=== PATIENT | female | born 1975 | race Caucasian/White ===

== ENCOUNTER 2017-01-30 09:12 | Inpatient (IN) | payer OTHER ==
[2017-01-30] MEDS ORDERED: SODIUM CHLORIDE 0.9% 1,000 ML IV STA ×2 (09:27→10:18)
[2017-01-30] MEDS ORDERED: HYDROmorphone 1 MG/ML 1 ML SYRINGE IVP STA ×2 (09:27→10:23)
--- NOTE | 2017-01-30 09:30 | ED ---
General Adult HPI - General Chief complaint: Abdominal Pain Stated complaint: ABDOMINAL PAIN Time Seen by Provider: 01/30/17 09:22 Source: patient, RN notes reviewed Mode of arrival: wheelchair Limitations: no limitations - History of Present Illness Initial comments: Patient's a 41-year-old female who presents emergency room today with chief complaint of increased abdominal pain that started last night. She does admit that she's had symptoms of nausea vomiting over the last 2 days. States last night around 10 PM began having some abdominal discomfort that radiated around to the right side and into her back. She scratches a sharp pain. States never had similar symptoms in the past. Rates it a 11/28. Denies anything that makes it better or worse. Denies any other complaints or symptoms. Patient denies any recent fever, chills, shortness of breath, chest pain, numbness or tingling , dysuria or hematuria, constipation or diarrhea, headaches or visual changes, or any other complaints. - Related Data Home Medications Medication Instructions Recorded Confirmed Gabapentin [Neurontin] 300 mg PO BID 03/09/16 01/30/17 clonazePAM [KlonoPIN] 0.5 mg PO DAILY PRN 01/30/17 01/30/17 Allergies Allergy/AdvReac Type Severity Reaction Status Date / Time codeine Allergy Mild Rash/Hives Verified 01/30/17 09:37 Review of Systems ROS Statement: Those systems with pertinent positive or pertinent negative responses have been documented in the HPI. ROS Other: All systems not noted in ROS Statement are negative. Past Medical History Past Medical History: Diabetes Mellitus Additional Past Medical History / Comment(s): non insulin dependent diabetic History of Any Multi-Drug Resistant Organisms: None Reported Past Surgical History: Section Past Anesthesia/Blood Transfusion Reactions: No Reported Reaction Past Psychological History: Anxiety Smoking Status: Current every day smoker Past Alcohol Use History: Abuse, Daily, Occasional Past Drug Use History: None Reported - Past Family History Father Family Medical History: No Reported History Mother Family Medical History: No Reported History General Exam - General Exam Comments Initial Comments: General: The patient is awake and alert, in mild distress. Unable to find comfortable position. Eye: Pupils are equal, round and reactive to light, extra-ocular movements are intact. No nystagmus. There is normal conjunctiva bilaterally. No signs of icterus. Ears, nose, mouth and throat: There are moist mucous membranes and no oral lesions. Neck: The neck is supple, there is no tenderness or JVD. Cardiovascular: There is a regular rate and rhythm. No murmur, rub or gallop is appreciated. Respiratory: Lungs are clear to auscultation, respirations are non-labored, breath sounds are equal. No wheezes, stridor, rales, or rhonchi. Gastrointestinal: Normal appearance abdomen. Normal bowel sounds. Abdomen soft on palpation. Patient does have tenderness on exam to the epigastric and right side of the abdomen. No rebound tenderness. No guarding. No CVA tenderness. Musculoskeletal: Normal ROM, no tenderness. Strength 5/5. Sensation intact. Pulses equal bilaterally 2+. Neurological: A&O x 3. CN II-XII intact, There are no obvious motor or sensory deficits. Coordination appears grossly intact. Speech is normal. Skin: Skin is warm and dry and no rashes or lesions are noted. Psychiatric: Cooperative, appropriate mood & affect, normal judgment. Limitations: no limitations Course Vital Signs 01/30/17 01/30/17 09:19 10:36 Temperature 98.3 F 98.1 F Pulse Rate 120 H 126 H Respiratory 18 18 Rate Blood Pressure 115/91 133/80 O2 Sat by Pulse 98 Oximetry Medical Decision Making - Medical Decision Making Patient's labs been reviewed and elevated lactic acid. Patient expressing pain right upper quadrant. Patient's x-ray was reviewed does show evidence for free air. Patient's CT was performed without contrast due to kidney function. Does show evidence for free air with cholecystitis. Case discussed with attending physician Dr. Leon who did discuss case with on-call surgeon Dr. Loco will admit the patient to the OR. - Lab Data Result diagrams: 01/30/17 09:35 01/30/17 09:35 Lab Results 01/30/17 01/30/17 01/30/17 Range/Units 09:35 09:35 09:35 WBC 8.8 (3.8-10.6) k/uL RBC 3.82 (3.80-5.40) m/uL Hgb 13.4 (11.4-16.0) gm/dL Hct 42.5 (34.0-46.0) % MCV 111.5 H (80.0-100.0) fL MCH 35.2 H (25.0-35.0) pg MCHC 31.6 (31.0-37.0) g/dL RDW 14.8 (11.5-15.5) % Plt Count 224 (150-450) k/uL Neutrophils % (Manual) 57 % Band Neutrophils % 32 % Lymphocytes % (Manual) 5 % Monocytes % (Manual) 5 % Basophils % (Manual) 1 % Metamyelocytes % 1 % Neutrophils # (Manual) 7.80 H (1.3-7.7) k/uL Lymphocytes # (Manual) 0.44 L (1.0-4.8) k/uL Monocytes # (Manual) 0.44 (0-1.0) k/uL Basophils # (Manual) 0.09 (0-0.2) k/uL Metamyelocytes # (Man) 0.09 H (0) k/uL Nucleated RBCs 0 (0-0) /100 WBC Manual Slide Review Performed Poikilocytosis (manual Present Macrocytosis Marked Sodium 131 L (137-145) mmol/L Potassium 4.0 (3.5-5.1) mmol/L Chloride 99 (98-107) mmol/L Carbon Dioxide 15 L (22-30) mmol/L Anion Gap 17 mmol/L BUN 22 H (7-17) mg/dL Creatinine 1.80 H (0.52-1.04) mg/dL Est GFR (MDRD) Af Amer 38 (>60 ml/min/1.73 sqM) Est GFR (MDRD) Non-Af 31 (>60 ml/min/1.73 sqM) Glucose 222 H (74-99) mg/dL Plasma Lactic Acid Antony 7.6 H* (0.7-2.0) mmol/L Calcium 8.7 (8.4-10.2) mg/dL Total Bilirubin 4.7 H (0.2-1.3) mg/dL AST 544 H (14-36) U/L ALT 269 H (9-52) U/L Alkaline Phosphatase 123 (38-126) U/L Total Protein 6.3 (6.3-8.2) g/dL Albumin 3.0 L (3.5-5.0) g/dL Amylase 35 (30-110) U/L Lipase 79 (23-300) U/L Urine Color Urine Appearance (Clear) Urine pH (5.0-8.0) Ur Specific [place] (1.001-1.035) Urine Protein (Negative) Urine Glucose (UA) (Negative) Urine Ketones (Negative) Urine Blood (Negative) Urine Nitrite (Negative) Urine Bilirubin (Negative) Urine Urobilinogen (<2.0) mg/dL Ur Leukocyte Esterase (Negative) Urine RBC (0-5) /hpf Urine WBC (0-5) /hpf Ur Squamous Epith Cells (0-4) /hpf Urine Bacteria (None) /hpf Urine Mucus (None) /hpf Urine HCG, Qual (Not Detectd) 01/30/17 01/30/17 Range/Units 09:48 09:48 WBC (3.8-10.6) k/uL RBC (3.80-5.40) m/uL Hgb (11.4-16.0) gm/dL Hct (34.0-46.0) % MCV (80.0-100.0) fL MCH (25.0-35.0) pg MCHC (31.0-37.0) g/dL RDW (11.5-15.5) % Plt Count (150-450) k/uL Neutrophils % (Manual) % Band Neutrophils % % Lymphocytes % (Manual) % Monocytes % (Manual) % Basophils % (Manual) % Metamyelocytes % % Neutrophils # (Manual) (1.3-7.7) k/uL Lymphocytes # (Manual) (1.0-4.8) k/uL Monocytes # (Manual) (0-1.0) k/uL Basophils # (Manual) (0-0.2) k/uL Metamyelocytes # (Man) (0) k/uL Nucleated RBCs (0-0) /100 WBC Manual Slide Review Poikilocytosis (manual Macrocytosis Sodium (137-145) mmol/L Potassium (3.5-5.1) mmol/L Chloride (98-107) mmol/L Carbon Dioxide (22-30) mmol/L Anion Gap mmol/L BUN (7-17) mg/dL Creatinine (0.52-1.04) mg/dL Est GFR (MDRD) Af Amer (>60 ml/min/1.73 sqM) Est GFR (MDRD) Non-Af (>60 ml/min/1.73 sqM) Glucose (74-99) mg/dL Plasma Lactic Acid Antony (0.7-2.0) mmol/L Calcium (8.4-10.2) mg/dL Total Bilirubin (0.2-1.3) mg/dL AST (14-36) U/L ALT (9-52) U/L Alkaline Phosphatase (38-126) U/L Total Protein (6.3-8.2) g/dL Albumin (3.5-5.0) g/dL Amylase (30-110) U/L Lipase (23-300) U/L Urine Color Dark Yellow Urine Appearance Turbid H (Clear) Urine pH 5.5 (5.0-8.0) Ur Specific [place] 1.021 (1.001-1.035) Urine Protein 1+ H (Negative) Urine Glucose (UA) 3+ H (Negative) Urine Ketones Trace H (Negative) Urine Blood Negative (Negative) Urine Nitrite Negative (Negative) Urine Bilirubin 1+ H (Negative) Urine Urobilinogen 3.0 (<2.0) mg/dL Ur Leukocyte Esterase Small H (Negative) Urine RBC 3 (0-5) /hpf Urine WBC 2 (0-5) /hpf Ur Squamous Epith Cells 8 H (0-4) /hpf Urine Bacteria Many H (None) /hpf Urine Mucus Rare H (None) /hpf Urine HCG, Qual Not Detected (Not Detectd) Disposition Clinical Impression: Acute cholecystitis Disposition: ADMITTED IP TO THIS [facility] Condition: Stable Referrals: Kathryn Vieira MD [Primary Care Provider] - 1-2 days Time of Disposition: 11:19
[2017-01-30] MEDS: ONDANSETRON 4 MG/2 ML VIAL IVP STA ×2 (09:43→14:19)
[2017-01-30 09:58] LABS: Appearance,Urine Turbid (Clear); Bacteria,Urine Many /hpf; Bilirubin,Urine 1+ (Negative); Glucose,Urine (UA) 3+ (Negative); Ketones,Urine Trace (Negative); Leukocyte Esterase,Urine Small (Negative); Mucus,Urine Rare /hpf; Nitrite,Urine Negative (Negative); PH, Urine 5.5 (5.0-8.0); Particle Count 35613; Protein,Urine 1+ (Negative); RBC,Urine 3 /hpf (0-5); Specific Gravity,Urine 1.021 (1.001-1.035); Squamous Epithelial Cell,Urine 8 /hpf (0-4); UA Billing (MACRO vs. MICRO) MICRO; WBC,Urine 2 /hpf (0-5)
[2017-01-30 10:00] LABS: Calcium 8.7 mg/dL (8.4-10.2); Total Bilirubin 4.7 mg/dL (0.2-1.3); Total Protein 6.3 g/dL (6.3-8.2)
[2017-01-30 10:01] LABS: CHCM 32.4; HCT 42.5 % (34.0-46.0); HDW 1.96; HGB 13.4 gm/dL (11.4-16.0); Immature Gran Flag Marked; MCH 35.2 pg (25.0-35.0); MCHC 31.6 g/dL (31.0-37.0); MCV 111.5 fL (80.0-100.0); Macrocytosis Marked; RBC 3.82 m/uL (3.80-5.40); RDW 14.8 % (11.5-15.5); WBC 8.8 k/uL (3.8-10.6); WBC (Perox) 8.48
--- NOTE | 2017-01-30 10:23 | XR ---
EXAMINATION TYPE: XR KUB , 2 VIEWS DATE OF EXAM ORDERED: 01/30/2017 HISTORY: pain. COMPARISON: None. FINDINGS: The lung bases are clear. Within the abdomen, the abdominal gas pattern is normal. There is no evidence of obstruction or free air. No unusual calcifications are seen. IMPRESSION: NO ACUTE INTRA-ABDOMINAL ABNORMALITY.
[2017-01-30 10:46] LABS: Add Differential Manual Differential
[2017-01-30] MEDS ORDERED: PIPERACILLIN-TAZOBACTAM 3.375 GM in DEXTROSE/WATER 1 50ML.BAG IVPB STA (10:48)
[2017-01-30 10:50] LABS: Band Neutrophils % 32 %; Manual Review Performed; Metamyelocytes % 1 %; Nucleated Red Blood Cells 0 /100 WBC (0-0); Total Cells Counted 200
--- NOTE | 2017-01-30 11:10 | CT ---
EXAMINATION TYPE: CT abdomen pelvis wo con DATE OF EXAM: 01/30/2017 COMPARISON: NONE HISTORY: Abd pain CT DLP: 657.5 mGycm Automated exposure control for dose reduction was used. FINDINGS: Visualized portions of the lungs are clear. There is no pleural or pericardial fluid. The h eart is not enlarged. Within the abdomen, there is massive hepatomegaly with the liver measuring 28 cm. There is fatty infi ltration of the liver. There is air within the biliary tree. The spleen is normal. The gallbladder is distended. There is free intraperitoneal air. Both adrenal glands are normal. Both kidneys appear morphologically normal. Limited views of the pancreas are normal. There is no significant retroperitoneal, iliac or inguinal adenopathy. The bladder is unremarkable. The uterus and ovaries appear normal. There is no significant diverticular change and there is no radiographic evidence of diverticulitis. The appendix is not visualized. Small bowel caliber is normal. There is a large amount of free fluid. There is stranding throughout the mesentery. There is mild hypertrophic spondylosis within the spine. No bony destructive lesion is seen. IMPRESSION: 1. FREE INTRAPERITONEAL AIR. 2. LARGE AMOUNT OF ASCITES. 3. MASSIVE HEPATOMEGALY AND FATTY INFILTRATION OF THE LIVER. 4. AIR IN THE BILIARY TREE. 5. DISTENTION OF THE GALLBLADDER. #6 DIFFUSE STRANDING THROUGHOUT THE MESENTERY. 7. MILD DEGENERATIVE CHANGE WITHIN THE SPINE.
[2017-01-30] MEDS ORDERED: SODIUM CHLORIDE 0.9% 1,000 ML IV ONE (11:20)
[2017-01-30] MEDS ORDERED: DEXAMETHASONE SOD PHOS (MDV) 100 MG/10 ML VIAL ONE (12:25)
[2017-01-30] MEDS ORDERED: IV FLUID CONTINUATION 1,000 ML IV ONE (12:25)
[2017-01-30] MEDS ORDERED: ONDANSETRON 4 MG/2 ML VIAL ONE (12:25)
[2017-01-30] MEDS ORDERED: GLYCOPYRROLATE 0.2 MG/ML 2 ML VIAL ONE (12:25)
[2017-01-30] MEDS ORDERED: ROCURONIUM BROMIDE 10 MG/ML 10 ML VIAL IV ONE (12:25)
[2017-01-30] MEDS ORDERED: PROPOFOL 10 MG/ML 20 ML VIAL IV ONE (12:25)
[2017-01-30] MEDS ORDERED: fentaNYL (PF) 50 MCG/ML 2 ML AMP ONE (12:25)
[2017-01-30] MEDS ORDERED: NEOSTIGMINE 1 MG/ML 10 ML VIAL ONE (12:25)
[2017-01-30] MEDS ORDERED: ceFAZolin 1,000 MG VIAL ONE (12:25)
[2017-01-30] MEDS ORDERED: LIDOCAINE 1% INJ 10MG/ML (20 ML MDV) ONE (12:25)
[2017-01-30] MEDS ORDERED: MIDAZOLAM 2 MG/2 ML VIAL ONE (12:25)
[2017-01-30] MEDS ORDERED: SUCCINYLCHOLINE CHLORIDE 100 MG/5 ML SYR IV ONE (12:25)
--- NOTE | 2017-01-30 12:26 | P.GSHP ---
History of Present Illness H&P Date: 01/30/17 Chief Complaint: Severe abdominal pain The patient is a 41-year-old white female who states she's developed some abdominal pain about 3 days ago that progressively worsened." There is severe last night and she presented to the emergency room. Had nausea and vomiting associated with it. No past history of similar problems. No history of gallbladder disease. She thinks several years ago she was told gallbladder may be inflamed but was not the ready to be removed. Peptic ulcer disease. She had a computed tomography scan of the abdomen and pelvis and abdominal films which show showed evidence of free intraperitoneal area. There is some mild distention and thickening of the gallbladder. Also some mild mesenteric inflammation. Amount of free fluid in the abdomen and evidence of masses or hepatosplenomegaly. She does drink a pint of the Vodka daily plus over 2 years now. Past history. Positive for diabetes mellitus. Anxiety. Depression. Medications as listed including Neurontin and the anxiety medication. History of prior . Back issues. Degenerative joint disease. ALLERGIES codeine. Social history. Positive for smoking between a half a pack of cigarettes a day for several years. Also vodka pint daily. Systems review as above. No chest pain. No shortness of breath. No blood in the stool. No urinary symptoms. No vaginal discharge or bleeding. On examination the patient is well-built well-nourished mildly dehydrated. In fair amount of pain. Doesn't feel comfortable. Temperature is normal. Vitals are normal. Heart rate 102 a minute. Head and neck otherwise normal. Slightly icteric. Heart regular rhythm no murmurs. Lungs are clear. Abdomen distended very tender to palpation mostly in the epigastrium and right upper quadrant area. Evidence of rebound tenderness guarding. No hernias. No mass or organomegaly noted. Extremities normal with full motion. [employer] intact. CT as above. WBC is normal. Bilirubin and liver enzymes are elevated. Suspect this may be secondary to ethanol abuse and cirrhosis particularly in view of evidence of hepatomegaly. Impression. Perforated viscus- Probably related to upper abdominal organs. Possibly gallbladder or perforated ulcer. . Hepatomegaly. Ethanol abuse. Tobacco abuse. Dehydration. Mild renal failure diabetes mellitus. Anxiety disorder. Recommendation. Exploratory laparotomy and the would depend on the findings. I explained this to the patient in the presence of her family including potential complication particular bleeding infection surrounding injury pain chronic issues for healing and high risk for complications in view of her tobacco and ethanol abuse used to mellitus. Possible ostomy. She understood and agree to proceed. Past Medical History Past Medical History: Diabetes Mellitus Additional Past Medical History / Comment(s): non insulin dependent diabetic History of Any Multi-Drug Resistant Organisms: None Reported Past Surgical History: Section Past Anesthesia/Blood Transfusion Reactions: No Reported Reaction Past Psychological History: Anxiety Smoking Status: Current every day smoker Past Alcohol Use History: Abuse, Daily, Occasional Past Drug Use History: None Reported - Past Family History Father Family Medical History: No Reported History Mother Family Medical History: No Reported History Medications and Allergies Home Medications Medication Instructions Recorded Confirmed Type Gabapentin [Neurontin] 300 mg PO BID 03/09/16 01/30/17 History clonazePAM [KlonoPIN] 0.5 mg PO DAILY PRN 01/30/17 01/30/17 History Allergies Allergy/AdvReac Type Severity Reaction Status Date / Time codeine Allergy Mild Rash/Hives Verified 01/30/17 09:37 Surgical - Exam Vital Signs Temp Pulse Resp BP Pulse Ox 98.3 F 120 H 18 115/91 98 01/30/17 09:19 01/30/17 09:19 01/30/17 09:19 01/30/17 09:19 01/30/17 09:19 Results - Labs 01/30/17 09:35 01/30/17 09:35 Abnormal Lab Results - Last 24 Hours (Table) 01/30/17 01/30/17 01/30/17 Range/Units 09:35 09:35 09:35 MCV 111.5 H (80.0-100.0) fL MCH 35.2 H (25.0-35.0) pg Neutrophils # (Manual) 7.80 H (1.3-7.7) k/uL Lymphocytes # (Manual) 0.44 L (1.0-4.8) k/uL Metamyelocytes # (Man) 0.09 H (0) k/uL Sodium 131 L (137-145) mmol/L Carbon Dioxide 15 L (22-30) mmol/L BUN 22 H (7-17) mg/dL Creatinine 1.80 H (0.52-1.04) mg/dL Glucose 222 H (74-99) mg/dL Plasma Lactic Acid Antony 7.6 H* (0.7-2.0) mmol/L Total Bilirubin 4.7 H (0.2-1.3) mg/dL AST 544 H (14-36) U/L ALT 269 H (9-52) U/L Albumin 3.0 L (3.5-5.0) g/dL Urine Appearance (Clear) Urine Protein (Negative) Urine Glucose (UA) (Negative) Urine Ketones (Negative) Urine Bilirubin (Negative) Ur Leukocyte Esterase (Negative) Ur Squamous Epith Cells (0-4) /hpf Urine Bacteria (None) /hpf Urine Mucus (None) /hpf 01/30/17 Range/Units 09:48 MCV (80.0-100.0) fL MCH (25.0-35.0) pg Neutrophils # (Manual) (1.3-7.7) k/uL Lymphocytes # (Manual) (1.0-4.8) k/uL Metamyelocytes # (Man) (0) k/uL Sodium (137-145) mmol/L Carbon Dioxide (22-30) mmol/L BUN (7-17) mg/dL Creatinine (0.52-1.04) mg/dL Glucose (74-99) mg/dL Plasma Lactic Acid Antony (0.7-2.0) mmol/L Total Bilirubin (0.2-1.3) mg/dL AST (14-36) U/L ALT (9-52) U/L Albumin (3.5-5.0) g/dL Urine Appearance Turbid H (Clear) Urine Protein 1+ H (Negative) Urine Glucose (UA) 3+ H (Negative) Urine Ketones Trace H (Negative) Urine Bilirubin 1+ H (Negative) Ur Leukocyte Esterase Small H (Negative) Ur Squamous Epith Cells 8 H (0-4) /hpf Urine Bacteria Many H (None) /hpf Urine Mucus Rare H (None) /hpf Diabetes panel 01/30/17 Range/Units 09:35 Sodium 131 L (137-145) mmol/L Potassium 4.0 (3.5-5.1) mmol/L Chloride 99 (98-107) mmol/L Carbon Dioxide 15 L (22-30) mmol/L BUN 22 H (7-17) mg/dL Creatinine 1.80 H (0.52-1.04) mg/dL Glucose 222 H (74-99) mg/dL Calcium 8.7 (8.4-10.2) mg/dL AST 544 H (14-36) U/L ALT 269 H (9-52) U/L Alkaline Phosphatase 123 (38-126) U/L Total Protein 6.3 (6.3-8.2) g/dL Albumin 3.0 L (3.5-5.0) g/dL Calcium panel 01/30/17 Range/Units 09:35 Calcium 8.7 (8.4-10.2) mg/dL Albumin 3.0 L (3.5-5.0) g/dL Pituitary panel 01/30/17 Range/Units 09:35 Sodium 131 L (137-145) mmol/L Potassium 4.0 (3.5-5.1) mmol/L Chloride 99 (98-107) mmol/L Carbon Dioxide 15 L (22-30) mmol/L BUN 22 H (7-17) mg/dL Creatinine 1.80 H (0.52-1.04) mg/dL Glucose 222 H (74-99) mg/dL Calcium 8.7 (8.4-10.2) mg/dL Adrenal panel 01/30/17 Range/Units 09:35 Sodium 131 L (137-145) mmol/L Potassium 4.0 (3.5-5.1) mmol/L Chloride 99 (98-107) mmol/L Carbon Dioxide 15 L (22-30) mmol/L BUN 22 H (7-17) mg/dL Creatinine 1.80 H (0.52-1.04) mg/dL Glucose 222 H (74-99) mg/dL Calcium 8.7 (8.4-10.2) mg/dL Total Bilirubin 4.7 H (0.2-1.3) mg/dL AST 544 H (14-36) U/L ALT 269 H (9-52) U/L Alkaline Phosphatase 123 (38-126) U/L Total Protein 6.3 (6.3-8.2) g/dL Albumin 3.0 L (3.5-5.0) g/dL
[2017-01-30] MEDS ORDERED: SODIUM CHLORIDE 0.9% 100 ML with ceFAZolin 2,000 MG IV ONE ×2 (12:40)
[2017-01-30] MEDS ORDERED: LACTATED RINGERS 1,000 ML IV ONE (13:45)
[2017-01-30] MEDS: HYDROmorphone 1 MG/ML 1 ML SYRINGE IVP ONE ×2 (13:55→14:19)
[2017-01-30] MEDS ORDERED: BENZOCAINE/MENTHOL LOZENG 1 EACH LOZENGE MUCOUS MEM PRN (14:05)
[2017-01-30] MEDS ORDERED: ONDANSETRON 4 MG/2 ML VIAL IVP PRN (14:05)
[2017-01-30] MEDS ORDERED: ACETAMINOPHEN SUPPOSITORY 650 MG SUPP RECTAL PRN (14:11)
[2017-01-30 14:25] LABS: Glucose,Whole Blood 172 mg/dL (75-99)
[2017-01-30] MEDS ORDERED: INSULIN ASPART 100 UNIT/ML 1 ML 10 ML VIAL SQ ONE (14:26)
[2017-01-30 14:58] LABS: Glucose,Whole Blood 157 mg/dL (75-99)
[2017-01-30] MEDS ORDERED: LORazepam 2 MG/ML INJ IV PRN ×2 (15:23)
[2017-01-30] MEDS ORDERED: NALOXONE 0.4 MG/ML 1 ML VIAL IV PRN (15:24)
[2017-01-30] MEDS: D5-0.45% NACL WITH KCL 20MEQ/L 1,000 ML IV SCH (15:33)
[2017-01-30] MEDS: SODIUM CHLORIDE 0.9% 1,000 ML IV ONE ×2 (15:34→15:54)
[2017-01-30 15:47] LABS: ABG Base Excess -9.3 mmol/L; ABG HCO3 17 mmol/L (21-25); ABG PCO2 47 mmHg (35-45); ABG PH 7.19 (7.35-7.45); ABG PO2 105 mmHg (83-108); ABG TCO2 19 mmol/L (19-24)
[2017-01-30] MEDS ORDERED: SODIUM BICARB 8.4% 50 ML SYR (1 MEQ/ML) IV STA (15:47)
[2017-01-30] MEDS: SODIUM CHLORIDE 0.9% 1,000 ML IV SCH ×2 (15:55→17:53)
[2017-01-30] MEDS: MEROPENEM 1 GM in SODIUM CHLORIDE 0.9% 100 ML IVPB SCH ×2 (16:06→23:27)
[2017-01-30] MEDS: DEXTROSE 5% IN WATER 1,000 ML with SODIUM BICARB (1 MEQ/ML) 150 ML IV SCH (16:06)
[2017-01-30] MEDS: MICAFUNGIN 100 MG in SODIUM CHLORIDE 0.9% 100 ML IVPB SCH (17:54)
[2017-01-30 17:58] LABS: Glucose,Whole Blood 166 mg/dL (75-99)
[2017-01-30] MEDS ORDERED: PIPERACILLIN-TAZOBACTAM 3.375 GM in DEXTROSE/WATER 1 50ML.BAG IVPB SCH (18:00)
[2017-01-30] MEDS ORDERED: INSULIN ASPART 100 UNIT/ML 1 ML 10 ML VIAL SQ SCH (18:00)
[2017-01-30] MEDS: INSULIN ASPART 100 UNIT/ML 1 ML 10 ML VIAL SQ SCH (18:00)
[2017-01-30] MEDS ORDERED: SODIUM CHLORIDE 0.9% 500 ML IV ONE (18:44)
[2017-01-30] MEDS: PANTOPRAZOLE 40 MG/10 ML VIAL IV SCH (20:11)
--- NOTE | 2017-01-30 20:12 | CONS ---
CONSULTATION REASON FOR CONSULTATION: Advice regarding diabetes mellitus and advice multiple medical issues requested by Dr. Virgen. HISTORY OF PRESENT ILLNESS: This 41-year-old woman with a past history of diabetes mellitus, history of anxiety, history of significant EtOH being followed by Dr. Vieira in the outpatient setting was complaining of abdominal pain. The pain was present for last 2 days which increased in intensity and last night the pain was unbearable. The patient came to [facility] and was admitted for further evaluation and treatment. While in the hospital, the patient had severe acidosis and renal failure. The patient also had an abdominal pelvis CAT scan which showed evidence of perforation with free air under the diaphragm. Dr. Loco performed exploratory laparotomy, and duodenal ulcer repair and chronic hepatic changes and cirrhosis of the liver suspected because of the history of EtOH. Currently postoperatively the patient is slightly drowsy. Transferred to ICU. The patient is currently on BiPAP. Dr. Eckert has been consulted. The patient is started on bicarb drip because of severe acidosis. Patient on broad-spectrum IV antibiotics as well. There is no history of any rigors or chills at this time. No headache, loss of consciousness or seizures. PAST MEDICAL HISTORY: History of diabetes, history EtOH, anxiety, history of nicotine dependence. MEDICATIONS: Prior to admission: 1. Klonopin 0.5 mg daily p.r.n. 2. Neurontin 300 mg p.o. b.i.d. ALLERGIES: CODEINE. FAMILY HISTORY: No history of heart disease or strokes in the family. REVIEW OF SYSTEMS: Could not be taken, the patient is slightly drowsy at this time. PHYSICAL EXAM: Patient pulse is 118. Blood pressure 118/70, respiratory 24, temperature 97.8, pulse ox 94% on 3.5 L. BiPAP settings are noted. HEENT: Conjunctivae normal. Oral mucosa moist. Neck is no jugular venous distention. No carotid bruit. No lymph node enlargement. Cardiovascular system: No S1, S2. No S3, no S4. Respiratory: Breath sounds diminished in the bases. A few scattered rhonchi and crackles. ABDOMEN: Soft. Status post exploratory laparotomy. Mild diffuse tenderness present, status post surgery. Bowel sounds absent. Legs no edema. No swelling. Nervous system: Higher functions as mentioned earlier. Moves all 4 limbs. No focal motor sensory deficits. Lymphatics: No lymph nodes palpable in the neck, axillae or groin. Skin: No ulcer, rash or bleeding. LABS: At this time show WBC 8.8 and a hemoglobin 13.9. MCV 11.5 and ABG 7.19, sodium 131 and creatinine is 1.80. Bilirubin is 4.7, AST is 544, ALT is 269. UA noted. ASSESSMENT: 1. Acute ulcer perforations with possible sepsis status post exploratory laparotomy and repair of ulcer. 2. Metabolic acidosis secondary to sepsis and acute renal failure secondary from sepsis. 3. Possible acute alcoholic hepatitis. 4. History of diabetes type 2. 5. History of nicotine dependence. 6. Anxiety. RECOMMENDATIONS AND DISCUSSION: This 41-year-old woman who presented with multiple complex medical issues. We will monitor the patient closely, continue the current medications, symptomatic treatment. I recommend continue with IV fluids, broad-spectrum IV antibiotics initiated and including meropenem and micafungin and we will obtain cultures. DVT prophylaxis. Proton pump inhibitors. Incentive spirometry. Continue the BiPAP at this time. Ensure oxygenation. I would also recommend to monitor blood sugars closely and the prognosis is guarded because of multiple complex medical issues. Further recommendations to follow. Thank you Dr. Loco for letting us participate in this patient's care. A copy of dictation is being forwarded to Dr. Vieira who is the primary physician. SHAKIRA / LONNIEN: [id number] /
[2017-01-30] MEDS: HEPARIN SODIUM,PORCINE 5,000 UNIT/ML 1 ML VIAL SQ SCH (20:19)
[2017-01-30] MEDS ORDERED: FAMOTIDINE 20 MG/2 ML VIAL IV SCH (21:00)
[2017-01-30] MEDS ORDERED: NOREPINEPHRIN 4 MG-0.9% NS PMX 4 MG/250 ML ML IV ONE (21:31)
[2017-01-30] MEDS: NOREPINEPHRIN 4 MG-0.9% NS PMX 4 MG/250 ML ML IV SCH (21:44)
[2017-01-31 00:07] LABS: Glucose,Whole Blood 239 mg/dL (75-99)
[2017-01-31] MEDS: HYDROmorphone 2 MG/ML 1 ML SYRINGE IV PRN ×7 (00:12→22:42)
[2017-01-31] MEDS: INSULIN ASPART 100 UNIT/ML 1 ML 10 ML VIAL SQ SCH ×5 (00:26→23:59)
[2017-01-31] MEDS: NOREPINEPHRIN 4 MG-0.9% NS PMX 4 MG/250 ML ML IV SCH ×4 (02:19→18:53)
[2017-01-31] MEDS: D5-0.45% NACL WITH KCL 20MEQ/L 1,000 ML IV SCH (04:56)
[2017-01-31 05:33] LABS: CH 33.7; CHCM 28.8; HCT 37.4 % (34.0-46.0); HDW 1.94; HGB 11.3 gm/dL (11.4-16.0); Hypochromasia Marked; Immature Gran Flag Marked; MCH 35.6 pg (25.0-35.0); MCHC 30.2 g/dL (31.0-37.0); Macrocytosis Marked; RBC 3.18 m/uL (3.80-5.40); RDW 15.9 % (11.5-15.5); WBC 9.1 k/uL (3.8-10.6); WBC (Perox) 9.73
[2017-01-31 05:47] LABS: MCV 117.6 fL (80.0-100.0)
[2017-01-31 05:52] LABS: Calcium 7.1 mg/dL (8.4-10.2); Total Bilirubin 5.1 mg/dL (0.2-1.3); Total Protein 5.5 g/dL (6.3-8.2)
[2017-01-31 06:00] LABS: Add Differential Manual Differential
[2017-01-31 06:02] LABS: Band Neutrophils % 18 %; Manual Review Performed; Metamyelocytes % 4 %; Nucleated Red Blood Cells 0 /100 WBC (0-0); Phosphorus 6.2 mg/dL (2.5-4.5); Potassium 5.2 mmol/L (3.5-5.1); Total Cells Counted 100
[2017-01-31 06:04] LABS: Magnesium 0.8 mg/dL (1.6-2.3)
[2017-01-31 06:24] LABS: Glucose,Whole Blood 282 mg/dL (75-99)
[2017-01-31] MEDS: MAGNESIUM SULFATE-D5W PMX 1 GM in DEXTROSE/WATER 1 100ML.BAG IVPB SCH ×4 (07:02→21:39)
--- NOTE | 2017-01-31 08:31 | P.OP ---
Date of Procedure: 01/30/17 Preoperative Diagnosis: Perforated viscus possible cholecystitis Postoperative Diagnosis: Perforated prepyloric ulcer. Cirrhosis of the liver Procedure(s) Performed: Exploratory laparotomy and repair of the perforated prepyloric ulcer with Devon patch Anesthesia: KELLEE Surgeon: [place] Loco Estimated Blood Loss (ml): 20 Pathology: other (Wedge liver biopsy) Condition: stable Disposition: PACU Indications for Procedure: The patient was admitted with the little more than 2 day history of abdominal pain that progressively worsened mostly in the epigastric right upper quadrant area. X-rays including a computed tomography scan showed free intraperitoneal air in the gallbladder with thickening of the gallbladder wall. It was also in the biliary tree. Exploratory laparotomy was recommended. She does have a history of ethanol abuse. Patch complication particular bleeding infection surrounding injury pain increased risk for complications in view of her history of ethanol tobacco abuse diabetes mellitus in poor general condition. She understood and agree to proceed. Operative Findings: Perforated the an anterior prepyloric ulcer about the 3-4 mm in diameter with the large amount of the intra-abdominal bilious fluid at least about 750 MLS. Distended gallbladder but no evidence of acute cholecystitis or infection. Description of Procedure: After induction of general endotracheal anesthesia Lee catheter and nasogastric tube were placed. The abdominal wall was prepped with Betadine and draped. Midline incision was made from the xiphoid process to just below the umbilicus. Immediately there was noted free air that the evacuated and a large amount of bilious type material over 700 that was suctioned out. There was noted the an anterior prepyloric ulcer about the 3-4 Brown diameter. The gallbladder was distended but not acutely inflamed. The retractor was placed. The ulcer was closed loosely with a few seromuscular 3-0 silk sutures and a Devon patch of omentum was then placed over it and secured in place with the sutures. The cavity were then thoroughly irrigated hemostasis was good and the field was dry. The liver was tremendously enlarged not nodular consistent with cirrhosis. A wedge biopsy was obtained to confirm the diagnosis with good hemostasis. A GISELLA drain was placed the wound in the subhepatic space. This was brought out through a stab wound on the right lateral aspect. Midline incision was then closed with running #1 double-stranded PDS for the fascia and this subcutaneous tissue thoroughly irrigated and the skin closed with tasha with the Betadine soaked Telfa wick drains in between the tasha. Dressings were applied. All counts were correct. Blood loss was minimal less than 20 bowels. The patient remained stable and was transferred to the recovery room in stable condition.
[2017-01-31] MEDS ORDERED: NICOTINE 14MG/24HR PATCH TRANSDERM SCH (09:00)
[2017-01-31] MEDS ORDERED: [UNRECOGNIZED DRUG - REMARK] IV SCH ×4 (09:00)
[2017-01-31] MEDS: PANTOPRAZOLE 40 MG/10 ML VIAL IV SCH ×2 (09:40→20:39)
[2017-01-31] MEDS: MEROPENEM 1 GM in SODIUM CHLORIDE 0.9% 100 ML IVPB SCH ×2 (09:40→15:40)
[2017-01-31] MEDS: HEPARIN SODIUM,PORCINE 5,000 UNIT/ML 1 ML VIAL SQ SCH ×2 (09:40→20:46)
[2017-01-31] MEDS: NICOTINE 14MG/24HR PATCH TRANSDERM SCH (09:40)
--- NOTE | 2017-01-31 10:04 | P.PN ---
Progress Note - Text Progress Note Date: 01/31/17 The patient is awake alert in no distress. NG tube is in place. Vitals are stable. Urine output is on the low side. Abdomen is soft with minimal tenderness. Drain is serosanguineous. Lab work was reviewed. BUN/creatinine is a little elevated. The PVCs coming down. Impression post op stable. Oliguria with possible early renal failure.. 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 Further recommendation. Continued close monitoring. The fluids. Over the large evaluation.
[2017-01-31 10:13] LABS: ABG PCO2 44 mmHg (35-45); ABG PH 7.25 (7.35-7.45); ABG PO2 97 mmHg (83-108)
[2017-01-31 10:14] LABS: ABG Base Excess -7.1 mmol/L; ABG HCO3 19 mmol/L (21-25); ABG TCO2 20 mmol/L (19-24)
--- NOTE | 2017-01-31 11:08 | P.CNPUL ---
History of Present Illness Consult date: 01/31/17 Reason for consult: other Chief complaint: Acute abd pain,status post expl. lap and repair of perf. prepyloric ulcer History of present illness: Gabriella is a 41-year-old white female patient who presented to the emergency department on 01/30/2017 at around 9:00 in the morning with complaints of acute abdominal pain that started the night before. She was also having nausea and vomiting for the 2 days prior to coming in. The abdominal discomfort was sharp in nature and radiating around to the right side of her torso and into her back. She denied any recent fever, chills, shortness of breath, chest pain, dysuria, or any other complaints. CT of the abdomen and pelvis showed free intraperitoneal air, large amount of ascites, massive hepatomegaly and fatty infiltration of the liver. There was air present in the biliary tree, and distention of the gallbladder noted on the CT of the abdomen. Patient has a past medical history of diabetes, anxiety, depression, chronic back pain, degenerative joint disease, nicotine dependence, and chronic alcoholism. She had been to a rehab for her alcohol addiction, however she recently relapsed and is now drinking up to a pint of whiskey a day. He had under went exploratory laparotomy and repair of the perforated prepyloric ulcer with Devon patch by Dr. Loco on 01/30/2017. A wedge biopsy of the liver was also obtained. She was extubated in the recovery room. Currently she seen in the intensive care, awake alert, in no acute distress. She is currently on 3 L per nasal cannula with O2 sat at 94-96%. She's had no fevers since admission, with T-max of 99.3 at 8:30 on 01/31/2017. Lung sounds are clear to auscultation, no rhonchi, no wheezes. She is compliant with her incentive spirometer, she is able to achieve about 1000 today. Her pain is reasonably controlled with IV Dilaudid. She remains nothing by mouth, NG tube to low intermittent suction with 300 mL of light green liquid output. GISELLA drain on the right side of her abdomen is draining moderate amount of serosanguineous drainage. She has received a total of 6 L of fluid boluses, is requiring vasopressor support, norepinephrine is infusing at 18 mics per minute, her maintenance fluids are D5 half-normal saline with 20 of KCl at 75 mL/hr, D5 with 150 MEQ of sodium bicarb infusing at 50 ml/hr. mid abdominal incision is clean dry and intact covered with surgical dressing, with small shadowing of small postop bleeding, has not increased in size. Bowel sounds are absent. Patient has not had any signs of delirium tremens, her last drink was on 01/29/2017. Review of Systems All systems: negative Constitutional: Denies chills, Denies fever Eyes: denies blurred vision, denies pain Ears, nose, mouth and throat: Denies headache, Denies sore throat Cardiovascular: Denies chest pain, Denies shortness of breath Respiratory: Denies cough Gastrointestinal: Denies abdominal pain, Denies diarrhea, Denies nausea, Denies vomiting Genitourinary: Denies dysuria, Denies hematuria Musculoskeletal: Denies myalgias Integumentary: Denies pruritus, Denies rash Neurological: Denies numbness, Denies weakness Psychiatric: Denies anxiety, Denies depression Endocrine: Denies fatigue, Denies weight change Past Medical History Past Medical History: Diabetes Mellitus Additional Past Medical History / Comment(s): non insulin dependent diabetic History of Any Multi-Drug Resistant Organisms: None Reported Past Surgical History: Section Past Anesthesia/Blood Transfusion Reactions: No Reported Reaction Past Psychological History: Anxiety Smoking Status: Current every day smoker Past Alcohol Use History: Abuse, Daily, Occasional Past Drug Use History: None Reported - Past Family History Father Family Medical History: No Reported History Mother Family Medical History: No Reported History Medications and Allergies Home Medications Medication Instructions Recorded Confirmed Type Gabapentin [Neurontin] 300 mg PO BID 03/09/16 01/30/17 History clonazePAM [KlonoPIN] 0.5 mg PO DAILY PRN 01/30/17 01/30/17 History Allergies Allergy/AdvReac Type Severity Reaction Status Date / Time codeine Allergy Mild Rash/Hives Verified 01/30/17 09:37 Physical Exam Vitals: Vital Signs Temp Pulse Pulse Resp BP BP Pulse Ox 01/31/17 10:00 101 H 16 100/56 88 L 01/31/17 09:30 116 H 24 103/51 94 L 01/31/17 09:00 98 20 98/56 96 01/31/17 08:30 99.3 F 102 H 30 H 101/52 95 01/31/17 08:00 109 H 30 H 107/75 95 01/31/17 07:30 108 H 32 H 93/56 91 L 01/31/17 07:00 101 H 32 H 99/55 96 01/31/17 06:30 99 19 104/62 96 01/31/17 06:00 101 H 18 99/59 88 L 01/31/17 05:30 103 H 23 102/54 95 01/31/17 05:00 99 15 91/54 95 01/31/17 04:30 98.7 F 108 H 31 H 87/57 95 01/31/17 04:00 100 14 85/49 95 01/31/17 03:30 102 H 28 H 96/56 95 01/31/17 03:00 105 H 22 83/54 96 01/31/17 02:30 102 H 11 L 100/61 96 01/31/17 02:00 103 H 12 104/58 95 01/31/17 01:30 105 H 10 L 98/59 94 L 01/31/17 01:00 108 H 12 93/57 96 01/31/17 00:30 105 H 12 91/57 97 01/31/17 00:00 98.3 F 104 H 8 L 94/55 98 01/30/17 23:30 106 H 12 84/55 98 01/30/17 23:00 108 H 13 95/52 99 01/30/17 22:30 115 H 20 01/30/17 22:00 106 H 8 L 84/56 99 01/30/17 21:30 112 H 8 L 73/55 98 01/30/17 21:00 112 H 6 L 87/54 98 01/30/17 20:30 114 H 12 90/62 97 01/30/17 20:26 115 H 16 90/62 97 01/30/17 20:15 115 H 22 90/62 98 01/30/17 20:00 98.0 F 117 H 15 81/55 99 01/30/17 19:45 114 H 17 81/55 98 01/30/17 19:30 114 H 25 H 83/52 96 01/30/17 19:15 115 H 17 83/52 97 01/30/17 19:00 116 H 11 L 99 01/30/17 18:45 117 H 11 L 86/54 99 01/30/17 18:30 116 H 10 L 98 01/30/17 18:15 116 H 11 L 90/57 98 01/30/17 18:00 120 H 16 93/61 97 01/30/17 17:45 123 H 22 97 01/30/17 17:30 115 H 11 L 96/60 99 01/30/17 17:15 116 H 12 92/60 97 01/30/17 17:00 116 H 14 102/67 97 01/30/17 16:45 120 H 16 104/66 98 01/30/17 16:30 119 H 24 118/73 94 L 01/30/17 16:17 98 01/30/17 16:15 126 H 26 H 126/80 98 01/30/17 16:00 97.9 F 124 H 22 93/65 97 01/30/17 15:45 122 H 28 H 121/65 97 01/30/17 15:30 123 H 33 H 108/69 94 L 01/30/17 15:15 133 H 19 119/71 94 L 01/30/17 15:10 130 H 14 132/75 96 01/30/17 15:00 97.9 F 133 H 14 132/75 95 01/30/17 14:30 132 H 16 129/73 96 01/30/17 14:15 133 H 20 147/63 93 L 01/30/17 13:51 99.0 F 130 H 16 136/76 96 01/30/17 11:48 97.9 F 126 H 36 H 121/65 98 01/30/17 10:36 98.1 F 126 H 18 133/80 Intake and Output 01/30/17 01/31/17 01/31/17 22:59 06:59 14:59 Intake Total 4915.188 1443.812 952.25 Output Total 240 255 402 Balance 4675.188 1188.812 550.25 Intake: IV 4875 1000 700 D5-0.45% NaCl with KCl 525 600 300 20Meq/l 1,000 ml @ 75 mls /hr IV .[id number] [facility] Rx#: [id number] Dextrose 5% in Water 1, 350 400 200 000 ml @ 50 mls/hr IV . Q23H [facility] with Sodium Bicarb (1 Meq/ml) 150 ml Rx#:[id number] Magnesium Sulfate-D5w Pmx 100 1 gm In Dextrose/Water 1 100ml.bag @ 100 mls/hr IVPB Q1H [facility] Rx#: [id number] Meropenem 1 gm In Sodium 100 Chloride 0.9% 100 ml @ 200 mls/hr IVPB Q8HR [facility] Rx#:[id number] Sodium Chloride 0.9% 1, 1000 000 ml @ 999 mls/hr IV . Q1H1M [facility] Rx#:[id number] Sodium Chloride 0.9% 1, 1000 000 ml @ 999 mls/hr IV . Q1H1M [facility] Rx#:[id number] Sodium Chloride 0.9% 1, 1000 000 ml @ 999 mls/hr IV . Q1H1M [facility] Rx#:[id number] Sodium Chloride 0.9% 500 1000 ml @ 999 mls/hr IV .Q31M [facility] Rx#:[id number] Intake, IV Titration 40.188 443.812 252.25 Amount Norepinephrin 4 mg-0.9% 40.188 443.812 252.25 Ns Pmx 4 mg In 250 ml @ Titrate IV .Q0M [facility] Rx#: [id number] Output: Gastric Drainage 300 Drainage 125 175 60 Anterior Abdomen 125 175 60 Urine 115 80 42 Other: Voiding Method Indwelling Catheter Indwelling Catheter Indwelling Catheter Weight 90 kg GENERAL EXAM: Alert, active, comfortable in no apparent distress. HEAD: Normocephalic/atraumatic. EYES: Normal reaction of pupils, equal size. Conjunctiva pink, sclera white. NOSE: Clear with pink turbinates. NG tube is present connected to low intermittent suction. THROAT: No erythema or exudates. NECK: No masses, no JVD, no thyroid enlargement, no adenopathy. CHEST: No chest wall deformity. Symmetrical expansion. LUNGS: Equal air entry with no crackles, wheeze, rhonchi or dullness. CVS: Regular rate and rhythm, normal S1 and S2, no gallops, no murmurs, no rubs ABDOMEN: Soft, tender. Hepatosplenomegaly present, absent bowel sounds, mid abdominal incision is clean dry and intact covered with surgical dressing. Right upper quadrant GISELLA drain with moderate amount of serosanguineous drainage. EXTREMITIES: No clubbing, no edema, no cyanosis, 2+ pulses and upper and lower extremities. MUSCULOSKELETAL: Muscle strength and tone normal. SPINE: No scoliosis or deformity SKIN: No rashes CENTRAL NERVOUS SYSTEM: Alert and oriented -3. No focal deficits, tone is normal in all 4 extremities. PSYCHIATRIC: Alert and oriented -3. Appropriate affect. Intact judgment and insight. No signs of DTs present at the moment Results - Laboratory Findings CBC and BMP: 01/31/17 04:55 01/31/17 04:55 ABG ABG pH 7.25 (7.35-7.45) L 01/31/17 09:11 ABG pCO2 44 mmHg (35-45) 01/31/17 09:11 ABG pO2 97 mmHg (83-108) 01/31/17 09:11 ABG O2 Saturation 96.0 % (94-97) 01/31/17 09:11 Abnormal lab findings: Abnormal Labs 01/30/17 01/30/17 01/30/17 09:35 09:35 09:35 RBC Hgb MCV 111.5 H MCH 35.2 H MCHC RDW Neutrophils # (Manual) 7.80 H Lymphocytes # (Manual) 0.44 L Metamyelocytes # (Man) 0.09 H ABG pH ABG pCO2 ABG HCO3 Sodium 131 L Potassium Carbon Dioxide 15 L BUN 22 H Creatinine 1.80 H Glucose 222 H POC Glucose (mg/dL) Plasma Lactic Acid Antony 7.6 H* Calcium Phosphorus Magnesium Total Bilirubin 4.7 H AST 544 H ALT 269 H Total Protein Albumin 3.0 L Urine Appearance Urine Protein Urine Glucose (UA) Urine Ketones Urine Bilirubin Ur Leukocyte Esterase Ur Squamous Epith Cells Urine Bacteria Urine Mucus 01/30/17 01/30/17 01/30/17 09:48 14:13 14:15 RBC Hgb MCV MCH MCHC RDW Neutrophils # (Manual) Lymphocytes # (Manual) Metamyelocytes # (Man) ABG pH ABG pCO2 ABG HCO3 Sodium Potassium Carbon Dioxide BUN Creatinine Glucose POC Glucose (mg/dL) 172 H Plasma Lactic Acid Antony 6.0 H* Calcium Phosphorus Magnesium Total Bilirubin AST ALT Total Protein Albumin Urine Appearance Turbid H Urine Protein 1+ H Urine Glucose (UA) 3+ H Urine Ketones Trace H Urine Bilirubin 1+ H Ur Leukocyte Esterase Small H Ur Squamous Epith Cells 8 H Urine Bacteria Many H Urine Mucus Rare H 01/30/17 01/30/17 01/30/17 14:56 15:32 17:56 RBC Hgb MCV MCH MCHC RDW Neutrophils # (Manual) Lymphocytes # (Manual) Metamyelocytes # (Man) ABG pH 7.19 L* ABG pCO2 47 H ABG HCO3 17 L Sodium Potassium Carbon Dioxide BUN Creatinine Glucose POC Glucose (mg/dL) 157 H 166 H Plasma Lactic Acid Antony Calcium Phosphorus Magnesium Total Bilirubin AST ALT Total Protein Albumin Urine Appearance Urine Protein Urine Glucose (UA) Urine Ketones Urine Bilirubin Ur Leukocyte Esterase Ur Squamous Epith Cells Urine Bacteria Urine Mucus 01/30/17 01/31/17 01/31/17 18:11 00:04 04:55 RBC 3.18 L Hgb 11.3 L MCV 117.6 H D MCH 35.6 H MCHC 30.2 L RDW 15.9 H Neutrophils # (Manual) 7.90 H Lymphocytes # (Manual) 0.18 L Metamyelocytes # (Man) 0.36 H ABG pH ABG pCO2 ABG HCO3 Sodium Potassium Carbon Dioxide BUN Creatinine Glucose POC Glucose (mg/dL) 239 H Plasma Lactic Acid Antony 3.7 H* Calcium Phosphorus Magnesium Total Bilirubin AST ALT Total Protein Albumin Urine Appearance Urine Protein Urine Glucose (UA) Urine Ketones Urine Bilirubin Ur Leukocyte Esterase Ur Squamous Epith Cells Urine Bacteria Urine Mucus 01/31/17 01/31/17 01/31/17 04:55 06:17 09:11 RBC Hgb MCV MCH MCHC RDW Neutrophils # (Manual) Lymphocytes # (Manual) Metamyelocytes # (Man) ABG pH 7.25 L ABG pCO2 ABG HCO3 19 L Sodium 134 L Potassium 5.2 H Carbon Dioxide 17 L BUN 25 H Creatinine 2.70 H Glucose 276 H POC Glucose (mg/dL) 282 H Plasma Lactic Acid Antony Calcium 7.1 L Phosphorus 6.2 H Magnesium 0.8 L* Total Bilirubin 5.1 H AST 314 H ALT 172 H Total Protein 5.5 L Albumin 2.5 L Urine Appearance Urine Protein Urine Glucose (UA) Urine Ketones Urine Bilirubin Ur Leukocyte Esterase Ur Squamous Epith Cells Urine Bacteria Urine Mucus - Diagnostic Findings Chest x-ray: pending Assessment and Plan Plan: Assessment: #1. Perforated prepyloric ulcer, status post exploratory laparotomy with repair of the prepyloric ulcer and wedge biopsy of the liver. Postop day #1 #2. Septic shock and lactic acidosis, likely secondary to sepsis from perforated prepyloric ulcer. Patient is adequately fluid resuscitated with a total of 6 L of crystalloids, currently on vasopressor support in the form of norepinephrine and 18 mics per minute. Initial lactic acid on 01/30/2017 was 7.6, with subsequent improvement to 3.7 on 01/30/2017. #3. Hepatomegaly, without nodularity, consistent with cirrhosis, likely alcoholic. Wedge biopsy taken from the liver on 01/30/2017 during the exposure laparotomy #4. Acute kidney injury, likely secondary to hypoperfusion, hypotension due to sepsis #5. Metabolic acidosis, likely due to septic shock and acute kidney injury #6. Chronic alcoholism, drinks a pint of whiskey a day. Last drink on 2016. No signs of DTs at present. Maintain on CIWA protocol #7. Nicotine dependence, chronic and ongoing. #8. Diabetes mellitus, not on any maintenance treatments. Diet-controlled #9. Anxiety #10. Depression Plan: Repeat blood gas was obtained and reviewed by Dr. Sheehan, it shows an improvement in the degree of metabolic acidosis, pO2 is 97, PCO2 44, pH is 7.25. Continue to wean levofed, obtain random serum cortisol. Consult nephrology for acute kidney injury. Patient remains with low urine output. Continue the bicarb drip, may stop the D5 half with 20 of KCl. Patient remains nothing by mouth with NG tube to low intermittent suction and absent bowel sounds. Maintain glucose control, continue GI and DVT prophylaxis per protocol. Continue with empiric antibiotic coverage in the form of Zosyn and meropenem. Monitor for signs of delirium tremens, maintain CIWA protocol. Encourage incentive spirometer use. Further recommendations to follow. I performed a history & physical examination of the patient and discussed their management with my nurse practitioner, Shahla Osorio. I reviewed the nurse practitioner's note and agree with the documented findings and plan of care. Lung sounds are clear. Consult nephrology for acute kidney injury, continue pulmonary toileting, pain control, monitor for DTs. Obtain serum cortisol. The findings and the impression was discussed with the patient. I attest to the documentation by the nurse practitioner. Time with Patient: Greater than 30
[2017-01-31 11:34] LABS: Magnesium 1.5 mg/dL (1.6-2.3)
[2017-01-31] MEDS ORDERED: FUROSEMIDE 10 MG/ML 4 ML VIAL IV STA (11:55)
[2017-01-31 11:59] LABS: Glucose,Whole Blood 358 mg/dL (75-99)
[2017-01-31] MEDS: THIAMINE 100 MG/ML 2 ML VIAL IVP SCH (12:26)
[2017-01-31] MEDS: [UNRECOGNIZED DRUG - REMARK] IV SCH ×6 (15:05→23:56)
[2017-01-31] MEDS: DEXTROSE 5% IN WATER 1,000 ML with SODIUM BICARB (1 MEQ/ML) 150 ML IV SCH (15:05)
--- NOTE | 2017-01-31 15:34 | PN ---
PROGRESS NOTE DATE OF SERVICE: 01/31/2017 INTERVAL HISTORY: This 41-year-old woman who was being followed in the outpatient setting with Dr. Vieira was admitted with perforated viscus and the patient underwent exploratory laparotomy with repair of the perforated pre-pyloric ulcer with Devon patch by Dr. Loco. The patient is being closely monitored. The patient is on BiPAP yesterday. Currently breathing appears to be much improved. Patient on broad-spectrum IV antibiotics. The patient monitored in ICU. PAST MEDICAL: Reviewed. REVIEW OF SYSTEMS: CARDIOVASCULAR: No angina or palpitations. RESPIRATORY: As mentioned earlier. GI: As mentioned earlier. no dysuria. Nervous System as mentioned earlier. CURRENT MEDICATIONS ARE: 1. Tylenol 650 q.6 p.r.n. 2. Cepacol q.6h p.r.n. 3. Sodium bicarb 150 mL daily. 4. Heparin 5000 subcu b.i.d. 5. Dilaudid 2 mg IV q.3h p.r.n. 6. NovoLog. 7. Ativan 1 mg p.r.n. 8. Meropenem 1 g IV q.8h. 9. Micafungin. 10.Narcan. 11.Habitrol 14 daily. 12.Levophed. 13.Zofran. 14.Protonix. 15.Vitamin B1 100 mg p.o. daily. PHYSICAL EXAM: Patient is alert and oriented times three. Pulse is 108. Blood pressure 101/57, respiration 20, temp is normal. Pulse ox 93% on 3 L. HEENT is conjunctivae normal. Oral mucosa is moist. Neck is no jugular venous distention. No carotid bruit. No lymph node enlargement. Cardiovascular system S1, S2. No S3, no S4. RESPIRATORY: Breath sounds diminished in the bases. A few scattered rhonchi and crackles. ABDOMEN: Soft, status post surgery. Legs no edema. No swelling. NERVOUS SYSTEM: Higher functions as mentioned earlier. Moves all four limbs. No focal deficits. Lymphatics: No lymph nodes palpable in the neck, axillae or groin. Skin no ulcer, rash or bleeding. LABS: WBC 9.2, hemoglobin 11.3, MCV 117.6, sodium 134, potassium 5.2. Creatinine is 2.70. Total bilirubin is 5.1, AST is 314, ALT is 172. ASSESSMENT: 1. Acute pre-pyloric ulcer perforation with possible sepsis status post exploratory laparotomy and repair of ulcer with Devon patch. 2. Metabolic acidosis secondary to sepsis, acute renal failure secondary to sepsis. 3. Possible acute alcoholic hepatitis. 4. Diabetes type 2. 5. History of nicotine dependence. 6. Anxiety. 7. Hypomagnesemia. RECOMMENDATIONS AND DISCUSSION: In this 41-year-old woman who presented with multiple complex medical issues, we will monitor the patient closely, continue the current medications, management and symptomatic treatment. Otherwise at this time I recommend repeat labs. Supplement magnesium. Monitor blood sugars closely. Continue to monitor further recommendations. MMODL / IJN: [id number] /
[2017-01-31] MEDS: MICAFUNGIN 100 MG in SODIUM CHLORIDE 0.9% 100 ML IVPB SCH (15:40)
[2017-01-31 18:26] LABS: Glucose,Whole Blood 154 mg/dL (75-99)
[2017-01-31 23:58] LABS: Glucose,Whole Blood 150 mg/dL (75-99)
[2017-02-01] MEDS: MEROPENEM 1 GM in SODIUM CHLORIDE 0.9% 100 ML IVPB SCH ×3 (00:09→22:54)
[2017-02-01] MEDS: HYDROmorphone 2 MG/ML 1 ML SYRINGE IV PRN ×4 (04:20→15:59)
[2017-02-01 04:59] LABS: CH 33.6; CHCM 28.9; HCT 35.3 % (34.0-46.0); HDW 1.84; HGB 10.5 gm/dL (11.4-16.0); Hypochromasia Marked; Immature Gran Flag Marked; MCH 34.8 pg (25.0-35.0); MCHC 29.7 g/dL (31.0-37.0); MCV 116.9 fL (80.0-100.0); Macrocytosis Marked; Mean Platelet Volume 9.3; RBC 3.02 m/uL (3.80-5.40); RDW 15.8 % (11.5-15.5); WBC 6.4 k/uL (3.8-10.6); WBC (Perox) 6.24
[2017-02-01 05:17] LABS: Calcium 6.7 mg/dL (8.4-10.2); Magnesium 2.3 mg/dL (1.6-2.3); Phosphorus 6.1 mg/dL (2.5-4.5); Potassium 4.5 mmol/L (3.5-5.1)
[2017-02-01 05:32] LABS: Add Differential Manual Differential
[2017-02-01 05:36] LABS: Band Neutrophils % 10 %; Manual Review Performed; Nucleated Red Blood Cells 0 /100 WBC (0-0); Total Cells Counted 200
[2017-02-01 05:37] LABS: Polychromasia Present
[2017-02-01] MEDS: INSULIN ASPART 100 UNIT/ML 1 ML 10 ML VIAL SQ SCH ×3 (06:01→18:19)
[2017-02-01 06:02] LABS: Glucose,Whole Blood 123 mg/dL (75-99)
--- NOTE | 2017-02-01 07:16 | CONS ---
CONSULTATION REASON FOR CONSULT: Renal failure. HISTORY OF PRESENT ILLNESS: Patient is a 41-year-old female who was admitted to the hospital on 01/30/2017 with complaints of abdominal pain. The patient did have nausea and vomiting prior to admission. She was taken to the OR early this morning and had a perforated pre-pyloric ulcer. She had explorative laparotomy and repair of the pre-pyloric ulcer. Serum creatinine was 1.8 mg/dL initially, it is now 2.7. The patient's urine output was marginal. Her blood pressure is still slightly on the lower side. She remains on small dose of Levophed. The patient is currently awake. She is not in any acute distress. PAST MEDICAL HISTORY: history of EtOH abuse, neuropathy. MEDICATIONS: Prior to admission, Klonopin, Neurontin. REVIEW OF SYSTEMS: Cannot be obtained. EXAMINATION: Currently patient is awake. She does not appear to be in acute distress. She is weak. Blood pressure is about 91/63, heart rate 101 per minute. Examination of the heart S1, S2. Examination lungs bilateral breath sounds are heard. No crackles or wheezing is heard. Abdomen is soft, tender. Examination of the lower extremities shows no significant edema. LABS SHOW: Sodium 134, potassium 5.2, chloride 17, BUN 25, serum creatinine 2.7. Mag was 0.8 mg/dL, currently being replaced. ASSESSMENT: 1. Acute kidney injury secondary to sepsis, hypotension currently oliguric acute tubular necrosis. We will give 1 dose of Lasix to help improve urine output. Continued IV fluids. Continue pressors as needed. 2. Status post perforated ulcer, peptic ulcer status post exploratory lap and repair. 3. Hypotension secondary to above. Maintained on Levophed. 4. Metabolic acidosis secondary to renal failure, hypotension and hypoperfusion. 5. Hypomagnesemia status post replacement. PLAN: Repeat labs in a.m. Lasix x1. Continue IV fluids and avoid any other nephrotoxic agents. Thank you for this consultation. We will continue to follow the patient with you during her hospitalization. MMODL / IJN: [id number] /
--- NOTE | 2017-02-01 08:54 | P.PN ---
Subjective Progress Note Date: 02/01/17 Principal diagnosis: Perforated prepyloric ulcer, status post exploratory laparotomy and repair of perforated ulcer, postop day 2 Gabriella is a 41-year-old white female patient who presented to the emergency department on 01/30/2017 at around 9:00 in the morning with complaints of acute abdominal pain that started the night before. She was also having nausea and vomiting for the 2 days prior to coming in. The abdominal discomfort was sharp in nature and radiating around to the right side of her torso and into her back. She denied any recent fever, chills, shortness of breath, chest pain, dysuria, or any other complaints. CT of the abdomen and pelvis showed free intraperitoneal air, large amount of ascites, massive hepatomegaly and fatty infiltration of the liver. There was air present in the biliary tree, and distention of the gallbladder noted on the CT of the abdomen. Patient has a past medical history of diabetes, anxiety, depression, chronic back pain, degenerative joint disease, nicotine dependence, and chronic alcoholism. She had been to a rehab for her alcohol addiction, however she recently relapsed and is now drinking up to a pint of whiskey a day. He had under went exploratory laparotomy and repair of the perforated prepyloric ulcer with Devon patch by Dr. Loco on 01/30/2017. A wedge biopsy of the liver was also obtained. She was extubated in the recovery room. Currently she seen in the intensive care, awake alert, in no acute distress. She is currently on 3 L per nasal cannula with O2 sat at 94-96%. She's had no fevers since admission, with T-max of 99.3 at 8:30 on 01/31/2017. Lung sounds are clear to auscultation, no rhonchi, no wheezes. She is compliant with her incentive spirometer, she is able to achieve about 1000 today. Her pain is reasonably controlled with IV Dilaudid. She remains nothing by mouth, NG tube to low intermittent suction with 300 mL of light green liquid output. GISELLA drain on the right side of her abdomen is draining moderate amount of serosanguineous drainage. She has received a total of 6 L of fluid boluses, is requiring vasopressor support, norepinephrine is infusing at 18 mics per minute, her maintenance fluids are D5 half-normal saline with 20 of KCl at 75 mL/hr, D5 with 150 MEQ of sodium bicarb infusing at 50 ml/hr. mid abdominal incision is clean dry and intact covered with surgical dressing, with small shadowing of small postop bleeding, has not increased in size. Bowel sounds are absent. Patient has not had any signs of delirium tremens, her last drink was on 01/29/2017. 02/01/2017 patient seen in follow-up in intensive care. She is awake, alert, denies any acute distress. Her only complaint is his not being able to eat or drink. Pain is reasonably controlled, she is compliant with incentive spirometer, she can achieve 1200 mL on a today. Lung sounds are clear to auscultation, no rhonchi, no wheezes auscultated. NG tube remains to low intermittent suction, patient tolerating ice chips. She has been weaned off the levothyroid since 2:00 this morning. She remains hemodynamically stable, however urine output remains less than 30. We will go ahead and give another liter of IV 0.45 normal saline, and switch her IV fluids to 0.45 at 100 mL per hour. She remains on 3 L per nasal cannula with O2 sat from 90-94%. She has had no fever since admission. Metabolic herbology results have been reviewed and show no growth since admission. Mid abdominal incision is clean dry and intact and well approximated. GISELLA drain in the right upper quadrant is with small amount of serous sinus drainage. Patient continues on empiric antibiotic coverage in the form of meropenem and micafungin. No signs of delirium tremens noted, continue to monitor. From a critical care standpoint patient is stable for transfer to regular medical surgical floor today without telemetry. Objective - Vital Signs Vital signs: Vital Signs Temp 97.8 F 02/01/17 04:00 Pulse 86 02/01/17 07:00 Resp 12 02/01/17 07:00 BP 100/66 02/01/17 07:00 Pulse Ox 95 02/01/17 07:00 Intake & Output 01/31/17 02/01/17 02/01/17 18:59 06:59 18:59 Intake Total 2036.000 1690.188 Output Total 772 965 Balance 1264.000 725.188 Weight 91.9 kg Intake: IV 1150 1240 D5-0.45% NaCl with KCl 450 20Meq/l 1,000 ml @ 75 mls /hr IV .[id number] [facility] Rx#: [id number] Dextrose 5% in Water 1, 300 000 ml @ 50 mls/hr IV . Q23H [facility] with Sodium Bicarb (1 Meq/ml) 150 ml Rx#:[id number] Magnesium Sulfate-D5w Pmx 100 200 1 gm In Dextrose/Water 1 100ml.bag @ 100 mls/hr IVPB Q1H [facility] Rx#: [id number] Meropenem 1 gm In Sodium 200 Chloride 0.9% 100 ml @ 200 mls/hr IVPB Q8HR [facility] Rx#:[id number] Normal Saline 840 Sodium Chloride 0.9% 1, 100 200 000 ml @ 100 mls/hr IV . Q10H [facility] Rx#:[id number] Intake, IV Titration 646.000 80.188 Amount Meropenem 1 gm In Sodium 100 Chloride 0.9% 100 ml @ 200 mls/hr IVPB Q8HR [facility] Rx#:[id number] Norepinephrin 4 mg-0.9% 500.000 80.188 Ns Pmx 4 mg In 250 ml @ Titrate IV .Q0M [facility] Rx#: [id number] Norepinephrin 4 mg-0.9% 46 Ns Pmx 4 mg In 250 ml As IV .STK-MED ONE Rx#: [id number] Oral 240 370 Output: Gastric Drainage 550 650 Drainage 90 35 Anterior Abdomen 90 35 Urine 132 280 Other: Voiding Method Indwelling Catheter Indwelling Catheter - Exam GENERAL EXAM: Alert, active, comfortable in no apparent distress. HEAD: Normocephalic/atraumatic. EYES: Normal reaction of pupils, equal size. Conjunctiva pink, sclera white. NOSE: Clear with pink turbinates. NG tube is present connected to low intermittent suction. THROAT: No erythema or exudates. NECK: No masses, no JVD, no thyroid enlargement, no adenopathy. CHEST: No chest wall deformity. Symmetrical expansion. LUNGS: Equal air entry with no crackles, wheeze, rhonchi or dullness. CVS: Regular rate and rhythm, normal S1 and S2, no gallops, no murmurs, no rubs ABDOMEN: Soft, tender. Hepatosplenomegaly present, absent bowel sounds, mid abdominal incision is clean dry and intact covered with surgical dressing. Right upper quadrant GISELLA drain with moderate amount of serosanguineous drainage. EXTREMITIES: No clubbing, no edema, no cyanosis, 2+ pulses and upper and lower extremities. MUSCULOSKELETAL: Muscle strength and tone normal. SPINE: No scoliosis or deformity SKIN: No rashes CENTRAL NERVOUS SYSTEM: Alert and oriented -3. No focal deficits, tone is normal in all 4 extremities. PSYCHIATRIC: Alert and oriented -3. Appropriate affect. Intact judgment and insight. No signs of DTs present at the moment - Labs CBC & Chem 7: 02/01/17 04:47 02/01/17 04:43 Labs: Abnormal Lab Results - Last 24 Hours (Table) 01/31/17 01/31/17 01/31/17 Range/Units 04:55 09:11 11:05 RBC (3.80-5.40) m/uL Hgb (11.4-16.0) gm/dL MCV (80.0-100.0) fL MCHC (31.0-37.0) g/dL RDW (11.5-15.5) % Plt Count (150-450) k/uL Lymphocytes # (Manual) (1.0-4.8) k/uL ABG pH 7.25 L (7.35-7.45) ABG HCO3 19 L (21-25) mmol/L Chloride (98-107) mmol/L Carbon Dioxide (22-30) mmol/L BUN (7-17) mg/dL Creatinine (0.52-1.04) mg/dL Glucose (74-99) mg/dL POC Glucose (mg/dL) (75-99) mg/dL Hemoglobin A1c 6.7 H (4.0-6.0) % Calcium (8.4-10.2) mg/dL Phosphorus (2.5-4.5) mg/dL Magnesium 1.5 L (1.6-2.3) mg/dL 01/31/17 01/31/17 01/31/17 Range/Units 11:57 18:23 23:54 RBC (3.80-5.40) m/uL Hgb (11.4-16.0) gm/dL MCV (80.0-100.0) fL MCHC (31.0-37.0) g/dL RDW (11.5-15.5) % Plt Count (150-450) k/uL Lymphocytes # (Manual) (1.0-4.8) k/uL ABG pH (7.35-7.45) ABG HCO3 (21-25) mmol/L Chloride (98-107) mmol/L Carbon Dioxide (22-30) mmol/L BUN (7-17) mg/dL Creatinine (0.52-1.04) mg/dL Glucose (74-99) mg/dL POC Glucose (mg/dL) 358 H 154 H 150 H (75-99) mg/dL Hemoglobin A1c (4.0-6.0) % Calcium (8.4-10.2) mg/dL Phosphorus (2.5-4.5) mg/dL Magnesium (1.6-2.3) mg/dL 02/01/17 02/01/17 02/01/17 Range/Units 04:43 04:47 05:59 RBC 3.02 L (3.80-5.40) m/uL Hgb 10.5 L (11.4-16.0) gm/dL MCV 116.9 H (80.0-100.0) fL MCHC 29.7 L (31.0-37.0) g/dL RDW 15.8 H (11.5-15.5) % Plt Count 119 L (150-450) k/uL Lymphocytes # (Manual) 0.64 L (1.0-4.8) k/uL ABG pH (7.35-7.45) ABG HCO3 (21-25) mmol/L Chloride 109 H (98-107) mmol/L Carbon Dioxide 17 L (22-30) mmol/L BUN 37 H (7-17) mg/dL Creatinine 2.70 H (0.52-1.04) mg/dL Glucose 135 H (74-99) mg/dL POC Glucose (mg/dL) 123 H (75-99) mg/dL Hemoglobin A1c (4.0-6.0) % Calcium 6.7 L (8.4-10.2) mg/dL Phosphorus 6.1 H (2.5-4.5) mg/dL Magnesium (1.6-2.3) mg/dL Microbiology - Last 24 Hours (Table) 01/30/17 18:11 Blood Culture - Preliminary Blood No Growth after 24 hours 01/30/17 14:15 Blood Culture - Preliminary Blood No Growth after 24 hours 01/30/17 13:40 Gram Stain - Preliminary Peritoneal Fluid Wound Culture - Preliminary Assessment and Plan Plan: Assessment: #1. Perforated prepyloric ulcer, status post exploratory laparotomy with repair of the prepyloric ulcer and wedge biopsy of the liver. Postop day #2 #2. Septic shock and lactic acidosis, likely secondary to sepsis from perforated prepyloric ulcer. Patient is adequately fluid resuscitated with a total of 6 L of crystalloids, currently on vasopressor support in the form of norepinephrine and 18 mics per minute. Initial lactic acid on 01/30/2017 was 7.6, with subsequent improvement to 1.0 on 02/01/2017. #3. Hepatomegaly, without nodularity, consistent with cirrhosis, likely alcoholic. Wedge biopsy taken from the liver on 01/30/2017 during the exposure laparotomy #4. Acute kidney injury, likely secondary to hypoperfusion, hypotension due to sepsis #5. Metabolic acidosis, likely due to septic shock and acute kidney injury #6. Chronic alcoholism, drinks a pint of whiskey a day. Last drink on 2016. No signs of DTs at present. Maintain on CIWA protocol #7. Nicotine dependence, chronic and ongoing. #8. Diabetes mellitus, not on any maintenance treatments. Diet-controlled #9. Anxiety #10. Depression Plan: Patient is doing well, Levothroid has been on hold since 2:00 this morning. Hemodynamically stable, however continues with low urine output less than 30 an hour. Remains nothing by mouth, absent bowel sounds, NG tube to low intermittent suction. We will go ahead and give a liter of 0.45, change her IV fluids 2.45 normal saline at 100 mL per hour. Creatinine is stable at 2.7 today. Nephrology note noted and appreciated. Maintain glucose control, continue GI and DVT prophylaxis per protocol. Continue with empiric antibiotic coverage in the form of Zosyn and meropenem. Monitor for signs of delirium tremens, maintain CIWA protocol. Encourage incentive spirometer use. Patient is stable for transfer out of ICU today to regular medical surgical floor without telemetry. Further recommendations to follow. I performed a history & physical examination of the patient and discussed their management with my nurse practitioner, Shahla Osoroi. I reviewed the nurse practitioner's note and agree with the documented findings and plan of care. Lung sounds are clear. Continue pulmonary toileting, pain control, monitor for DTs. Doing well, stable for transfer to [facility]. The findings and the impression was discussed with the patient. I attest to the documentation by the nurse practitioner. Critical care time greater than 30 minutes. Time with Patient: Greater than 30
[2017-02-01] MEDS ORDERED: SODIUM CHLORIDE 0.45% 1,000 ML IV ONE (09:00)
[2017-02-01] MEDS ORDERED: SODIUM CHLORIDE 0.45% 1,000 ML IV SCH (09:00)
[2017-02-01] MEDS: PANTOPRAZOLE 40 MG/10 ML VIAL IV SCH ×2 (09:04→21:22)
[2017-02-01] MEDS: HEPARIN SODIUM,PORCINE 5,000 UNIT/ML 1 ML VIAL SQ SCH ×2 (09:04→21:22)
[2017-02-01] MEDS: NICOTINE 14MG/24HR PATCH TRANSDERM SCH (09:05)
[2017-02-01] MEDS: LORazepam 2 MG/ML INJ IV PRN ×3 (09:31→21:17)
[2017-02-01] MEDS: THIAMINE 100 MG/ML 2 ML VIAL IVP SCH (13:06)
[2017-02-01] MEDS: SODIUM CHLORIDE 0.45% 1,000 ML IV SCH ×2 (13:09→21:22)
[2017-02-01 13:16] LABS: Glucose,Whole Blood 179 mg/dL (75-99)
--- NOTE | 2017-02-01 13:16 | P.PN ---
Progress Note - Text Progress Note Date: 02/01/17 The patient is fairly stable. She is awake alert. Hungry. Urine output is improving.BUN and creatinine Coming down. On examination she is afebrile. Vitals are stable. Abdomen now soft with usual postoperative tenderness. AP drain is serosanguineous. WBCs normal. Impression slow improvement. Improving. No evidence of leak from her perforated ulcer. Recommendation. Continued supportive care. Continue NG tube at least another to 3 days. May have ice chips. Encouraged ambulation. May be transferred to a regular floor from a surgical standpoint.
[2017-02-01] MEDS: [UNRECOGNIZED DRUG - REMARK] IV SCH ×3 (14:08)
--- NOTE | 2017-02-01 17:00 | P.PN ---
Subjective Patient has a perforated peptic ulcer and patient underwent surgical repair and a patch for the peptic ulcer disease. Patient is on IV antibiotics patient NG tube still draining patient still in renal failure as we're unable to keep up with the output from the NG tube patient will be changed to 1 25 mL of half- normal saline patient does have noniron gap metabolic acidosis from hyperchloremia. Meropenem will be continued on micafungin will be discontinued. Patient has poor renal function. Constitutional: Denied any fatigue denied any fever. Cardio vascular: denied any chest pain, palpitations Gastrointestinal as mentioned in HPI Pulmonary: Denied any shortness of breath cough Neurologic denied any new focal deficits Objective - Vital Signs Vital signs: Vital Signs Temp 97.5 F L 02/01/17 16:00 Pulse 97 02/01/17 16:00 Resp 15 02/01/17 16:00 BP 113/77 02/01/17 16:00 Pulse Ox 96 02/01/17 16:00 Intake & Output 01/31/17 02/01/17 02/01/17 18:59 06:59 18:59 Intake Total 2036.000 8781.667 0113 Output Total 772 965 200 Balance 1264.000 434.375 7752 Weight 91.9 kg 91.9 kg Intake: IV 1150 1240 D5-0.45% NaCl with KCl 450 20Meq/l 1,000 ml @ 75 mls /hr IV .[id number] [facility] Rx#: [id number] Dextrose 5% in Water 1, 300 000 ml @ 50 mls/hr IV . Q23H [facility] with Sodium Bicarb (1 Meq/ml) 150 ml Rx#:[id number] Magnesium Sulfate-D5w Pmx 100 200 1 gm In Dextrose/Water 1 100ml.bag @ 100 mls/hr IVPB Q1H [facility] Rx#: [id number] Meropenem 1 gm In Sodium 200 Chloride 0.9% 100 ml @ 200 mls/hr IVPB Q8HR [facility] Rx#:[id number] Normal Saline 840 Sodium Chloride 0.9% 1, 100 200 000 ml @ 100 mls/hr IV . Q10H [facility] Rx#:[id number] Intake, IV Titration 646.000 80.188 1425 Amount Lactated Ringers 1,000 ml 175 As IV .STK-MED [facility] Rx#: [id number] Meropenem 1 gm In Sodium 100 Chloride 0.9% 100 ml @ 200 mls/hr IVPB Q8HR [facility] Rx#:[id number] Norepinephrin 4 mg-0.9% 500.000 80.188 Ns Pmx 4 mg In 250 ml @ Titrate IV .Q0M [facility] Rx#: [id number] Norepinephrin 4 mg-0.9% 46 Ns Pmx 4 mg In 250 ml As IV .STK-MED [facility] Rx#: [id number] Sodium Chloride 0.45% 1, 250 000 ml @ 125 mls/hr IV . Q8H [facility] Rx#:[id number] Sodium Chloride 0.45% 1, 1000 000 ml @ 999 mls/hr IV . Q1H1M [facility] Rx#:[id number] Oral 240 370 Output: Gastric Drainage 550 650 Drainage 90 35 Anterior Abdomen 90 35 Urine 132 280 200 Other: Voiding Method Indwelling Catheter Indwelling Catheter Indwelling Catheter - Exam PHYSICAL EXAMINATION: GENERAL: The patient is alert and oriented x3, not in any acute distress. Well developed, well nourished. HEENT: Pupils are round and equally reacting to light. EOMI. No scleral icterus. No conjunctival pallor. Normocephalic, atraumatic. No pharyngeal erythema. No thyromegaly. CARDIOVASCULAR: S1 and S2 present. No murmurs, rubs, or gallops. PULMONARY: Chest is clear to auscultation, no wheezing or crackles. ABDOMEN: Abdomen is soft, no significant tenderness surgical site areas appear to be clean patient has an NG tube in place which is still draining MUSCULOSKELETAL: No joint swelling or deformity. EXTREMITIES: No cyanosis, clubbing, or pedal edema. NEUROLOGICAL: Gross neurological examination did not reveal any focal deficits. SKIN: No rashes. - Labs CBC & Chem 7: 02/01/17 04:47 02/01/17 04:43 Labs: Abnormal Lab Results - Last 24 Hours (Table) 01/31/17 01/31/17 02/01/17 Range/Units 18:23 23:54 04:43 RBC (3.80-5.40) m/uL Hgb (11.4-16.0) gm/dL MCV (80.0-100.0) fL MCHC (31.0-37.0) g/dL RDW (11.5-15.5) % Plt Count (150-450) k/uL Lymphocytes # (Manual) (1.0-4.8) k/uL Chloride 109 H (98-107) mmol/L Carbon Dioxide 17 L (22-30) mmol/L BUN 37 H (7-17) mg/dL Creatinine 2.70 H (0.52-1.04) mg/dL Glucose 135 H (74-99) mg/dL POC Glucose (mg/dL) 154 H 150 H (75-99) mg/dL Calcium 6.7 L (8.4-10.2) mg/dL Phosphorus 6.1 H (2.5-4.5) mg/dL 02/01/17 02/01/17 02/01/17 Range/Units 04:47 05:59 13:13 RBC 3.02 L (3.80-5.40) m/uL Hgb 10.5 L (11.4-16.0) gm/dL MCV 116.9 H (80.0-100.0) fL MCHC 29.7 L (31.0-37.0) g/dL RDW 15.8 H (11.5-15.5) % Plt Count 119 L (150-450) k/uL Lymphocytes # (Manual) 0.64 L (1.0-4.8) k/uL Chloride (98-107) mmol/L Carbon Dioxide (22-30) mmol/L BUN (7-17) mg/dL Creatinine (0.52-1.04) mg/dL Glucose (74-99) mg/dL POC Glucose (mg/dL) 123 H 179 H (75-99) mg/dL Calcium (8.4-10.2) mg/dL Phosphorus (2.5-4.5) mg/dL Microbiology - Last 24 Hours (Table) 01/30/17 13:40 Anaerobic Culture - Preliminary Peritoneal Fluid 01/31/17 21:44 Urine Culture - Preliminary Urine,Catheterized 01/30/17 13:40 Gram Stain - Final Peritoneal Fluid Wound Culture - Final 01/30/17 18:11 Blood Culture - Preliminary Blood No Growth after 24 hours 01/30/17 14:15 Blood Culture - Preliminary Blood No Growth after 24 hours Assessment and Plan Plan: #1. Perforated prepyloric ulcer, status post exploratory laparotomy with repair of the prepyloric ulcer and wedge biopsy of the liver. #2. Septic shock and lactic acidosis, likely secondary to sepsis from perforated prepyloric ulcer and peritonitis and patient is off pressor support. Patient can be transferred out of ICU #3. Hepatomegaly, without nodularity, consistent with cirrhosis, likely alcoholic. #4. Acute kidney injury, likely secondary to hypoperfusion, hypotension due to sepsis, continue with IV fluids as mentioned above #5. Metabolic acidosis, secondary to hyperchloremia #6. Chronic alcoholism, drinks a pint of whiskey a day. Last drink on 2016. No signs of DTs at present. Maintain on CIWA protocol #7. Nicotine dependence, chronic and ongoing. #8. Diabetes mellitus, not on any maintenance treatments. Diet-controlled #9. Anxiety #10. Depression Continue with NG tube drainage
[2017-02-01 18:10] LABS: Glucose,Whole Blood 107 mg/dL (75-99)
--- NOTE | 2017-02-01 20:26 | PN ---
PROGRESS NOTE Patient is seen for followup for acute kidney injury secondary to hypotension and sepsis. Urine output has been marginal, but now at about 25-30 mL an hour. Patient is maintained on IV fluids. She is being transferred out of the ICU. EXAMINATION: Blood pressure is 113/77, heart rate 97 per minute. Patient is afebrile. Examination of the heart S1, S2. Examination of the lungs bilateral breath sounds are heard. ABDOMEN: Soft with GISELLA drains. Examination of lower extremity shows no evidence of edema. The patient has just received Xanax. She is sleepy but arousable. LAB: Show sodium 138, potassium 4.5, BUN 37, serum creatinine 2.7. Phosphorus 6.1, hemoglobin 10.5 g/dL. ASSESSMENT: 1. Acute kidney injury, acute tubular necrosis, currently nonoliguric. Urine output staying marginal. Continue with the IV fluids. 2. Metabolic acidosis, currently improved. 3. Status post perforated ulcer. An exploratory lap and repair of the ulcer. 4. Hypomagnesemia status post replacement. PLAN: Repeat labs in a.m. continue to avoid nephrotoxic agents. MMODL / IJN: [id number] /
[2017-02-02] MEDS ORDERED: HYDROmorphone 2 MG/ML 1 ML SYRINGE ONE (02:00)
[2017-02-02] MEDS ORDERED: LORazepam 2 MG/ML INJ ONE (02:00)
[2017-02-02] MEDS: INSULIN ASPART 100 UNIT/ML 1 ML 10 ML VIAL SQ SCH ×4 (03:15→17:24)
[2017-02-02] MEDS: [UNRECOGNIZED DRUG - REMARK] IV SCH ×6 (03:27→17:23)
[2017-02-02 04:06] LABS: Glucose,Whole Blood 109 mg/dL (75-99)
[2017-02-02] MEDS: SODIUM CHLORIDE 0.45% 1,000 ML IV SCH ×2 (06:14→13:24)
[2017-02-02 06:19] LABS: Glucose,Whole Blood 97 mg/dL (75-99)
--- NOTE | 2017-02-02 07:49 | P.PN ---
Progress Note - Text Progress Note Date: 02/02/17 The patient is afebrile. Anxious to get her NG tube out. Is a having more serosanguineous drainage through her GISELLA drain which looks like ascites. This may be secondary to her cirrhosis the urine output is improving about 25-30 amalgams an hour. Abdomen is otherwise fairly soft and benign. Labs are pending. Also Path report from the liver biopsies pending. We'll obtain the upper GI tomorrow and if for no evidence of leak we'll DC the NG tube.
[2017-02-02 08:25] LABS: Calcium 6.7 mg/dL (8.4-10.2); Magnesium 1.8 mg/dL (1.6-2.3); Phosphorus 3.5 mg/dL (2.5-4.5); Potassium 3.8 mmol/L (3.5-5.1)
[2017-02-02] MEDS: THIAMINE 100 MG/ML 2 ML VIAL IVP SCH (08:42)
[2017-02-02] MEDS: PANTOPRAZOLE 40 MG/10 ML VIAL IV SCH ×2 (08:42→20:05)
[2017-02-02] MEDS: NICOTINE 14MG/24HR PATCH TRANSDERM SCH (08:42)
[2017-02-02] MEDS: HEPARIN SODIUM,PORCINE 5,000 UNIT/ML 1 ML VIAL SQ SCH ×2 (08:43→17:22)
[2017-02-02] MEDS: LORazepam 2 MG/ML INJ IV PRN ×3 (08:43→22:08)
[2017-02-02] MEDS: HYDROmorphone 2 MG/ML 1 ML SYRINGE IV PRN ×3 (10:24→20:05)
[2017-02-02 11:29] LABS: Basophils % (A) 0 %; CH 35.1; Eosinophils % (A) 1 %; HCT 34.8 % (34.0-46.0); HDW 1.78; HGB 10.5 gm/dL (11.4-16.0); Hypochromasia Slight; Immature Gran Flag Slight; Luc # (Auto) 0.05; Luc % (Auto) 1; Lymphocytes # (A) 0.6 k/uL (1.0-4.8); Lymphocytes % (A) 11 %; MCH 35.3 pg (25.0-35.0); MCV 117.3 fL (80.0-100.0); Macrocytosis Marked; Mean Platelet Volume 9.7; Monocytes # (A) 0.3 k/uL (0-1.0); Monocytes % (A) 5 %; Neutrophils # (A) 4.5 k/uL (1.3-7.7); Neutrophils % (A) 82 %; RBC 2.97 m/uL (3.80-5.40); WBC 5.5 k/uL (3.8-10.6); WBC (Perox) 5.68
[2017-02-02 12:15] LABS: Manual Review Performed
[2017-02-02 12:24] LABS: Glucose,Whole Blood 114 mg/dL (75-99)
--- NOTE | 2017-02-02 12:28 | P.PN ---
Subjective Progress Note Date: 02/02/17 Principal diagnosis: Perforated prepyloric ulcer, status post exploratory laparotomy and repair of perforated ulcer, postop day 2 Gabriella is a 41-year-old white female patient who presented to the emergency department on 01/30/2017 at around 9:00 in the morning with complaints of acute abdominal pain that started the night before. She was also having nausea and vomiting for the 2 days prior to coming in. The abdominal discomfort was sharp in nature and radiating around to the right side of her torso and into her back. She denied any recent fever, chills, shortness of breath, chest pain, dysuria, or any other complaints. CT of the abdomen and pelvis showed free intraperitoneal air, large amount of ascites, massive hepatomegaly and fatty infiltration of the liver. There was air present in the biliary tree, and distention of the gallbladder noted on the CT of the abdomen. Patient has a past medical history of diabetes, anxiety, depression, chronic back pain, degenerative joint disease, nicotine dependence, and chronic alcoholism. She had been to a rehab for her alcohol addiction, however she recently relapsed and is now drinking up to a pint of whiskey a day. He had under went exploratory laparotomy and repair of the perforated prepyloric ulcer with Devon patch by Dr. Loco on 01/30/2017. A wedge biopsy of the liver was also obtained. She was extubated in the recovery room. Currently she seen in the intensive care, awake alert, in no acute distress. She is currently on 3 L per nasal cannula with O2 sat at 94-96%. She's had no fevers since admission, with T-max of 99.3 at 8:30 on 01/31/2017. Lung sounds are clear to auscultation, no rhonchi, no wheezes. She is compliant with her incentive spirometer, she is able to achieve about 1000 today. Her pain is reasonably controlled with IV Dilaudid. She remains nothing by mouth, NG tube to low intermittent suction with 300 mL of light green liquid output. GISELLA drain on the right side of her abdomen is draining moderate amount of serosanguineous drainage. She has received a total of 6 L of fluid boluses, is requiring vasopressor support, norepinephrine is infusing at 18 mics per minute, her maintenance fluids are D5 half-normal saline with 20 of KCl at 75 mL/hr, D5 with 150 MEQ of sodium bicarb infusing at 50 ml/hr. mid abdominal incision is clean dry and intact covered with surgical dressing, with small shadowing of small postop bleeding, has not increased in size. Bowel sounds are absent. Patient has not had any signs of delirium tremens, her last drink was on 01/29/2017. 02/01/2017 patient seen in follow-up in intensive care. She is awake, alert, denies any acute distress. Her only complaint is his not being able to eat or drink. Pain is reasonably controlled, she is compliant with incentive spirometer, she can achieve 1200 mL on a today. Lung sounds are clear to auscultation, no rhonchi, no wheezes auscultated. NG tube remains to low intermittent suction, patient tolerating ice chips. She has been weaned off the levothyroid since 2:00 this morning. She remains hemodynamically stable, however urine output remains less than 30. We will go ahead and give another liter of IV 0.45 normal saline, and switch her IV fluids to 0.45 at 100 mL per hour. She remains on 3 L per nasal cannula with O2 sat from 90-94%. She has had no fever since admission. Metabolic herbology results have been reviewed and show no growth since admission. Mid abdominal incision is clean dry and intact and well approximated. GISELLA drain in the right upper quadrant is with small amount of serous sinus drainage. Patient continues on empiric antibiotic coverage in the form of meropenem and micafungin. No signs of delirium tremens noted, continue to monitor. From a critical care standpoint patient is stable for transfer to regular medical surgical floor today without telemetry. On 02/02/2017 patient seen in follow-up on medical surgical floor. She is awake , alert, denies any acute distress. Her lung sounds are positive for a few scattered rhonchi, she is on 3 L per nasal cannula with O2 sat at 91-96%. She has not been doing her incentive spirometer, as a matter fact I had to get it out of her belongings bag and put on her table and reminder to use it. She's been getting up to the bedside commode, and that has been the extent of her activity. She remains nothing by mouth, NG tube is still in place to low intermittent suction. Mid abdominal incision is clean dry and intact. Surgery is planning on obtaining upper GI series tomorrow and if there is no evidence of leak the NG tube will be discontinued. Objective - Vital Signs Vital signs: Vital Signs Temp 98.1 F 02/02/17 07:00 Pulse 117 H 02/02/17 07:00 Resp 22 02/02/17 07:00 BP 131/86 02/02/17 07:00 Pulse Ox 91 L 02/02/17 07:00 Intake & Output 02/01/17 02/02/17 02/02/17 18:59 06:59 18:59 Intake Total 1425 Output Total 200 440 210 Balance 1225 -440 -210 Weight 91.9 kg Intake: Intake, IV Titration 1425 Amount Lactated Ringers 1,000 ml 175 As IV .[facility]K-[facility] ONE Rx#: [id number] Sodium Chloride 0.45% 1, 250 000 ml @ 125 mls/hr IV . Q8H [facility] Rx#:[id number] Sodium Chloride 0.45% 1, 1000 000 ml @ 999 mls/hr IV . Q1H1M ONE Rx#:[id number] Output: Gastric Drainage 270 Drainage 80 210 Anterior Abdomen 80 210 Urine 200 90 Other: Voiding Method Indwelling Catheter # Voids 0 - Exam GENERAL EXAM: Alert, active, comfortable in no apparent distress. HEAD: Normocephalic/atraumatic. EYES: Normal reaction of pupils, equal size. Conjunctiva pink, sclera white. NOSE: Clear with pink turbinates. NG tube is present connected to low intermittent suction. THROAT: No erythema or exudates. NECK: No masses, no JVD, no thyroid enlargement, no adenopathy. CHEST: No chest wall deformity. Symmetrical expansion. LUNGS: Equal air entry with no crackles, wheeze, rhonchi or dullness. CVS: Regular rate and rhythm, normal S1 and S2, no gallops, no murmurs, no rubs ABDOMEN: Soft, tender. Hepatosplenomegaly present, absent bowel sounds, mid abdominal incision is clean dry and intact covered with surgical dressing. Right upper quadrant GISELLA drain with moderate amount of serosanguineous drainage. EXTREMITIES: No clubbing, no edema, no cyanosis, 2+ pulses and upper and lower extremities. MUSCULOSKELETAL: Muscle strength and tone normal. SPINE: No scoliosis or deformity SKIN: No rashes CENTRAL NERVOUS SYSTEM: Alert and oriented -3. No focal deficits, tone is normal in all 4 extremities. PSYCHIATRIC: Alert and oriented -3. Appropriate affect. Intact judgment and insight. No signs of DTs present at the moment - Labs CBC & Chem 7: 02/02/17 07:35 02/02/17 07:35 Labs: Abnormal Lab Results - Last 24 Hours (Table) 02/01/17 02/01/17 02/02/17 Range/Units 13:13 18:07 00:07 RBC (3.80-5.40) m/uL Hgb (11.4-16.0) gm/dL MCV (80.0-100.0) fL MCH (25.0-35.0) pg MCHC (31.0-37.0) g/dL Plt Count (150-450) k/uL Lymphocytes # (1.0-4.8) k/uL Sodium (137-145) mmol/L Chloride (98-107) mmol/L Carbon Dioxide (22-30) mmol/L BUN (7-17) mg/dL Creatinine (0.52-1.04) mg/dL Glucose (74-99) mg/dL POC Glucose (mg/dL) 179 H 107 H 109 H (75-99) mg/dL Calcium (8.4-10.2) mg/dL 02/02/17 02/02/17 Range/Units 07:35 07:35 RBC 2.97 L (3.80-5.40) m/uL Hgb 10.5 L (11.4-16.0) gm/dL MCV 117.3 H (80.0-100.0) fL MCH 35.3 H (25.0-35.0) pg MCHC 30.0 L (31.0-37.0) g/dL Plt Count 95 L (150-450) k/uL Lymphocytes # 0.6 L (1.0-4.8) k/uL Sodium 136 L (137-145) mmol/L Chloride 108 H (98-107) mmol/L Carbon Dioxide 21 L (22-30) mmol/L BUN 42 H (7-17) mg/dL Creatinine 1.23 H (0.52-1.04) mg/dL Glucose 104 H (74-99) mg/dL POC Glucose (mg/dL) (75-99) mg/dL Calcium 6.7 L (8.4-10.2) mg/dL Microbiology - Last 24 Hours (Table) 01/30/17 18:11 Blood Culture - Preliminary Blood No Growth after 48 hours 01/30/17 14:15 Blood Culture - Preliminary Blood No Growth after 48 hours 01/30/17 13:40 Anaerobic Culture - Preliminary Peritoneal Fluid 01/31/17 21:44 Urine Culture - Preliminary Urine,Catheterized 01/30/17 13:40 Gram Stain - Final Peritoneal Fluid Wound Culture - Final Assessment and Plan Plan: Assessment: #1. Perforated prepyloric ulcer, status post exploratory laparotomy with repair of the prepyloric ulcer and wedge biopsy of the liver. Postop day #3 #2. Septic shock and lactic acidosis, likely secondary to sepsis from perforated prepyloric ulcer. Patient is adequately fluid resuscitated with a total of 6 L of crystalloids, currently on vasopressor support in the form of norepinephrine and 18 mics per minute. Initial lactic acid on 01/30/2017 was 7.6, with subsequent improvement to 1.0 on 02/01/2017. #3. Hepatomegaly, without nodularity, consistent with cirrhosis, likely alcoholic. Wedge biopsy taken from the liver on 01/30/2017 during the exposure laparotomy #4. Acute kidney injury, likely secondary to hypoperfusion, hypotension due to sepsis. Creatinine has improved, is down to 1.23 today with the B1 of 42. #5. Metabolic acidosis, likely due to septic shock and acute kidney injury, currently improved #6. Chronic alcoholism, drinks a pint of whiskey a day. Last drink on 2016. No signs of DTs at present. Maintain on CIWA protocol #7. Nicotine dependence, chronic and ongoing. #8. Diabetes mellitus, not on any maintenance treatments. Diet-controlled #9. Anxiety #10. Depression Plan: Patient is doing well on medical surgical floor,hemodynamically stable, anxious to get her NG tube out. Remains nothing by mouth, absent bowel sounds, NG tube to low intermittent suction. Continue pulmonary toileting, increase incentive spirometer use. Encourage activity as tolerated. Nephrology note noted and appreciated. Maintain glucose control, continue GI and DVT prophylaxis per protocol. Continue with empiric antibiotic coverage in the form of Zosyn and meropenem. Monitor for signs of delirium tremens, maintain CIWA protocol. Patient is stable for transfer out of ICU today to regular medical surgical floor without telemetry. Further recommendations to follow. I performed a history & physical examination of the patient and discussed their management with my nurse practitioner, Shahla Osorio. I reviewed the nurse practitioner's note and agree with the documented findings and plan of care. Lung sounds are positive for a few scattered rhonchi. Continue pulmonary toileting, pain control, monitor for DTs. Doing well. The findings and the impression was discussed with the patient. I attest to the documentation by the nurse practitioner. Time with Patient: Less than 30
[2017-02-02] MEDS: MEROPENEM 1 GM in SODIUM CHLORIDE 0.9% 100 ML IVPB SCH ×2 (13:23→20:05)
--- NOTE | 2017-02-02 16:42 | P.PN ---
Subjective Progress Note Date: 02/02/17 Progress note being dictated for Dr. Maravilla Interval history:Patient has a perforated peptic ulcer and patient underwent surgical repair and a patch for the peptic ulcer disease. Patient is on IV antibiotics patient NG tube still draining patient still in renal failure as we' re unable to keep up with the output from the NG tube patient will be changed to 1 25 mL of half-normal saline patient does have noniron gap metabolic acidosis from hyperchloremia. Meropenem will be continued on micafungin will be discontinued. Patient has poor renal function. Constitutional: Denied any fatigue denied any fever. Cardio vascular: denied any chest pain, palpitations Gastrointestinal as mentioned in HPI Pulmonary: Denied any shortness of breath cough Neurologic denied any new focal deficits 02/02/2017 maintained on IV fluids with significant improvement in renal function. NG tube to low intermittent suction maintained. Moderate serosanguineous drainage from GISELLA drain. Liver biopsies, pathology pending. Scheduled for upper GI series tomorrow. Recently medicated, pain currently controlled. Objective - Vital Signs Vital signs: Vital Signs Temp 97.1 F L 02/02/17 15:00 Pulse 111 H 02/02/17 15:00 Resp 18 02/02/17 15:00 BP 143/79 02/02/17 15:00 Pulse Ox 91 L 02/02/17 15:00 Intake & Output 02/01/17 02/02/17 02/02/17 18:59 06:59 18:59 Intake Total 1425 1100 Output Total 200 440 390 Balance 1225 -440 710 Weight 91.9 kg Intake: Intake, IV Titration 1425 1100 Amount Lactated Ringers 1,000 ml 175 As IV .[facility]K-[facility] Rx#: [id number] Meropenem 1 gm In Sodium 100 Chloride 0.9% 100 ml @ 200 mls/hr IVPB Q8H [facility] Rx#:[id number] Sodium Chloride 0.45% 1, 250 1000 000 ml @ 125 mls/hr IV . Q8H [facility] Rx#:[id number] Sodium Chloride 0.45% 1, 1000 000 ml @ 999 mls/hr IV . Q1H1M [facility] Rx#:[id number] Output: Gastric Drainage 270 Drainage 80 390 Anterior Abdomen 80 390 Urine 200 90 Other: Voiding Method Indwelling Catheter # Voids 0 - Exam GENERAL: The patient is alert and oriented x3, not in any acute distress. Well developed, well nourished. HEENT: Pupils are round and equally reacting to light. EOMI. No scleral icterus. No conjunctival pallor. Normocephalic, atraumatic. No pharyngeal erythema. No thyromegaly. NG tube present CARDIOVASCULAR: S1 and S2 present. No murmurs, rubs, or gallops. PULMONARY: Chest is clear to auscultation, no wheezing or crackles. ABDOMEN: Abdomen is soft, no significant tenderness surgical site areas appear to be clean patient has an NG tube in place which is still draining MUSCULOSKELETAL: No joint swelling or deformity. EXTREMITIES: No cyanosis, clubbing, or pedal edema. NEUROLOGICAL: Gross neurological examination did not reveal any focal deficits. SKIN: No rashes. - Labs CBC & Chem 7: 02/02/17 07:35 02/02/17 07:35 Labs: Abnormal Lab Results - Last 24 Hours (Table) 02/01/17 02/02/17 02/02/17 Range/Units 18:07 00:07 07:35 RBC (3.80-5.40) m/uL Hgb (11.4-16.0) gm/dL MCV (80.0-100.0) fL MCH (25.0-35.0) pg MCHC (31.0-37.0) g/dL Plt Count (150-450) k/uL Lymphocytes # (1.0-4.8) k/uL Sodium 136 L (137-145) mmol/L Chloride 108 H (98-107) mmol/L Carbon Dioxide 21 L (22-30) mmol/L BUN 42 H (7-17) mg/dL Creatinine 1.23 H (0.52-1.04) mg/dL Glucose 104 H (74-99) mg/dL POC Glucose (mg/dL) 107 H 109 H (75-99) mg/dL Calcium 6.7 L (8.4-10.2) mg/dL 02/02/17 02/02/17 Range/Units 07:35 12:21 RBC 2.97 L (3.80-5.40) m/uL Hgb 10.5 L (11.4-16.0) gm/dL MCV 117.3 H (80.0-100.0) fL MCH 35.3 H (25.0-35.0) pg MCHC 30.0 L (31.0-37.0) g/dL Plt Count 95 L (150-450) k/uL Lymphocytes # 0.6 L (1.0-4.8) k/uL Sodium (137-145) mmol/L Chloride (98-107) mmol/L Carbon Dioxide (22-30) mmol/L BUN (7-17) mg/dL Creatinine (0.52-1.04) mg/dL Glucose (74-99) mg/dL POC Glucose (mg/dL) 114 H (75-99) mg/dL Calcium (8.4-10.2) mg/dL Microbiology - Last 24 Hours (Table) 01/31/17 21:44 Urine Culture - Final Urine,Catheterized 01/30/17 18:11 Blood Culture - Preliminary Blood No Growth after 48 hours 01/30/17 14:15 Blood Culture - Preliminary Blood No Growth after 48 hours 01/30/17 13:40 Anaerobic Culture - Preliminary Peritoneal Fluid Assessment and Plan Assessment: #1. Perforated prepyloric ulcer, status post exploratory laparotomy with repair of the prepyloric ulcer and wedge biopsy of the liver. #2. Septic shock and lactic acidosis, likely secondary to sepsis from perforated prepyloric ulcer and peritonitis and patient is off pressor support. Patient can be transferred out of ICU #3. Hepatomegaly, without nodularity, consistent with cirrhosis, likely alcoholic. #4. Acute kidney injury, likely secondary to hypoperfusion, hypotension due to sepsis, continue with IV fluids as mentioned above #5. Metabolic acidosis, secondary to hyperchloremia #6. Chronic alcoholism, drinks a pint of whiskey a day. Last drink on 2016. No signs of DTs at present. Maintain on CIWA protocol #7. Nicotine dependence, chronic and ongoing. #8. Diabetes mellitus, not on any maintenance treatments. Diet-controlled #9. Anxiety #10. Depression Continue with NG tube drainage, upper GI series scheduled for tomorrow with potential DC of NG tube, pending findings. Pathology pending.
[2017-02-02 17:20] LABS: Glucose,Whole Blood 96 mg/dL (75-99)
--- NOTE | 2017-02-02 19:32 | PN ---
PROGRESS NOTE Patient is seen for followup for acute kidney injury. Her renal function has improved significantly. Serum creatinine is down to 1.23 from 2.7 mg/dL. She has had good urine output. Patient has been transferred out of the ICU. She is status post exploratory laparotomy for perforated peptic ulcer and status post repair of the ulcer. PHYSICAL EXAMINATION: Patient is currently comfortable. She is awake. She is not in any acute distress. Blood pressure is 131/86, heart rate 117 per minute. Patient is afebrile. EXAMINATION OF THE HEART: S1, S2. EXAMINATION OF LUNGS: Bilateral breath sounds are heard. ABDOMEN: Soft. There is tenderness noted. Examination of lower extremities shows no evidence of edema. INTERIOR PANELER exam is grossly intact. Patient seems to be slightly "edgy." LABORATORY DATA: Labs show sodium 136, potassium 3.8, BUN 42, serum creatinine down to 1.23, hemoglobin 10.5 g/dL. ASSESSMENT: 1. Acute kidney injury, acute tubular necrosis, secondary to hypotension, hypoperfusion, currently improving. 2. Status post exploratory laparoscopy and repair of a perforated ulcer. 3. Possible delirium tremens with history of chronic alcoholism. Maintained on CIWA protocol. 4. History of depression. PLAN: Maintain IV fluids until good oral intake is established. MMODL / IJN: [id number] /
[2017-02-03] MEDS: HYDROmorphone 2 MG/ML 1 ML SYRINGE IV PRN ×5 (00:03→19:52)
[2017-02-03 00:20] LABS: Glucose,Whole Blood 112 mg/dL (75-99)
[2017-02-03] MEDS: SODIUM CHLORIDE 0.45% 1,000 ML IV SCH ×2 (00:48→06:29)
[2017-02-03] MEDS: INSULIN ASPART 100 UNIT/ML 1 ML 10 ML VIAL SQ SCH ×4 (00:48→18:18)
[2017-02-03] MEDS: HEPARIN SODIUM,PORCINE 5,000 UNIT/ML 1 ML VIAL SQ SCH ×3 (01:06→17:08)
[2017-02-03] MEDS: LORazepam 2 MG/ML INJ IV PRN ×6 (02:34→21:46)
[2017-02-03] MEDS: MEROPENEM 1 GM in SODIUM CHLORIDE 0.9% 100 ML IVPB SCH ×3 (04:53→19:54)
[2017-02-03] MEDS: [UNRECOGNIZED DRUG - REMARK] IV SCH ×9 (06:28→12:30)
[2017-02-03 06:38] LABS: Glucose,Whole Blood 128 mg/dL (75-99)
[2017-02-03 07:53] LABS: Anion Gap 6 mmol/L; Blood Urea Nitrogen 26 mg/dL (7-17); Calcium 7.2 mg/dL (8.4-10.2); Carbon Dioxide 23 mmol/L (22-30); Chloride 108 mmol/L (98-107); Glucose 135 mg/dL (74-99); Magnesium 1.6 mg/dL (1.6-2.3); Non-African American GFR(MDRD) >60 (>60 ml/min/1.73 sqM); Phosphorus 2.2 mg/dL (2.5-4.5); Potassium 3.6 mmol/L (3.5-5.1); Sodium 137 mmol/L (137-145)
--- NOTE | 2017-02-03 09:14 | FL ---
EXAMINATION TYPE: FL UGI limited DATE OF EXAM: 02/03/2017 COMPARISON: NONE HISTORY: Pyloric channel ulcer repair TECHNIQUE: A single contrast UGI study is performed. FINDINGS: Contrast was swallowed orally around a nasogastric tube in place. Esophagus appears grossly normal un varsha real-time observation. Gastroesophageal junction opens to normal caliber. Limited single contrast imaging through the stomach is performed. Observation for extravasation was p erformed. Overhead radiographs and fluoroscopic spot imaging is performed. No extravasation is evident. Contrast enters the duodenal cap and sweep. Surgical skin tasha and a drainage catheter adjacent to the stomach are evident. Additional overhea d radiographs were obtained without evidence of extravasation. IMPRESSIONS: 1. No extravasation post surgical repair of an ulcer. 2. Single contrast appears unremarkable.
[2017-02-03] MEDS: PANTOPRAZOLE 40 MG/10 ML VIAL IV SCH ×2 (10:30→23:46)
[2017-02-03] MEDS: NICOTINE 14MG/24HR PATCH TRANSDERM SCH (10:30)
--- NOTE | 2017-02-03 11:08 | P.PN ---
Subjective Patient is seen in follow-up for acute kidney injury. Her baseline creatinine is 1 and was elevated at 2.7 on admission. It is down to 0.5 today. Patient underwent exploratory laparotomy with repair of perforated peptic ulcer this admission. She is also having DTs and is maintained on Cipro protocol as well as banana bag at 75 mL an hour. She has an NG tube in place. She has been voiding. No hematuria or dysuria. Denies chest pain or shortness of breath. No lower extremity edema. Vital signs are stable. General: The patient appeared well nourished and normally developed. NG tube in place. HEENT: Head exam is unremarkable. Neck is without jugular venous distension. LUNGS: Lungs are clear to auscultation and percussion. Breath sounds decreased. HEART: Rate and Rhythm are regular. First and second heart sounds normal. No murmurs, rubs or gallops. ABDOMEN: Abdominal exam normal bowel sounds. Mild generalized tenderness. EXTREMITITES: No clubbing, cyanosis, or edema. Objective - Vital Signs Vital signs: Vital Signs Temp 99.5 F 02/03/17 07:00 Pulse 107 H 02/03/17 07:00 Resp 16 02/03/17 04:00 BP 180/112 02/03/17 07:00 Pulse Ox 86 L 02/03/17 07:00 Intake & Output 02/02/17 02/03/17 02/03/17 18:59 06:59 18:59 Intake Total 1100 Output Total 390 1101 Balance 710 -1101 Intake: Intake, IV Titration 1100 Amount Meropenem 1 gm In Sodium 100 Chloride 0.9% 100 ml @ 200 mls/hr IVPB Q8H [facility] Rx#:[id number] Sodium Chloride 0.45% 1, 1000 000 ml @ 125 mls/hr IV . Q8H [facility] Rx#:[id number] Output: Drainage 390 100 Anterior Abdomen 390 100 Urine 525 Straight 525 Post Void Residual 476 Other: Voiding Method Indwelling Catheter # Bowel Movements 0 - Labs CBC & Chem 7: 02/02/17 07:35 02/03/17 07:18 Labs: Abnormal Lab Results - Last 24 Hours (Table) 02/02/17 02/02/17 02/03/17 Range/Units 07:35 12:21 00:15 RBC 2.97 L (3.80-5.40) m/uL Hgb 10.5 L (11.4-16.0) gm/dL MCV 117.3 H (80.0-100.0) fL MCH 35.3 H (25.0-35.0) pg MCHC 30.0 L (31.0-37.0) g/dL Plt Count 95 L (150-450) k/uL Lymphocytes # 0.6 L (1.0-4.8) k/uL Chloride (98-107) mmol/L BUN (7-17) mg/dL Creatinine (0.52-1.04) mg/dL Glucose (74-99) mg/dL POC Glucose (mg/dL) 114 H 112 H (75-99) mg/dL Calcium (8.4-10.2) mg/dL Phosphorus (2.5-4.5) mg/dL 02/03/17 02/03/17 Range/Units 06:33 07:18 RBC (3.80-5.40) m/uL Hgb (11.4-16.0) gm/dL MCV (80.0-100.0) fL MCH (25.0-35.0) pg MCHC (31.0-37.0) g/dL Plt Count (150-450) k/uL Lymphocytes # (1.0-4.8) k/uL Chloride 108 H (98-107) mmol/L BUN 26 H (7-17) mg/dL Creatinine 0.50 L (0.52-1.04) mg/dL Glucose 135 H (74-99) mg/dL POC Glucose (mg/dL) 128 H (75-99) mg/dL Calcium 7.2 L (8.4-10.2) mg/dL Phosphorus 2.2 L (2.5-4.5) mg/dL Microbiology - Last 24 Hours (Table) 01/30/17 13:40 Anaerobic Culture - Final Peritoneal Fluid 01/30/17 18:11 Blood Culture - Preliminary Blood No Growth after 72 hours 01/30/17 14:15 Blood Culture - Preliminary Blood No Growth after 72 hours 01/31/17 21:44 Urine Culture - Final Urine,Catheterized Assessment and Plan Plan: Assessment: #1. Nonoliguric acute kidney injury mostly prerenal due to hypotension and sepsis. Resolved. GFR back to baseline. #2. Chronic alcohol abuse with DTs. Maintain on Cipro protocol. #3. Perforated ulcer status post exporter laparotomy and also repaired. #4. Hypophosphatemia related to poor nutritional status. #5. Hypomagnesemia related to poor nutrition status and urinary losses from chronic alcohol use. Plan: Continue with banana bag at 75 mL an hour. I will give her 20 mmol of sodium phosphate IV today. Replace magnesium. 2 g IV today. Repeat electrolytes in the morning. Advance diet per surgical recommendations.
[2017-02-03] MEDS: MAGNESIUM SULFATE-D5W PMX 1 GM in DEXTROSE/WATER 1 100ML.BAG IVPB SCH ×2 (11:33→14:07)
[2017-02-03] MEDS ORDERED: SALINE IVPB ONE (12:00)
[2017-02-03] MEDS ORDERED: SODIUM PHOSPHATE 10 MMOL in SODIUM CHLORIDE 0.9% 250 ML IVPB ONE (12:00)
[2017-02-03] MEDS ORDERED: SODIUM PHOSPH IVPB ONE (12:00)
[2017-02-03] MEDS ORDERED: NACL IVPB ONE (12:00)
[2017-02-03 12:02] LABS: Glucose,Whole Blood 164 mg/dL (75-99)
--- NOTE | 2017-02-03 12:44 | P.PN ---
Progress Note - Text Progress Note Date: 02/03/17 Patient slowly improves. Sterile years. Feels a 9.2. Color satisfactory. May be slightly icteric. Abdomen is soft with usual postoperative tenderness. A fair amount of GISELLA drainage mostly ascitic fluid. She'll looks fine. The Telfa audrey in between the tasha are removed today. Does have also some serous drainage. No purulence. No cellulitis. Upper GI shows no evidence of extravasation or leak at the site in the prepyloric area. No function is slowly improving. Impression slow improvement status post repair of perforated prepyloric ulcer. This with ascites in the recommendation we'll DC the NG tube today. Start her on clear liquids.. Continued close monitoring.
--- NOTE | 2017-02-03 13:01 | P.PN ---
Subjective Progress Note Date: 02/03/17 Principal diagnosis: Perforated prepyloric ulcer, status post exploratory laparotomy and repair of perforated ulcer, postop day 2 Gabriella is a 41-year-old white female patient who presented to the emergency department on 01/30/2017 at around 9:00 in the morning with complaints of acute abdominal pain that started the night before. She was also having nausea and vomiting for the 2 days prior to coming in. The abdominal discomfort was sharp in nature and radiating around to the right side of her torso and into her back. She denied any recent fever, chills, shortness of breath, chest pain, dysuria, or any other complaints. CT of the abdomen and pelvis showed free intraperitoneal air, large amount of ascites, massive hepatomegaly and fatty infiltration of the liver. There was air present in the biliary tree, and distention of the gallbladder noted on the CT of the abdomen. Patient has a past medical history of diabetes, anxiety, depression, chronic back pain, degenerative joint disease, nicotine dependence, and chronic alcoholism. She had been to a rehab for her alcohol addiction, however she recently relapsed and is now drinking up to a pint of whiskey a day. He had under went exploratory laparotomy and repair of the perforated prepyloric ulcer with Devon patch by Dr. Loco on 01/30/2017. A wedge biopsy of the liver was also obtained. She was extubated in the recovery room. Currently she seen in the intensive care, awake alert, in no acute distress. She is currently on 3 L per nasal cannula with O2 sat at 94-96%. She's had no fevers since admission, with T-max of 99.3 at 8:30 on 01/31/2017. Lung sounds are clear to auscultation, no rhonchi, no wheezes. She is compliant with her incentive spirometer, she is able to achieve about 1000 today. Her pain is reasonably controlled with IV Dilaudid. She remains nothing by mouth, NG tube to low intermittent suction with 300 mL of light green liquid output. GISELLA drain on the right side of her abdomen is draining moderate amount of serosanguineous drainage. She has received a total of 6 L of fluid boluses, is requiring vasopressor support, norepinephrine is infusing at 18 mics per minute, her maintenance fluids are D5 half-normal saline with 20 of KCl at 75 mL/hr, D5 with 150 MEQ of sodium bicarb infusing at 50 ml/hr. mid abdominal incision is clean dry and intact covered with surgical dressing, with small shadowing of small postop bleeding, has not increased in size. Bowel sounds are absent. Patient has not had any signs of delirium tremens, her last drink was on 01/29/2017. 02/01/2017 patient seen in follow-up in intensive care. She is awake, alert, denies any acute distress. Her only complaint is his not being able to eat or drink. Pain is reasonably controlled, she is compliant with incentive spirometer, she can achieve 1200 mL on a today. Lung sounds are clear to auscultation, no rhonchi, no wheezes auscultated. NG tube remains to low intermittent suction, patient tolerating ice chips. She has been weaned off the levothyroid since 2:00 this morning. She remains hemodynamically stable, however urine output remains less than 30. We will go ahead and give another liter of IV 0.45 normal saline, and switch her IV fluids to 0.45 at 100 mL per hour. She remains on 3 L per nasal cannula with O2 sat from 90-94%. She has had no fever since admission. Metabolic herbology results have been reviewed and show no growth since admission. Mid abdominal incision is clean dry and intact and well approximated. GISELLA drain in the right upper quadrant is with small amount of serous sinus drainage. Patient continues on empiric antibiotic coverage in the form of meropenem and micafungin. No signs of delirium tremens noted, continue to monitor. From a critical care standpoint patient is stable for transfer to regular medical surgical floor today without telemetry. On 02/02/2017 patient seen in follow-up on medical surgical floor. She is awake , alert, denies any acute distress. Her lung sounds are positive for a few scattered rhonchi, she is on 3 L per nasal cannula with O2 sat at 91-96%. She has not been doing her incentive spirometer, as a matter fact I had to get it out of her belongings bag and put on her table and reminder to use it. She's been getting up to the bedside commode, and that has been the extent of her activity. She remains nothing by mouth, NG tube is still in place to low intermittent suction. Mid abdominal incision is clean dry and intact. Surgery is planning on obtaining upper GI series tomorrow and if there is no evidence of leak the NG tube will be discontinued. On 02/03/2017 patient seen in follow-up. She appears to be restless, anxious, wants to go home today. She is wearing oxygen intermittently, between 3 L/m and room air, she seems to be anxious to get the NG tube out, frequently takes off the oxygen. But does not appear to be in any acute respiratory distress. Lung sounds are clear, diminished at the bases. No rhonchi, no wheezes appreciated. She has not been compliant with her incentive spirometer, she wants to go smoke. The NG tube has been clamped, and patient is currently undergoing GI series. The abdomen is soft with usual postop tenderness. Upper GI shows no evidence of extravasation or leak at the site of the prepyloric area. The NG tube will be discontinued today per surgery and she will be started on clear liquids. Increase activity as tolerated, encourage pulmonary toileting, monitor for signs of delirium tremens. Objective - Vital Signs Vital signs: Vital Signs Temp 99.5 F 02/03/17 07:00 Pulse 107 H 02/03/17 07:00 Resp 16 02/03/17 04:00 BP 180/112 02/03/17 07:00 Pulse Ox 86 L 02/03/17 07:00 Intake & Output 02/02/17 02/03/17 02/03/17 18:59 06:59 18:59 Intake Total 1100 1010.2 Output Total 390 1101 Balance 710 -90.8 Intake: Intake, IV Titration 1100 1010.2 Amount Meropenem 1 gm In Sodium 100 Chloride 0.9% 100 ml @ 200 mls/hr IVPB Q8H [facility] Rx#:[id number] Mvi, Adult No.4 with Vit 1010.2 K 10 ml Folic Acid 1 mg In D5-0.45% NaCl with KCl 20Meq/l 1,000 ml @ 75 mls/hr IV .BY DURATION [facility] Rx#:[id number] Sodium Chloride 0.45% 1, 1000 000 ml @ 125 mls/hr IV . Q8H [facility] Rx#:[id number] Output: Drainage 390 100 Anterior Abdomen 390 100 Urine 525 Straight 525 Post Void Residual 476 Other: Voiding Method Indwelling Catheter # Bowel Movements 0 - Exam GENERAL EXAM: Alert, active, comfortable in no apparent distress. HEAD: Normocephalic/atraumatic. EYES: Normal reaction of pupils, equal size. Conjunctiva pink, sclera white. NOSE: Clear with pink turbinates. NG tube is present connected to low intermittent suction. THROAT: No erythema or exudates. NECK: No masses, no JVD, no thyroid enlargement, no adenopathy. CHEST: No chest wall deformity. Symmetrical expansion. LUNGS: Equal air entry with no crackles, wheeze, rhonchi or dullness. CVS: Regular rate and rhythm, normal S1 and S2, no gallops, no murmurs, no rubs ABDOMEN: Soft, tender. Hepatosplenomegaly present, absent bowel sounds, mid abdominal incision is clean dry and intact covered with surgical dressing. Right upper quadrant GISELLA drain with moderate amount of serosanguineous drainage. EXTREMITIES: No clubbing, no edema, no cyanosis, 2+ pulses and upper and lower extremities. MUSCULOSKELETAL: Muscle strength and tone normal. SPINE: No scoliosis or deformity SKIN: No rashes CENTRAL NERVOUS SYSTEM: Alert and oriented -3. No focal deficits, tone is normal in all 4 extremities. PSYCHIATRIC: Alert and oriented -3. Appropriate affect. Intact judgment and insight. No signs of DTs present at the moment - Labs CBC & Chem 7: 02/02/17 07:35 02/03/17 07:18 Labs: Abnormal Lab Results - Last 24 Hours (Table) 02/03/17 02/03/17 02/03/17 Range/Units 00:15 06:33 07:18 Chloride 108 H (98-107) mmol/L BUN 26 H (7-17) mg/dL Creatinine 0.50 L (0.52-1.04) mg/dL Glucose 135 H (74-99) mg/dL POC Glucose (mg/dL) 112 H 128 H (75-99) mg/dL Calcium 7.2 L (8.4-10.2) mg/dL Phosphorus 2.2 L (2.5-4.5) mg/dL 02/03/17 Range/Units 11:58 Chloride (98-107) mmol/L BUN (7-17) mg/dL Creatinine (0.52-1.04) mg/dL Glucose (74-99) mg/dL POC Glucose (mg/dL) 164 H (75-99) mg/dL Calcium (8.4-10.2) mg/dL Phosphorus (2.5-4.5) mg/dL Microbiology - Last 24 Hours (Table) 01/30/17 13:40 Anaerobic Culture - Final Peritoneal Fluid 01/30/17 18:11 Blood Culture - Preliminary Blood No Growth after 72 hours 01/30/17 14:15 Blood Culture - Preliminary Blood No Growth after 72 hours 01/31/17 21:44 Urine Culture - Final Urine,Catheterized Assessment and Plan Plan: Assessment: #1. Perforated prepyloric ulcer, status post exploratory laparotomy with repair of the prepyloric ulcer and wedge biopsy of the liver. Postop day #3 #2. Septic shock and lactic acidosis, likely secondary to sepsis from perforated prepyloric ulcer. Patient is adequately fluid resuscitated with a total of 6 L of crystalloids, currently on vasopressor support in the form of norepinephrine and 18 mics per minute. Initial lactic acid on 01/30/2017 was 7.6, with subsequent improvement to 1.0 on 02/01/2017. #3. Hepatomegaly, without nodularity, consistent with cirrhosis, likely alcoholic. Wedge biopsy taken from the liver on 01/30/2017 during the exposure laparotomy #4. Acute kidney injury, likely secondary to hypoperfusion, hypotension due to sepsis. Creatinine has improved, is down to 1.23 today with the B1 of 42. #5. Metabolic acidosis, likely due to septic shock and acute kidney injury, currently improved #6. Chronic alcoholism, drinks a pint of whiskey a day. Last drink on 2016. No signs of DTs at present. Maintain on CIWA protocol #7. Nicotine dependence, chronic and ongoing. #8. Diabetes mellitus, not on any maintenance treatments. Diet-controlled #9. Anxiety #10. Depression Plan: Patient is doing well on medical surgical floor,hemodynamically stable, anxious to get her NG tube out. NG tube has been clamped, upper GI series were done and showed no evidence of extravasation or leak. The plan is to discontinue the NG tube and start patient on clear liquid diet. Continue pulmonary toileting, increase incentive spirometer use. Encourage activity as tolerated. Continue with empiric antibiotic coverage in the form of Zosyn and meropenem. Monitor for signs of delirium tremens, maintain CIWA protocol. Patient is doing very well. No active pulmonary or critical care issues right now. We will follow on an as-needed basis. I performed a history & physical examination of the patient and discussed their management with my nurse practitioner, Shahla Osorio. I reviewed the nurse practitioner's note and agree with the documented findings and plan of care. Lung sounds are clear, diminished at the bases. Continue pulmonary toileting, pain control, monitor for DTs. Doing well. We'll follow on an as-needed basis. The findings and the impression was discussed with the patient. I attest to the documentation by the nurse practitioner. Time with Patient: Less than 30
--- NOTE | 2017-02-03 13:06 | P.PN ---
Subjective Progress Note Date: 02/03/17 Progress note being dictated for Dr. Maravilla Interval history:Patient has a perforated peptic ulcer and patient underwent surgical repair and a patch for the peptic ulcer disease. Patient is on IV antibiotics patient NG tube still draining patient still in renal failure as we' re unable to keep up with the output from the NG tube patient will be changed to 1 25 mL of half-normal saline patient does have noniron gap metabolic acidosis from hyperchloremia. Meropenem will be continued on micafungin will be discontinued. Patient has poor renal function. Constitutional: Denied any fatigue denied any fever. Cardio vascular: denied any chest pain, palpitations Gastrointestinal as mentioned in HPI Pulmonary: Denied any shortness of breath cough Neurologic denied any new focal deficits 02/02/2017 maintained on IV fluids with significant improvement in renal function. NG tube to low intermittent suction maintained. Moderate serosanguineous drainage from GISELLA drain. Liver biopsies, pathology pending. Scheduled for upper GI series tomorrow. Recently medicated, pain currently controlled. 02/03/2017 maintained on CIWA, active DTs, pulled out NG tube last night, picking at incision,pulling at GISELLA. Straight cath. early this morning for 500 MLS.Just returned from upper GI series,reporting no evidence of extravasication or leak,NG tube discontinued. Clear liquid diet initiated. isolated fever of 100.1, currently afebrile, we'll continue to monitor. Objective - Vital Signs Vital signs: Vital Signs Temp 99.5 F 02/03/17 07:00 Pulse 107 H 02/03/17 07:00 Resp 16 02/03/17 04:00 BP 180/112 02/03/17 07:00 Pulse Ox 86 L 02/03/17 07:00 Intake & Output 02/02/17 02/03/17 02/03/17 18:59 06:59 18:59 Intake Total 1100 1010.2 Output Total 390 1101 Balance 710 -90.8 Intake: Intake, IV Titration 1100 1010.2 Amount Meropenem 1 gm In Sodium 100 Chloride 0.9% 100 ml @ 200 mls/hr IVPB Q8H [facility] Rx#:[id number] Mvi, Adult No.4 with Vit 1010.2 K 10 ml Folic Acid 1 mg In D5-0.45% NaCl with KCl 20Meq/l 1,000 ml @ 75 mls/hr IV .BY DURATION [facility] Rx#:[id number] Sodium Chloride 0.45% 1, 1000 000 ml @ 125 mls/hr IV . Q8H [facility] Rx#:[id number] Output: Drainage 390 100 Anterior Abdomen 390 100 Urine 525 Straight 525 Post Void Residual 476 Other: Voiding Method Indwelling Catheter # Bowel Movements 0 - Exam GENERAL: The patient is alert and oriented x3, not in any acute distress. Well developed, well nourished.resting comfortably HEENT: Pupils are round and equally reacting to light. EOMI. No scleral icterus. No conjunctival pallor. Normocephalic, atraumatic. No pharyngeal erythema. No thyromegaly. CARDIOVASCULAR: S1 and S2 present. No murmurs, rubs, or gallops. PULMONARY: Chest is clear to auscultation, no wheezing or crackles. ABDOMEN: Abdomen is soft, no significant tenderness surgical site areas appear to be clean. MUSCULOSKELETAL: No joint swelling or deformity. EXTREMITIES: No cyanosis, clubbing, or pedal edema. NEUROLOGICAL: Gross neurological examination did not reveal any focal deficits. SKIN: No rashes. - Labs CBC & Chem 7: 02/02/17 07:35 02/03/17 07:18 Labs: Abnormal Lab Results - Last 24 Hours (Table) 02/03/17 02/03/17 02/03/17 Range/Units 00:15 06:33 07:18 Chloride 108 H (98-107) mmol/L BUN 26 H (7-17) mg/dL Creatinine 0.50 L (0.52-1.04) mg/dL Glucose 135 H (74-99) mg/dL POC Glucose (mg/dL) 112 H 128 H (75-99) mg/dL Calcium 7.2 L (8.4-10.2) mg/dL Phosphorus 2.2 L (2.5-4.5) mg/dL 02/03/17 Range/Units 11:58 Chloride (98-107) mmol/L BUN (7-17) mg/dL Creatinine (0.52-1.04) mg/dL Glucose (74-99) mg/dL POC Glucose (mg/dL) 164 H (75-99) mg/dL Calcium (8.4-10.2) mg/dL Phosphorus (2.5-4.5) mg/dL Microbiology - Last 24 Hours (Table) 01/30/17 13:40 Anaerobic Culture - Final Peritoneal Fluid 01/30/17 18:11 Blood Culture - Preliminary Blood No Growth after 72 hours 01/30/17 14:15 Blood Culture - Preliminary Blood No Growth after 72 hours 01/31/17 21:44 Urine Culture - Final Urine,Catheterized Assessment and Plan Assessment: #1. Perforated prepyloric ulcer, status post exploratory laparotomy with repair of the prepyloric ulcer and wedge biopsy of the liver. pathology pending #2. Septic shock and lactic acidosis, likely secondary to sepsis from perforated prepyloric ulcer and peritonitis,status post pressor support. #3. Hepatomegaly, without nodularity, consistent with cirrhosis, likely alcoholic. #4. Acute kidney injury, likely secondary to hypoperfusion, hypotension due to sepsis #5. Metabolic acidosis, secondary to hyperchloremia #6. Chronic alcoholism, drinks a pint of whiskey a day. Last drink on 2016. Active DTs. Maintain on CIWA protocol #7. Nicotine dependence, chronic and ongoing. #8. Diabetes mellitus, not on any maintenance treatments. Diet-controlled #9. Anxiety #10. Depression Plan: continue current medication regime ,monitoring. Slowly improving. Maintain CIWA Protocol. Pathology pending.increase ambulation as tolerated. Aggressive pulmonary toileting. The impression and plan of care has been dictated as directed. : I performed a history and examination of this patient, discussed the same with the dictator. I agree with the dictator's note ,documented as a scribe. Any additional findings or plans will be noted.
[2017-02-03] MEDS: THIAMINE 100 MG/ML 2 ML VIAL IVP SCH (13:27)
[2017-02-03 17:04] LABS: Glucose,Whole Blood 131 mg/dL (75-99)
[2017-02-04 00:05] LABS: Glucose,Whole Blood 131 mg/dL (75-99)
[2017-02-04] MEDS: HEPARIN SODIUM,PORCINE 5,000 UNIT/ML 1 ML VIAL SQ SCH ×4 (00:40→23:56)
[2017-02-04] MEDS: LORazepam 2 MG/ML INJ IV PRN ×4 (00:40→18:39)
[2017-02-04] MEDS: INSULIN ASPART 100 UNIT/ML 1 ML 10 ML VIAL SQ SCH ×5 (00:41→23:53)
[2017-02-04] MEDS: MEROPENEM 1 GM in SODIUM CHLORIDE 0.9% 100 ML IVPB SCH ×3 (04:12→21:14)
[2017-02-04] MEDS: HYDROmorphone 2 MG/ML 1 ML SYRINGE IV PRN ×5 (05:40→21:14)
[2017-02-04 06:19] LABS: Glucose,Whole Blood 123 mg/dL (75-99)
[2017-02-04 08:04] LABS: Anion Gap 5 mmol/L; Blood Urea Nitrogen 13 mg/dL (7-17); Calcium 7.1 mg/dL (8.4-10.2); Carbon Dioxide 23 mmol/L (22-30); Chloride 110 mmol/L (98-107); Glucose 133 mg/dL (74-99); Magnesium 1.4 mg/dL (1.6-2.3); Non-African American GFR(MDRD) >60 (>60 ml/min/1.73 sqM); Phosphorus 2.8 mg/dL (2.5-4.5); Potassium 3.5 mmol/L (3.5-5.1); Sodium 138 mmol/L (137-145)
[2017-02-04] MEDS: NICOTINE 14MG/24HR PATCH TRANSDERM SCH (09:20)
[2017-02-04] MEDS: PANTOPRAZOLE 40 MG/10 ML VIAL IV SCH ×2 (09:20→21:14)
[2017-02-04] MEDS ORDERED: HYDROcodone/APAP 5-325MG 1 EACH TAB PO PRN (09:36)
--- NOTE | 2017-02-04 09:41 | P.PN ---
Progress Note - Text Progress Note Date: 02/04/17 the patient continues to improve. She is day 5 for post repair of perforated prepyloric ulcer. She is tolerating clear liquids. Also noted to have ascites confirmed by the liver biopsy to have cirrhosis. Has a fair amount of ascitic fluid from the GISELLA drain. Upper GI showed no evidence of leak from her repair site. O2 sats have been running on the low side which is up and about on room air to around 80. Doesn't appear to be particularly short of breath. She is otherwise afebrile. Vitals are stable. She is awake alert. Abdomen is very soft and benign. Incision looks fine with no evidence of infection. No purulent drainage. Impression stable postop the repair of the perforated ulcer. Alcoholic liver cirrhosis. Recommendation. We'll advance her diet. Hopefully DC the GISELLA drain in the next day or 2 since she is only draining ascitic fluid now. Try by mouth pain meds. GI consult for her cirrhosis for long-term management.
--- NOTE | 2017-02-04 10:00 | P.PN ---
Subjective Patient is seen in follow-up for acute kidney injury. Her baseline creatinine is 1 and was elevated at 2.7 on admission. It is down to 0.4 today. Patient underwent exploratory laparotomy with repair of perforated peptic ulcer this admission. She is also having DTs and is maintained on CIWA protocol as well as banana bag at 75 mL an hour. NG tube has been removed. Her diet has been advanced. She has been voiding. No hematuria or dysuria. Denies chest pain or shortness of breath. No lower extremity edema. Vital signs are stable. General: The patient appeared well nourished and normally developed. NG tube in place. HEENT: Head exam is unremarkable. Neck is without jugular venous distension. LUNGS: Lungs are clear to auscultation and percussion. Breath sounds decreased. HEART: Rate and Rhythm are regular. First and second heart sounds normal. No murmurs, rubs or gallops. ABDOMEN: Abdominal exam normal bowel sounds. Mild generalized tenderness. EXTREMITITES: No clubbing, cyanosis, or edema. Objective - Vital Signs Vital signs: Vital Signs Temp 97.8 F 02/04/17 07:00 Pulse 89 02/04/17 07:00 Resp 16 02/04/17 07:00 BP 157/106 02/04/17 07:00 Pulse Ox 97 02/04/17 07:00 Intake & Output 02/03/17 02/04/17 02/04/17 18:59 06:59 18:59 Output Total 190 530 Balance -190 -530 Output: Drainage 190 530 Anterior Abdomen 190 530 Other: Voiding Method Toilet Bedside Commode # Voids 2 2 1 # Bowel Movements 1 - Labs CBC & Chem 7: 02/02/17 07:35 02/04/17 07:40 Labs: Abnormal Lab Results - Last 24 Hours (Table) 02/03/17 02/03/17 02/04/17 Range/Units 11:58 16:58 00:03 Chloride (98-107) mmol/L Creatinine (0.52-1.04) mg/dL Glucose (74-99) mg/dL POC Glucose (mg/dL) 164 H 131 H 131 H (75-99) mg/dL Calcium (8.4-10.2) mg/dL Magnesium (1.6-2.3) mg/dL 02/04/17 02/04/17 Range/Units 06:07 07:40 Chloride 110 H (98-107) mmol/L Creatinine 0.40 L (0.52-1.04) mg/dL Glucose 133 H (74-99) mg/dL POC Glucose (mg/dL) 123 H (75-99) mg/dL Calcium 7.1 L (8.4-10.2) mg/dL Magnesium 1.4 L (1.6-2.3) mg/dL Microbiology - Last 24 Hours (Table) 01/30/17 18:11 Blood Culture - Preliminary Blood No Growth after 96 hours 01/30/17 14:15 Blood Culture - Preliminary Blood No Growth after 96 hours 01/30/17 13:40 Anaerobic Culture - Final Peritoneal Fluid Assessment and Plan Plan: Assessment: #1. Nonoliguric acute kidney injury mostly prerenal due to hypotension and sepsis. Resolved. GFR back to baseline. #2. Chronic alcohol abuse with DTs. Maintain on CIWA protocol. #3. Perforated ulcer status post exporter laparotomy and repair of ulcer. #4. Hypophosphatemia related to poor nutritional status. Improved post replacement. #5. Hypomagnesemia related to poor nutrition status and urinary losses from chronic alcohol use. Plan: Continue with banana bag at 75 mL an hour. Replace potassium. 40 mEq today. Replace magnesium. 2 g IV today. Repeat electrolytes in the morning. Advance diet per surgical recommendations. If tolerates oral intake, fluids can be discontinued tomorrow.
--- NOTE | 2017-02-04 10:38 | P.PN ---
Subjective Progress Note Date: 02/04/17 Principal diagnosis: Progress note dated 02/04/2017 This is a 41-year-old female status post repair of a perforated prepyloric ulcer and wedge biopsy of the liver. The patient had has finally had her NG tube removed. Still on 3 L nasal cannula. The patient is somewhat noncompliant. Really not taking deep breaths. Is a smoker. The patient otherwise is doing reasonably well but probably will be discharged from the hospital for at least a couple of days. Her surgeon is Dr. Loco. She has a history of acute kidney injury and metabolic acidosis chronic alcohol use and chronic tobacco use. She also has a history of diabetes along with anxiety and depression. She has come along [place] doing much better. Objective - Vital Signs Vital signs: Vital Signs Temp 97.8 F 02/04/17 07:00 Pulse 89 02/04/17 07:00 Resp 16 02/04/17 07:00 BP 157/106 02/04/17 07:00 Pulse Ox 97 02/04/17 07:00 Intake & Output 02/03/17 02/04/17 02/04/17 18:59 06:59 18:59 Output Total 190 530 Balance -190 -530 Output: Drainage 190 530 Anterior Abdomen 190 530 Other: Voiding Method Toilet Bedside Commode # Voids 2 2 1 # Bowel Movements 1 - Exam No acute distress, oriented 3. NG tube is out. Still on nasal O2 at 3 L. HEENT examination is grossly unremarkable. Mucous membranes are moist. Neck supple. Full range of motion. No adenopathy. Cardiovascular examination reveals regular rhythm rate. S1-S2 normal. No S3- S4 or murmur. Lungs reveal a few scattered rhonchi. No wheezes or crackles. Abdomen soft. Bowel sounds are heard. Extremities are intact. Skin without rash. Neurologic exam is nonfocal. - Labs CBC & Chem 7: 02/02/17 07:35 02/04/17 07:40 Labs: Abnormal Lab Results - Last 24 Hours (Table) 02/03/17 02/03/17 02/04/17 Range/Units 11:58 16:58 00:03 Chloride (98-107) mmol/L Creatinine (0.52-1.04) mg/dL Glucose (74-99) mg/dL POC Glucose (mg/dL) 164 H 131 H 131 H (75-99) mg/dL Calcium (8.4-10.2) mg/dL Magnesium (1.6-2.3) mg/dL 02/04/17 02/04/17 Range/Units 06:07 07:40 Chloride 110 H (98-107) mmol/L Creatinine 0.40 L (0.52-1.04) mg/dL Glucose 133 H (74-99) mg/dL POC Glucose (mg/dL) 123 H (75-99) mg/dL Calcium 7.1 L (8.4-10.2) mg/dL Magnesium 1.4 L (1.6-2.3) mg/dL Microbiology - Last 24 Hours (Table) 01/30/17 18:11 Blood Culture - Preliminary Blood No Growth after 96 hours 01/30/17 14:15 Blood Culture - Preliminary Blood No Growth after 96 hours 01/30/17 13:40 Anaerobic Culture - Final Peritoneal Fluid Assessment and Plan (1) Prepyloric ulcer Current Visit: Yes Status: Acute Code(s): K25.9 - GASTRIC ULCER, UNSP ACUTE OR CHRONIC, W/O HEMOR OR PERF SNOMED Code(s): 62071001 (2) Septic shock Current Visit: Yes Status: Acute Code(s): A41.9 - SEPSIS, UNSPECIFIED ORGANISM; R65.21 - SEVERE SEPSIS WITH SEPTIC SHOCK SNOMED Code(s): 73707185 (3) Lactic acidosis Current Visit: Yes Status: Acute Code(s): E87.2 - ACIDOSIS SNOMED Code(s) : 98542957 (4) Liver cirrhosis Current Visit: Yes Status: Acute Code(s): K74.60 - UNSPECIFIED CIRRHOSIS OF LIVER SNOMED Code(s): 33676309 (5) Acute kidney injury Current Visit: Yes Status: Acute Code(s): N17.9 - ACUTE KIDNEY FAILURE, UNSPECIFIED SNOMED Code(s): 11006459 (6) Metabolic acidosis Current Visit: Yes Status: Acute Code(s): E87.2 - ACIDOSIS SNOMED Code(s) : 51616833 (7) COPD (chronic obstructive pulmonary disease) Current Visit: Yes Status: Acute Code(s): J44.9 - CHRONIC OBSTRUCTIVE PULMONARY DISEASE, UNSPECIFIED SNOMED Code(s): 65897854 (8) Chronic alcohol abuse Current Visit: Yes Status: Acute Code(s): F10.10 - ALCOHOL ABUSE, UNCOMPLICATED SNOMED Code(s): 267889407 (9) Alcohol withdrawal seizure Current Visit: No Status: Acute Code(s): F10.239 - ALCOHOL DEPENDENCE WITH WITHDRAWAL, UNSPECIFIED SNOMED Code(s): 298511758 (10) Dental abscess Current Visit: No Status: Acute Code(s): K04.7 - PERIAPICAL ABSCESS WITHOUT SINUS SNOMED Code(s): 346297929 Plan: Plan dated 02/04/2017 The patient had the NG tube removed. From that standpoint she is doing better. She started to take things by mouth. The patient is not using her incentive spirometer as recommended. She should use it hourly. She'll use it twice all day yesterday. We'll continue to follow. No additional recommendations are made. Prognosis is guarded. We'll continue with antibiotics in the form of Zosyn and meropenem. Apparently Dr. Tristan she will not let her go home for a couple more days. Time with Patient: Less than 30
[2017-02-04] MEDS: [UNRECOGNIZED DRUG - REMARK] IV SCH ×6 (10:41→21:36)
[2017-02-04] MEDS: MAGNESIUM SULFATE-D5W PMX 1 GM in DEXTROSE/WATER 1 100ML.BAG IVPB SCH ×2 (10:42→13:31)
[2017-02-04 12:10] LABS: Glucose,Whole Blood 108 mg/dL (75-99)
[2017-02-04] MEDS: POTASSIUM CHLORIDE 10 MEQ, LIDOCAINE 2% INJ 10 MG in SODIUM CHLORIDE 0.9% 100 ML IVPB SCH ×4 (12:53→17:38)
[2017-02-04] MEDS: THIAMINE 100 MG/ML 2 ML VIAL IVP SCH (12:53)
[2017-02-04 13:13] VITALS: BMI 29.9
[2017-02-04] MEDS ORDERED: Magnesium Replacement Protocol 1 EACH MISC MISCELLANE PRN (16:50)
[2017-02-04] MEDS ORDERED: Potassium Replacement Protocol 1 EACH MISC MISCELLANE PRN (16:54)
--- NOTE | 2017-02-04 16:54 | P.PN ---
Subjective Progress Note Date: 02/04/17 Progress note being dictated for Dr. Maravilla Interval history:Patient has a perforated peptic ulcer and patient underwent surgical repair and a patch for the peptic ulcer disease. Patient is on IV antibiotics patient NG tube still draining patient still in renal failure as we' re unable to keep up with the output from the NG tube patient will be changed to 1 25 mL of half-normal saline patient does have noniron gap metabolic acidosis from hyperchloremia. Meropenem will be continued on micafungin will be discontinued. Patient has poor renal function. Constitutional: Denied any fatigue denied any fever. Cardio vascular: denied any chest pain, palpitations Gastrointestinal as mentioned in HPI Pulmonary: Denied any shortness of breath cough Neurologic denied any new focal deficits 02/02/2017 maintained on IV fluids with significant improvement in renal function. NG tube to low intermittent suction maintained. Moderate serosanguineous drainage from GISELLA drain. Liver biopsies, pathology pending. Scheduled for upper GI series tomorrow. Recently medicated, pain currently controlled. 02/03/2017 maintained on CIWA, active DTs, pulled out NG tube last night, picking at incision,pulling at GISELLA. Straight cath. early this morning for 500 MLS.Just returned from upper GI series,reporting no evidence of extravasication or leak,NG tube discontinued. Clear liquid diet initiated. isolated fever of 100.1, currently afebrile, we'll continue to monitor. 02/04/2017 liver biopsy confirming cirrhosis.GI consult in place, recommendations pending. tolerating clear liquids with no nausea vomiting or diarrhea.diet advanced as per surgery. T-max 99.3.potassium 3.5, magnesium 1.4. Objective - Vital Signs Vital signs: Vital Signs Temp 99.3 F 02/04/17 15:00 Pulse 94 02/04/17 15:00 Resp 16 02/04/17 15:00 BP 148/92 02/04/17 15:00 Pulse Ox 93 L 02/04/17 15:00 Intake & Output 02/03/17 02/04/17 02/04/17 18:59 06:59 18:59 Intake Total 1000 175 Output Total 190 530 340 Balance -190 470 -165 Weight 91.9 kg Intake: Intake, IV Titration 1000 Amount D5-0.45% NaCl with KCl 1000 20Meq/l 1,000 ml @ 75 mls /hr IV .BY DURATION [facility] Rx#:[id number] Oral 175 Output: Drainage 190 530 340 Anterior Abdomen 190 530 340 Other: Voiding Method Toilet Toilet Bedside Commode Bedside Commode # Voids 2 2 2 # Bowel Movements 1 1 - Exam GENERAL: The patient is alert and oriented x3, sitting up in bed,not in any acute distress. Well developed, well nourished. HEENT: Pupils are round and equally reacting to light. EOMI. No scleral icterus. No conjunctival pallor. Normocephalic, atraumatic. No pharyngeal erythema. No thyromegaly. CARDIOVASCULAR: S1 and S2 present. No murmurs, rubs, or gallops. PULMONARY: Chest is clear to auscultation, no wheezing or crackles. ABDOMEN: Abdomen is soft, no significant tenderness surgical site areas appear to be clean. MUSCULOSKELETAL: No joint swelling or deformity. EXTREMITIES: No cyanosis, clubbing, or pedal edema. NEUROLOGICAL: Gross neurological examination did not reveal any focal deficits. SKIN: No rashes. - Labs CBC & Chem 7: 02/02/17 07:35 02/04/17 07:40 Labs: Abnormal Lab Results - Last 24 Hours (Table) 02/03/17 02/04/17 02/04/17 Range/Units 16:58 00:03 06:07 Chloride (98-107) mmol/L Creatinine (0.52-1.04) mg/dL Glucose (74-99) mg/dL POC Glucose (mg/dL) 131 H 131 H 123 H (75-99) mg/dL Calcium (8.4-10.2) mg/dL Magnesium (1.6-2.3) mg/dL 02/04/17 02/04/17 Range/Units 07:40 12:06 Chloride 110 H (98-107) mmol/L Creatinine 0.40 L (0.52-1.04) mg/dL Glucose 133 H (74-99) mg/dL POC Glucose (mg/dL) 108 H (75-99) mg/dL Calcium 7.1 L (8.4-10.2) mg/dL Magnesium 1.4 L (1.6-2.3) mg/dL Microbiology - Last 24 Hours (Table) 01/30/17 18:11 Blood Culture - Preliminary Blood No Growth after 96 hours 01/30/17 14:15 Blood Culture - Preliminary Blood No Growth after 96 hours Assessment and Plan Assessment: #1. Perforated prepyloric ulcer, status post exploratory laparotomy with repair of the prepyloric ulcer and wedge biopsy of the liver. confirming cirrhosis. #2. Septic shock and lactic acidosis, likely secondary to sepsis from perforated prepyloric ulcer and peritonitis,status post pressor support. #3. Hepatomegaly, without nodularity, consistent with cirrhosis, likely alcoholic. #4. Acute kidney injury, likely secondary to hypoperfusion, hypotension due to sepsis #5. Metabolic acidosis, secondary to hyperchloremia #6. Chronic alcoholism, drinks a pint of whiskey a day. Last drink on 2016. Active DTs. Maintain on CIWA protocol #7. Nicotine dependence, chronic and ongoing. #8. Diabetes mellitus, not on any maintenance treatments. Diet-controlled #9. Anxiety #10. Depression Plan: continue current medication regime ,Merrem, Zosyn,monitoring. Slowly improving. Maintain CIWA Protocol.increase ambulation as tolerated. Aggressive pulmonary toileting.magnesium and potassium replacements as per replacement protocols, ordered. Close monitoring of electrolytes with repeat labs ordered for a.m. The impression and plan of care has been dictated as directed. : I performed a history and examination of this patient, discussed the same with the dictator. I agree with the dictator's note ,documented as a scribe. Any additional findings or plans will be noted.
[2017-02-04 18:27] LABS: Glucose,Whole Blood 102 mg/dL (75-99)
[2017-02-05 00:08] LABS: Glucose,Whole Blood 109 mg/dL (75-99)
[2017-02-05] MEDS: HYDROmorphone 2 MG/ML 1 ML SYRINGE IV PRN ×5 (04:24→20:10)
[2017-02-05] MEDS: MEROPENEM 1 GM in SODIUM CHLORIDE 0.9% 100 ML IVPB SCH ×3 (04:25→20:10)
[2017-02-05] MEDS: INSULIN ASPART 100 UNIT/ML 1 ML 10 ML VIAL SQ SCH ×3 (06:14→19:10)
[2017-02-05 06:33] LABS: Glucose,Whole Blood 118 mg/dL (75-99)
[2017-02-05 08:11] LABS: Anion Gap 6 mmol/L; Blood Urea Nitrogen 9 mg/dL (7-17); Calcium 7.9 mg/dL (8.4-10.2); Carbon Dioxide 25 mmol/L (22-30); Chloride 109 mmol/L (98-107); Glucose 116 mg/dL (74-99); Magnesium 1.2 mg/dL (1.6-2.3); Non-African American GFR(MDRD) >60 (>60 ml/min/1.73 sqM); Sodium 140 mmol/L (137-145)
[2017-02-05 08:21] LABS: CH 35.4; CHCM 32.7; HCT 35.3 % (34.0-46.0); HDW 2.45; HGB 11.2 gm/dL (11.4-16.0); Immature Gran Flag Marked; MCH 34.6 pg (25.0-35.0); MCHC 31.8 g/dL (31.0-37.0); Macrocytosis Marked; Mean Platelet Volume 9.9; RBC 3.24 m/uL (3.80-5.40); RDW 15.7 % (11.5-15.5); WBC 6.4 k/uL (3.8-10.6); WBC (Perox) 6.13
[2017-02-05 08:24] LABS: MCV 108.8 fL (80.0-100.0)
[2017-02-05 08:46] LABS: Add Differential Manual Differential
[2017-02-05 08:51] LABS: Band Neutrophils % 1 %; Manual Review Performed; Metamyelocytes % 2 %; Myelocytes % 3 %; Nucleated Red Blood Cells 0 /100 WBC (0-0); Polychromasia Present; Total Cells Counted 200
[2017-02-05] MEDS: PANTOPRAZOLE 40 MG/10 ML VIAL IV SCH ×2 (09:16→20:10)
[2017-02-05] MEDS: NICOTINE 14MG/24HR PATCH TRANSDERM SCH ×2 (09:17→09:25)
[2017-02-05] MEDS: HEPARIN SODIUM,PORCINE 5,000 UNIT/ML 1 ML VIAL SQ SCH ×2 (09:18→16:17)
[2017-02-05] MEDS: [UNRECOGNIZED DRUG - REMARK] IV SCH ×3 (09:18)
[2017-02-05] MEDS: LORazepam 2 MG/ML INJ IV PRN ×2 (09:51→12:15)
[2017-02-05 11:58] LABS: Glucose,Whole Blood 115 mg/dL (75-99)
--- NOTE | 2017-02-05 12:17 | P.PN ---
Subjective Patient has a perforated peptic ulcer and patient underwent surgical repair and a patch for the peptic ulcer disease. Patient is on IV antibiotics patient NG tube still draining patient still in renal failure as we're unable to keep up with the output from the NG tube patient will be changed to 1 25 mL of half- normal saline patient does have noniron gap metabolic acidosis from hyperchloremia. Meropenem will be continued on micafungin will be discontinued. Patient has poor renal function. February 05 2017 Patient is doing much better today, still having quite a bit of serous output from the abdominal surgical incisional site areas. Tolerating diet well no further recommendations from medicine antibiotic management as per surgery may require Augmentin for about a week. Constitutional: Denied any fatigue denied any fever. Cardio vascular: denied any chest pain, palpitations Gastrointestinal as mentioned in HPI Pulmonary: Denied any shortness of breath cough Neurologic denied any new focal deficits Objective - Vital Signs Vital signs: Vital Signs Temp 97.0 F L 02/05/17 07:00 Pulse 91 02/05/17 07:00 Resp 20 02/05/17 07:00 BP 146/99 02/05/17 07:00 Pulse Ox 94 L 02/05/17 07:00 Intake & Output 02/04/17 02/05/17 02/05/17 18:59 06:59 18:59 Intake Total 275 500 0 Output Total 460 131 Balance -185 369 0 Weight 91.9 kg 91.9 kg Intake: Oral 275 500 0 Output: Drainage 460 130 Anterior Abdomen 460 130 Urine/Stool Mix 1 Other: Voiding Method Toilet Toilet Bedside Commode Bedside Commode # Voids 2 2 # Bowel Movements 1 1 - Exam PHYSICAL EXAMINATION: GENERAL: The patient is alert and oriented x3, sitting up in bed,not in any acute distress. Well developed, well nourished. HEENT: Pupils are round and equally reacting to light. EOMI. No scleral icterus. No conjunctival pallor. Normocephalic, atraumatic. No pharyngeal erythema. No thyromegaly. CARDIOVASCULAR: S1 and S2 present. No murmurs, rubs, or gallops. PULMONARY: Chest is clear to auscultation, no wheezing or crackles. ABDOMEN: Abdomen is soft, no significant tenderness surgical site areas appear to be clean. Significant amount of serous drainage from the midline incisional area MUSCULOSKELETAL: No joint swelling or deformity. EXTREMITIES: No cyanosis, clubbing, or pedal edema. NEUROLOGICAL: Gross neurological examination did not reveal any focal deficits. SKIN: No rashes. - Labs CBC & Chem 7: 02/05/17 07:07 02/05/17 07:07 Labs: Abnormal Lab Results - Last 24 Hours (Table) 02/04/17 02/04/17 02/05/17 Range/Units 18:13 23:48 06:02 RBC (3.80-5.40) m/uL Hgb (11.4-16.0) gm/dL MCV (80.0-100.0) fL RDW (11.5-15.5) % Plt Count (150-450) k/uL Monocytes # (Manual) (0-1.0) k/uL Metamyelocytes # (Man) (0) k/uL Myelocytes # (Manual) (0) k/uL Chloride (98-107) mmol/L Creatinine (0.52-1.04) mg/dL Glucose (74-99) mg/dL POC Glucose (mg/dL) 102 H 109 H 118 H (75-99) mg/dL Calcium (8.4-10.2) mg/dL Magnesium (1.6-2.3) mg/dL 02/05/17 02/05/17 02/05/17 Range/Units 07:07 07:07 11:51 RBC 3.24 L (3.80-5.40) m/uL Hgb 11.2 L (11.4-16.0) gm/dL MCV 108.8 H D (80.0-100.0) fL RDW 15.7 H (11.5-15.5) % Plt Count 132 L (150-450) k/uL Monocytes # (Manual) 1.02 H (0-1.0) k/uL Metamyelocytes # (Man) 0.13 H (0) k/uL Myelocytes # (Manual) 0.19 H (0) k/uL Chloride 109 H (98-107) mmol/L Creatinine 0.36 L (0.52-1.04) mg/dL Glucose 116 H (74-99) mg/dL POC Glucose (mg/dL) 115 H (75-99) mg/dL Calcium 7.9 L (8.4-10.2) mg/dL Magnesium 1.2 L (1.6-2.3) mg/dL Microbiology - Last 24 Hours (Table) 01/30/17 18:11 Blood Culture - Preliminary Blood No Growth after 120 hours 01/30/17 14:15 Blood Culture - Preliminary Blood No Growth after 120 hours Assessment and Plan Plan: #1. Perforated prepyloric ulcer, status post exploratory laparotomy with repair of the prepyloric ulcer and wedge biopsy of the liver. #2. Septic shock and lactic acidosis, resolved #3. Hepatomegaly, without nodularity, consistent with cirrhosis, likely alcoholic. #4. Acute kidney injury, improved #5. Metabolic acidosis, secondary to hyperchloremia #6. Chronic alcoholism, drinks a pint of whiskey a day. Last drink on 2016. No signs of DTs at present. #7. Nicotine dependence, chronic and ongoing. #8. Diabetes mellitus, not on any maintenance treatments. Diet-controlled #9. Anxiety #10. Depression Patient in my opinion can be discharged from medical perspective
--- NOTE | 2017-02-05 13:00 | P.PN ---
Subjective Progress Note Date: 02/05/17 Principal diagnosis: Seen again today 02/05/2017 in follow-up on the regular medical floor. She is status post repair of a perforated prepyloric ulcer and wedge biopsy of the liver. While sitting up in bed. She denies any worsening shortness of breath, cough or congestion. Obtaining good O2 saturations in the mid 90s on room air. She's been afebrile. No leukocytosis. Hemodynamically stable. Peritoneal fluid cultures are negative. Blood cultures revealed no growth. Urine culture no growth. Objective - Vital Signs Vital signs: Vital Signs Temp 97.0 F L 02/05/17 07:00 Pulse 91 02/05/17 07:00 Resp 20 02/05/17 07:00 BP 146/99 02/05/17 07:00 Pulse Ox 94 L 02/05/17 07:00 Intake & Output 02/04/17 02/05/17 02/05/17 18:59 06:59 18:59 Intake Total 275 500 0 Output Total 460 131 Balance -185 369 0 Weight 91.9 kg 91.9 kg Intake: Oral 275 500 0 Output: Drainage 460 130 Anterior Abdomen 460 130 Urine/Stool Mix 1 Other: Voiding Method Toilet Toilet Bedside Commode Bedside Commode # Voids 2 2 # Bowel Movements 1 1 - Exam GENERAL EXAM: Alert, active, comfortable in no apparent distress. HEAD: Normocephalic. EYES: Normal reaction of pupils, equal size. NOSE: Clear with pink turbinates. THROAT: No erythema or exudates. NECK: No masses, no JVD. CHEST: No chest wall deformity. LUNGS: Equal air entry with no crackles, wheeze, rhonchi or dullness. CVS: S1 and S2 normal with no audible murmur, regular rhythm. ABDOMEN: Some serous drainage from the surgical sites. Normal bowel sounds, no guarding or rigidity. SPINE: No scoliosis or deformity SKIN: No rashes CENTRAL NERVOUS SYSTEM: No focal deficits, tone is normal in all 4 extremities. EXTREMITIES: There is no peripheral edema. No clubbing, no cyanosis. Peripheral pulses are intact. - Labs CBC & Chem 7: 02/05/17 07:07 02/05/17 07:07 Labs: Abnormal Lab Results - Last 24 Hours (Table) 02/04/17 02/04/17 02/05/17 Range/Units 18:13 23:48 06:02 RBC (3.80-5.40) m/uL Hgb (11.4-16.0) gm/dL MCV (80.0-100.0) fL RDW (11.5-15.5) % Plt Count (150-450) k/uL Monocytes # (Manual) (0-1.0) k/uL Metamyelocytes # (Man) (0) k/uL Myelocytes # (Manual) (0) k/uL Chloride (98-107) mmol/L Creatinine (0.52-1.04) mg/dL Glucose (74-99) mg/dL POC Glucose (mg/dL) 102 H 109 H 118 H (75-99) mg/dL Calcium (8.4-10.2) mg/dL Magnesium (1.6-2.3) mg/dL 02/05/17 02/05/17 02/05/17 Range/Units 07:07 07:07 11:51 RBC 3.24 L (3.80-5.40) m/uL Hgb 11.2 L (11.4-16.0) gm/dL MCV 108.8 H D (80.0-100.0) fL RDW 15.7 H (11.5-15.5) % Plt Count 132 L (150-450) k/uL Monocytes # (Manual) 1.02 H (0-1.0) k/uL Metamyelocytes # (Man) 0.13 H (0) k/uL Myelocytes # (Manual) 0.19 H (0) k/uL Chloride 109 H (98-107) mmol/L Creatinine 0.36 L (0.52-1.04) mg/dL Glucose 116 H (74-99) mg/dL POC Glucose (mg/dL) 115 H (75-99) mg/dL Calcium 7.9 L (8.4-10.2) mg/dL Magnesium 1.2 L (1.6-2.3) mg/dL Microbiology - Last 24 Hours (Table) 01/30/17 18:11 Blood Culture - Preliminary Blood No Growth after 120 hours 01/30/17 14:15 Blood Culture - Preliminary Blood No Growth after 120 hours Assessment and Plan Assessment: (1) Prepyloric ulcer Current Visit: Yes Status: Acute Code(s): K25.9 - GASTRIC ULCER, UNSP ACUTE OR CHRONIC, W/O HEMOR OR PERF SNOMED Code(s): 13679147 (2) Septic shock Current Visit: Yes Status: Acute Code(s): A41.9 - SEPSIS, UNSPECIFIED ORGANISM; R65.21 - SEVERE SEPSIS WITH SEPTIC SHOCK SNOMED Code(s): 85569578 (3) Lactic acidosis Current Visit: Yes Status: Acute Code(s): E87.2 - ACIDOSIS SNOMED Code(s) : 04494686 (4) Liver cirrhosis Current Visit: Yes Status: Acute Code(s): K74.60 - UNSPECIFIED CIRRHOSIS OF LIVER SNOMED Code(s): 68483985 (5) Acute kidney injury Current Visit: Yes Status: Acute Code(s): N17.9 - ACUTE KIDNEY FAILURE, UNSPECIFIED SNOMED Code(s): 07077841 (6) Metabolic acidosis Current Visit: Yes Status: Acute Code(s): E87.2 - ACIDOSIS SNOMED Code(s) : 88588596 (7) COPD (chronic obstructive pulmonary disease) Current Visit: Yes Status: Acute Code(s): J44.9 - CHRONIC OBSTRUCTIVE PULMONARY DISEASE, UNSPECIFIED SNOMED Code(s): 00333145 (8) Chronic alcohol abuse Current Visit: Yes Status: Acute Code(s): F10.10 - ALCOHOL ABUSE, UNCOMPLICATED SNOMED Code(s): 536312286 (9) Alcohol withdrawal seizure Current Visit: No Status: Acute Code(s): F10.239 - ALCOHOL DEPENDENCE WITH WITHDRAWAL, UNSPECIFIED SNOMED Code(s): 950155631 (10) Dental abscess Current Visit: No Status: Acute Code(s): K04.7 - PERIAPICAL ABSCESS WITHOUT SINUS SNOMED Code(s): 410677873 Plan: Patient was seen and evaluated by Dr. Sheehan. She is cleared for discharge from the pulmonary standpoint. She is again encouraged regarding the increased use of the incentive spirometer and cough and deep breathing exercises. She is again encouraged regarding the importance of complete smoking cessation. We'll see the patient on as-needed basis. I, the cosigning physician, have performed a history and physical examination on the patient. Lung sounds are clear currently with faint crackles in the posterior bases. Suspect atelectasis.. Maintaining good O2 saturations in the 90s on room air. I have discussed the assessment and plan of care with my nurse practitioner, Trinh Brady. I attest the above documented note as dictated by her.
--- NOTE | 2017-02-05 13:09 | P.PN ---
Subjective Progress Note Date: 02/05/17 Principal diagnosis: Perforated viscus Patient's doing well today tolerating her diet having bowel movements. She started quite a bit of output out of her GISELLA drain. This is serosanguineous. Denies chest branch shortness of breath she's on room air. Objective - Vital Signs Vital signs: Vital Signs Temp 97.0 F L 02/05/17 07:00 Pulse 91 02/05/17 07:00 Resp 20 02/05/17 07:00 BP 146/99 02/05/17 07:00 Pulse Ox 94 L 02/05/17 07:00 Intake & Output 02/04/17 02/05/17 02/05/17 18:59 06:59 18:59 Intake Total 275 500 0 Output Total 460 131 Balance -185 369 0 Weight 91.9 kg 91.9 kg Intake: Oral 275 500 0 Output: Drainage 460 130 Anterior Abdomen 460 130 Urine/Stool Mix 1 Other: Voiding Method Toilet Toilet Bedside Commode Bedside Commode # Voids 2 2 # Bowel Movements 1 1 - Constitutional General appearance: Present: cooperative - EENT Eyes: Present: PERRLA - Respiratory Details: Nonlabored breathing - Cardiovascular Rhythm: regular - Gastrointestinal Gastrointestinal Comment(s): Soft nontender mildly distended. GISELLA with serosanguineous drainage - Psychiatric Psychiatric: Present: A&O x's 3 - Labs CBC & Chem 7: 02/05/17 07:07 02/05/17 07:07 Labs: Abnormal Lab Results - Last 24 Hours (Table) 02/04/17 02/04/17 02/05/17 Range/Units 18:13 23:48 06:02 RBC (3.80-5.40) m/uL Hgb (11.4-16.0) gm/dL MCV (80.0-100.0) fL RDW (11.5-15.5) % Plt Count (150-450) k/uL Monocytes # (Manual) (0-1.0) k/uL Metamyelocytes # (Man) (0) k/uL Myelocytes # (Manual) (0) k/uL Chloride (98-107) mmol/L Creatinine (0.52-1.04) mg/dL Glucose (74-99) mg/dL POC Glucose (mg/dL) 102 H 109 H 118 H (75-99) mg/dL Calcium (8.4-10.2) mg/dL Magnesium (1.6-2.3) mg/dL 02/05/17 02/05/17 02/05/17 Range/Units 07:07 07:07 11:51 RBC 3.24 L (3.80-5.40) m/uL Hgb 11.2 L (11.4-16.0) gm/dL MCV 108.8 H D (80.0-100.0) fL RDW 15.7 H (11.5-15.5) % Plt Count 132 L (150-450) k/uL Monocytes # (Manual) 1.02 H (0-1.0) k/uL Metamyelocytes # (Man) 0.13 H (0) k/uL Myelocytes # (Manual) 0.19 H (0) k/uL Chloride 109 H (98-107) mmol/L Creatinine 0.36 L (0.52-1.04) mg/dL Glucose 116 H (74-99) mg/dL POC Glucose (mg/dL) 115 H (75-99) mg/dL Calcium 7.9 L (8.4-10.2) mg/dL Magnesium 1.2 L (1.6-2.3) mg/dL Microbiology - Last 24 Hours (Table) 01/30/17 18:11 Blood Culture - Preliminary Blood No Growth after 120 hours 01/30/17 14:15 Blood Culture - Preliminary Blood No Growth after 120 hours Assessment and Plan Assessment: Postop repair of perforated ulcer. Plan: Continue diet patient is doing well discharge planning for possible DC tomorrow
[2017-02-05] MEDS: MAGNESIUM SULFATE-D5W PMX 1 GM in DEXTROSE/WATER 1 100ML.BAG IVPB SCH ×3 (13:16→16:17)
[2017-02-05] MEDS: THIAMINE 100 MG/ML 2 ML VIAL IVP SCH (13:16)
[2017-02-05 17:49] LABS: Glucose,Whole Blood 117 mg/dL (75-99)
[2017-02-05 21:45] LABS: Glucose,Whole Blood 129 mg/dL (75-99)
[2017-02-06] MEDS: INSULIN ASPART 100 UNIT/ML 1 ML 10 ML VIAL SQ SCH ×2 (00:04→06:30)
[2017-02-06] MEDS: HEPARIN SODIUM,PORCINE 5,000 UNIT/ML 1 ML VIAL SQ SCH ×2 (00:08→08:26)
[2017-02-06] MEDS: HYDROmorphone 2 MG/ML 1 ML SYRINGE IV PRN ×2 (02:18→05:20)
[2017-02-06] MEDS: [UNRECOGNIZED DRUG - REMARK] IV SCH ×3 (03:42)
[2017-02-06] MEDS: MEROPENEM 1 GM in SODIUM CHLORIDE 0.9% 100 ML IVPB SCH (03:42)
[2017-02-06 06:32] LABS: Glucose,Whole Blood 100 mg/dL (75-99)
[2017-02-06] MEDS ORDERED: INSULIN ASPART 100 UNIT/ML 1 ML 10 ML VIAL SQ SCH (07:30)
[2017-02-06 07:57] VITALS: BP 133/67; PULSE 71; RESP 18; TEMP 98.2
[2017-02-06] MEDS: NICOTINE 14MG/24HR PATCH TRANSDERM SCH (08:26)
[2017-02-06] MEDS: THIAMINE 100 MG/ML 2 ML VIAL IVP SCH (08:26)
[2017-02-06] MEDS: PANTOPRAZOLE 40 MG/10 ML VIAL IV SCH (08:26)
--- NOTE | 2017-02-06 11:12 | P.PN ---
Subjective Progress Note Date: 02/06/17 Principal diagnosis: Perforated viscus Patient is doing well today tolerating her diet no complaints pain is well- controlled no nausea vomiting no shortness of breath or chest pain. Her GISELLA drain came out last night it was just draining serosanguineous fluid. There is a 4 x 4 over top of the GISELLA drain site Objective - Vital Signs Vital signs: Vital Signs Temp 98.2 F 02/06/17 07:00 Pulse 71 02/06/17 07:00 Resp 18 02/06/17 07:00 BP 133/67 02/06/17 07:00 Pulse Ox 95 02/06/17 07:00 Intake & Output 02/05/17 02/06/17 02/06/17 18:59 06:59 18:59 Intake Total 0 300 Output Total 80 25 10 Balance -80 275 -10 Weight 91.9 kg Intake: Oral 0 300 Output: Drainage 80 25 10 Anterior Abdomen 80 25 10 Other: Voiding Method Toilet Toilet Bedside Commode Bedside Commode # Voids 1 1 - Constitutional General appearance: Present: cooperative - Respiratory Details: Nonlabored - Cardiovascular Rhythm: regular - Gastrointestinal Gastrointestinal Comment(s): Soft nontender nondistended incisions clean dry and intact. - Psychiatric Psychiatric: Present: A&O x's 3 - Labs CBC & Chem 7: 02/05/17 07:07 02/05/17 07:07 Labs: Abnormal Lab Results - Last 24 Hours (Table) 02/05/17 02/05/17 02/05/17 Range/Units 11:51 17:35 21:13 POC Glucose (mg/dL) 115 H 117 H 129 H (75-99) mg/dL 02/06/17 Range/Units 06:28 POC Glucose (mg/dL) 100 H (75-99) mg/dL Microbiology - Last 24 Hours (Table) 01/30/17 18:11 Blood Culture - Final Blood No Growth after 144 hours 01/30/17 14:15 Blood Culture - Final Blood No Growth after 144 hours Assessment and Plan Assessment: Postop repair of perforated ulcer. Plan: Patient is doing well today. GISELLA drain is out she's tolerating her diet. She may be discharged home on Prilosec with follow-up visit in 1-2 weeks. I informed her to discontinue her alcohol use and that she should not be using any Motrin or Aleve or Advil or ibuprofen
== END 2017-02-06 11:30 | disposition home or self-care (01) | DRG 710 ==
LOC: EC 09:12 → 3SUR 11:39 → 6ICU 14:30 → 4MS4W 02-01 18:36
PROVIDERS: ADMIT Surgery; ATTEND Surgery
PROC: 0W3P0ZZ Control Bleeding in Gastrointestinal Tract, Open Approach (ICD-10-PCS; principal; 2017-01-31)
PROC: 0FB00ZX Excision of Liver, Open Approach, Diagnostic (ICD-10-PCS; 2017-01-31)
PROC: 0D9670Z Drainage of Stomach with Drainage Device, Via Natural or Artificial Opening (ICD-10-PCS; 2017-01-31)
DX: A41.9 Sepsis, unspecified organism (principal); N17.0 Acute kidney failure with tubular necrosis; R65.21 Severe sepsis with septic shock; E87.2 Acidosis; K25.5 Chronic or unspecified gastric ulcer with perforation; F10.231 Alcohol dependence with withdrawal delirium; K65.9 Peritonitis, unspecified; E87.8 Other disorders of electrolyte and fluid balance, not elsewhere classified; E83.39 Other disorders of phosphorus metabolism; E86.0 Dehydration; E83.42 Hypomagnesemia; F17.210 Nicotine dependence, cigarettes, uncomplicated; F32.9 Major depressive disorder, single episode, unspecified; F41.9 Anxiety disorder, unspecified; I49.3 Ventricular premature depolarization; J44.9 Chronic obstructive pulmonary disease, unspecified; K70.31 Alcoholic cirrhosis of liver with ascites; K76.0 Fatty (change of) liver, not elsewhere classified; M19.90 Unspecified osteoarthritis, unspecified site; E11.40 Type 2 diabetes mellitus with diabetic neuropathy, unspecified; G89.29 Other chronic pain; M54.9 Dorsalgia, unspecified; Z79.899 Other long term (current) drug therapy; Z88.5 Allergy status to narcotic agent; Z91.19 Patient's noncompliance with other medical treatment and regimen
CPT/HCPCS: 36415; 36600; 74000; 74176; 80048; 80053; 81001; 81025; 82150; 82533; 82805; 83036; 83605; 83690; 83735; 84100; 85025; 87040; 87070; 87075; 87086; 87205; 88307; 88313; 94660; 96361; 96365; 96375; 96376; 99285

== ENCOUNTER 2017-04-04 09:00 | Inpatient (IN) | payer OTHER ==
[2017-04-04] MEDS ORDERED: HYDROmorphone 2 MG/ML 1 ML SYRINGE IVP STA (09:42)
[2017-04-04] MEDS ORDERED: SODIUM CHLORIDE 0.9% 1,000 ML IV STA ×2 (09:42→12:03)
[2017-04-04] MEDS ORDERED: ONDANSETRON 4 MG/2 ML VIAL IVP STA ×2 (09:42→13:09)
--- NOTE | 2017-04-04 10:02 | ED ---
General Adult HPI - General Source: patient, RN notes reviewed Mode of arrival: wheelchair Limitations: no limitations <Raf Garcia - Last Filed: 04/04/17 12:23> <Jef James - Last Filed: 04/04/17 12:35> - General Chief complaint: Abdominal Pain Stated complaint: abd pain post surgery Time Seen by Provider: 04/04/17 09:36 - History of Present Illness Initial comments: Patient is a 41-year-old female who presents emergency room today with a chief complaint of abdominal pain 3 days. Does admit to pain in both the upper and lower abdomen. Does admit that she had surgery back in January. She states that it is a sharp type pain. She denies any other complaints or associated symptoms. Patient denies any recent fever, chills, shortness of breath, chest pain, back pain, numbness or tingling, dysuria or hematuria, constipation or diarrhea, headaches or visual changes, or any other complaints. (Raf Garcia) - Related Data Home Medications Medication Instructions Recorded Confirmed Gabapentin [Neurontin] 300 mg PO QID 03/09/16 04/04/17 clonazePAM [KlonoPIN] 0.5 mg PO DAILY PRN 01/30/17 04/04/17 Previous Rx's Medication Instructions Recorded Omeprazole [PriLOSEC] 40 mg PO DAILY #90 capsule. 02/06/17 Allergies Allergy/AdvReac Type Severity Reaction Status Date / Time codeine Allergy Mild Rash/Hives Verified 04/04/17 09:39 Review of Systems ROS Other: All systems not noted in ROS Statement are negative. <Raf Garcia - Last Filed: 04/04/17 12:23> ROS Other: All systems not noted in ROS Statement are negative. <Jef James - Last Filed: 04/04/17 12:35> ROS Statement: Those systems with pertinent positive or pertinent negative responses have been documented in the HPI. Past Medical History Past Medical History: Diabetes Mellitus Additional Past Medical History / Comment(s): non insulin dependent diabetic History of Any Multi-Drug Resistant Organisms: None Reported Past Surgical History: Section Additional Past Surgical History / Comment(s): ulcer repair surg [id number] Past Anesthesia/Blood Transfusion Reactions: No Reported Reaction Past Psychological History: Anxiety Smoking Status: Current every day smoker Past Alcohol Use History: Abuse, Daily, Occasional Past Drug Use History: None Reported - Past Family History Father Family Medical History: No Reported History Mother Family Medical History: No Reported History <Raf Garcia - Last Filed: 04/04/17 12:23> General Exam Limitations: no limitations <Raf Garcia - Last Filed: 04/04/17 12:23> <Jef James - Last Filed: 04/04/17 12:35> - General Exam Comments Initial Comments: General: The patient is awake and alert, in no distress, and does not appear acutely ill. Eye: Pupils are equal, round and reactive to light, extra-ocular movements are intact. No nystagmus. There is normal conjunctiva bilaterally. No signs of icterus. Ears, nose, mouth and throat: There are moist mucous membranes and no oral lesions. Neck: The neck is supple, there is no tenderness or JVD. Cardiovascular: There is a regular rate and rhythm. No murmur, rub or gallop is appreciated. Respiratory: Lungs are clear to auscultation, respirations are non-labored, breath sounds are equal. No wheezes, stridor, rales, or rhonchi. Gastrointestinal: Surgical incision midline healing well. Patient tender in the left upper and epigastric areas on palpation. No rebound tenderness. No guarding. Musculoskeletal: Normal ROM, no tenderness. Strength 5/5. Sensation intact. Pulses equal bilaterally 2+. Neurological: A&O x 3. CN II-XII intact, There are no obvious motor or sensory deficits. Coordination appears grossly intact. Speech is normal. Skin: Skin is warm and dry and no rashes or lesions are noted. Psychiatric: Cooperative, appropriate mood & affect, normal judgment. (Raf Garcia) Vital Signs 04/04/17 04/04/17 09:02 11:00 Temperature 97.0 F L Pulse Rate 122 H 115 H Respiratory 18 20 Rate Blood Pressure 172/90 148/89 O2 Sat by Pulse 100 93 L Oximetry Medical Decision Making - Lab Data Result diagrams: 04/04/17 10:06 04/04/17 10:06 <Raf Garcia - Last Filed: 04/04/17 12:23> - Lab Data Result diagrams: 04/04/17 10:06 04/04/17 10:06 <Jef James - Last Filed: 04/04/17 12:35> - Medical Decision Making Patient reexamined is resting comfortably. Patient does have some discomfort epigastric and upper quadrants. Patient's labs been reviewed does show hypokalemia 2.9. Patient given 20 mg IV and 40 mg by mouth of potassium. Patient's lactic acid 7.2 given 2 L of fluids through the emergency room started on Zosyn to cover for colitis. Case was discussed and seen by physician Dr. James who did discuss case with patient's surgeon Dr. Loco recommending a HIDA scan. Case was discussed with hospitalist doctor Gus who will admit the patient. (Raf Garcia) The patient was seen and examined. All diagnostics were reviewed. The case is discussed with general surgery as well as internal medicine. The patient will be admitted to internal medicine with Gen. surgery to consult. The case is discussed with the PA and I agree with the findings as documented. (Jef James) - Lab Data Lab Results 04/04/17 04/04/17 04/04/17 Range/Units 10:06 10:06 10:06 WBC 6.3 (3.8-10.6) k/uL RBC 3.15 L (3.80-5.40) m/uL Hgb 11.0 L (11.4-16.0) gm/dL Hct 34.8 (34.0-46.0) % MCV 110.4 H (80.0-100.0) fL MCH 34.8 (25.0-35.0) pg MCHC 31.6 (31.0-37.0) g/dL RDW 20.6 H (11.5-15.5) % Plt Count 164 (150-450) k/uL Neutrophils % 73 % Lymphocytes % 14 % Monocytes % 10 % Eosinophils % 0 % Basophils % 1 % Neutrophils # 4.6 (1.3-7.7) k/uL Lymphocytes # 0.9 L (1.0-4.8) k/uL Monocytes # 0.6 (0-1.0) k/uL Eosinophils # 0.0 (0-0.7) k/uL Basophils # 0.1 (0-0.2) k/uL Anisocytosis Moderate Macrocytosis Marked PT (9.0-12.0) sec INR (<1.2) APTT (22.0-30.0) sec Sodium 138 (137-145) mmol/L Potassium 2.9 L* (3.5-5.1) mmol/L Chloride 94 L (98-107) mmol/L Carbon Dioxide 20 L (22-30) mmol/L Anion Gap 24 mmol/L BUN 8 (7-17) mg/dL Creatinine 0.47 L (0.52-1.04) mg/dL Est GFR (MDRD) Af Amer >60 (>60 ml/min/1.73 sqM) Est GFR (MDRD) Non-Af >60 (>60 ml/min/1.73 sqM) Glucose 135 H (74-99) mg/dL Plasma Lactic Acid Antony 7.2 H* (0.7-2.0) mmol/L Calcium 8.4 (8.4-10.2) mg/dL Total Bilirubin 2.2 H (0.2-1.3) mg/dL AST 251 H (14-36) U/L ALT 60 H (9-52) U/L Alkaline Phosphatase 148 H (38-126) U/L Total Protein 7.1 (6.3-8.2) g/dL Albumin 3.8 (3.5-5.0) g/dL Amylase 53 (30-110) U/L Lipase 52 (23-300) U/L HCG, Quant <2.4 mIU/mL Group A Strep Rapid (Negative) 04/04/17 04/04/17 Range/Units 10:06 11:35 WBC (3.8-10.6) k/uL RBC (3.80-5.40) m/uL Hgb (11.4-16.0) gm/dL Hct (34.0-46.0) % MCV (80.0-100.0) fL MCH (25.0-35.0) pg MCHC (31.0-37.0) g/dL RDW (11.5-15.5) % Plt Count (150-450) k/uL Neutrophils % % Lymphocytes % % Monocytes % % Eosinophils % % Basophils % % Neutrophils # (1.3-7.7) k/uL Lymphocytes # (1.0-4.8) k/uL Monocytes # (0-1.0) k/uL Eosinophils # (0-0.7) k/uL Basophils # (0-0.2) k/uL Anisocytosis Macrocytosis PT 11.1 (9.0-12.0) sec INR 1.2 H (<1.2) APTT 22.2 (22.0-30.0) sec Sodium (137-145) mmol/L Potassium (3.5-5.1) mmol/L Chloride (98-107) mmol/L Carbon Dioxide (22-30) mmol/L Anion Gap mmol/L BUN (7-17) mg/dL Creatinine (0.52-1.04) mg/dL Est GFR (MDRD) Af Amer (>60 ml/min/1.73 sqM) Est GFR (MDRD) Non-Af (>60 ml/min/1.73 sqM) Glucose (74-99) mg/dL Plasma Lactic Acid Antony (0.7-2.0) mmol/L Calcium (8.4-10.2) mg/dL Total Bilirubin (0.2-1.3) mg/dL AST (14-36) U/L ALT (9-52) U/L Alkaline Phosphatase (38-126) U/L Total Protein (6.3-8.2) g/dL Albumin (3.5-5.0) g/dL Amylase (30-110) U/L Lipase (23-300) U/L HCG, Quant mIU/mL Group A Strep Rapid Negative (Negative) Disposition Time of Disposition: 12:10 <Raf Garcia - Last Filed: 04/04/17 12:23> <Jef James - Last Filed: 04/04/17 12:35> Clinical Impression: Colitis, Lactic acidosis, Hypokalemia Disposition: ADMITTED IP TO THIS [facility] Condition: Stable Referrals: Kathryn Vieira MD [Primary Care Provider] - 1-2 days
[2017-04-04 10:29] LABS: Anisocytosis Moderate; Basophils # (A) 0.1 k/uL (0-0.2); Basophils % (A) 1 %; Eosinophils % (A) 0 %; HCT 34.8 % (34.0-46.0); Lymphocytes # (A) 0.9 k/uL (1.0-4.8); Lymphocytes % (A) 14 %; MCH 34.8 pg (25.0-35.0); MCHC 31.6 g/dL (31.0-37.0); MCV 110.4 fL (80.0-100.0); Macrocytosis Marked; Mean Platelet Volume 8.1; Monocytes # (A) 0.6 k/uL (0-1.0); Monocytes % (A) 10 %; Neutrophils # (A) 4.6 k/uL (1.3-7.7); Neutrophils % (A) 73 %; Platelet Count 164 k/uL (150-450); RBC 3.15 m/uL (3.80-5.40); RDW 20.6 % (11.5-15.5); WBC 6.3 k/uL (3.8-10.6)
[2017-04-04 10:35] LABS: ALT 60 U/L (9-52); AST 251 U/L (14-36); Albumin 3.8 g/dL (3.5-5.0); Alkaline Phosphatase 148 U/L (38-126); Amylase 53 U/L (30-110); Anion Gap 24 mmol/L; Blood Urea Nitrogen 8 mg/dL (7-17); Calcium 8.4 mg/dL (8.4-10.2); Carbon Dioxide 20 mmol/L (22-30); Chloride 94 mmol/L (98-107); Glucose 135 mg/dL (74-99); INR 1.2 (<1.2); Lipase 52 U/L (23-300); Partial Thromboplastin Time 22.2 sec (22.0-30.0); Prothrombin Time 11.1 sec (9.0-12.0); Sodium 138 mmol/L (137-145); Total Bilirubin 2.2 mg/dL (0.2-1.3); Total Protein 7.1 g/dL (6.3-8.2)
--- NOTE | 2017-04-04 10:41 | XR ---
EXAMINATION TYPE: XR KUB DATE OF EXAM: 04/04/2017 CLINICAL DATA: 41 year-old female with a abdominal pain, ulcer repair surgery end of January. [facility] COMPARISON: 01/30/2017 FINDINGS: Lung bases are clear. No evidence for free intraperitoneal air. No significant stool burden. Air-fluid levels present in the mid and lower abdomen and pelvis. These appear to involve small bowel loops as well as distal colon. No suspicious calcifications identified. IMPRESSION: Air-fluid levels in the mid and lower abdomen and pelvis. No abnormal dilated bowel. Findings could r epresent generalized ileus, enteritis, or early small bowel obstruction. Follow-up recommended.
[2017-04-04] MEDS ORDERED: RX INFO: IV CONTRAST WAS GIVEN 1 EACH MISC MISCELLANE PRN (10:42)
[2017-04-04 10:51] LABS: HCG,Quantitative Serum <2.4 mIU/mL; Potassium 2.9 mmol/L (3.5-5.1)
[2017-04-04] MEDS ORDERED: POTASSIUM CHLORIDE 20 MEQ in WATER FOR INJECTION 1 100ML.BAG IVPB STA (11:15)
[2017-04-04] MEDS: POTASSIUM CHLORIDE 10 MEQ in WATER FOR INJECTION 1 100ML.BAG IVPB SCH ×2 (11:33→13:18)
--- NOTE | 2017-04-04 11:48 | XR ---
EXAMINATION TYPE: XR chest 2V DATE OF EXAM: 04/04/2017 COMPARISON: None HISTORY: 41-year-old female with cough TECHNIQUE: PA and lateral views FINDINGS: The cardiomediastinal silhouette, aorta, and pulmonary vasculature are within normal limits. Peribron chial cuffing is present. Old healed fracture deformities left-sided ribs. No consolidation or pleura l effusion. IMPRESSION: Findings suggest bronchitis or asthma. No infiltrate to indicate pneumonia.
--- NOTE | 2017-04-04 11:50 | CT ---
EXAMINATION TYPE: CT abdomen pelvis w con DATE OF EXAM: 04/04/2017 COMPARISON: 01/30/2017 HISTORY: Pain, ulcer repair in January CT DLP: 893.6 mGycm CONTRAST: CT scan of the abdomen and pelvis is performed without Oral Contrast and with IV Contrast, patient in jected with 100 mL of Omnipaque 300. FINDINGS: LUNG BASES-: No visible nodule. No infiltrate. LIVER/GB: Hepatomegaly with hepatic steatosis. Dilatation of the gallbladder without definite cholel ithiasis or wall thickening. No space occupying hepatic lesion. Common bile duct dilatation measuring approximately 1.3 cm. PANCREAS: No inflammation. No distinct mass. SPLEEN: No splenic enlargement. No lesion seen. ADRENALS: No nodule. No thickening. KIDNEYS/BLADDER: No hydronephrosis. No nephrolithiasis. Subcentimeter left renal cortical cysts. D istention of the urinary bladder with a large amount of air within the urinary bladder may reflect re cent attempts at catheterization. Correlate clinically.. BOWEL: Normal appendix. Wall thickening of the right hemicolon and transverse colon may reflect unde rlying colitis. Normal bowel caliber. No inflammation. No evidence for free air. GENITAL ORGANS: Lobulated appearance of the uterus may reflect underlying leiomyomatous change. LYMPH NODES: No greater than 1cm abdominal or pelvic lymph nodes are appreciated. AORTA: No significant abnormality. OSSEOUS STRUCTURES: No significant abnormality is seen. OTHER: No significant additional abnormality is seen. IMPRESSION: 1. Hepatomegaly with underlying hepatic steatosis. 2. Correlate for colitis involving the right hemicolon and portions of the transverse colon. 3. Gallbladder dilatation with a dilatation of the common bile duct. No obvious a calcified cholelith iasis. Correlate with ultrasound to exclude underlying acalculous cholecystitis or lesion of the ampu lla.
[2017-04-04] MEDS ORDERED: POTASSIUM CHLORIDE ER 20 MEQ TAB.ER PO STA (12:03)
[2017-04-04] MEDS ORDERED: PIPERACILLIN-TAZOBACTAM 3.375 GM in DEXTROSE/WATER 1 50ML.BAG IVPB STA (12:04)
[2017-04-04] MEDS ORDERED: ACETAMINOPHEN TAB 325 MG TAB PO PRN (12:26)
[2017-04-04] MEDS ORDERED: NALOXONE 0.4 MG/ML 1 ML VIAL IV PRN (12:26)
[2017-04-04] MEDS ORDERED: ONDANSETRON 4 MG/2 ML VIAL IVP PRN (12:26)
[2017-04-04 12:39] LABS: Appearance,Urine Turbid (Clear); Bacteria,Urine Moderate /hpf; Bilirubin,Urine Negative (Negative); Blood,Urine Negative (Negative); Color,Urine Yellow; Glucose,Urine (UA) Negative (Negative); Ketones,Urine 1+ (Negative); Leukocyte Esterase,Urine Moderate (Negative); Nitrite,Urine Positive (Negative); Protein,Urine 1+ (Negative); Specific Gravity,Urine 1.044 (1.001-1.035); Squamous Epithelial Cell,Urine 47 /hpf (0-4); WBC,Urine 22 /hpf (0-5)
[2017-04-04] MEDS: HYDROmorphone 2 MG/ML 1 ML SYRINGE IVP PRN ×4 (13:26→23:19)
[2017-04-04] MEDS ORDERED: LORazepam 2 MG/ML INJ IV PRN ×2 (14:14)
[2017-04-04] MEDS ORDERED: THIAMINE 100 MG/ML 2 ML VIAL IM STA (14:14)
--- NOTE | 2017-04-04 14:48 | P.GSCN ---
History of Present Illness Consult date: 04/04/17 History of present illness: 41-year-old female presents to the emergency department complaining of 1 week of abdominal pain. She states that most of her pain is in her bilateral lower quadrants. She states that she has felt nausea and has had episodes of emesis. She states that she is had some mild epigastric pain as well. She denies any change in her bowel function. She denies any change in her appetite. She denies any urinary changes. She did have a perforated gastric ulcer that was repaired in January 2017. She does admit to alcohol abuse with 1 pint of vodka daily. She states her last consumption of alcohol was yesterday. Review of Systems All systems: negative Past Medical History Past Medical History: Diabetes Mellitus Additional Past Medical History / Comment(s): Diet controlled diabetes, pt states she has been worked up for cirrhosis but does not know if she has it yet , ascities, neuropathy bilateral fingers/toes, dental abscesses, LMP 3 months ago and pt states she has no idea why last menses that long ago. History of Any Multi-Drug Resistant Organisms: None Reported Past Surgical History: Section Additional Past Surgical History / Comment(s): 01/2017 exploratory lap with repair of perforated ulcer with liver biopsy. Past Anesthesia/Blood Transfusion Reactions: No Reported Reaction Past Psychological History: Anxiety Additional Psychological History / Comment(s): Pt resides with her boyfriend. She is independent. Smoking Status: Current every day smoker Past Alcohol Use History: Abuse, Daily Additional Past Alcohol Use History / Comment(s): Pt started smoking in 1994 and is a 1/2 a pack a day smoker. Pt states she drinks 1 pint of vodka a day. Past Drug Use History: None Reported - Past Family History Father Family Medical History: No Reported History Additional Family Medical History / Comment(s): Father is healthy and is 68yrs old. Mother Family Medical History: No Reported History Additional Family Medical History / Comment(s): Mother is healthy and is 68yrs old. Medications and Allergies Home Medications Medication Instructions Recorded Confirmed Type Gabapentin [Neurontin] 300 mg PO QID 03/09/16 04/04/17 History clonazePAM [KlonoPIN] 0.5 mg PO DAILY PRN 01/30/17 04/04/17 History Omeprazole [PriLOSEC] 40 mg PO DAILY #90 capsule. 02/06/17 04/04/17 Rx Allergies Allergy/AdvReac Type Severity Reaction Status Date / Time codeine Allergy Mild Rash/Hives Verified 04/04/17 09:39 Surgical - Exam Osteopathic Statement: *. No significant issues noted on an osteopathic structural exam other than those noted in the History and Physical/Consult. Vital Signs Temp Pulse Resp BP Pulse Ox 97.0 F L 122 H 18 172/90 100 04/04/17 09:02 04/04/17 09:02 04/04/17 09:02 04/04/17 09:02 04/04/17 09:02 - General no distress - Eyes PERRL, normal ocular movement - ENT normal mucosa, no hearing loss - Neck no masses, no bruits, trachea midline, no lymphadectomy - Respiratory normal respiratory effort - Abdomen Soft, nontender, nondistended, no rebound, no guarding, previous midline incision site has healed well - Musculoskeletal normal gait - Psychiatric oriented to time, oriented to person, oriented to place, speech is normal Results - Labs 04/04/17 10:06 04/04/17 10:06 Abnormal Lab Results - Last 24 Hours (Table) 04/04/17 04/04/17 04/04/17 Range/Units 10:06 10:06 10:06 RBC 3.15 L (3.80-5.40) m/uL Hgb 11.0 L (11.4-16.0) gm/dL MCV 110.4 H (80.0-100.0) fL RDW 20.6 H (11.5-15.5) % Lymphocytes # 0.9 L (1.0-4.8) k/uL INR (<1.2) Potassium 2.9 L* (3.5-5.1) mmol/L Chloride 94 L (98-107) mmol/L Carbon Dioxide 20 L (22-30) mmol/L Creatinine 0.47 L (0.52-1.04) mg/dL Glucose 135 H (74-99) mg/dL Plasma Lactic Acid Antony 7.2 H* (0.7-2.0) mmol/L Total Bilirubin 2.2 H (0.2-1.3) mg/dL AST 251 H (14-36) U/L ALT 60 H (9-52) U/L Alkaline Phosphatase 148 H (38-126) U/L Urine Appearance (Clear) Ur Specific [place] (1.001-1.035) Urine Protein (Negative) Urine Ketones (Negative) Urine Nitrite (Negative) Ur Leukocyte Esterase (Negative) Urine WBC (0-5) /hpf Ur Squamous Epith Cells (0-4) /hpf Urine Bacteria (None) /hpf 04/04/17 04/04/17 Range/Units 10:06 12:20 RBC (3.80-5.40) m/uL Hgb (11.4-16.0) gm/dL MCV (80.0-100.0) fL RDW (11.5-15.5) % Lymphocytes # (1.0-4.8) k/uL INR 1.2 H (<1.2) Potassium (3.5-5.1) mmol/L Chloride (98-107) mmol/L Carbon Dioxide (22-30) mmol/L Creatinine (0.52-1.04) mg/dL Glucose (74-99) mg/dL Plasma Lactic Acid Antony (0.7-2.0) mmol/L Total Bilirubin (0.2-1.3) mg/dL AST (14-36) U/L ALT (9-52) U/L Alkaline Phosphatase (38-126) U/L Urine Appearance Turbid H (Clear) Ur Specific [place] 1.044 H (1.001-1.035) Urine Protein 1+ H (Negative) Urine Ketones 1+ H (Negative) Urine Nitrite Positive H (Negative) Ur Leukocyte Esterase Moderate H (Negative) Urine WBC 22 H (0-5) /hpf Ur Squamous Epith Cells 47 H (0-4) /hpf Urine Bacteria Moderate H (None) /hpf Diabetes panel 04/04/17 Range/Units 10:06 Sodium 138 (137-145) mmol/L Potassium 2.9 L* (3.5-5.1) mmol/L Chloride 94 L (98-107) mmol/L Carbon Dioxide 20 L (22-30) mmol/L BUN 8 (7-17) mg/dL Creatinine 0.47 L (0.52-1.04) mg/dL Glucose 135 H (74-99) mg/dL Calcium 8.4 (8.4-10.2) mg/dL AST 251 H (14-36) U/L ALT 60 H (9-52) U/L Alkaline Phosphatase 148 H (38-126) U/L Total Protein 7.1 (6.3-8.2) g/dL Albumin 3.8 (3.5-5.0) g/dL Calcium panel 04/04/17 Range/Units 10:06 Calcium 8.4 (8.4-10.2) mg/dL Albumin 3.8 (3.5-5.0) g/dL Pituitary panel 04/04/17 Range/Units 10:06 Sodium 138 (137-145) mmol/L Potassium 2.9 L* (3.5-5.1) mmol/L Chloride 94 L (98-107) mmol/L Carbon Dioxide 20 L (22-30) mmol/L BUN 8 (7-17) mg/dL Creatinine 0.47 L (0.52-1.04) mg/dL Glucose 135 H (74-99) mg/dL Calcium 8.4 (8.4-10.2) mg/dL Adrenal panel 04/04/17 Range/Units 10:06 Sodium 138 (137-145) mmol/L Potassium 2.9 L* (3.5-5.1) mmol/L Chloride 94 L (98-107) mmol/L Carbon Dioxide 20 L (22-30) mmol/L BUN 8 (7-17) mg/dL Creatinine 0.47 L (0.52-1.04) mg/dL Glucose 135 H (74-99) mg/dL Calcium 8.4 (8.4-10.2) mg/dL Total Bilirubin 2.2 H (0.2-1.3) mg/dL AST 251 H (14-36) U/L ALT 60 H (9-52) U/L Alkaline Phosphatase 148 H (38-126) U/L Total Protein 7.1 (6.3-8.2) g/dL Albumin 3.8 (3.5-5.0) g/dL - Imaging CT scan - abdomen: report reviewed, image reviewed CT scan - pelvis: report reviewed, image reviewed (Reviewed CT of the abdomen and pelvis. The gallbladder is distended. The urinary bladder has air within it.) Assessment and Plan Plan: 41-year-old female with abdominal pain in the bilateral lower quadrants and epigastric area - Liver biopsy was performed on this patient during her last admission and repair of her gastric perforation. This did show cirrhosis and steatosis. This is likely secondary to her alcohol abuse. - Due to this history, elevated LFTs and bilirubin levels may be attributable to liver disease rather than gallbladder disease. - I plan on obtaining an ultrasound of the gallbladder for evaluation - The patient mainly complains of lower quadrant pain with no obvious source, the urinary bladder was noted to have some air and UA is currently pending. We will follow up on the UA. - Further recommendations after abdominal ultrasound was performed.
[2017-04-04] MEDS: LORazepam 2 MG/ML INJ IV PRN ×2 (15:28→20:45)
[2017-04-04] MEDS ORDERED: SODIUM CHLORIDE 0.9% 1,000 ML IV ONE (15:57)
--- NOTE | 2017-04-04 16:14 | P.HPIM ---
History of Present Illness H&P Date: 04/04/17 Chief Complaint: Abdominal pain Patient is a 41-year-old female with past medical history of alcoholic liver cirrhosis, status post biopsy during recent admission, severe alcohol abuse with 1 pint of vodka daily, diet-controlled diabetes and anxiety came to ER with complaints of abdominal pain and nausea and unable to keep down food for the past 1 week. Does admit to pain in both the upper and lower abdomen. Pain is mainly in the epigastric area with bandlike sensation and also in the lower abdomen. Does admit that she had surgery back in January for perforated ulcer and liver biopsy.. She states that it is a sharp type pain. She denies any other complaints or associated symptoms. Patient denies any recent fever, chills, shortness of breath, chest pain, back pain, numbness or tingling, dysuria or hematuria, constipation or diarrhea, headaches or visual changes, or any other complaints. Abdominal KUB x-ray showed generalized ileus enteritis CT of the abdomen pelvis showed hepatic stetosis and hepatomegaly, correlate for colitis ascending and transverse. Gallbladder dilatation. The dilation of common bile duct. Review of Systems Constitutional: Patient denies any fever or chills . Positive generalized weakness, no weight loss. Abdomen: No nausea vomiting and diarrhea. And abdominal pain Cardiovascular: Patient denies any chest pain or short of breath no palpitations. Respiratory: patient denied any cough is from production. No shortness of breath Neurologic: Patient denied any numbness or tingling headache. Musculoskeletal: Patient denies any complaints of joint swelling or deformity. Skin: Negative Psychiatric: Negative Endocrine: No heat or cold intolerance. No recent weight gain. Genitourinary: No dysuria or hematuria. All other 14 point ROS negative except the above Past Medical History Past Medical History: Diabetes Mellitus Additional Past Medical History / Comment(s): Diet controlled diabetes, pt states she has been worked up for cirrhosis but does not know if she has it yet , ascities, neuropathy bilateral fingers/toes, dental abscesses, LMP 3 months ago and pt states she has no idea why last menses that long ago. History of Any Multi-Drug Resistant Organisms: None Reported Past Surgical History: Section Additional Past Surgical History / Comment(s): 01/2017 exploratory lap with repair of perforated ulcer with liver biopsy. Past Anesthesia/Blood Transfusion Reactions: No Reported Reaction Past Psychological History: Anxiety Additional Psychological History / Comment(s): Pt resides with her boyfriend. She is independent. Smoking Status: Current every day smoker Past Alcohol Use History: Abuse, Daily Additional Past Alcohol Use History / Comment(s): Pt started smoking in 1994 and is a 1/2 a pack a day smoker. Pt states she drinks 1 pint of vodka a day. Past Drug Use History: None Reported - Past Family History Father Family Medical History: No Reported History Additional Family Medical History / Comment(s): Father is healthy and is 68yrs old. Mother Family Medical History: No Reported History Additional Family Medical History / Comment(s): Mother is healthy and is 68yrs old. Medications and Allergies Home Medications Medication Instructions Recorded Confirmed Type Gabapentin [Neurontin] 300 mg PO QID 03/09/16 04/04/17 History clonazePAM [KlonoPIN] 0.5 mg PO DAILY PRN 01/30/17 04/04/17 History Omeprazole [PriLOSEC] 40 mg PO DAILY #90 capsule. 02/06/17 04/04/17 Rx Allergies Allergy/AdvReac Type Severity Reaction Status Date / Time codeine Allergy Mild Rash/Hives Verified 04/04/17 09:39 Physical Exam Vitals: Vital Signs Temp Pulse Resp BP Pulse Ox 04/04/17 14:40 98.8 F 120 H 20 150/79 98 04/04/17 13:36 117 H 18 168/83 97 04/04/17 11:00 115 H 20 148/89 93 L 04/04/17 09:02 97.0 F L 122 H 18 172/90 100 Intake and Output 04/04/17 04/04/17 04/04/17 06:59 14:59 22:59 Other: Weight 77.111 kg Patient Weight 04/05/17 06:59 Weight 77.111 kg PHYSICAL EXAMINATION: Patient is lying in the bed comfortably, no acute distress, awake alert and oriented. Anxious. HEENT: Normocephalic. Neck is supple. Pupils reactive. Nostrils clear. Oral cavity is moist. Ears reveal no drainage. Neck reveals no JVD, carotid bruits, or thyromegaly. CHEST EXAMINATION: Trachea is central. Symmetrical expansion. Lung cornell clear to auscultation and percussion. CARDIAC: Normal S1, S2 with no gallops. No murmurs ABDOMEN: Soft. Mild distention. Bowel sounds sluggish. No organomegaly. No abdominal bruits. Extremities: reveal no edema. No clubbing or cyanosis Neurologically awake, alert, oriented x3 with well-coordinated movements. No focal deficits noted Skin: No rash or skin lesions. Psychiatric: Cooperative. Nonsuicidal Musculoskeletal: No joint swelling or deformity. Normal range of motion. Results CBC & Chem 7: 04/04/17 10:06 04/04/17 10:06 Labs: Abnormal Lab Results - Last 24 Hours (Table) 04/04/17 04/04/17 04/04/17 Range/Units 10:06 10:06 10:06 RBC 3.15 L (3.80-5.40) m/uL Hgb 11.0 L (11.4-16.0) gm/dL MCV 110.4 H (80.0-100.0) fL RDW 20.6 H (11.5-15.5) % Lymphocytes # 0.9 L (1.0-4.8) k/uL INR (<1.2) Potassium 2.9 L* (3.5-5.1) mmol/L Chloride 94 L (98-107) mmol/L Carbon Dioxide 20 L (22-30) mmol/L Creatinine 0.47 L (0.52-1.04) mg/dL Glucose 135 H (74-99) mg/dL Plasma Lactic Acid Antony 7.2 H* (0.7-2.0) mmol/L Total Bilirubin 2.2 H (0.2-1.3) mg/dL AST 251 H (14-36) U/L ALT 60 H (9-52) U/L Alkaline Phosphatase 148 H (38-126) U/L Urine Appearance (Clear) Ur Specific Rh[place]hiss (1.001-1.035) Urine Protein (Negative) Urine Ketones (Negative) Urine Nitrite (Negative) Ur Leukocyte Esterase (Negative) Urine WBC (0-5) /hpf Ur Squamous Epith Cells (0-4) /hpf Urine Bacteria (None) /hpf 04/04/17 04/04/17 Range/Units 10:06 12:20 RBC (3.80-5.40) m/uL Hgb (11.4-16.0) gm/dL MCV (80.0-100.0) fL RDW (11.5-15.5) % Lymphocytes # (1.0-4.8) k/uL INR 1.2 H (<1.2) Potassium (3.5-5.1) mmol/L Chloride (98-107) mmol/L Carbon Dioxide (22-30) mmol/L Creatinine (0.52-1.04) mg/dL Glucose (74-99) mg/dL Plasma Lactic Acid Antony (0.7-2.0) mmol/L Total Bilirubin (0.2-1.3) mg/dL AST (14-36) U/L ALT (9-52) U/L Alkaline Phosphatase (38-126) U/L Urine Appearance Turbid H (Clear) Ur Specific [place] 1.044 H (1.001-1.035) Urine Protein 1+ H (Negative) Urine Ketones 1+ H (Negative) Urine Nitrite Positive H (Negative) Ur Leukocyte Esterase Moderate H (Negative) Urine WBC 22 H (0-5) /hpf Ur Squamous Epith Cells 47 H (0-4) /hpf Urine Bacteria Moderate H (None) /hpf Thrombosis Risk Factor Assmnt - DVT/VTE Prophylaxis DVT/VTE Prophylaxis: Pharmacologic Prophylaxis ordered - Choose All That Apply Any of the Below Risk Factors Present?: Yes Each Factor Represents 1 point: Age 41-60 years, Hx of IBD Other Risk Factors: No Each Risk Factor Represents 2 Points: Age 61-74 years Other congenital or acquired thrombophilia - If yes, enter type in comment: No Thrombosis Risk Factor Assessment Total Risk Factor Score: 4 Thrombosis Risk Factor Assessment Level: Moderate Risk Assessment and Plan Assessment: Abdominal pain secondary to ascending and transverse colitis and also alcohol Hepatitis. Rule out acute cholecystitis Severe lactic acidosis due to volume depletion vs bowel ischemia Possible urinary tract infection. UA is likely contaminant sample. Follow-up urine cultures. Gallbladder and common bile duct dilatation Elevated liver enzymes due to alcoholic hepatitis Severe hypokalemia Alcohol abuse with 1 pint of Vodka daily History of recent perforated ulcer repair and liver biopsy showing steatosis and cirrhosis Nicotine addiction. DVT prophylaxis Plan: Agent will be continued on IV hydration and antibiotics in the form of Zosyn. Ultrasound of the abdomen was ordered. Surgery is following this patient. We will continue with the thiamine and multivitamins and monitor for alcohol withdrawal symptoms. Patient was counseled extensively for alcohol abuse and nicotine addiction. Prognosis is guarded. Follow-up urine cultures. Replace potassium level. Further recommendations based on the clinical course. Time with Patient: Greater than 30
[2017-04-04] MEDS: PANTOPRAZOLE 40 MG TABLET PO SCH (17:24)
[2017-04-04 17:39] LABS: Glucose,Whole Blood 153 mg/dL (75-99)
--- NOTE | 2017-04-04 18:20 | US ---
EXAMINATION TYPE: US abdomen limited DATE OF EXAM: 04/04/2017 COMPARISON: CT CLINICAL HISTORY: eval GB and b/l LQ. Pt states ABD pain and distention, history of ETOH abuse EXAM MEASUREMENTS: Liver Length: 23.8 cm Gallbladder Wall: 0.3 cm CBD: 1.3 cm Right Kidney: 13.9 x 5.2 x 6.7 cm Pancreas: Obscured by bowel gas, and enlarged liver hepatomegaly. Liver: Enlarged, heterogeneous, difficult to penetrate Gallbladder: Distended, small amount of sludge Evidence for sonographic Krishnan's sign: No CBD: Dilated Right Kidney: wnl Please note:Scant amount of fluid within Right and Left lower quad IMPRESSION: Dilated gallbladder. This is consistent with cholecystitis. Hyperechoic liver suggestive of fatty infiltration. Common bile duct is not well seen. I see no dilation of the intrahepatic bile ducts. Hepatomegaly
[2017-04-04] MEDS ORDERED: Potassium Replacement Protocol 1 EACH MISC MISCELLANE PRN (18:32)
[2017-04-04] MEDS ORDERED: METOCLOPRAMIDE 5 MG/ML 2 ML VIAL IVP PRN (18:34)
[2017-04-04] MEDS ORDERED: SODIUM CHLORIDE 0.9% 1,000 ML IV SCH (18:45)
[2017-04-04] MEDS: HEPARIN SODIUM,PORCINE 5,000 UNIT/ML 1 ML VIAL SQ SCH (20:23)
[2017-04-04] MEDS: PIPERACILLIN-TAZOBACTAM 3.375 GM in DEXTROSE/WATER 1 50ML.BAG IVPB SCH (20:23)
[2017-04-04 21:04] LABS: Glucose,Whole Blood 184 mg/dL (75-99)
[2017-04-05] MEDS: HYDROmorphone 2 MG/ML 1 ML SYRINGE IVP PRN ×6 (02:57→21:43)
[2017-04-05] MEDS: SODIUM CHLORIDE 0.9% 1,000 ML IV SCH ×3 (03:15→17:32)
[2017-04-05] MEDS: PIPERACILLIN-TAZOBACTAM 3.375 GM in DEXTROSE/WATER 1 50ML.BAG IVPB SCH ×3 (03:50→21:48)
[2017-04-05 07:05] LABS: Glucose,Whole Blood 143 mg/dL (75-99)
[2017-04-05] MEDS: LORazepam 2 MG/ML INJ IV PRN ×4 (07:28→20:05)
[2017-04-05] MEDS: HEPARIN SODIUM,PORCINE 5,000 UNIT/ML 1 ML VIAL SQ SCH ×2 (07:29→21:48)
[2017-04-05] MEDS: PANTOPRAZOLE 40 MG TABLET PO SCH (07:29)
[2017-04-05 08:22] LABS: Anisocytosis Slight; Basophils % (A) 0 %; Eosinophils % (A) 2 %; HCT 27.5 % (34.0-46.0); Lymphocytes # (A) 0.6 k/uL (1.0-4.8); Lymphocytes % (A) 20 %; MCH 35.1 pg (25.0-35.0); MCHC 32.5 g/dL (31.0-37.0); Macrocytosis Marked; Mean Platelet Volume 7.9; Monocytes # (A) 0.2 k/uL (0-1.0); Monocytes % (A) 8 %; Neutrophils % (A) 68 %; Platelet Count 107 k/uL (150-450); RBC 2.55 m/uL (3.80-5.40); RDW 19.9 % (11.5-15.5); WBC 2.9 k/uL (3.8-10.6)
[2017-04-05 08:28] LABS: ALT 55 U/L (9-52); AST 166 U/L (14-36); Albumin 2.9 g/dL (3.5-5.0); Alkaline Phosphatase 116 U/L (38-126); Anion Gap 10 mmol/L; Blood Urea Nitrogen 6 mg/dL (7-17); Calcium 7.2 mg/dL (8.4-10.2); Carbon Dioxide 29 mmol/L (22-30); Chloride 99 mmol/L (98-107); Glucose 125 mg/dL (74-99); Potassium 3.1 mmol/L (3.5-5.1); Sodium 138 mmol/L (137-145); Total Bilirubin 2.1 mg/dL (0.2-1.3); Total Protein 5.7 g/dL (6.3-8.2)
[2017-04-05] MEDS: POTASSIUM CHLORIDE ER 20 MEQ TAB.ER PO SCH ×2 (09:47→11:07)
[2017-04-05 11:06] VITALS: BMI 25.1
[2017-04-05] MEDS: THIAMINE 100 MG TAB PO SCH ×2 (11:07→17:32)
[2017-04-05 11:42] LABS: Glucose,Whole Blood 130 mg/dL (75-99)
--- NOTE | 2017-04-05 15:02 | P.PN ---
Subjective Progress Note Date: 04/05/17 patient seen and examined at bedside. She denies any epigastric or right upper quadrant pain. She states that she still has bilateral lower quadrant pain. She denies any nausea or emesis. She is tolerating her clear liquid diet. Objective - Vital Signs Vital signs: Vital Signs Temp 97.9 F 04/05/17 14:38 Pulse 103 H 04/05/17 14:38 Resp 16 04/05/17 14:38 BP 131/71 04/05/17 14:38 Pulse Ox 95 04/05/17 14:38 Intake & Output 04/04/17 04/05/17 04/05/17 18:59 06:59 18:59 Weight 77.111 kg 77.111 kg Other: # Voids 3 3 - Constitutional General appearance: Present: cooperative, no acute distress - EENT Eyes: Present: EOMI, PERRLA ENT: Present: hearing grossly normal - Neck Neck: Present: normal ROM - Respiratory Details: no difficulty with respiration - Gastrointestinal Gastrointestinal Comment(s): soft, nontender, nondistended, no rebound, no guarding - Musculoskeletal Musculoskeletal: Present: gait normal - Psychiatric Psychiatric: Present: A&O x's 3 - Labs CBC & Chem 7: 04/05/17 06:53 04/05/17 13:22 Labs: Abnormal Lab Results - Last 24 Hours (Table) 04/04/17 04/04/17 04/04/17 Range/Units 15:05 17:24 19:10 WBC (3.8-10.6) k/uL RBC (3.80-5.40) m/uL Hgb (11.4-16.0) gm/dL Hct (34.0-46.0) % MCV (80.0-100.0) fL MCH (25.0-35.0) pg RDW (11.5-15.5) % Plt Count (150-450) k/uL Lymphocytes # (1.0-4.8) k/uL Potassium (3.5-5.1) mmol/L BUN (7-17) mg/dL Creatinine (0.52-1.04) mg/dL Glucose (74-99) mg/dL POC Glucose (mg/dL) 153 H (75-99) mg/dL Plasma Lactic Acid Antony 7.6 H* 2.8 H* (0.7-2.0) mmol/L Calcium (8.4-10.2) mg/dL Total Bilirubin (0.2-1.3) mg/dL AST (14-36) U/L ALT (9-52) U/L Total Protein (6.3-8.2) g/dL Albumin (3.5-5.0) g/dL 04/04/17 04/04/17 04/05/17 Range/Units 20:48 23:38 06:44 WBC (3.8-10.6) k/uL RBC (3.80-5.40) m/uL Hgb (11.4-16.0) gm/dL Hct (34.0-46.0) % MCV (80.0-100.0) fL MCH (25.0-35.0) pg RDW (11.5-15.5) % Plt Count (150-450) k/uL Lymphocytes # (1.0-4.8) k/uL Potassium (3.5-5.1) mmol/L BUN (7-17) mg/dL Creatinine (0.52-1.04) mg/dL Glucose (74-99) mg/dL POC Glucose (mg/dL) 184 H 143 H (75-99) mg/dL Plasma Lactic Acid Antony 2.5 H* (0.7-2.0) mmol/L Calcium (8.4-10.2) mg/dL Total Bilirubin (0.2-1.3) mg/dL AST (14-36) U/L ALT (9-52) U/L Total Protein (6.3-8.2) g/dL Albumin (3.5-5.0) g/dL 04/05/17 04/05/17 04/05/17 Range/Units 06:53 06:53 11:38 WBC 2.9 L (3.8-10.6) k/uL RBC 2.55 L (3.80-5.40) m/uL Hgb 9.0 L D (11.4-16.0) gm/dL Hct 27.5 L (34.0-46.0) % MCV 108.0 H (80.0-100.0) fL MCH 35.1 H (25.0-35.0) pg RDW 19.9 H (11.5-15.5) % Plt Count 107 L (150-450) k/uL Lymphocytes # 0.6 L (1.0-4.8) k/uL Potassium 3.1 L (3.5-5.1) mmol/L BUN 6 L (7-17) mg/dL Creatinine 0.42 L (0.52-1.04) mg/dL Glucose 125 H (74-99) mg/dL POC Glucose (mg/dL) 130 H (75-99) mg/dL Plasma Lactic Acid Antony (0.7-2.0) mmol/L Calcium 7.2 L (8.4-10.2) mg/dL Total Bilirubin 2.1 H (0.2-1.3) mg/dL AST 166 H (14-36) U/L ALT 55 H (9-52) U/L Total Protein 5.7 L (6.3-8.2) g/dL Albumin 2.9 L (3.5-5.0) g/dL Microbiology - Last 24 Hours (Table) 04/04/17 10:06 Blood Culture - Preliminary Blood No Growth after 24 hours 04/04/17 17:50 Urine Culture - Preliminary Urine,Voided 04/04/17 11:35 Group A Strep Throat Culture - Preliminary Throat - Imaging and Cardiology US - abdomen: report reviewed, image reviewed (report reviewed of distended gallbladder, no obvious stones, no intrahepatic biliary dilation) Assessment and Plan Plan: 41-year-old female with abdominal pain in the bilateral lower quadrants and epigastric area - Liver biopsy was performed on this patient during her last admission and repair of her gastric perforation. This did show cirrhosis and steatosis. This is likely secondary to her alcohol abuse. - Due to this history, elevated LFTs and bilirubin levels may be attributable to liver disease rather than gallbladder disease. - ultrasound of abdomen reviewed, distended gallbladder - the patient denies epigastric or right upper his time. She does not have symptomatology of acute cholecystitis - there is evidence the urinary bladder on the original CT scan on her admission. She states she has not had any instrumentation or catheterization since January 2017. she states that she does believe that she has passed gas while urinating. I reevaluated the CT scan and there is no obvious fistulization between the bladder and any surrounding structure, a urology consultation could be considered
[2017-04-05 17:16] LABS: Glucose,Whole Blood 129 mg/dL (75-99)
[2017-04-05 21:07] LABS: Glucose,Whole Blood 118 mg/dL (75-99)
--- NOTE | 2017-04-05 22:32 | P.PN ---
Subjective Progress Note Date: 04/05/17 Principal diagnosis: Colitis Patient is a 41-year-old female with past medical history of alcoholic liver cirrhosis, status post biopsy during recent admission, severe alcohol abuse with 1 pint of vodka daily, diet-controlled diabetes and anxiety came to ER with complaints of abdominal pain and nausea and unable to keep down food for the past 1 week. Does admit to pain in both the upper and lower abdomen. Pain is mainly in the epigastric area with bandlike sensation and also in the lower abdomen. Does admit that she had surgery back in January for perforated ulcer and liver biopsy.. She states that it is a sharp type pain. She denies any other complaints or associated symptoms. Patient denies any recent fever, chills, shortness of breath, chest pain, back pain, numbness or tingling, dysuria or hematuria, constipation or diarrhea, headaches or visual changes, or any other complaints. Abdominal KUB x-ray showed generalized ileus enteritis CT of the abdomen pelvis showed hepatic stetosis and hepatomegaly, correlate for colitis ascending and transverse. Gallbladder dilatation. The dilation of common bile duct. 04/05/2017 Patient's upper abdominal pain is much improved now. Liver enzymes slightly improved.. Patient was started on clear liquids and advance as tolerated. Ultrasound of the abdomen showed dilated gallbladder. Otherwise patient still having lower abdominal pain. Discussed with general surgery and was suspected to have vesicular fistula since the patient is complaining of passing gas along with urine. Urology has been consulted for possible cystoscopy. No fever no chills. No chest pain no shortness of breath. Patient is still requiring Ativan IV for alcohol withdrawal symptoms. All other review of systems negative except the above Current medications reviewed. Objective - Vital Signs Vital signs: Vital Signs Temp 97.9 F 04/05/17 14:38 Pulse 103 H 04/05/17 14:38 Resp 16 04/05/17 14:38 BP 131/71 04/05/17 14:38 Pulse Ox 95 04/05/17 14:38 Intake & Output 04/04/17 04/05/17 04/05/17 18:59 06:59 18:59 Weight 77.111 kg 77.111 kg Other: # Voids 3 3 - Exam PHYSICAL EXAMINATION: Patient is lying in the bed comfortably, no acute distress, awake alert and oriented.. HEENT: Normocephalic. Neck is supple. Pupils reactive. Nostrils clear. Oral cavity is moist. Ears reveal no drainage. Neck reveals no JVD, carotid bruits, or thyromegaly. CHEST EXAMINATION: Trachea is central. Symmetrical expansion. Lung cornell clear to auscultation and percussion. CARDIAC: Normal S1, S2 with no gallops. No murmurs ABDOMEN: Soft. Lower abdominal mild tenderness. Bowel sounds normal. No organomegaly. No abdominal bruits. Extremities: reveal no edema. No clubbing or cyanosis Neurologically awake, alert, oriented x3 with well-coordinated movements. No focal deficits noted Skin: No rash or skin lesions. Psychiatric: Coperative. Nonsuicidal Musculoskeletal: No joint swelling or deformity. Normal range of motion. - Labs CBC & Chem 7: 04/05/17 06:53 04/05/17 13:22 Labs: Abnormal Lab Results - Last 24 Hours (Table) 04/04/17 04/04/17 04/04/17 Range/Units 15:05 17:24 19:10 WBC (3.8-10.6) k/uL RBC (3.80-5.40) m/uL Hgb (11.4-16.0) gm/dL Hct (34.0-46.0) % MCV (80.0-100.0) fL MCH (25.0-35.0) pg RDW (11.5-15.5) % Plt Count (150-450) k/uL Lymphocytes # (1.0-4.8) k/uL Potassium (3.5-5.1) mmol/L BUN (7-17) mg/dL Creatinine (0.52-1.04) mg/dL Glucose (74-99) mg/dL POC Glucose (mg/dL) 153 H (75-99) mg/dL Plasma Lactic Acid Antony 7.6 H* 2.8 H* (0.7-2.0) mmol/L Calcium (8.4-10.2) mg/dL Total Bilirubin (0.2-1.3) mg/dL AST (14-36) U/L ALT (9-52) U/L Total Protein (6.3-8.2) g/dL Albumin (3.5-5.0) g/dL 04/04/17 04/04/17 04/05/17 Range/Units 20:48 23:38 06:44 WBC (3.8-10.6) k/uL RBC (3.80-5.40) m/uL Hgb (11.4-16.0) gm/dL Hct (34.0-46.0) % MCV (80.0-100.0) fL MCH (25.0-35.0) pg RDW (11.5-15.5) % Plt Count (150-450) k/uL Lymphocytes # (1.0-4.8) k/uL Potassium (3.5-5.1) mmol/L BUN (7-17) mg/dL Creatinine (0.52-1.04) mg/dL Glucose (74-99) mg/dL POC Glucose (mg/dL) 184 H 143 H (75-99) mg/dL Plasma Lactic Acid Antony 2.5 H* (0.7-2.0) mmol/L Calcium (8.4-10.2) mg/dL Total Bilirubin (0.2-1.3) mg/dL AST (14-36) U/L ALT (9-52) U/L Total Protein (6.3-8.2) g/dL Albumin (3.5-5.0) g/dL 04/05/17 04/05/17 04/05/17 Range/Units 06:53 06:53 11:38 WBC 2.9 L (3.8-10.6) k/uL RBC 2.55 L (3.80-5.40) m/uL Hgb 9.0 L D (11.4-16.0) gm/dL Hct 27.5 L (34.0-46.0) % MCV 108.0 H (80.0-100.0) fL MCH 35.1 H (25.0-35.0) pg RDW 19.9 H (11.5-15.5) % Plt Count 107 L (150-450) k/uL Lymphocytes # 0.6 L (1.0-4.8) k/uL Potassium 3.1 L (3.5-5.1) mmol/L BUN 6 L (7-17) mg/dL Creatinine 0.42 L (0.52-1.04) mg/dL Glucose 125 H (74-99) mg/dL POC Glucose (mg/dL) 130 H (75-99) mg/dL Plasma Lactic Acid Antony (0.7-2.0) mmol/L Calcium 7.2 L (8.4-10.2) mg/dL Total Bilirubin 2.1 H (0.2-1.3) mg/dL AST 166 H (14-36) U/L ALT 55 H (9-52) U/L Total Protein 5.7 L (6.3-8.2) g/dL Albumin 2.9 L (3.5-5.0) g/dL Microbiology - Last 24 Hours (Table) 04/04/17 10:06 Blood Culture - Preliminary Blood No Growth after 24 hours 04/04/17 17:50 Urine Culture - Preliminary Urine,Voided 04/04/17 11:35 Group A Strep Throat Culture - Preliminary Throat Assessment and Plan Assessment: Abdominal pain secondary to ascending and transverse colitis and also alcohol Hepatitis. Unlikely acute cholecystitis as per general surgery evaluation Acute alcohol withdrawals Severe lactic acidosis due to volume depletion vs bowel ischemia. Resolved now Possible urinary tract infection. UA is likely contaminant sample. Follow-up urine cultures. Gallbladder and common bile duct dilatation Elevated liver enzymes due to alcoholic hepatitis Severe hypokalemia Alcohol abuse with 1 pint of Vodka daily History of recent perforated ulcer repair and liver biopsy showing steatosis and cirrhosis Nicotine addiction. DVT prophylaxis Plan: Agent will be continued on IV hydration and antibiotics in the form of Zosyn. Continue with alcohol withdrawal to call. General surgery is following. Urology has been consulted for possible cystoscopy. Otherwise patient was started on liquid diet and advance as tolerated. We will continue with the thiamine and multivitamins and monitor for alcohol withdrawal symptoms. Patient was counseled extensively for alcohol abuse and nicotine addiction. Prognosis is guarded. Follow-up urine cultures. Replace potassium . Further recommendations based on the clinical course. Time with Patient: Greater than 30
[2017-04-06] MEDS: HYDROmorphone 2 MG/ML 1 ML SYRINGE IVP PRN ×5 (03:12→21:00)
[2017-04-06] MEDS: PIPERACILLIN-TAZOBACTAM 3.375 GM in DEXTROSE/WATER 1 50ML.BAG IVPB SCH ×3 (04:59→20:59)
[2017-04-06] MEDS: SODIUM CHLORIDE 0.9% 1,000 ML IV SCH ×2 (05:43→14:23)
[2017-04-06] MEDS: LORazepam 2 MG/ML INJ IV PRN ×6 (06:11→21:19)
[2017-04-06] MEDS: PANTOPRAZOLE 40 MG TABLET PO SCH (07:40)
[2017-04-06] MEDS: HEPARIN SODIUM,PORCINE 5,000 UNIT/ML 1 ML VIAL SQ SCH ×2 (07:40→21:23)
[2017-04-06 07:46] LABS: Glucose,Whole Blood 92 mg/dL (75-99)
[2017-04-06 07:53] LABS: Anisocytosis Slight; Basophils % (A) 1 %; Eosinophils # (A) 0.1 k/uL (0-0.7); Eosinophils % (A) 2 %; HCT 27.1 % (34.0-46.0); HGB 8.8 gm/dL (11.4-16.0); Lymphocytes # (A) 0.8 k/uL (1.0-4.8); Lymphocytes % (A) 30 %; MCH 35.3 pg (25.0-35.0); MCHC 32.5 g/dL (31.0-37.0); MCV 108.7 fL (80.0-100.0); Macrocytosis Marked; Mean Platelet Volume 8.6; Monocytes # (A) 0.2 k/uL (0-1.0); Monocytes % (A) 8 %; Neutrophils # (A) 1.4 k/uL (1.3-7.7); Neutrophils % (A) 54 %; Platelet Count 109 k/uL (150-450); RBC 2.49 m/uL (3.80-5.40); RDW 19.7 % (11.5-15.5); WBC 2.5 k/uL (3.8-10.6)
[2017-04-06 08:17] LABS: ALT 58 U/L (9-52); AST 160 U/L (14-36); Albumin 2.7 g/dL (3.5-5.0); Alkaline Phosphatase 125 U/L (38-126); Anion Gap 6 mmol/L; Blood Urea Nitrogen 3 mg/dL (7-17); Calcium 7.3 mg/dL (8.4-10.2); Carbon Dioxide 31 mmol/L (22-30); Chloride 103 mmol/L (98-107); Glucose 85 mg/dL (74-99); Potassium 3.1 mmol/L (3.5-5.1); Sodium 140 mmol/L (137-145); Total Bilirubin 1.4 mg/dL (0.2-1.3); Total Protein 5.4 g/dL (6.3-8.2)
[2017-04-06] MEDS ORDERED: POTASSIUM CHLORIDE ER 20 MEQ TAB.ER PO SCH (09:00)
[2017-04-06] MEDS: POTASSIUM CHLORIDE ER 20 MEQ TAB.ER PO SCH ×4 (09:21→15:52)
[2017-04-06] MEDS: THIAMINE 100 MG TAB PO SCH ×2 (11:01→17:02)
[2017-04-06 11:51] LABS: Glucose,Whole Blood 91 mg/dL (75-99)
--- NOTE | 2017-04-06 11:51 | P.GSCN ---
History of Present Illness Consult date: 04/06/17 Reason for Consult: Abnormal computed tomography scan of bladder, pneumaturia History of present illness: Patient is a 41-year-old alcoholic who presented to the hospital with a week's history of abdominal discomfort. She had been in the lower couple months ago with a gastric ulcer. During this hospitalization she had a computed tomography scan of the abdomen and pelvis which identified air in the bladder. Initially upon awakening she denied any bladder or urinary changes. She denied any bowel changes. However upon further questioning she did admit to a couple of episodes of possible pneumaturia he developed the abdominal pain. There is no history of bladder issues. There is no history recurrent infections. There is been no change in her urinary history. She has not had a bladder or colon surgery. She did have a 16 years ago. There has Been no diarrhea or constipation. There has been no hematuria. She had a urinalysis with 22 white cells and 45 epithelial cells. It is growing a gram-negative bacteria. She does have an abnormal liver function tests however she does have cirrhosis based on computed tomography scan. Review of Systems She denies chest pain shortness of breath. Her abdominal pain has subsided. She denies urine infections hematuria dysuria. She did have the one episode of pneumaturia. She denies major bowel issues. - Gastrointestinal Reports as per HPI - Genitourinary Genitourinary: Reports as per HPI Past Medical History Past Medical History: Diabetes Mellitus Additional Past Medical History / Comment(s): Diet controlled diabetes, pt states she has been worked up for cirrhosis but does not know if she has it yet , ascities, neuropathy bilateral fingers/toes, dental abscesses, LMP 3 months ago and pt states she has no idea why last menses that long ago. History of Any Multi-Drug Resistant Organisms: None Reported Past Surgical History: Section Additional Past Surgical History / Comment(s): 01/2017 exploratory lap with repair of perforated ulcer with liver biopsy. Past Anesthesia/Blood Transfusion Reactions: No Reported Reaction Past Psychological History: Anxiety Additional Psychological History / Comment(s): Pt resides with her boyfriend. She is independent. Smoking Status: Current every day smoker Past Alcohol Use History: Abuse, Daily Additional Past Alcohol Use History / Comment(s): Pt started smoking in 1994 and is a 1/2 a pack a day smoker. Pt states she drinks 1 pint of vodka a day. Past Drug Use History: None Reported - Past Family History Father Family Medical History: No Reported History Additional Family Medical History / Comment(s): Father is healthy and is 68yrs old. Mother Family Medical History: No Reported History Additional Family Medical History / Comment(s): Mother is healthy and is 68yrs old. Medications and Allergies Home Medications Medication Instructions Recorded Confirmed Type Gabapentin [Neurontin] 300 mg PO QID 03/09/16 04/04/17 History clonazePAM [KlonoPIN] 0.5 mg PO DAILY PRN 01/30/17 04/04/17 History Omeprazole [PriLOSEC] 40 mg PO DAILY #90 capsule. 02/06/17 04/04/17 Rx Allergies Allergy/AdvReac Type Severity Reaction Status Date / Time codeine Allergy Mild Rash/Hives Verified 04/04/17 09:39 Surgical - Exam Vital Signs Temp Pulse Resp BP Pulse Ox 97.0 F L 122 H 18 172/90 100 04/04/17 09:02 04/04/17 09:02 04/04/17 09:02 04/04/17 09:02 04/04/17 09:02 - General well developed, well nourished, no distress - Eyes PERRL - ENT no hearing loss - Neck trachea midline - Respiratory normal expansion, normal respiratory effort - Cardiovascular Rhythm: regular - Abdomen Abdomen: soft, non tender - Integumentary no rash, no growths - Neurologic normal coordination, normal sensation - Musculoskeletal normal posture - Psychiatric oriented to time, oriented to person, oriented to place, speech is normal, memory intact Results - Labs 04/06/17 07:13 04/06/17 07:13 Abnormal Lab Results - Last 24 Hours (Table) 04/05/17 04/05/17 04/06/17 Range/Units 17:14 20:58 07:13 WBC 2.5 L (3.8-10.6) k/uL RBC 2.49 L (3.80-5.40) m/uL Hgb 8.8 L (11.4-16.0) gm/dL Hct 27.1 L (34.0-46.0) % MCV 108.7 H (80.0-100.0) fL MCH 35.3 H (25.0-35.0) pg RDW 19.7 H (11.5-15.5) % Plt Count 109 L (150-450) k/uL Lymphocytes # 0.8 L (1.0-4.8) k/uL Potassium (3.5-5.1) mmol/L Carbon Dioxide (22-30) mmol/L BUN (7-17) mg/dL Creatinine (0.52-1.04) mg/dL POC Glucose (mg/dL) 129 H 118 H (75-99) mg/dL Calcium (8.4-10.2) mg/dL Total Bilirubin (0.2-1.3) mg/dL AST (14-36) U/L ALT (9-52) U/L Total Protein (6.3-8.2) g/dL Albumin (3.5-5.0) g/dL 04/06/17 Range/Units 07:13 WBC (3.8-10.6) k/uL RBC (3.80-5.40) m/uL Hgb (11.4-16.0) gm/dL Hct (34.0-46.0) % MCV (80.0-100.0) fL MCH (25.0-35.0) pg RDW (11.5-15.5) % Plt Count (150-450) k/uL Lymphocytes # (1.0-4.8) k/uL Potassium 3.1 L (3.5-5.1) mmol/L Carbon Dioxide 31 H (22-30) mmol/L BUN 3 L (7-17) mg/dL Creatinine 0.38 L (0.52-1.04) mg/dL POC Glucose (mg/dL) (75-99) mg/dL Calcium 7.3 L (8.4-10.2) mg/dL Total Bilirubin 1.4 H (0.2-1.3) mg/dL AST 160 H (14-36) U/L ALT 58 H (9-52) U/L Total Protein 5.4 L (6.3-8.2) g/dL Albumin 2.7 L (3.5-5.0) g/dL Microbiology - Last 24 Hours (Table) 04/04/17 17:50 Urine Culture - Preliminary Urine,Voided Gram Neg Bacilli 04/04/17 10:06 Blood Culture - Preliminary Blood No Growth after 24 hours Diabetes panel 04/05/17 04/06/17 Range/Units 13:22 07:13 Sodium 140 (137-145) mmol/L Potassium 3.5 3.1 L (3.5-5.1) mmol/L Chloride 103 (98-107) mmol/L Carbon Dioxide 31 H (22-30) mmol/L BUN 3 L (7-17) mg/dL Creatinine 0.38 L (0.52-1.04) mg/dL Glucose 85 (74-99) mg/dL Calcium 7.3 L (8.4-10.2) mg/dL AST 160 H (14-36) U/L ALT 58 H (9-52) U/L Alkaline Phosphatase 125 (38-126) U/L Total Protein 5.4 L (6.3-8.2) g/dL Albumin 2.7 L (3.5-5.0) g/dL Calcium panel 04/06/17 Range/Units 07:13 Calcium 7.3 L (8.4-10.2) mg/dL Albumin 2.7 L (3.5-5.0) g/dL Pituitary panel 04/05/17 04/06/17 Range/Units 13:22 07:13 Sodium 140 (137-145) mmol/L Potassium 3.5 3.1 L (3.5-5.1) mmol/L Chloride 103 (98-107) mmol/L Carbon Dioxide 31 H (22-30) mmol/L BUN 3 L (7-17) mg/dL Creatinine 0.38 L (0.52-1.04) mg/dL Glucose 85 (74-99) mg/dL Calcium 7.3 L (8.4-10.2) mg/dL Adrenal panel 04/05/17 04/06/17 Range/Units 13:22 07:13 Sodium 140 (137-145) mmol/L Potassium 3.5 3.1 L (3.5-5.1) mmol/L Chloride 103 (98-107) mmol/L Carbon Dioxide 31 H (22-30) mmol/L BUN 3 L (7-17) mg/dL Creatinine 0.38 L (0.52-1.04) mg/dL Glucose 85 (74-99) mg/dL Calcium 7.3 L (8.4-10.2) mg/dL Total Bilirubin 1.4 H (0.2-1.3) mg/dL AST 160 H (14-36) U/L ALT 58 H (9-52) U/L Alkaline Phosphatase 125 (38-126) U/L Total Protein 5.4 L (6.3-8.2) g/dL Albumin 2.7 L (3.5-5.0) g/dL - Imaging CT scan - abdomen: report reviewed, image reviewed CT scan - pelvis: report reviewed, image reviewed Assessment and Plan Assessment: Impression: Abnormal CAT scan of bladder, Ivone bladder. History of pneumaturia. Abnormal urine culture pending. Recommendations: The 2 most common causes of air in the bladder are a enterovesical fistula and a gas-forming bacteria. Since she is asymptomatic we will see what the urine culture shows. If it is a gas producing bacteria then recommend treating this with antibiotics and then reassessing her cystoscopy as an outpatient. If there is not a gas-forming bacteria then she'll need both GI and evaluation.
[2017-04-06 17:06] LABS: Glucose,Whole Blood 89 mg/dL (75-99)
[2017-04-06 21:38] LABS: Glucose,Whole Blood 96 mg/dL (75-99)
[2017-04-07] MEDS: LORazepam 2 MG/ML INJ IV PRN ×3 (00:25→10:18)
[2017-04-07] MEDS: HYDROmorphone 2 MG/ML 1 ML SYRINGE IVP PRN ×3 (00:58→09:18)
[2017-04-07] MEDS: SODIUM CHLORIDE 0.9% 1,000 ML IV SCH ×2 (01:18→08:45)
[2017-04-07] MEDS: PIPERACILLIN-TAZOBACTAM 3.375 GM in DEXTROSE/WATER 1 50ML.BAG IVPB SCH ×2 (04:20→12:06)
[2017-04-07] MEDS: HEPARIN SODIUM,PORCINE 5,000 UNIT/ML 1 ML VIAL SQ SCH (07:35)
[2017-04-07] MEDS: PANTOPRAZOLE 40 MG TABLET PO SCH (07:35)
[2017-04-07 07:41] LABS: Glucose,Whole Blood 78 mg/dL (75-99)
[2017-04-07 07:56] VITALS: BP 120/84; PULSE 91; RESP 16; TEMP 98.6
[2017-04-07 07:58] LABS: Anisocytosis Moderate; Basophils % (A) 1 %; Eosinophils # (A) 0.1 k/uL (0-0.7); Eosinophils % (A) 3 %; HCT 29.2 % (34.0-46.0); HGB 8.9 gm/dL (11.4-16.0); Hypochromasia Slight; Lymphocytes # (A) 0.7 k/uL (1.0-4.8); Lymphocytes % (A) 29 %; MCH 34.4 pg (25.0-35.0); MCHC 30.5 g/dL (31.0-37.0); MCV 112.8 fL (80.0-100.0); Macrocytosis Marked; Mean Platelet Volume 9.3; Monocytes # (A) 0.2 k/uL (0-1.0); Monocytes % (A) 6 %; Neutrophils # (A) 1.5 k/uL (1.3-7.7); Neutrophils % (A) 59 %; Platelet Count 125 k/uL (150-450); RBC 2.58 m/uL (3.80-5.40); RDW 20.7 % (11.5-15.5); WBC 2.6 k/uL (3.8-10.6)
[2017-04-07 08:28] LABS: ALT 62 U/L (9-52); AST 197 U/L (14-36); Albumin 2.6 g/dL (3.5-5.0); Alkaline Phosphatase 139 U/L (38-126); Anion Gap 7 mmol/L; Blood Urea Nitrogen 3 mg/dL (7-17); Calcium 7.2 mg/dL (8.4-10.2); Carbon Dioxide 28 mmol/L (22-30); Chloride 106 mmol/L (98-107); Glucose 73 mg/dL (74-99); Potassium 3.6 mmol/L (3.5-5.1); Sodium 141 mmol/L (137-145); Total Bilirubin 1.4 mg/dL (0.2-1.3); Total Protein 5.4 g/dL (6.3-8.2)
--- NOTE | 2017-04-07 10:36 | P.PN ---
Subjective Progress Note Date: 04/07/17 Patient seen and examined at bedside. She states that her abdominal pain is greatly improved. She states she feels an occasional cramp however nothing compared to the pain she presented with. She is tolerating her full liquid diet. She is having bowel function. She has no additional complaints at this time. Objective - Vital Signs Vital signs: Vital Signs Temp 98.6 F 04/07/17 07:00 Pulse 91 04/07/17 07:00 Resp 16 04/07/17 07:00 BP 120/84 04/07/17 07:00 Pulse Ox 94 L 04/07/17 07:00 Intake & Output 04/06/17 04/07/17 04/07/17 18:59 06:59 18:59 Intake Total 500 Balance 500 Intake: Oral 500 Other: # Voids 2 1 # Bowel Movements 0 - Constitutional General appearance: Present: cooperative, no acute distress - EENT Eyes: Present: PERRLA ENT: Present: hearing grossly normal - Neck Neck: Present: normal ROM - Respiratory Details: No difficulty with respiration - Gastrointestinal Gastrointestinal Comment(s): Soft, nontender, nondistended, no rebound, no guarding - Psychiatric Psychiatric: Present: A&O x's 3, appropriate affect - Labs CBC & Chem 7: 04/07/17 06:59 04/07/17 06:59 Labs: Abnormal Lab Results - Last 24 Hours (Table) 04/07/17 04/07/17 Range/Units 06:59 06:59 WBC 2.6 L (3.8-10.6) k/uL RBC 2.58 L (3.80-5.40) m/uL Hgb 8.9 L (11.4-16.0) gm/dL Hct 29.2 L (34.0-46.0) % MCV 112.8 H (80.0-100.0) fL MCHC 30.5 L (31.0-37.0) g/dL RDW 20.7 H (11.5-15.5) % Plt Count 125 L (150-450) k/uL Lymphocytes # 0.7 L (1.0-4.8) k/uL BUN 3 L (7-17) mg/dL Creatinine 0.42 L (0.52-1.04) mg/dL Glucose 73 L (74-99) mg/dL Calcium 7.2 L (8.4-10.2) mg/dL Total Bilirubin 1.4 H (0.2-1.3) mg/dL AST 197 H (14-36) U/L ALT 62 H (9-52) U/L Alkaline Phosphatase 139 H (38-126) U/L Total Protein 5.4 L (6.3-8.2) g/dL Albumin 2.6 L (3.5-5.0) g/dL Microbiology - Last 24 Hours (Table) 04/04/17 11:35 Group A Strep Throat Culture - Final Throat 04/04/17 17:50 Urine Culture - Final Urine,Voided Escherichia coli 04/04/17 10:06 Blood Culture - Preliminary Blood No Growth after 48 hours Assessment and Plan Plan: 41-year-old female with abdominal pain in the bilateral lower quadrants and epigastric area - Liver biopsy was performed on this patient during her last admission and repair of her gastric perforation. This did show cirrhosis and steatosis. This is likely secondary to her alcohol abuse. Due to this history, elevated LFTs and bilirubin levels may be attributable to liver disease rather than gallbladder disease. -Bilateral lower quadrant pain has improved per patient - Advance to regular diet - Evaluated by urology for air in bladder, plan is to continue antibiotics with urine culture producing E. coli - Will need an outpatient colonoscopy if a entericovesicle fistula needs to be ruled out, the patient states she has never had one - Stable for discharge from a surgical standpoint
[2017-04-07 12:02] LABS: Glucose,Whole Blood 81 mg/dL (75-99)
[2017-04-07] MEDS: THIAMINE 100 MG TAB PO SCH (12:06)
--- NOTE | 2017-04-08 23:26 | P.PN ---
Subjective Progress Note Date: 04/06/17 Principal diagnosis: Colitis Patient is a 41-year-old female with past medical history of alcoholic liver cirrhosis, status post biopsy during recent admission, severe alcohol abuse with 1 pint of vodka daily, diet-controlled diabetes and anxiety came to ER with complaints of abdominal pain and nausea and unable to keep down food for the past 1 week. Does admit to pain in both the upper and lower abdomen. Pain is mainly in the epigastric area with bandlike sensation and also in the lower abdomen. Does admit that she had surgery back in January for perforated ulcer and liver biopsy.. She states that it is a sharp type pain. She denies any other complaints or associated symptoms. Patient denies any recent fever, chills, shortness of breath, chest pain, back pain, numbness or tingling, dysuria or hematuria, constipation or diarrhea, headaches or visual changes, or any other complaints. Abdominal KUB x-ray showed generalized ileus enteritis CT of the abdomen pelvis showed hepatic stetosis and hepatomegaly, correlate for colitis ascending and transverse. Gallbladder dilatation. The dilation of common bile duct. 04/05/2017 Patient's upper abdominal pain is much improved now. Liver enzymes slightly improved.. Patient was started on clear liquids and advance as tolerated. Ultrasound of the abdomen showed dilated gallbladder. Otherwise patient still having lower abdominal pain. Discussed with general surgery and was suspected to have vesicular fistula since the patient is complaining of passing gas along with urine. Urology has been consulted for possible cystoscopy. No fever no chills. No chest pain no shortness of breath. Patient is still requiring Ativan IV for alcohol withdrawal symptoms. 04/06/2017 Abdominal pain is much improved now. Patient is tolerating oral diet which is being advanced. Patient was seen by urology and recommended no need for cystoscopy unless urine culture grows gas producing organisms. Patient will need outpatient follow-up with several surgery for colonoscopy. Otherwise withdrawal symptoms are much improved. All other review of systems negative except the above Current medications reviewed. Objective - Vital Signs Vital signs: Vital Signs Temp 99.1 F 04/06/17 06:31 Pulse 105 H 04/06/17 06:31 Resp 16 04/06/17 06:31 BP 144/95 04/06/17 06:31 Pulse Ox 96 04/06/17 06:31 Intake & Output 04/05/17 04/06/17 04/06/17 18:59 06:59 18:59 Intake Total 960 Balance 960 Weight 77.111 kg Intake: Oral 960 Other: # Voids 4 3 1 - Exam PHYSICAL EXAMINATION: Patient is lying in the bed comfortably, no acute distress, awake alert and oriented.. HEENT: Normocephalic. Neck is supple. Pupils reactive. Nostrils clear. Oral cavity is moist. Ears reveal no drainage. Neck reveals no JVD, carotid bruits, or thyromegaly. CHEST EXAMINATION: Trachea is central. Symmetrical expansion. Lung cornell clear to auscultation and percussion. CARDIAC: Normal S1, S2 with no gallops. No murmurs ABDOMEN: Soft. Lower abdominal mild tenderness. Bowel sounds normal. No organomegaly. No abdominal bruits. Extremities: reveal no edema. No clubbing or cyanosis Neurologically awake, alert, oriented x3 with well-coordinated movements. No focal deficits noted Skin: No rash or skin lesions. Psychiatric: Coperative. Nonsuicidal Musculoskeletal: No joint swelling or deformity. Normal range of motion. - Labs CBC & Chem 7: 04/07/17 06:59 04/07/17 06:59 Labs: Abnormal Lab Results - Last 24 Hours (Table) 04/05/17 04/05/17 04/06/17 Range/Units 17:14 20:58 07:13 WBC 2.5 L (3.8-10.6) k/uL RBC 2.49 L (3.80-5.40) m/uL Hgb 8.8 L (11.4-16.0) gm/dL Hct 27.1 L (34.0-46.0) % MCV 108.7 H (80.0-100.0) fL MCH 35.3 H (25.0-35.0) pg RDW 19.7 H (11.5-15.5) % Plt Count 109 L (150-450) k/uL Lymphocytes # 0.8 L (1.0-4.8) k/uL Potassium (3.5-5.1) mmol/L Carbon Dioxide (22-30) mmol/L BUN (7-17) mg/dL Creatinine (0.52-1.04) mg/dL POC Glucose (mg/dL) 129 H 118 H (75-99) mg/dL Calcium (8.4-10.2) mg/dL Total Bilirubin (0.2-1.3) mg/dL AST (14-36) U/L ALT (9-52) U/L Total Protein (6.3-8.2) g/dL Albumin (3.5-5.0) g/dL 04/06/17 Range/Units 07:13 WBC (3.8-10.6) k/uL RBC (3.80-5.40) m/uL Hgb (11.4-16.0) gm/dL Hct (34.0-46.0) % MCV (80.0-100.0) fL MCH (25.0-35.0) pg RDW (11.5-15.5) % Plt Count (150-450) k/uL Lymphocytes # (1.0-4.8) k/uL Potassium 3.1 L (3.5-5.1) mmol/L Carbon Dioxide 31 H (22-30) mmol/L BUN 3 L (7-17) mg/dL Creatinine 0.38 L (0.52-1.04) mg/dL POC Glucose (mg/dL) (75-99) mg/dL Calcium 7.3 L (8.4-10.2) mg/dL Total Bilirubin 1.4 H (0.2-1.3) mg/dL AST 160 H (14-36) U/L ALT 58 H (9-52) U/L Total Protein 5.4 L (6.3-8.2) g/dL Albumin 2.7 L (3.5-5.0) g/dL Microbiology - Last 24 Hours (Table) 04/04/17 10:06 Blood Culture - Preliminary Blood No Growth after 48 hours 04/04/17 17:50 Urine Culture - Preliminary Urine,Voided Gram Neg Bacilli Assessment and Plan Assessment: Abdominal pain secondary to ascending and transverse colitis and also alcohol Hepatitis. Unlikely acute cholecystitis as per general surgery evaluation Acute alcohol withdrawals Severe lactic acidosis due to volume depletion vs bowel ischemia. Resolved now Possible urinary tract infection. UA is likely contaminant sample. Follow-up urine cultures. Gallbladder and common bile duct dilatation Elevated liver enzymes due to alcoholic hepatitis Severe hypokalemia Alcohol abuse with 1 pint of Vodka daily History of recent perforated ulcer repair and liver biopsy showing steatosis and cirrhosis Nicotine addiction. DVT prophylaxis Plan: Patient will be continued on IV hydration and antibiotics in the form of Zosyn. Continue with alcohol withdrawal to call. General surgery is following. Urology has been consulted for possible cystoscopy. Otherwise patient was started on liquid diet and advanced as tolerated. We will continue with the thiamine and multivitamins and monitor for alcohol withdrawal symptoms. Patient was counseled extensively for alcohol abuse and nicotine addiction. Prognosis is guarded. Follow-up urine cultures. Replace potassium . Further recommendations based on the clinical course. Time with Patient: Greater than 30
--- NOTE | 2017-04-08 23:29 | P.DS ---
Providers Date of admission: 04/04/17 12:34 Expected date of discharge: 04/07/17 Attending physician: Melissa Weber Consults: 04/04/17 12:26 Consult Physician Stat Consulting Provider: Boston Loco Consult Reason/Comments: Colitis Do you want consulting provider notified?: Yes 04/05/17 22:24 Consult Physician Routine Consulting Provider: Constantin Rao Consult Reason/Comments: Suspected vesicular fistula Do you want consulting provider notified?: Yes, Notify in am Primary care physician: Kathryn Vieira Hospital Course: Discharge diagnosis Abdominal pain secondary to ascending and transverse colitis and also alcohol Hepatitis. Unlikely acute cholecystitis as per general surgery evaluation Acute alcohol withdrawals Severe lactic acidosis due to volume depletion vs bowel ischemia. Resolved now E. coli urinary tract infection. Gallbladder and common bile duct dilatation Elevated liver enzymes due to alcoholic hepatitis Severe hypokalemia Alcohol abuse with 1 pint of Vodka daily History of recent perforated ulcer repair and liver biopsy showing steatosis and cirrhosis Nicotine addiction. DVT prophylaxis Hospital course Patient is a 41-year-old female with past medical history of alcoholic liver cirrhosis, status post biopsy during recent admission, severe alcohol abuse with 1 pint of vodka daily, diet-controlled diabetes and anxiety came to ER with complaints of abdominal pain and nausea and unable to keep down food for the past 1 week. Does admit to pain in both the upper and lower abdomen. Pain is mainly in the epigastric area with bandlike sensation and also in the lower abdomen. Does admit that she had surgery back in January for perforated ulcer and liver biopsy.. She states that it is a sharp type pain. She denies any other complaints or associated symptoms. Patient denies any recent fever, chills, shortness of breath, chest pain, back pain, numbness or tingling, dysuria or hematuria, constipation or diarrhea, headaches or visual changes, or any other complaints. Abdominal KUB x-ray showed generalized ileus enteritis CT of the abdomen pelvis showed hepatic stetosis and hepatomegaly, correlate for colitis ascending and transverse. Gallbladder dilatation. The dilation of common bile duct. 04/05/2017 Patient's upper abdominal pain is much improved now. Liver enzymes slightly improved.. Patient was started on clear liquids and advance as tolerated. Ultrasound of the abdomen showed dilated gallbladder. Otherwise patient still having lower abdominal pain. Discussed with general surgery and was suspected to have vesicular fistula since the patient is complaining of passing gas along with urine. Urology has been consulted for possible cystoscopy. No fever no chills. No chest pain no shortness of breath. Patient is still requiring Ativan IV for alcohol withdrawal symptoms. 04/06/2017 Abdominal pain is much improved now. Patient is tolerating oral diet which is being advanced. Patient was seen by urology and recommended no need for cystoscopy unless urine culture grows gas producing organisms. Patient will need outpatient follow-up with several surgery for colonoscopy. Otherwise withdrawal symptoms are much improved. Patient was continued on IV hydration and antibiotics in the form of Zosyn. General surgery has seen the patient. Urology has been consulted for possible cystoscopy. Recommended cystoscopy in the urine cultures growing gas producing organisms. Urine culture showed E. coli. Otherwise patient was started on liquid diet and advanced as tolerated. continued with the thiamine and multivitamins and treated for alcohol withdrawal symptoms. Patient was counseled extensively for alcohol abuse and nicotine addiction. Patient really to follow with general surgery for colonoscopy. Otherwise patient is stable to be discharged home. PHYSICAL EXAMINATION: Patient is lying in the bed comfortably, no acute distress, awake alert and oriented.. HEENT: Normocephalic. Neck is supple. Pupils reactive. Nostrils clear. Oral cavity is moist. Ears reveal no drainage. Neck reveals no JVD, carotid bruits, or thyromegaly. CHEST EXAMINATION: Trachea is central. Symmetrical expansion. Lung cornell clear to auscultation and percussion. CARDIAC: Normal S1, S2 with no gallops. No murmurs ABDOMEN: Soft. Bowel sounds normal. No organomegaly. No abdominal bruits. Extremities: reveal no edema. No clubbing or cyanosis Neurologically awake, alert, oriented x3 with well-coordinated movements. No focal deficits noted Skin: No rash or skin lesions. Psychiatric: Coperative. Nonsuicidal Musculoskeletal: No joint swelling or deformity. Normal range of motion. Patient Condition at Discharge: Stable Plan - Discharge Summary Discharge Rx Participant: Yes New Discharge Prescriptions: New Multivitamin [Men's Multi-Vitamin] 1 each PO DAILY #30 tablet Sulfamethox-Tmp 800-160Mg [Bactrim DS 800-160 mg] 1 tab PO Q12HR 5 Days #10 tab Thiamine [Vitamin B-1] 100 mg PO BID@1200,1700 #30 tab Docusate [Colace] 100 mg PO BID PRN #20 capsule PRN Reason: Constipation Hydrocodone/Acetaminophen [[place] 5-325] 1 tab PO Q6HR PRN #12 tab PRN Reason: Pain Continue Gabapentin [Neurontin] 300 mg PO QID clonazePAM [KlonoPIN] 0.5 mg PO DAILY PRN PRN Reason: Anxiety Omeprazole [PriLOSEC] 40 mg PO DAILY #90 capsule. Discharge Medication List Gabapentin [Neurontin] 300 mg PO QID 03/09/16 [History] clonazePAM [KlonoPIN] 0.5 mg PO DAILY PRN 01/30/17 [History] Omeprazole [PriLOSEC] 40 mg PO DAILY #90 capsule. 02/06/17 [Rx] Docusate [Colace] 100 mg PO BID PRN #20 capsule 04/07/17 [Rx] Hydrocodone/Acetaminophen [[place] 5-325] 1 tab PO Q6HR PRN #12 tab 04/07/17 [Rx] Multivitamin [Men's Multi-Vitamin] 1 each PO DAILY #30 tablet 04/07/17 [Rx] Sulfamethox-Tmp 800-160Mg [Bactrim DS 800-160 mg] 1 tab PO Q12HR 5 Days #10 tab 04/07/17 [Rx] Thiamine [Vitamin B-1] 100 mg PO BID@1200,1700 #30 tab 04/07/17 [Rx] Follow up Appointment(s)/Referral(s): Kathryn Vieira MD [Primary Care Provider] - 04/14/17 9:30 am Ken Oliveros DO [Doctor of Osteopathic Medicine] - 04/13/17 2:30 pm (To plan for colonoscopy) Patient Instructions/Handouts: Enteritis (DC) Activity/Diet/Wound Care/Special Instructions: NO alcohol, references provided. No smoking, cessation information provided. Diabetic diet. Activity as tolerated. Discharge Disposition: HOME SELF-CARE
== END 2017-04-07 14:50 | disposition home or self-care (01) | DRG 433 ==
LOC: EC 09:00 → 4MS4W 12:34
PROVIDERS: ADMIT Internal Medicine; ATTEND Internal Medicine
DX: K70.10 Alcoholic hepatitis without ascites (principal); E87.2 Acidosis; K70.30 Alcoholic cirrhosis of liver without ascites; E11.42 Type 2 diabetes mellitus with diabetic polyneuropathy; F10.239 Alcohol dependence with withdrawal, unspecified; N39.0 Urinary tract infection, site not specified; K52.9 Noninfective gastroenteritis and colitis, unspecified; E87.6 Hypokalemia; B96.20 Unspecified Escherichia coli [E. coli] as the cause of diseases classified elsewhere; F41.9 Anxiety disorder, unspecified; F17.210 Nicotine dependence, cigarettes, uncomplicated; Z71.6 Tobacco abuse counseling; Z71.41 Alcohol abuse counseling and surveillance of alcoholic; Z88.6 Allergy status to analgesic agent; Z79.899 Other long term (current) drug therapy; Z87.11 Personal history of peptic ulcer disease
CPT/HCPCS: 36415; 71046; 74018; 74177; 76705; 80053; 81001; 82150; 83605; 83690; 84132; 84702; 85025; 85610; 85730; 87040; 87077; 87081; 87086; 87186; 87430; 96361; 96365; 96366; 96367; 96372; 96375; 96376; 99285

== ENCOUNTER → 2017-07-20 | Outpatient (CLI) | payer OTHER ==
[2017-07-20 14:26] LABS: Albumin 3.7 g/dL (3.5-5.0); Chloride 105 mmol/L (98-107); Glucose 94 mg/dL (74-99); Potassium 4.6 mmol/L (3.5-5.1); Sodium 142 mmol/L (137-145); Total Protein 7.4 g/dL (6.3-8.2)
[2017-07-20 14:27] LABS: ALT 26 U/L (9-52); AST 43 U/L (14-36); Alkaline Phosphatase 73 U/L (38-126); Anion Gap 13 mmol/L; Blood Urea Nitrogen 15 mg/dL (7-17); Calcium 9.4 mg/dL (8.4-10.2); Carbon Dioxide 24 mmol/L (22-30); Total Bilirubin 1.2 mg/dL (0.2-1.3)
== END | disposition home or self-care (01) ==
LOC: LABWHC1 13:37
PROVIDERS: ATTEND Internal Medicine
DX: K70.31 Alcoholic cirrhosis of liver with ascites (principal)
CPT/HCPCS: 36415; 80053; 82140

== ENCOUNTER 2017-09-30 13:04 | Inpatient (IN) | payer OTHER ==
[2017-09-30] MEDS ORDERED: LORazepam 2 MG/ML INJ IV STA ×2 (13:41→15:13)
[2017-09-30] MEDS ORDERED: PANTOPRAZOLE 40 MG/10 ML VIAL IVP STA (13:41)
[2017-09-30] MEDS ORDERED: SODIUM CHLORIDE 0.9% 1,000 ML IV STA ×2 (13:41)
[2017-09-30] MEDS ORDERED: ONDANSETRON 4 MG/2 ML VIAL IVP STA (13:41)
--- NOTE | 2017-09-30 14:28 | ED ---
General Adult HPI <Jef James - Last Filed: 09/30/17 16:58> - General Source: patient, RN notes reviewed Mode of arrival: ambulatory Limitations: no limitations <Raf Garcia - Last Filed: 09/30/17 17:09> - General Chief complaint: Recheck/Abnormal Lab/Rx Stated complaint: body aches, shaking Time Seen by Provider: 09/30/17 13:27 - History of Present Illness Initial comments: Patient 41-year-old female seen in the past medical history for liver cirrhosis , who presents emergency room today with a chief complaint of nausea vomiting over the last 3 days. Does admit that she seen small amounts of blood in the emesis. Patient does admit that she's been drinking heavily over the last week. States been treating approximately a pint. Patient does admit that she feels some cramping in her legs. She denies any other complaints or symptoms. Patient denies any recent fever, chills, shortness of breath, chest pain, back pain, dysuria or hematuria, constipation or diarrhea, headaches or visual changes, or any other complaints. (Raf Garcia) - Related Data Home Medications Medication Instructions Recorded Confirmed Gabapentin [Neurontin] 300 mg PO QID 03/09/16 09/30/17 clonazePAM [KlonoPIN] 0.5 mg PO BID PRN 01/30/17 09/30/17 Omeprazole [PriLOSEC] 20 mg PO AC-BID 06/27/17 09/30/17 Sertraline HCl [Zoloft] 50 mg PO DAILY 06/27/17 09/30/17 ALPRAZolam [Xanax] 0.25 mg PO ONCE PRN 09/30/17 09/30/17 Esomeprazole Magnesium [NexIUM] 20 mg PO ONCE PRN 09/30/17 09/30/17 Allergies Allergy/AdvReac Type Severity Reaction Status Date / Time codeine Allergy Mild Rash/Hives Verified 09/30/17 13:40 morphine Allergy Itching Verified 09/30/17 13:40 Review of Systems ROS Other: All systems not noted in ROS Statement are negative. <Jef James - Last Filed: 09/30/17 16:58> ROS Other: All systems not noted in ROS Statement are negative. <Raf Garcia - Last Filed: 09/30/17 17:09> ROS Statement: Those systems with pertinent positive or pertinent negative responses have been documented in the HPI. Past Medical History Past Medical History: Diabetes Mellitus Additional Past Medical History / Comment(s): Diet controlled diabetes, alcoholism with cirrhosis , ascities, neuropathy bilateral fingers/toes, History of Any Multi-Drug Resistant Organisms: None Reported Past Surgical History: Section Additional Past Surgical History / Comment(s): 01/2017 exploratory lap with repair of perforated ulcer with liver biopsy. Past Anesthesia/Blood Transfusion Reactions: No Reported Reaction Past Psychological History: Anxiety Smoking Status: Current every day smoker Past Alcohol Use History: Abuse, Daily Past Drug Use History: Marijuana - Past Family History Father Family Medical History: No Reported History Additional Family Medical History / Comment(s): Father is healthy and is 68yrs old. Mother Family Medical History: No Reported History Additional Family Medical History / Comment(s): Mother is healthy and is 68yrs old. <Raf Garcia - Last Filed: 09/30/17 17:09> General Exam <Jef James - Last Filed: 09/30/17 16:58> Limitations: no limitations <Raf Garcia - Last Filed: 09/30/17 17:09> - General Exam Comments Initial Comments: General: The patient is awake and alert, in no distress, and does not appear acutely ill. Eye: Pupils are equal, round and reactive to light, extra-ocular movements are intact. No nystagmus. There is normal conjunctiva bilaterally. Ears, nose, mouth and throat: There are moist mucous membranes and no oral lesions. Neck: The neck is supple, there is no tenderness or JVD. Cardiovascular: There is a regular rate and rhythm. No murmur, rub or gallop is appreciated. Respiratory: Lungs are clear to auscultation, respirations are non-labored, breath sounds are equal. No wheezes, stridor, rales, or rhonchi. Gastrointestinal: Soft on Palpation. Mild Tenderness Right Upper Quadrant. No Rebound Tenderness. No Guarding. No CVA Tenderness. Musculoskeletal: Normal ROM, no tenderness. Strength 5/5. Sensation intact. Pulses equal bilaterally 2+. Neurological: A&O x 3. CN II-XII intact, There are no obvious motor or sensory deficits. Coordination appears grossly intact. Speech is normal. Skin: Skin is warm and dry and no rashes or lesions are noted. Psychiatric: Cooperative, appropriate mood & affect, normal judgment. (Raf Garcia) Vital Signs 09/30/17 09/30/17 13:10 16:34 Temperature 98.2 F Pulse Rate 112 H 89 Respiratory 18 16 Rate Blood Pressure 130/78 140/70 O2 Sat by Pulse 98 98 Oximetry Medical Decision Making - Lab Data Result diagrams: 09/30/17 14:19 09/30/17 14:19 <Jef James - Last Filed: 09/30/17 16:58> - Lab Data Result diagrams: 09/30/17 14:19 09/30/17 14:19 <Raf Garcia - Last Filed: 09/30/17 17:09> - Medical Decision Making Provider Attestation PA attestation: I personally saw and examined the patient. I have reviewed and agree with the PA's findings, including all diagnostic interpretations and treatment plans as written unless ohterwise stated. I was present for byers portions of any procedures performed and the inclusive time noted for any critical care statement. (Jef James) Patient reexamined at this time still expresses some discomfort to the right upper quadrant. Patient does admit to history of liver cirrhosis. Patient labs been reviewed does show mildly elevated liver enzymes along with alk phos and bilirubin. Patient's ultrasound of the right upper quadrant shows evidence for acute cholecystitis. Patient's analysis shows possible urinary tract infection. Started on antibiotics of Zosyn here in [facility] emergency room. Case discussed with the resident physician Dr. Weber who will admit the patient with consult to surgery. (Raf Garcia) - Lab Data Lab Results 09/30/17 09/30/17 09/30/17 Range/Units 14:19 14:19 14:19 WBC 8.7 (3.8-10.6) k/uL RBC 4.16 (3.80-5.40) m/uL Hgb 12.5 (11.4-16.0) gm/dL Hct 36.8 (34.0-46.0) % MCV 88.5 (80.0-100.0) fL MCH 30.0 (25.0-35.0) pg MCHC 33.9 (31.0-37.0) g/dL RDW 18.8 H (11.5-15.5) % Plt Count 136 L (150-450) k/uL Neutrophils % 74 % Lymphocytes % 14 % Monocytes % 8 % Eosinophils % 1 % Basophils % 1 % Neutrophils # 6.5 (1.3-7.7) k/uL Lymphocytes # 1.3 (1.0-4.8) k/uL Monocytes # 0.7 (0-1.0) k/uL Eosinophils # 0.1 (0-0.7) k/uL Basophils # 0.1 (0-0.2) k/uL Anisocytosis Slight PT (9.0-12.0) sec INR (<1.2) APTT (22.0-30.0) sec Sodium 134 L (137-145) mmol/L Potassium 3.5 (3.5-5.1) mmol/L Chloride 96 L (98-107) mmol/L Carbon Dioxide 19 L (22-30) mmol/L Anion Gap 19 mmol/L BUN 18 H (7-17) mg/dL Creatinine 0.90 (0.52-1.04) mg/dL Est GFR (CKD-EPI)AfAm >90 (>60 ml/min/1.73 sqM) Est GFR (CKD-EPI)NonAf 81 (>60 ml/min/1.73 sqM) Glucose 101 H (74-99) mg/dL Calcium 8.3 L (8.4-10.2) mg/dL Total Bilirubin 8.4 H (0.2-1.3) mg/dL AST 636 H (14-36) U/L ALT 262 H (9-52) U/L Alkaline Phosphatase 190 H (38-126) U/L Ammonia (<30) umol/L Total Protein 7.1 (6.3-8.2) g/dL Albumin 3.4 L (3.5-5.0) g/dL Amylase 97 (30-110) U/L Lipase 197 (23-300) U/L Urine Color Brown Urine Appearance Cloudy H (Clear) Urine pH 6.0 (5.0-8.0) Ur Specific [place] 1.020 (1.001-1.035) Urine Protein 1+ H (Negative) Urine Glucose (UA) Negative (Negative) Urine Ketones Trace H (Negative) Urine Blood Trace H (Negative) Urine Nitrite Negative (Negative) Urine Bilirubin 2+ H (Negative) Urine Urobilinogen 8.0 (<2.0) mg/dL Ur Leukocyte Esterase Small H (Negative) Urine WBC 14 H (0-5) /hpf Ur Squamous Epith Cells 40 H (0-4) /hpf Urine Bacteria Many H (None) /hpf Hyaline Casts 69 H (0-2) /lpf Urine Mucus Many H (None) /hpf Urine HCG, Qual (Not Detectd) 09/30/17 09/30/17 09/30/17 Range/Units 14:19 14:19 14:19 WBC (3.8-10.6) k/uL RBC (3.80-5.40) m/uL Hgb (11.4-16.0) gm/dL Hct (34.0-46.0) % MCV (80.0-100.0) fL MCH (25.0-35.0) pg MCHC (31.0-37.0) g/dL RDW (11.5-15.5) % Plt Count (150-450) k/uL Neutrophils % % Lymphocytes % % Monocytes % % Eosinophils % % Basophils % % Neutrophils # (1.3-7.7) k/uL Lymphocytes # (1.0-4.8) k/uL Monocytes # (0-1.0) k/uL Eosinophils # (0-0.7) k/uL Basophils # (0-0.2) k/uL Anisocytosis PT 15.4 H (9.0-12.0) sec INR 1.7 H (<1.2) APTT 27.7 (22.0-30.0) sec Sodium (137-145) mmol/L Potassium (3.5-5.1) mmol/L Chloride (98-107) mmol/L Carbon Dioxide (22-30) mmol/L Anion Gap mmol/L BUN (7-17) mg/dL Creatinine (0.52-1.04) mg/dL Est GFR (CKD-EPI)AfAm (>60 ml/min/1.73 sqM) Est GFR (CKD-EPI)NonAf (>60 ml/min/1.73 sqM) Glucose (74-99) mg/dL Calcium (8.4-10.2) mg/dL Total Bilirubin (0.2-1.3) mg/dL AST (14-36) U/L ALT (9-52) U/L Alkaline Phosphatase (38-126) U/L Ammonia 34 H (<30) umol/L Total Protein (6.3-8.2) g/dL Albumin (3.5-5.0) g/dL Amylase (30-110) U/L Lipase (23-300) U/L Urine Color Urine Appearance (Clear) Urine pH (5.0-8.0) Ur Specific [place] (1.001-1.035) Urine Protein (Negative) Urine Glucose (UA) (Negative) Urine Ketones (Negative) Urine Blood (Negative) Urine Nitrite (Negative) Urine Bilirubin (Negative) Urine Urobilinogen (<2.0) mg/dL Ur Leukocyte Esterase (Negative) Urine WBC (0-5) /hpf Ur Squamous Epith Cells (0-4) /hpf Urine Bacteria (None) /hpf Hyaline Casts (0-2) /lpf Urine Mucus (None) /hpf Urine HCG, Qual Not Detected (Not Detectd) Disposition <Jef James - Last Filed: 09/30/17 16:58> Is patient prescribed a controlled substance at d/c from ED?: No Time of Disposition: 17:00 <Raf Garcia - Last Filed: 09/30/17 17:09> Clinical Impression: Cholecystitis, Liver cirrhosis Disposition: ADMITTED IP TO THIS HOSP Condition: Stable Referrals: Kathryn Vieira MD [Primary Care Provider] - 1-2 days
[2017-09-30 14:31] LABS: Anisocytosis Slight; Basophils # (A) 0.1 k/uL (0-0.2); Basophils % (A) 1 %; Eosinophils # (A) 0.1 k/uL (0-0.7); Eosinophils % (A) 1 %; HCT 36.8 % (34.0-46.0); HGB 12.5 gm/dL (11.4-16.0); Lymphocytes # (A) 1.3 k/uL (1.0-4.8); Lymphocytes % (A) 14 %; MCHC 33.9 g/dL (31.0-37.0); MCV 88.5 fL (80.0-100.0); Mean Platelet Volume 8.5; Monocytes # (A) 0.7 k/uL (0-1.0); Monocytes % (A) 8 %; Neutrophils # (A) 6.5 k/uL (1.3-7.7); Neutrophils % (A) 74 %; Platelet Count 136 k/uL (150-450); RBC 4.16 m/uL (3.80-5.40); RDW 18.8 % (11.5-15.5); WBC 8.7 k/uL (3.8-10.6)
[2017-09-30 14:36] LABS: Appearance,Urine Cloudy (Clear); Bacteria,Urine Many /hpf; Bilirubin,Urine 2+ (Negative); Blood,Urine Trace (Negative); Color,Urine Brown; Glucose,Urine (UA) Negative (Negative); Hyaline Casts,Urine 69 /lpf (0-2); Ketones,Urine Trace (Negative); Leukocyte Esterase,Urine Small (Negative); Mucus,Urine Many /hpf; Nitrite,Urine Negative (Negative); Protein,Urine 1+ (Negative); Squamous Epithelial Cell,Urine 40 /hpf (0-4); WBC,Urine 14 /hpf (0-5)
[2017-09-30 14:43] LABS: ALT 262 U/L (9-52); AST 636 U/L (14-36); Albumin 3.4 g/dL (3.5-5.0); Alkaline Phosphatase 190 U/L (38-126); Amylase 97 U/L (30-110); Anion Gap 19 mmol/L; Blood Urea Nitrogen 18 mg/dL (7-17); Calcium 8.3 mg/dL (8.4-10.2); Carbon Dioxide 19 mmol/L (22-30); Chloride 96 mmol/L (98-107); Glucose 101 mg/dL (74-99); Potassium 3.5 mmol/L (3.5-5.1); Sodium 134 mmol/L (137-145); Total Bilirubin 8.4 mg/dL (0.2-1.3); Total Protein 7.1 g/dL (6.3-8.2)
[2017-09-30 14:54] LABS: Lipase 197 U/L (23-300)
[2017-09-30 15:00] LABS: INR 1.7 (<1.2); Partial Thromboplastin Time 27.7 sec (22.0-30.0); Prothrombin Time 15.4 sec (9.0-12.0)
--- NOTE | 2017-09-30 15:03 | XR ---
EXAMINATION TYPE: XR KUB , 2 VIEWS DATE OF EXAM ORDERED: 09/30/2017 HISTORY: pain. COMPARISON: Previous study dated 04/04/2017. FINDINGS: Lung bases are clear. Within the abdomen, the abdominal gas pattern is within normal limits. There is no evidence of obstru ction or free air. There is a phlebolith in the left hemipelvis. No other unusual calcifications are seen. IMPRESSION: NO ACUTE INTRA-ABDOMINAL ABNORMALITY.
--- NOTE | 2017-09-30 15:03 | XR ---
EXAMINATION TYPE: XR chest 2V DATE OF EXAM: 09/30/2017 COMPARISON: 06/27/2017 HISTORY: Chest pain TECHNIQUE: Frontal and lateral views of the chest are obtained. FINDINGS: There is no focal air space opacity, pleural effusion, or pneumothorax seen. The cardiac silhouette size is within normal limits. The osseous structures are intact. IMPRESSION: No acute cardiopulmonary process, unchanged from the prior.
--- NOTE | 2017-09-30 15:47 | US ---
EXAMINATION TYPE: US abdomen limited DATE OF EXAM: 09/30/2017 COMPARISON: NONE CLINICAL HISTORY: Pain. Abdominal pain, nausea and vomiting for 3 days EXAM MEASUREMENTS: Liver Length: 23.2 cm Gallbladder Wall: 0.5 cm CBD: 0.9 cm Right Kidney: 13.5 x 5.2 x 6.7 cm Pancreas: Obscured by bowel gas Liver: enlarged, attenuating, and heterogeneous representing underlying hepatocellular disease Gallbladder: distended with possible sludge. Thickened GB wall. Pericholecystic fluid Evidence for sonographic Krishnan's sign: no CBD: dilated Right Kidney: no evidence of hydronephrosis or mass as visualized IMPRESSION: Findings are suspicious for acute cholecystitis with elongation of the gallbladder, gallb ladder wall thickening, common bile duct dilation, and pericholecystic fluid. However pericholecystic fluid and gallbladder wall thickening could also be attributable to the adjacent hepatocellular dise ase and known prior ascites. Therefore correlation with serum laboratory values is recommended.
[2017-09-30] MEDS ORDERED: PIPERACILLIN-TAZOBACTAM 3.375 GM in DEXTROSE/WATER 1 50ML.BAG IVPB STA ×2 (16:08→16:59)
[2017-09-30] MEDS ORDERED: HYDROmorphone 0.5 MG/0.5 ML SYRINGE IVP STA (16:15)
[2017-09-30] MEDS ORDERED: ONDANSETRON 4 MG/2 ML VIAL IVP PRN (17:00)
[2017-09-30] MEDS ORDERED: NALOXONE 0.4 MG/ML 1 ML VIAL IV PRN (17:00)
[2017-09-30] MEDS: LORazepam 2 MG/ML INJ IV PRN ×2 (18:35→23:35)
[2017-09-30] MEDS: HYDROmorphone 0.5 MG/0.5 ML SYRINGE IVP PRN (19:56)
[2017-09-30] MEDS: GABAPENTIN 300 MG CAP PO SCH (20:37)
[2017-09-30] MEDS: SERTRALINE 50 MG TAB PO SCH (20:37)
[2017-09-30] MEDS ORDERED: ZOLPIDEM 10 MG TAB PO PRN (20:44)
[2017-09-30 21:02] LABS: Glucose,Whole Blood 93 mg/dL (75-99)
[2017-10-01] MEDS: HYDROmorphone 0.5 MG/0.5 ML SYRINGE IVP PRN ×5 (00:02→20:54)
[2017-10-01] MEDS: PIPERACILLIN-TAZOBACTAM 3.375 GM in DEXTROSE/WATER 1 50ML.BAG IVPB SCH ×3 (00:08→15:31)
[2017-10-01] MEDS: LORazepam 2 MG/ML INJ IV PRN ×3 (06:32→20:54)
[2017-10-01 07:09] LABS: Glucose,Whole Blood 100 mg/dL (75-99)
[2017-10-01] MEDS ORDERED: NON-FORMULARY DRUG (Omeprazole 20 MG) PO SCH (07:30)
[2017-10-01] MEDS: SERTRALINE 50 MG TAB PO SCH (07:55)
[2017-10-01] MEDS: PANTOPRAZOLE 40 MG/10 ML VIAL IV SCH (07:55)
[2017-10-01] MEDS: GABAPENTIN 300 MG CAP PO SCH ×4 (07:55→22:11)
[2017-10-01 08:19] LABS: Anisocytosis Slight; Basophils % (A) 1 %; Eosinophils # (A) 0.1 k/uL (0-0.7); Eosinophils % (A) 2 %; HCT 34.1 % (34.0-46.0); HGB 11.1 gm/dL (11.4-16.0); Lymphocytes # (A) 0.8 k/uL (1.0-4.8); Lymphocytes % (A) 16 %; MCH 29.7 pg (25.0-35.0); MCHC 32.5 g/dL (31.0-37.0); MCV 91.3 fL (80.0-100.0); Mean Platelet Volume 8.4; Monocytes # (A) 0.4 k/uL (0-1.0); Monocytes % (A) 7 %; Neutrophils # (A) 3.9 k/uL (1.3-7.7); Neutrophils % (A) 73 %; Platelet Count 109 k/uL (150-450); RBC 3.73 m/uL (3.80-5.40); RDW 19.2 % (11.5-15.5); WBC 5.3 k/uL (3.8-10.6)
[2017-10-01 08:27] LABS: Calcium 7.7 mg/dL (8.4-10.2); Potassium 3.3 mmol/L (3.5-5.1); Total Bilirubin 8.8 mg/dL (0.2-1.3); Total Protein 6.5 g/dL (6.3-8.2)
--- NOTE | 2017-10-01 12:38 | P.GSCN ---
History of Present Illness Consult date: 10/01/17 Reason for Consult: Nausea, vomiting, not feeling well History of present illness: Patient's a 41-year-old female who presented with a three-day history of some nausea, vomiting, change in urination and bowel movements. Urine was brown and the stool looked funny. She has a history of alcoholic hepatitis. She said she did initially going to rehab for alcohol cessation but she's been drinking daily. Also complaining of cramps in her legs. She is hungry today and wants to eat and drink. Denies fevers or chills. Review of Systems All systems: negative Past Medical History Past Medical History: Diabetes Mellitus, GERD/Reflux, Liver Disease, Seizure Disorder Additional Past Medical History / Comment(s): Diet controlled diabetes, alcoholism with cirrhosis/ ascities, neuropathy bilateral fingers/toes, hiatal hernia History of Any Multi-Drug Resistant Organisms: None Reported Past Surgical History: Section Additional Past Surgical History / Comment(s): 01/2017 exploratory lap with repair of perforated ulcer with liver biopsy. Past Anesthesia/Blood Transfusion Reactions: No Reported Reaction Smoking Status: Current every day smoker - Past Family History Father Family Medical History: No Reported History Additional Family Medical History / Comment(s): Father is healthy and is 68yrs old. Mother Family Medical History: No Reported History Additional Family Medical History / Comment(s): Mother is healthy and is 68yrs old. Medications and Allergies Home Medications Medication Instructions Recorded Confirmed Type Gabapentin [Neurontin] 300 mg PO QID 03/09/16 09/30/17 History clonazePAM [KlonoPIN] 0.5 mg PO BID PRN 01/30/17 09/30/17 History Omeprazole [PriLOSEC] 20 mg PO AC-BID 06/27/17 09/30/17 History Sertraline HCl [Zoloft] 50 mg PO DAILY 06/27/17 09/30/17 History ALPRAZolam [Xanax] 0.25 mg PO ONCE PRN 09/30/17 09/30/17 History Esomeprazole Magnesium [NexIUM] 20 mg PO ONCE PRN 09/30/17 09/30/17 History Allergies Allergy/AdvReac Type Severity Reaction Status Date / Time codeine Allergy Mild Rash/Hives Verified 09/30/17 13:40 morphine Allergy Itching Verified 09/30/17 13:40 Surgical - Exam Osteopathic Statement: *. No significant issues noted on an osteopathic structural exam other than those noted in the History and Physical/Consult. Vital Signs Temp Pulse Resp BP Pulse Ox 98.2 F 112 H 18 130/78 98 09/30/17 13:10 09/30/17 13:10 09/30/17 13:10 09/30/17 13:10 09/30/17 13:10 - General Movements are slightly tremulous well developed, well nourished, no distress - Eyes normal ocular movement, icteric - ENT normal mucosa, no hearing loss - Neck trachea midline - Respiratory normal expansion, normal respiratory effort, clear to auscultation - Cardiovascular Rhythm: other (Tachycardic) - Abdomen Abdomen: soft, non tender, bowel sounds, surgical scars Hernia: incisional, umbilical - Integumentary other (Icterus) - Psychiatric oriented to time, oriented to person, oriented to place, speech is normal, memory intact Results - Labs 10/01/17 07:46 10/01/17 07:46 Abnormal Lab Results - Last 24 Hours (Table) 09/30/17 09/30/17 09/30/17 Range/Units 14:19 14:19 14:19 RBC (3.80-5.40) m/uL Hgb (11.4-16.0) gm/dL RDW 18.8 H (11.5-15.5) % Plt Count 136 L (150-450) k/uL Lymphocytes # (1.0-4.8) k/uL PT (9.0-12.0) sec INR (<1.2) Sodium 134 L (137-145) mmol/L Potassium (3.5-5.1) mmol/L Chloride 96 L (98-107) mmol/L Carbon Dioxide 19 L (22-30) mmol/L BUN 18 H (7-17) mg/dL Creatinine (0.52-1.04) mg/dL Glucose 101 H (74-99) mg/dL POC Glucose (mg/dL) (75-99) mg/dL Calcium 8.3 L (8.4-10.2) mg/dL Total Bilirubin 8.4 H (0.2-1.3) mg/dL AST 636 H (14-36) U/L ALT 262 H (9-52) U/L Alkaline Phosphatase 190 H (38-126) U/L Ammonia (<30) umol/L Albumin 3.4 L (3.5-5.0) g/dL Urine Appearance Cloudy H (Clear) Urine Protein 1+ H (Negative) Urine Ketones Trace H (Negative) Urine Blood Trace H (Negative) Urine Bilirubin 2+ H (Negative) Ur Leukocyte Esterase Small H (Negative) Urine WBC 14 H (0-5) /hpf Ur Squamous Epith Cells 40 H (0-4) /hpf Urine Bacteria Many H (None) /hpf Hyaline Casts 69 H (0-2) /lpf Urine Mucus Many H (None) /hpf 09/30/17 09/30/17 10/01/17 Range/Units 14:19 14:19 06:57 RBC (3.80-5.40) m/uL Hgb (11.4-16.0) gm/dL RDW (11.5-15.5) % Plt Count (150-450) k/uL Lymphocytes # (1.0-4.8) k/uL PT 15.4 H (9.0-12.0) sec INR 1.7 H (<1.2) Sodium (137-145) mmol/L Potassium (3.5-5.1) mmol/L Chloride (98-107) mmol/L Carbon Dioxide (22-30) mmol/L BUN (7-17) mg/dL Creatinine (0.52-1.04) mg/dL Glucose (74-99) mg/dL POC Glucose (mg/dL) 100 H (75-99) mg/dL Calcium (8.4-10.2) mg/dL Total Bilirubin (0.2-1.3) mg/dL AST (14-36) U/L ALT (9-52) U/L Alkaline Phosphatase (38-126) U/L Ammonia 34 H (<30) umol/L Albumin (3.5-5.0) g/dL Urine Appearance (Clear) Urine Protein (Negative) Urine Ketones (Negative) Urine Blood (Negative) Urine Bilirubin (Negative) Ur Leukocyte Esterase (Negative) Urine WBC (0-5) /hpf Ur Squamous Epith Cells (0-4) /hpf Urine Bacteria (None) /hpf Hyaline Casts (0-2) /lpf Urine Mucus (None) /hpf 10/01/17 10/01/17 Range/Units 07:46 07:46 RBC 3.73 L (3.80-5.40) m/uL Hgb 11.1 L (11.4-16.0) gm/dL RDW 19.2 H (11.5-15.5) % Plt Count 109 L (150-450) k/uL Lymphocytes # 0.8 L (1.0-4.8) k/uL PT (9.0-12.0) sec INR (<1.2) Sodium (137-145) mmol/L Potassium 3.3 L (3.5-5.1) mmol/L Chloride (98-107) mmol/L Carbon Dioxide (22-30) mmol/L BUN 19 H (7-17) mg/dL Creatinine 1.19 H (0.52-1.04) mg/dL Glucose (74-99) mg/dL POC Glucose (mg/dL) (75-99) mg/dL Calcium 7.7 L (8.4-10.2) mg/dL Total Bilirubin 8.8 H (0.2-1.3) mg/dL AST 442 H (14-36) U/L ALT 199 H (9-52) U/L Alkaline Phosphatase 153 H (38-126) U/L Ammonia (<30) umol/L Albumin 3.0 L (3.5-5.0) g/dL Urine Appearance (Clear) Urine Protein (Negative) Urine Ketones (Negative) Urine Blood (Negative) Urine Bilirubin (Negative) Ur Leukocyte Esterase (Negative) Urine WBC (0-5) /hpf Ur Squamous Epith Cells (0-4) /hpf Urine Bacteria (None) /hpf Hyaline Casts (0-2) /lpf Urine Mucus (None) /hpf Diabetes panel 09/30/17 10/01/17 Range/Units 14:19 07:46 Sodium 134 L 137 (137-145) mmol/L Potassium 3.5 3.3 L (3.5-5.1) mmol/L Chloride 96 L 101 (98-107) mmol/L Carbon Dioxide 19 L 25 (22-30) mmol/L BUN 18 H 19 H (7-17) mg/dL Creatinine 0.90 1.19 H (0.52-1.04) mg/dL Glucose 101 H 92 (74-99) mg/dL Calcium 8.3 L 7.7 L (8.4-10.2) mg/dL AST 636 H 442 H (14-36) U/L ALT 262 H 199 H (9-52) U/L Alkaline Phosphatase 190 H 153 H (38-126) U/L Total Protein 7.1 6.5 (6.3-8.2) g/dL Albumin 3.4 L 3.0 L (3.5-5.0) g/dL Calcium panel 09/30/17 10/01/17 Range/Units 14:19 07:46 Calcium 8.3 L 7.7 L (8.4-10.2) mg/dL Albumin 3.4 L 3.0 L (3.5-5.0) g/dL Pituitary panel 09/30/17 10/01/17 Range/Units 14:19 07:46 Sodium 134 L 137 (137-145) mmol/L Potassium 3.5 3.3 L (3.5-5.1) mmol/L Chloride 96 L 101 (98-107) mmol/L Carbon Dioxide 19 L 25 (22-30) mmol/L BUN 18 H 19 H (7-17) mg/dL Creatinine 0.90 1.19 H (0.52-1.04) mg/dL Glucose 101 H 92 (74-99) mg/dL Calcium 8.3 L 7.7 L (8.4-10.2) mg/dL Adrenal panel 09/30/17 10/01/17 Range/Units 14:19 07:46 Sodium 134 L 137 (137-145) mmol/L Potassium 3.5 3.3 L (3.5-5.1) mmol/L Chloride 96 L 101 (98-107) mmol/L Carbon Dioxide 19 L 25 (22-30) mmol/L BUN 18 H 19 H (7-17) mg/dL Creatinine 0.90 1.19 H (0.52-1.04) mg/dL Glucose 101 H 92 (74-99) mg/dL Calcium 8.3 L 7.7 L (8.4-10.2) mg/dL Total Bilirubin 8.4 H 8.8 H (0.2-1.3) mg/dL AST 636 H 442 H (14-36) U/L ALT 262 H 199 H (9-52) U/L Alkaline Phosphatase 190 H 153 H (38-126) U/L Total Protein 7.1 6.5 (6.3-8.2) g/dL Albumin 3.4 L 3.0 L (3.5-5.0) g/dL - Imaging CT scan - abdomen: report reviewed, image reviewed Assessment and Plan (1) Liver cirrhosis Current Visit: Yes Status: Acute Code(s): K74.60 - UNSPECIFIED CIRRHOSIS OF LIVER SNOMED Code(s): 07703149 (2) Chronic alcohol abuse Current Visit: No Status: Acute Code(s): F10.10 - ALCOHOL ABUSE, UNCOMPLICATED SNOMED Code(s): 835434444 (3) Coagulopathy Current Visit: No Status: Acute Code(s): D68.9 - COAGULATION DEFECT, UNSPECIFIED SNOMED Code(s): 47679811 Plan: Recommend GI evaluation. The patient likely has some decompensation of her alcoholic cirrhosis. Her gallbladder was somewhat dilated at the time of the repair of her perforated ulcer. It's pretty common to have some gallbladder wall thickening in patients who do have cirrhosis. We will order her a diet. GI consult. Currently nonsurgical. Watch closely for signs of alcohol withdrawal
[2017-10-01 12:51] LABS: Glucose,Whole Blood 88 mg/dL (75-99)
[2017-10-01 17:14] LABS: Glucose,Whole Blood 215 mg/dL (75-99)
[2017-10-01 20:56] LABS: Glucose,Whole Blood 208 mg/dL (75-99)
[2017-10-01] MEDS ORDERED: LACTULOSE 20 GM/30 ML CUP PO ONE (22:34)
--- NOTE | 2017-10-01 22:53 | P.HPIM ---
History of Present Illness H&P Date: 10/01/17 Chief Complaint: Acute cholecystitis Patient is a 41-year-old female with a known history of alcohol abuse, liver cirrhosis with history of ascites, GERD diabetes type 2 and seizure disorder came to ER with complaints of nausea vomiting and abdominal pain for the past 3 days. Abdominal pain mainly in the right upper quadrant. Patient does have liver cirrhosis and previous history of paracentesis. Patient also found to have elevated liver enzymes. Patient denied any recent alcohol use. Denied any fever or chills. Patient also complaining of cramps in the bilateral lower extremities. Patient denies any recent fever, chills, shortness of breath, chest pain, back pain, dysuria or hematuria, constipation or diarrhea, headaches or visual changes, or any other complaints. US ABDOMEN SHOWED FINDINGS ARE SUSPICIOUS for acute cholecystitis with elongated of the gallbladder, gallbladder wall thickening, common bile duct dilatation and pericholecystic: Fluid., Review of Systems Constitutional: Patient denies any fever or chills . No generalized weakness or weight loss. Abdomen: Nausea vomiting and abdominal pain. No diarrhea. Cardiovascular: Patient denies any chest pain or short of breath no palpitations. Respiratory: patient denied any cough is from production. No shortness of breath Neurologic: Patient denied any numbness or tingling headache. Musculoskeletal: Patient denies any complaints of joint swelling or deformity. Skin: Negative Psychiatric: Negative Endocrine: No heat or cold intolerance. No recent weight gain. Genitourinary: No dysuria or hematuria. All other 14 point ROS negative except the above Past Medical History Past Medical History: Diabetes Mellitus, GERD/Reflux, Liver Disease, Seizure Disorder Additional Past Medical History / Comment(s): Diet controlled diabetes, alcoholism with cirrhosis/ ascities, neuropathy bilateral fingers/toes, hiatal hernia History of Any Multi-Drug Resistant Organisms: None Reported Past Surgical History: Section Additional Past Surgical History / Comment(s): 01/2017 exploratory lap with repair of perforated ulcer with liver biopsy. Past Anesthesia/Blood Transfusion Reactions: No Reported Reaction Smoking Status: Current every day smoker - Past Family History Father Family Medical History: No Reported History Additional Family Medical History / Comment(s): Father is healthy and is 68yrs old. Mother Family Medical History: No Reported History Additional Family Medical History / Comment(s): Mother is healthy and is 68yrs old. Medications and Allergies Home Medications Medication Instructions Recorded Confirmed Type Gabapentin [Neurontin] 300 mg PO QID 03/09/16 09/30/17 History clonazePAM [KlonoPIN] 0.5 mg PO BID PRN 01/30/17 09/30/17 History Omeprazole [PriLOSEC] 20 mg PO AC-BID 06/27/17 09/30/17 History Sertraline HCl [Zoloft] 50 mg PO DAILY 06/27/17 09/30/17 History ALPRAZolam [Xanax] 0.25 mg PO ONCE PRN 09/30/17 09/30/17 History Esomeprazole Magnesium [NexIUM] 20 mg PO ONCE PRN 09/30/17 09/30/17 History Allergies Allergy/AdvReac Type Severity Reaction Status Date / Time codeine Allergy Mild Rash/Hives Verified 09/30/17 13:40 morphine Allergy Itching Verified 09/30/17 13:40 Physical Exam Vitals: Vital Signs Temp Pulse Pulse Resp BP BP Pulse Ox 10/01/17 07:06 99.1 F 102 H 16 114/68 90 L 09/30/17 23:00 98.8 F 111 H 20 139/67 97 09/30/17 18:27 99.3 F 121 H 16 145/73 94 L 09/30/17 18:00 97.8 F 79 16 135/70 98 09/30/17 16:34 89 16 140/70 98 09/30/17 13:10 98.2 F 112 H 18 130/78 98 Intake and Output 09/30/17 10/01/17 10/01/17 22:59 06:59 14:59 Intake Total 0 0 Balance 0 0 Intake: Oral 0 0 Other: Voiding Method Toilet Toilet # Voids 1 1 2 PHYSICAL EXAMINATION: Patient is lying in the bed comfortably, no acute distress, awake alert and oriented.. HEENT: Normocephalic. Neck is supple. Pupils reactive. Nostrils clear. Oral cavity is moist. Ears reveal no drainage. Neck reveals no JVD, carotid bruits, or thyromegaly. CHEST EXAMINATION: Trachea is central. Symmetrical expansion. Lung cornell clear to auscultation and percussion. CARDIAC: Normal S1, S2 with no gallops. No murmurs ABDOMEN: Soft. Slight distention. Unlikely hernia. Small. Bowel sounds normal. No organomegaly. No abdominal bruits. Extremities: reveal no edema. No clubbing or cyanosis Neurologically awake, alert, oriented x3 with well-coordinated movements. No focal deficits noted Skin: No rash or skin lesions. Psychiatric: Coperative. Nonsuicidal Musculoskeletal: No joint swelling or deformity. Normal range of motion. Results CBC & Chem 7: 10/01/17 07:46 10/01/17 07:46 Labs: Abnormal Lab Results - Last 24 Hours (Table) 09/30/17 09/30/17 09/30/17 Range/Units 14:19 14:19 14:19 RBC (3.80-5.40) m/uL Hgb (11.4-16.0) gm/dL RDW 18.8 H (11.5-15.5) % Plt Count 136 L (150-450) k/uL Lymphocytes # (1.0-4.8) k/uL PT (9.0-12.0) sec INR (<1.2) Sodium 134 L (137-145) mmol/L Potassium (3.5-5.1) mmol/L Chloride 96 L (98-107) mmol/L Carbon Dioxide 19 L (22-30) mmol/L BUN 18 H (7-17) mg/dL Creatinine (0.52-1.04) mg/dL Glucose 101 H (74-99) mg/dL POC Glucose (mg/dL) (75-99) mg/dL Calcium 8.3 L (8.4-10.2) mg/dL Total Bilirubin 8.4 H (0.2-1.3) mg/dL AST 636 H (14-36) U/L ALT 262 H (9-52) U/L Alkaline Phosphatase 190 H (38-126) U/L Ammonia (<30) umol/L Albumin 3.4 L (3.5-5.0) g/dL Urine Appearance Cloudy H (Clear) Urine Protein 1+ H (Negative) Urine Ketones Trace H (Negative) Urine Blood Trace H (Negative) Urine Bilirubin 2+ H (Negative) Ur Leukocyte Esterase Small H (Negative) Urine WBC 14 H (0-5) /hpf Ur Squamous Epith Cells 40 H (0-4) /hpf Urine Bacteria Many H (None) /hpf Hyaline Casts 69 H (0-2) /lpf Urine Mucus Many H (None) /hpf 09/30/17 09/30/17 10/01/17 Range/Units 14:19 14:19 06:57 RBC (3.80-5.40) m/uL Hgb (11.4-16.0) gm/dL RDW (11.5-15.5) % Plt Count (150-450) k/uL Lymphocytes # (1.0-4.8) k/uL PT 15.4 H (9.0-12.0) sec INR 1.7 H (<1.2) Sodium (137-145) mmol/L Potassium (3.5-5.1) mmol/L Chloride (98-107) mmol/L Carbon Dioxide (22-30) mmol/L BUN (7-17) mg/dL Creatinine (0.52-1.04) mg/dL Glucose (74-99) mg/dL POC Glucose (mg/dL) 100 H (75-99) mg/dL Calcium (8.4-10.2) mg/dL Total Bilirubin (0.2-1.3) mg/dL AST (14-36) U/L ALT (9-52) U/L Alkaline Phosphatase (38-126) U/L Ammonia 34 H (<30) umol/L Albumin (3.5-5.0) g/dL Urine Appearance (Clear) Urine Protein (Negative) Urine Ketones (Negative) Urine Blood (Negative) Urine Bilirubin (Negative) Ur Leukocyte Esterase (Negative) Urine WBC (0-5) /hpf Ur Squamous Epith Cells (0-4) /hpf Urine Bacteria (None) /hpf Hyaline Casts (0-2) /lpf Urine Mucus (None) /hpf 10/01/17 10/01/17 Range/Units 07:46 07:46 RBC 3.73 L (3.80-5.40) m/uL Hgb 11.1 L (11.4-16.0) gm/dL RDW 19.2 H (11.5-15.5) % Plt Count 109 L (150-450) k/uL Lymphocytes # 0.8 L (1.0-4.8) k/uL PT (9.0-12.0) sec INR (<1.2) Sodium (137-145) mmol/L Potassium 3.3 L (3.5-5.1) mmol/L Chloride (98-107) mmol/L Carbon Dioxide (22-30) mmol/L BUN 19 H (7-17) mg/dL Creatinine 1.19 H (0.52-1.04) mg/dL Glucose (74-99) mg/dL POC Glucose (mg/dL) (75-99) mg/dL Calcium 7.7 L (8.4-10.2) mg/dL Total Bilirubin 8.8 H (0.2-1.3) mg/dL AST 442 H (14-36) U/L ALT 199 H (9-52) U/L Alkaline Phosphatase 153 H (38-126) U/L Ammonia (<30) umol/L Albumin 3.0 L (3.5-5.0) g/dL Urine Appearance (Clear) Urine Protein (Negative) Urine Ketones (Negative) Urine Blood (Negative) Urine Bilirubin (Negative) Ur Leukocyte Esterase (Negative) Urine WBC (0-5) /hpf Ur Squamous Epith Cells (0-4) /hpf Urine Bacteria (None) /hpf Hyaline Casts (0-2) /lpf Urine Mucus (None) /hpf Thrombosis Risk Factor Assmnt - Choose All That Apply Any of the Below Risk Factors Present?: Yes Each Factor Represents 1 point: Obesity (BMI >25) Other Risk Factors: No Other congenital or acquired thrombophilia - If yes, enter type in comment: No Thrombosis Risk Factor Assessment Total Risk Factor Score: 1 Thrombosis Risk Factor Assessment Level: Low Risk Assessment and Plan Assessment: Nausea vomiting or abdominal pain with possible cholecystitis acute. Gallbladder wall thickening as per ultrasound Bile duct dilation Hyperbilirubinemia Elevated liver enzymes Coagulopathy with INR 1.7 Normocytic anemia Thrombocytopenia Hypervolemic hyponatremia Alcoholic liver cirrhosis with history of ascites and paracentesis Diabetes type 2 GERD Seizure disorder Currently everyday smoker Abnormal urine sample. Likely contaminant sample Mild hepatic encephalopathy with ammonia 34. Plan: Patient will be continued on IV antibiotics and pain management. Patient was seen by general surgery. Unlikely acute cholecystitis and no surgical intervention was recommended. GI was consulted. Continue the home medications and follow closely. Further recommendations based on the clinical course. Time with Patient: Greater than 30
[2017-10-01 23:06] VITALS: RESP 20
[2017-10-02] MEDS: PIPERACILLIN-TAZOBACTAM 3.375 GM in DEXTROSE/WATER 1 50ML.BAG IVPB SCH ×2 (00:25→07:37)
[2017-10-02] MEDS: LORazepam 2 MG/ML INJ IV PRN ×2 (02:34→09:15)
[2017-10-02] MEDS: HYDROmorphone 0.5 MG/0.5 ML SYRINGE IVP PRN ×2 (04:01→07:37)
[2017-10-02 06:36] VITALS: BP 112/69; PULSE 89; TEMP 98.8
[2017-10-02 07:16] LABS: Glucose,Whole Blood 141 mg/dL (75-99)
[2017-10-02] MEDS: PANTOPRAZOLE 40 MG/10 ML VIAL IV SCH (07:36)
[2017-10-02] MEDS: GABAPENTIN 300 MG CAP PO SCH (07:37)
[2017-10-02] MEDS: SERTRALINE 50 MG TAB PO SCH (07:37)
[2017-10-02 08:43] LABS: Anisocytosis Slight; Basophils % (A) 1 %; Eosinophils % (A) 1 %; HCT 34.7 % (34.0-46.0); Hypochromasia Slight; Lymphocytes # (A) 0.6 k/uL (1.0-4.8); Lymphocytes % (A) 17 %; MCH 29.3 pg (25.0-35.0); MCHC 31.6 g/dL (31.0-37.0); MCV 92.5 fL (80.0-100.0); Mean Platelet Volume 9.6; Monocytes # (A) 0.2 k/uL (0-1.0); Monocytes % (A) 6 %; Neutrophils # (A) 2.6 k/uL (1.3-7.7); Neutrophils % (A) 74 %; Platelet Count 104 k/uL (150-450); RBC 3.75 m/uL (3.80-5.40); RDW 19.2 % (11.5-15.5); WBC 3.5 k/uL (3.8-10.6)
[2017-10-02 08:44] LABS: ALT 168 U/L (9-52); AST 261 U/L (14-36); Albumin 3.3 g/dL (3.5-5.0); Alkaline Phosphatase 153 U/L (38-126); Anion Gap 10 mmol/L; Blood Urea Nitrogen 16 mg/dL (7-17); Calcium 8.6 mg/dL (8.4-10.2); Carbon Dioxide 24 mmol/L (22-30); Chloride 105 mmol/L (98-107); Glucose 128 mg/dL (74-99); Potassium 3.4 mmol/L (3.5-5.1); Sodium 139 mmol/L (137-145); Total Bilirubin 7.2 mg/dL (0.2-1.3); Total Protein 6.9 g/dL (6.3-8.2)
--- NOTE | 2017-10-02 11:19 | P.PN ---
Subjective Progress Note Date: 10/02/17 Principal diagnosis: Abdominal pain, jaundice The patient was admitted with abdominal pain and jaundice. I was asked to see her to rule out cholecystitis as the cause. This appears to be more alcoholic hepatitis picture. She's feeling better. She would like to be discharged. Tolerating a diet without nausea or vomiting. Objective - Vital Signs Vital signs: Vital Signs Temp 98.8 F 10/02/17 06:00 Pulse 89 10/02/17 06:00 Resp 20 10/02/17 06:00 BP 112/69 10/02/17 06:00 Pulse Ox 94 L 10/02/17 06:00 Intake & Output 10/01/17 10/02/17 10/02/17 18:59 06:59 18:59 Intake Total 1620 Output Total 2 Balance 1618 Intake: IV 900 0.9 NS 900 Oral 720 Output: Urine/Stool Mix 2 Other: Voiding Method Toilet Toilet Toilet # Voids 2 2 - Constitutional General appearance: Present: average body habitus, no acute distress - Respiratory Respiratory: bilateral: CTA - Cardiovascular Rhythm: regular - Gastrointestinal General gastrointestinal: Present: distended (Mild distention), soft, tenderness (Minimal epigastric tenderness without guarding or rebound. Hernias as described previously.) - Labs CBC & Chem 7: 10/02/17 07:30 10/02/17 07:30 Labs: Abnormal Lab Results - Last 24 Hours (Table) 10/01/17 10/01/17 10/02/17 Range/Units 17:12 20:42 07:15 WBC (3.8-10.6) k/uL RBC (3.80-5.40) m/uL Hgb (11.4-16.0) gm/dL RDW (11.5-15.5) % Plt Count (150-450) k/uL Lymphocytes # (1.0-4.8) k/uL Potassium (3.5-5.1) mmol/L Glucose (74-99) mg/dL POC Glucose (mg/dL) 215 H 208 H 141 H (75-99) mg/dL Total Bilirubin (0.2-1.3) mg/dL AST (14-36) U/L ALT (9-52) U/L Alkaline Phosphatase (38-126) U/L Albumin (3.5-5.0) g/dL 10/02/17 10/02/17 Range/Units 07:30 07:30 WBC 3.5 L (3.8-10.6) k/uL RBC 3.75 L (3.80-5.40) m/uL Hgb 11.0 L (11.4-16.0) gm/dL RDW 19.2 H (11.5-15.5) % Plt Count 104 L (150-450) k/uL Lymphocytes # 0.6 L (1.0-4.8) k/uL Potassium 3.4 L (3.5-5.1) mmol/L Glucose 128 H (74-99) mg/dL POC Glucose (mg/dL) (75-99) mg/dL Total Bilirubin 7.2 H (0.2-1.3) mg/dL AST 261 H (14-36) U/L ALT 168 H (9-52) U/L Alkaline Phosphatase 153 H (38-126) U/L Albumin 3.3 L (3.5-5.0) g/dL Assessment and Plan (1) Liver cirrhosis Current Visit: Yes Status: Acute Code(s): K74.60 - UNSPECIFIED CIRRHOSIS OF LIVER SNOMED Code(s): 63674302 (2) Chronic alcohol abuse Current Visit: No Status: Acute Code(s): F10.10 - ALCOHOL ABUSE, UNCOMPLICATED SNOMED Code(s): 687019712 (3) Coagulopathy Current Visit: No Status: Acute Code(s): D68.9 - COAGULATION DEFECT, UNSPECIFIED SNOMED Code(s): 63675674 Plan: Surgically the patient is doing well. Recommend a call cessation. No plans for cholecystectomy at this time. No plans for elective herniorrhaphy at this time. We'll follow up as needed
== END 2017-10-02 11:32 | disposition home or self-care (01) | DRG 445 ==
LOC: EC 13:04 → 4MS4W 16:59
PROVIDERS: ADMIT Internal Medicine; ATTEND Internal Medicine
DX: K81.0 Acute cholecystitis (principal); E87.1 Hypo-osmolality and hyponatremia; K21.9 Gastro-esophageal reflux disease without esophagitis; E11.9 Type 2 diabetes mellitus without complications; G40.909 Epilepsy, unspecified, not intractable, without status epilepticus; K70.30 Alcoholic cirrhosis of liver without ascites; F10.20 Alcohol dependence, uncomplicated; F17.200 Nicotine dependence, unspecified, uncomplicated; R79.1 Abnormal coagulation profile; E11.40 Type 2 diabetes mellitus with diabetic neuropathy, unspecified; D69.6 Thrombocytopenia, unspecified; K72.90 Hepatic failure, unspecified without coma; D64.9 Anemia, unspecified; Z88.5 Allergy status to narcotic agent; Z79.899 Other long term (current) drug therapy
CPT/HCPCS: 36415; 71046; 74018; 76705; 80053; 81001; 81025; 82140; 82150; 83690; 85025; 85610; 85730; 96361; 96365; 96375; 96376; 99285

== ENCOUNTER 2018-07-03 19:06 | Emergency (ER) | payer OTHER ==
[2018-07-03 20:00] VITALS: BP 144/71; PULSE 106; RESP 20; TEMP 98.2
[2018-07-03] MEDS ORDERED: LIDOCAINE 1% INJ 10MG/ML (20 ML MDV) SQ STA (20:05)
[2018-07-03] MEDS ORDERED: AMOXIC-POT CLAV 875-125MG 1 EACH TAB PO STA (20:05)
--- NOTE | 2018-07-03 20:13 | ED ---
General Adult HPI - General Chief complaint: Animal Bite Stated complaint: dog bite lt hand Time Seen by Provider: 07/03/18 19:58 Source: patient, RN notes reviewed, old records reviewed Mode of arrival: ambulatory Limitations: no limitations - History of Present Illness Initial comments: 42-year-old female patient presents to ED with dog bite to fourth digit of left hand. His bite is located between her PIP and DIP joint. Patient reports that the dog was her friend's, states that it lives inside. Patient unsure of dog has shots or not. Patient states that last tetanus shot was approximately 3 years ago. Patient denies any other complaints of any other injury. Systemic: Pt denies fatigue, myalgia, fever/chills, rash. Pt denies weakness, night sweats, weight loss. Neuro: Pt denies headache, visual disturbances, syncope or pre-syncope. HEENT: Pt denies ocular discharge or irritation, otalgia, rhinorrhea, pharyngitis or notable lymphadenopathy. Cardiopulmonary: Pt denies chest pain, SOB, heart palpitations, dyspnea on exertion. Abdominal/GI: Pt denies abdominal pain, n/v/d. : Pt denies dysuria, burning w/ urination, frequency/urgency. Denies new onset urinary or bowel incontinence. MSK: Pt denies myalgia, loss of strength or function in extremities. Neuro: Pt denies new onset weakness, paresthesias. - Related Data Home Medications Medication Instructions Recorded Confirmed Gabapentin [Neurontin] 300 mg PO QID 03/09/16 09/30/17 Omeprazole [PriLOSEC] 20 mg PO AC-BID 06/27/17 09/30/17 Sertraline HCl [Zoloft] 50 mg PO DAILY 06/27/17 09/30/17 Previous Rx's Medication Instructions Recorded clonazePAM [KlonoPIN] 0.5 mg PO BID PRN #10 tab 10/02/17 Amoxicillin/Potassium Clav 1 each PO Q12HR #20 tab 07/03/18 [Augmentin 875-125 Tablet] Allergies Allergy/AdvReac Type Severity Reaction Status Date / Time codeine Allergy Mild Rash/Hives Verified 07/03/18 19:59 morphine Allergy Itching Verified 07/03/18 19:59 Review of Systems ROS Statement: Those systems with pertinent positive or pertinent negative responses have been documented in the HPI. ROS Other: All systems not noted in ROS Statement are negative. Past Medical History Past Medical History: Diabetes Mellitus, GERD/Reflux, Liver Disease, Seizure Disorder Additional Past Medical History / Comment(s): Diet controlled diabetes, alcoholism with cirrhosis/ ascities, neuropathy bilateral fingers/toes, hiatal hernia History of Any Multi-Drug Resistant Organisms: None Reported Past Surgical History: Section Additional Past Surgical History / Comment(s): 01/2017 exploratory lap with repair of perforated ulcer with liver biopsy. Past Anesthesia/Blood Transfusion Reactions: No Reported Reaction Past Psychological History: Anxiety, Depression, Panic Disorder Smoking Status: Current every day smoker Past Alcohol Use History: Occasional Past Drug Use History: None Reported - Past Family History Father Family Medical History: No Reported History Additional Family Medical History / Comment(s): Father is healthy and is 68yrs old. Mother Family Medical History: No Reported History Additional Family Medical History / Comment(s): Mother is healthy and is 68yrs old. General Exam - General Exam Comments Initial Comments: Constitutional: NAD, AOX3, Pt has pleasant affect. HEENT: NC/AT, trachea midline, neck supple, no lymphadenopathy. Posterior pharynx non erythematous, without exudates. External ears appear normal, without discharge. Mucous membranes moist. Eyes PERRLA, EOM intact. There is no scleral icterus. No pallor noted. Cardiopulmonary: RRR, no murmurs, rubs or gallops, no JVD noted. Lungs CTAB in anterior and posterior cornell. No peripheral edema. Abdominal exam: Abdomen soft and non-distended. Abdomen non-tender to palpation in all 4 quadrants. Bowel sounds active in LLQ. No hepatosplenomegaly. No ecchymosis Neuro: CN II-XII grossly intact. No nuchal rigidity. MSK: 4 cm laceration to the dorsal aspect of fourth finger on left hand between PIP and DIP joint. No ligamentous involvement. Patient has full range of motion of PIP DIP MCP joint. Capillary refill less than 2 seconds. Wound vigorously irrigated with 1 L normal saline. Wound loosely approximated with 3 simple interrupted suture. No posterior calf tenderness bilaterally, homans sign negative bilaterally. Posterior tibialis and radial pulse +2 bilaterally. Sensation intact in upper and lower extremities. Full active ROM in upper and lower extremities, 5/5 stregnth. Limitations: no limitations Course Vital Signs 04/15/19 19:57 Temperature 98.2 F Pulse Rate 106 H Respiratory 20 Rate Blood Pressure 144/71 O2 Sat by Pulse 98 Oximetry Procedures - Laceration Laceration #1 Indication: laceration Site: hand Size (cm): 4 Description: linear Depth: simple, single layer Anesthetic Used: lidocaine 1% Anesthesia Technique: local infiltration Amount (mls): 4 Pre-repair: wound explored, irrigated extensively (1L NS ), deep structures intact (no foreign body, ligamentous or osseous involvement ) Type of Sutures: nylon Size of Sutures: 5-0 (loosely approximated ) Number of Sutures: 3 Technique: simple, interrupted Patient Tolerated Procedure: well, no complications Medical Decision Making - Medical Decision Making 42-year-old female patient presents to ED with dog bite to fourth digit of left hand. His bite is located between her PIP and DIP joint. Patient reports that the dog was her friend's, states that it lives inside. Patient unsure of dog has shots or not. Patient states that last tetanus shot was approximately 3 years ago. Patient denies any other complaints of any other injury. Pt VSS, afebrile. Physical exam displayed: 4 cm laceration to the dorsal aspect of fourth finger on left hand between PIP and DIP joint. No ligamentous involvement. Patient has full range of motion of PIP DIP MCP joint. Capillary refill less than 2 seconds. Wound vigorously irrigated with 1 L normal saline. Wound gaping open, must be approximated. No foreign body, ligamentous or osseous involvement noted in wound. Wound loosely approximated with 3 simple interrupted suture. Plain film of hand did not display any acute osseous process. Pt administered 1 dose of augmentin in ED, will be dc with rx. Pt offered rabies prophylaxis, declined. Pt educated at length about s/sx of i nfection. Verbalized understanding. Pt will f/u with PCP in 1-2 days for continued evaluation. Disposition Clinical Impression: Dog bite Disposition: HOME SELF-CARE Condition: Stable Instructions (If sedation given, give patient instructions): Animal Bite (ED) Additional Instructions: Patient to adhere to previously discussed treatment plan and will take medication(s) as directed. Patient to follow up with PCP in 1-2 days. Patient to return to ED if symptoms do not improve. Please monitor for signs and symptoms of infection. Please follow-up with primary care provider in 1-2 days. Please take medication as directed. Please return for suture removal: Hand: 7-10 days Face: 5 days Chest/abdomen: 12-14 days Extremities: 7-10 days Scalp: 7 days Eyebrow: 5-7 days Foot/sole: 12-14 days Please monitor for signs and symptoms of infection including: redness, warmth, drainage, discharge. Please return to ED if these signs or symptoms occur, new signs or symptoms develop or if condition worsens in anyway. Prescriptions: Amoxicillin/Potassium Clav [Augmentin 875-125 Tablet] 1 each PO Q12HR #20 tab Is patient prescribed a controlled substance at d/c from ED?: No Referrals: Kathryn Vieira MD [Primary Care Provider] - 1-2 days
--- NOTE | 2018-07-03 20:53 | XR ---
EXAMINATION TYPE: XR hand complete LT DATE OF EXAM: 07/03/2018 CLINICAL HISTORY: Pain after laceration dog bite injury. TECHNIQUE: Frontal, lateral and oblique images of the left hand are obtained. Additional lateral vie w of fourth fingers acquired. COMPARISON: None. FINDINGS: There is no acute fracture/dislocation evident in the left hand. Mild to moderate narrowin g involving PIP and DIP joints is present. There is focal soft tissue bump or swelling dorsal surface fourth middle phalanx without radiodense foreign body. IMPRESSION: There is no acute fracture or dislocation in the left hand.
[2018-07-03] MEDS ORDERED: AMOXIC-POT CLAV 875MG STARTER 2 EACH TABLET PO STA (20:55)
== END 2018-07-03 21:21 | disposition home or self-care (01) ==
LOC: EC 19:06
DX: S61.215A Laceration without foreign body of left ring finger without damage to nail, initial encounter (principal); K21.9 Gastro-esophageal reflux disease without esophagitis; G40.909 Epilepsy, unspecified, not intractable, without status epilepticus; G62.9 Polyneuropathy, unspecified; F41.9 Anxiety disorder, unspecified; F32.9 Major depressive disorder, single episode, unspecified; F17.200 Nicotine dependence, unspecified, uncomplicated; Z79.899 Other long term (current) drug therapy; Z88.5 Allergy status to narcotic agent; W54.0XXA Bitten by dog, initial encounter
CPT/HCPCS: 73130; 99283; 12002; J2001

== ENCOUNTER 2018-09-19 11:02 | Inpatient (IN) | payer OTHER ==
[2018-09-19] MEDS ORDERED: SODIUM CHLORIDE 0.9% 1,000 ML IV STA ×2 (11:25→13:30)
[2018-09-19] MEDS ORDERED: HYDROmorphone 0.5 MG/0.5 ML SYRINGE IVP STA (11:50)
[2018-09-19] MEDS ORDERED: LORazepam 2 MG/ML INJ IV STA (11:50)
--- NOTE | 2018-09-19 11:50 | ED ---
General Adult HPI - General Chief complaint: Abdominal Pain Stated complaint: cirrhosis of the liver Time Seen by Provider: 09/19/18 11:12 Source: patient, RN notes reviewed Mode of arrival: ambulatory Limitations: no limitations - History of Present Illness Initial comments: 42-year-old female with a past medical history of alcoholic cirrhosis, neuropa thy, hiatal hernia, peptic ulcers, diabetes mellitus presents to the emergency department for a chief complaint of nausea vomiting and diarrhea. States she has had nausea vomiting and diarrhea for several days now. He estimates about 4 days. States she has not been able to drink alcohol since yesterday and is currently starting to withdrawal. States she is an every day drinker. States she is also having some upper abdominal pain generalized in nature. Denies any lower abdominal pain. Denies any fevers. Patient has no other complaints at this time including shortness of breath, chest pain, headache, or visual changes. - Related Data Home Medications Medication Instructions Recorded Confirmed Gabapentin [Neurontin] 300 mg PO QID 03/09/16 09/19/18 Omeprazole [PriLOSEC] 20 mg PO AC-BID 06/27/17 09/19/18 Sertraline HCl [Zoloft] 50 mg PO DAILY 06/27/17 09/19/18 Allergies Allergy/AdvReac Type Severity Reaction Status Date / Time codeine Allergy Mild Rash/Hives Verified 09/19/18 11:14 morphine Allergy Itching Verified 09/19/18 11:14 Review of Systems ROS Statement: Those systems with pertinent positive or pertinent negative responses have been documented in the HPI. ROS Other: All systems not noted in ROS Statement are negative. Past Medical History Past Medical History: Diabetes Mellitus, GERD/Reflux, Liver Disease, Seizure Disorder Additional Past Medical History / Comment(s): Diet controlled diabetes, alcoholism with cirrhosis/ ascities, neuropathy bilateral fingers/toes, hiatal hernia History of Any Multi-Drug Resistant Organisms: None Reported Past Surgical History: Section Additional Past Surgical History / Comment(s): 01/2017 exploratory lap with repair of perforated ulcer with liver biopsy. Past Anesthesia/Blood Transfusion Reactions: No Reported Reaction Past Psychological History: Anxiety, Depression, Panic Disorder Smoking Status: Current every day smoker Past Alcohol Use History: Abuse, Daily, Heavy Past Drug Use History: None Reported - Past Family History Father Family Medical History: No Reported History Additional Family Medical History / Comment(s): Father is healthy and is 68yrs old. Mother Family Medical History: No Reported History Additional Family Medical History / Comment(s): Mother is healthy and is 68yrs old. General Exam Limitations: no limitations General appearance: alert, in no apparent distress Head exam: Present: atraumatic, normocephalic, normal inspection Eye exam: Present: normal appearance, PERRL, EOMI. Absent: scleral icterus, conjunctival injection, periorbital swelling ENT exam: Present: normal exam, mucous membranes moist Neck exam: Present: normal inspection, full ROM. Absent: tenderness, meningismus, lymphadenopathy Respiratory exam: Present: normal lung sounds bilaterally. Absent: respiratory distress, wheezes, rales, rhonchi, stridor Cardiovascular Exam: Present: regular rate, normal rhythm, normal heart sounds. Absent: systolic murmur, diastolic murmur, rubs, gallop, clicks GI/Abdominal exam: Present: soft, tenderness (Mild generalized upper abdominal tenderness without any guarding or rebound. Abdomen is soft. Exam is unremarkable. Umbilical hernia as noted in reducible.), normal bowel sounds. Absent: distended, guarding, rebound, rigid Neurological exam: Present: alert, oriented X3, CN II-XII intact Psychiatric exam: Present: normal affect, normal mood Course Vital Signs 09/19/18 09/19/18 11:06 13:46 Temperature 97.9 F Pulse Rate 121 H 90 Respiratory 18 16 Rate Blood Pressure 164/87 163/90 O2 Sat by Pulse 96 98 Oximetry Medical Decision Making - Medical Decision Making 42-year-old female presents for nausea vomiting diarrhea and abdominal pain. Patient is a chronic alcoholic with alcoholic cirrhosis. Patient states she is not able to keep down food or liquids over the past several days. States she is now withdrawing from alcohol and she has not had any alcohol since yesterday. On presentation patient is tachycardic, likely secondary to dehydration. CBC is unremarkable. There is a mild cytosis, likely reactive. CMP does show mild transaminitis with hyperbilirubinemia however this is actually decreased compared to patient's norm. However magnesium is 1.2, this was replaced with 2 g magnesium. Patient also has an anion gap of 29 and a CO2 of 15 with 4+ ketones, likely secondary to alcoholic ketosis. I reevaluated several times. Pain is controlled the heart rate remains tachycardic. Patient does have a history of withdrawal seizures. At this time given patient's dehydration she will be admitted for IV fluids, electrolyte replacement, and further management. - Lab Data Result diagrams: 09/19/18 11:25 09/19/18 11:25 Lab Results 09/19/18 09/19/18 09/19/18 Range/Units 11:25 11:25 11:25 WBC 12.5 H (3.8-10.6) k/uL RBC 4.50 (3.80-5.40) m/uL Hgb 13.7 (11.4-16.0) gm/dL Hct 41.4 (34.0-46.0) % MCV 92.0 (80.0-100.0) fL MCH 30.6 (25.0-35.0) pg MCHC 33.2 (31.0-37.0) g/dL RDW 16.9 H (11.5-15.5) % Plt Count 197 (150-450) k/uL Neutrophils % 78 % Lymphocytes % 11 % Monocytes % 7 % Eosinophils % 1 % Basophils % 1 % Neutrophils # 9.8 H (1.3-7.7) k/uL Lymphocytes # 1.4 (1.0-4.8) k/uL Monocytes # 0.9 (0-1.0) k/uL Eosinophils # 0.1 (0-0.7) k/uL Basophils # 0.2 (0-0.2) k/uL Anisocytosis Slight PT (9.0-12.0) sec INR (<1.2) APTT (22.0-30.0) sec Sodium 133 L (137-145) mmol/L Potassium 3.6 (3.5-5.1) mmol/L Chloride 89 L (98-107) mmol/L Carbon Dioxide 15 L (22-30) mmol/L Anion Gap 29 mmol/L BUN 12 (7-17) mg/dL Creatinine 0.68 (0.52-1.04) mg/dL Est GFR (CKD-EPI)AfAm >90 (>60 ml/min/1.73 sqM) Est GFR (CKD-EPI)NonAf >90 (>60 ml/min/1.73 sqM) Glucose 153 H (74-99) mg/dL Calcium 9.2 (8.4-10.2) mg/dL Magnesium (1.6-2.3) mg/dL Total Bilirubin 3.4 H (0.2-1.3) mg/dL AST 153 H (14-36) U/L ALT 57 H (9-52) U/L Alkaline Phosphatase 124 (38-126) U/L Creatine Kinase (30-135) U/L CK-MB (CK-2) 1.8 (0.0-2.4) ng/mL Total Protein 8.4 H (6.3-8.2) g/dL Albumin 4.8 (3.5-5.0) g/dL Amylase 72 (30-110) U/L Lipase 86 (23-300) U/L Urine Color Urine Appearance (Clear) Urine pH (5.0-8.0) Ur Specific Julian (1.001-1.035) Urine Protein (Negative) Urine Glucose (UA) (Negative) Urine Ketones (Negative) Urine Blood (Negative) Urine Nitrite (Negative) Urine Bilirubin (Negative) Urine Urobilinogen (<2.0) mg/dL Ur Leukocyte Esterase (Negative) Urine RBC (0-5) /hpf Urine WBC (0-5) /hpf Ur Squamous Epith Cells (0-4) /hpf Urine Bacteria (None) /hpf Hyaline Casts (0-2) /lpf Urine Mucus (None) /hpf Serum Alcohol mg/dL 09/19/18 09/19/18 09/19/18 Range/Units 11:25 11:25 11:25 WBC (3.8-10.6) k/uL RBC (3.80-5.40) m/uL Hgb (11.4-16.0) gm/dL Hct (34.0-46.0) % MCV (80.0-100.0) fL MCH (25.0-35.0) pg MCHC (31.0-37.0) g/dL RDW (11.5-15.5) % Plt Count (150-450) k/uL Neutrophils % % Lymphocytes % % Monocytes % % Eosinophils % % Basophils % % Neutrophils # (1.3-7.7) k/uL Lymphocytes # (1.0-4.8) k/uL Monocytes # (0-1.0) k/uL Eosinophils # (0-0.7) k/uL Basophils # (0-0.2) k/uL Anisocytosis PT 11.3 (9.0-12.0) sec INR 1.1 (<1.2) APTT 24.3 (22.0-30.0) sec Sodium (137-145) mmol/L Potassium (3.5-5.1) mmol/L Chloride (98-107) mmol/L Carbon Dioxide (22-30) mmol/L Anion Gap mmol/L BUN (7-17) mg/dL Creatinine (0.52-1.04) mg/dL Est GFR (CKD-EPI)AfAm (>60 ml/min/1.73 sqM) Est GFR (CKD-EPI)NonAf (>60 ml/min/1.73 sqM) Glucose (74-99) mg/dL Calcium (8.4-10.2) mg/dL Magnesium 1.2 L (1.6-2.3) mg/dL Total Bilirubin (0.2-1.3) mg/dL AST (14-36) U/L ALT (9-52) U/L Alkaline Phosphatase (38-126) U/L Creatine Kinase 101 (30-135) U/L CK-MB (CK-2) (0.0-2.4) ng/mL Total Protein (6.3-8.2) g/dL Albumin (3.5-5.0) g/dL Amylase (30-110) U/L Lipase (23-300) U/L Urine Color Yellow Urine Appearance Cloudy H (Clear) Urine pH 6.0 (5.0-8.0) Ur Specific Julian 1.025 (1.001-1.035) Urine Protein 1+ H (Negative) Urine Glucose (UA) Negative (Negative) Urine Ketones 4+ H (Negative) Urine Blood Trace H (Negative) Urine Nitrite Positive H (Negative) Urine Bilirubin Negative (Negative) Urine Urobilinogen 3.0 (<2.0) mg/dL Ur Leukocyte Esterase Small H (Negative) Urine RBC 3 (0-5) /hpf Urine WBC 6 H (0-5) /hpf Ur Squamous Epith Cells 6 H (0-4) /hpf Urine Bacteria Rare H (None) /hpf Hyaline Casts 24 H (0-2) /lpf Urine Mucus Rare H (None) /hpf Serum Alcohol <10 mg/dL Disposition Clinical Impression: Hypokalemia, ETOH abuse, Dehydration, Intractable nausea and vomiting Disposition: ADMITTED IP TO THIS HOSP Condition: Fair Referrals: Kathryn Vieira MD [Primary Care Provider] - 1-2 days Time of Disposition: 14:41
[2018-09-19 11:59] LABS: Anisocytosis Slight; Basophils # (A) 0.2 k/uL (0-0.2); Basophils % (A) 1 %; Eosinophils # (A) 0.1 k/uL (0-0.7); Eosinophils % (A) 1 %; HCT 41.4 % (34.0-46.0); HGB 13.7 gm/dL (11.4-16.0); Lymphocytes # (A) 1.4 k/uL (1.0-4.8); Lymphocytes % (A) 11 %; MCH 30.6 pg (25.0-35.0); MCHC 33.2 g/dL (31.0-37.0); Monocytes # (A) 0.9 k/uL (0-1.0); Monocytes % (A) 7 %; Neutrophils # (A) 9.8 k/uL (1.3-7.7); Neutrophils % (A) 78 %; Platelet Count 197 k/uL (150-450); RDW 16.9 % (11.5-15.5); WBC 12.5 k/uL (3.8-10.6)
[2018-09-19 12:08] LABS: INR 1.1 (<1.2); Partial Thromboplastin Time 24.3 sec (22.0-30.0); Prothrombin Time 11.3 sec (9.0-12.0)
[2018-09-19 12:10] LABS: ALT 57 U/L (9-52); AST 153 U/L (14-36); African American GFR (CKD) >90 (>60 ml/min/1.73 sqM); Albumin 4.8 g/dL (3.5-5.0); Alkaline Phosphatase 124 U/L (38-126); Amylase 72 U/L (30-110); Anion Gap 29 mmol/L; Blood Urea Nitrogen 12 mg/dL (7-17); Calcium 9.2 mg/dL (8.4-10.2); Carbon Dioxide 15 mmol/L (22-30); Chloride 89 mmol/L (98-107); Glucose 153 mg/dL (74-99); Lipase 86 U/L (23-300); Potassium 3.6 mmol/L (3.5-5.1); Sodium 133 mmol/L (137-145); Total Bilirubin 3.4 mg/dL (0.2-1.3); Total Protein 8.4 g/dL (6.3-8.2)
[2018-09-19 12:23] LABS: Appearance,Urine Cloudy (Clear); Bacteria,Urine Rare /hpf; Bilirubin,Urine Negative (Negative); Blood,Urine Trace (Negative); Color,Urine Yellow; Glucose,Urine (UA) Negative (Negative); Hyaline Casts,Urine 24 /lpf (0-2); Ketones,Urine 4+ (Negative); Leukocyte Esterase,Urine Small (Negative); Mucus,Urine Rare /hpf; Nitrite,Urine Positive (Negative); Protein,Urine 1+ (Negative); RBC,Urine 3 /hpf (0-5); Specific Gravity,Urine 1.025 (1.001-1.035); Squamous Epithelial Cell,Urine 6 /hpf (0-4); WBC,Urine 6 /hpf (0-5)
[2018-09-19 13:48] LABS: Alcohol <10 mg/dL; Magnesium 1.2 mg/dL (1.6-2.3)
[2018-09-19] MEDS ORDERED: FAMOTIDINE 20 MG/2 ML VIAL IV STA (13:48)
[2018-09-19 14:00] LABS: Creatine Kinase 101 U/L (30-135)
[2018-09-19] MEDS ORDERED: NALOXONE 0.4 MG/ML 1 ML VIAL IV PRN (14:41)
[2018-09-19] MEDS ORDERED: ONDANSETRON 4 MG/2 ML VIAL IVP PRN (14:41)
[2018-09-19] MEDS: HYDROmorphone 0.5 MG/0.5 ML SYRINGE IVP PRN ×2 (15:02→21:21)
[2018-09-19] MEDS: SODIUM CHLORIDE 0.9% 1,000 ML IV SCH ×2 (15:02→23:50)
[2018-09-19] MEDS: MAGNESIUM SULFATE-D5W PMX 1 GM in DEXTROSE/WATER 1 100ML.BAG IVPB SCH ×2 (15:02→17:27)
[2018-09-19] MEDS ORDERED: THIAMINE 100 MG/ML 2 ML VIAL IM STA (15:05)
[2018-09-19] MEDS ORDERED: LORazepam 2 MG/ML INJ IV PRN ×2 (15:05)
[2018-09-19] MEDS: LORazepam 2 MG/ML INJ IV PRN (15:14)
[2018-09-19 16:39] VITALS: BMI 26.9
[2018-09-19 16:40] LABS: Glucose,Whole Blood 161 mg/dL (75-99)
[2018-09-19] MEDS: THIAMINE 100 MG TAB PO SCH (17:28)
--- NOTE | 2018-09-19 19:31 | P.HPIM ---
History of Present Illness this is a 42 F with pmh of liver cirrhosis , alcoholic liver disease , alcohol abuse , GERD, diabetes Mellitus, seizure disorder , abdominal hernia, diabetic neuropathy , perforated peptic ulcer. who presents with recurrent nausea and vomiting for 4 days duration, pt states there was blood in her vomitus, associated with upper abdominal pain , about 8/10 in severity , non radiating, non specific in character. also from bilateral leg pain . pt has loose bowel movement about once daily , no chest pain or dyspnea, but she has cough with yellow phlegm . no dysurea pt was not able to eat or drink well the last four days because of her illness she smokes about 6-7 cig per day , drink 1 pint of vodka each day , no illicit drugs. vitals looks stable, labs reviewed showing WBC of 12.5 K, Hb 13.7, platelets 197, Na 133 < k 3.6 creatinine 0.6 , INR 1.0 , AST 153 and ALT 57, Bilirubic 3.4, EKG: sinus tachycardia at 113, lipase is within normal limits in the emergency room , pt was started on CIWA protocol , normal saline 120 ml/hr Review of Systems CONSTITUTIONAL: No fever, no malaise, no fatigue. HEENT: No recent visual problems or hearing problems. Denied any sore throat. CARDIOVASCULAR: No orthopnea, PND, no palpitations, no syncope. PULMONARY: No shortness of breath, no cough, no hemoptysis. GASTROINTESTINAL: No diarrhea, no nausea, no vomiting, no abdominal pain. Normoactive bowel sounds. NEUROLOGICAL: No headaches, no weakness, no numbness. HEMATOLOGICAL: Denies any bleeding or petechiae. GENITOURINARY: Denies any burning micturition, frequency, or urgency. MUSCULOSKELETAL/RHEUMATOLOGICAL: Denies any joint pain, swelling, or any muscle pain. ENDOCRINE: Denies any polyuria or polydipsia. Past Medical History Past Medical History: Diabetes Mellitus, GERD/Reflux, Liver Disease, Seizure Disorder Additional Past Medical History / Comment(s): Diet controlled diabetes, alcoholism with cirrhosis/ ascities, neuropathy bilateral fingers/toes, hiatal hernia History of Any Multi-Drug Resistant Organisms: None Reported Past Surgical History: Section Additional Past Surgical History / Comment(s): 01/2017 exploratory lap with repair of perforated ulcer with liver biopsy. Past Anesthesia/Blood Transfusion Reactions: No Reported Reaction Past Psychological History: Anxiety, Depression, Panic Disorder Additional Psychological History / Comment(s): Pt resides with her boyfriend. She is independent.drives, does'nt work Smoking Status: Current every day smoker Past Alcohol Use History: Abuse, Daily, Heavy Additional Past Alcohol Use History / Comment(s): Pt started smoking in 1994 and is a 1/2 a pack a day smoker. Pt states she drinks 1 pint of vodka a day. Past Drug Use History: None Reported - Past Family History Father Family Medical History: No Reported History Additional Family Medical History / Comment(s): Father is healthy and is 68yrs old. Mother Family Medical History: No Reported History Additional Family Medical History / Comment(s): Mother is healthy and is 68yrs old. Medications and Allergies Home Medications Medication Instructions Recorded Confirmed Type Gabapentin [Neurontin] 300 mg PO QID 03/09/16 09/19/18 History Omeprazole [PriLOSEC] 20 mg PO AC-BID 06/27/17 09/19/18 History Sertraline HCl [Zoloft] 50 mg PO DAILY 06/27/17 09/19/18 History Allergies Allergy/AdvReac Type Severity Reaction Status Date / Time codeine Allergy Mild Rash/Hives Verified 09/19/18 11:14 morphine Allergy Itching Verified 09/19/18 11:14 Physical Exam Vitals: Vital Signs Temp Pulse Pulse Resp BP BP Pulse Ox 09/19/18 16:52 98.1 F 111 H 16 172/91 97 09/19/18 16:28 91 16 154/87 98 09/19/18 13:46 90 16 163/90 98 09/19/18 11:06 97.9 F 121 H 18 164/87 96 Intake and Output 09/19/18 09/19/18 09/19/18 06:59 14:59 22:59 Other: Weight 82.826 kg GENERAL: The patient is alert and oriented x3, not in any acute distress. Well developed, well nourished. HEENT: Pupils are round and equally reacting to light. EOMI. No scleral icterus. No conjunctival pallor. Normocephalic, atraumatic. No pharyngeal erythema. No thyromegaly. CARDIOVASCULAR: S1 and S2 present. No murmurs, rubs, or gallops. PULMONARY: Chest is clear to auscultation, no wheezing or crackles. -ABDOMEN: Soft, nontender, epigastric tenderness , no rebound tenderness or guarding , normoactive bowel sounds. No palpable organomegaly. vetical scar in the middle MUSCULOSKELETAL: No joint swelling or deformity. EXTREMITIES: No cyanosis, clubbing, or pedal edema. NEUROLOGICAL: Gross neurological examination did not reveal any focal deficits. SKIN: No rashes. Results CBC & Chem 7: 09/19/18 11:25 09/19/18 11:25 Labs: Abnormal Lab Results - Last 24 Hours (Table) 09/19/18 09/19/18 09/19/18 Range/Units 11:25 11:25 11:25 WBC 12.5 H (3.8-10.6) k/uL RDW 16.9 H (11.5-15.5) % Neutrophils # 9.8 H (1.3-7.7) k/uL Sodium 133 L (137-145) mmol/L Chloride 89 L (98-107) mmol/L Carbon Dioxide 15 L (22-30) mmol/L Glucose 153 H (74-99) mg/dL POC Glucose (mg/dL) (75-99) mg/dL Magnesium (1.6-2.3) mg/dL Total Bilirubin 3.4 H (0.2-1.3) mg/dL AST 153 H (14-36) U/L ALT 57 H (9-52) U/L Total Protein 8.4 H (6.3-8.2) g/dL Urine Appearance Cloudy H (Clear) Urine Protein 1+ H (Negative) Urine Ketones 4+ H (Negative) Urine Blood Trace H (Negative) Urine Nitrite Positive H (Negative) Ur Leukocyte Esterase Small H (Negative) Urine WBC 6 H (0-5) /hpf Ur Squamous Epith Cells 6 H (0-4) /hpf Urine Bacteria Rare H (None) /hpf Hyaline Casts 24 H (0-2) /lpf Urine Mucus Rare H (None) /hpf 09/19/18 09/19/18 Range/Units 11:25 16:39 WBC (3.8-10.6) k/uL RDW (11.5-15.5) % Neutrophils # (1.3-7.7) k/uL Sodium (137-145) mmol/L Chloride (98-107) mmol/L Carbon Dioxide (22-30) mmol/L Glucose (74-99) mg/dL POC Glucose (mg/dL) 161 H (75-99) mg/dL Magnesium 1.2 L (1.6-2.3) mg/dL Total Bilirubin (0.2-1.3) mg/dL AST (14-36) U/L ALT (9-52) U/L Total Protein (6.3-8.2) g/dL Urine Appearance (Clear) Urine Protein (Negative) Urine Ketones (Negative) Urine Blood (Negative) Urine Nitrite (Negative) Ur Leukocyte Esterase (Negative) Urine WBC (0-5) /hpf Ur Squamous Epith Cells (0-4) /hpf Urine Bacteria (None) /hpf Hyaline Casts (0-2) /lpf Urine Mucus (None) /hpf Thrombosis Risk Factor Assmnt - Choose All That Apply Any of the Below Risk Factors Present?: Yes Each Factor Represents 1 point: Age 41-60 years, Obesity (BMI >25) Other Risk Factors: No Other congenital or acquired thrombophilia - If yes, enter type in comment: No Thrombosis Risk Factor Assessment Total Risk Factor Score: 2 Thrombosis Risk Factor Assessment Level: Low Risk Assessment and Plan Assessment: recurrent nausea and vomiting with blood in it upper abd pain , rule out esophagitis vs ulcer disease vs other alcohol abuse and risk of alcholo withdrawal B/L leg pain alcohol liver cirrhosis h/o GERD diabetes Mellitus diabetic neuropathy history of perforated peptic ulcer, status post exploratory laparatomy Plan: this is a pleasant 42 yo F who presents with vomiting and upper abd pain , we will call surgical consutl and GI consult, NPO, protonix , parenteral hydration , pain management ,chest xray and abdominal xray . protonix BID, doppler of Lower ext, although she is not a candidate for anticoagulation given her current GI bleed Labs and medication were reviewed.. Continue same treatment. Continue with symptomatic treatment. Resume home medication. Monitor lytes and vitals. DVT and GI prophylaxis. Further recommendations of the clinical course of the virgil ent DVT prophylaxis: Subcutaneous heparin GI Prophylaxis: Protonix Prognosis is guarded
--- NOTE | 2018-09-19 19:46 | XR ---
EXAMINATION TYPE: XR abdomen acute w cxr DATE OF EXAM: 09/19/2018 COMPARISON: Abdomen exam 09/30/2017 HISTORY: Abdominal pain TECHNIQUE: Supine, upright, and left side down lateral decubitus views of the abdomen are obtained. FINDINGS: Heart and mediastinum are normal. Lungs are clear. Diaphragm is normal. Bowel gas pattern is normal. There is no sign of intestinal obstruction or pneumoperitoneum. Fecal pattern is normal. There are no pathologic calcifications over the kidneys. IMPRESSION: Nonacute abdomen. Normal chest. Abdomen unchanged compared to old exam.
[2018-09-19 19:58] LABS: Glucose,Whole Blood 224 mg/dL (75-99)
--- NOTE | 2018-09-19 20:41 | US ---
EXAMINATION TYPE: US venous doppler duplex LE BI DATE OF EXAM: 09/19/2018 8:26 PM COMPARISON: NONE CLINICAL HISTORY: Rule out DVT. R/O DVT. No HX DVT. Pt not on blood thinners. Pain bilateral legs x 3 days. SIDE PERFORMED: Bilateral TECHNIQUE: The lower extremity deep venous system is examined utilizing real time linear array sonog kristie with graded compression, doppler sonography and color-flow sonography. VESSELS IMAGED: External Iliac Vein (EIV) Common Femoral Vein Deep Femoral Vein Greater Saphenous Vein * Femoral Vein Popliteal Vein Small Saphenous Vein * Proximal Calf Veins (* superficial vessels) Right Leg: Negative for DVT Left Leg: Negative for DVT IMPRESSION: No evidence of deep venous thrombosis in both legs.
[2018-09-19] MEDS: PANTOPRAZOLE 40 MG/10 ML VIAL IVP SCH (21:10)
[2018-09-19] MEDS: GABAPENTIN 300 MG CAP PO SCH (21:10)
[2018-09-20] MEDS ORDERED: Magnesium Replacement Protocol 1 EACH MISC MISCELLANE PRN (00:24)
[2018-09-20] MEDS ORDERED: Potassium Replacement Protocol 1 EACH MISC MISCELLANE PRN ×3 (00:24→18:47)
[2018-09-20] MEDS: HYDROmorphone 0.5 MG/0.5 ML SYRINGE IVP PRN ×4 (03:03→19:59)
[2018-09-20] MEDS: LORazepam 2 MG/ML INJ IV PRN ×4 (03:04→20:51)
[2018-09-20 07:11] LABS: Glucose,Whole Blood 157 mg/dL (75-99)
[2018-09-20 07:50] LABS: Basophils % (A) 1 %; Eosinophils # (A) 0.1 k/uL (0-0.7); Eosinophils % (A) 1 %; HCT 34.2 % (34.0-46.0); HGB 11.1 gm/dL (11.4-16.0); Lymphocytes # (A) 0.6 k/uL (1.0-4.8); Lymphocytes % (A) 14 %; MCH 30.4 pg (25.0-35.0); MCHC 32.5 g/dL (31.0-37.0); MCV 93.5 fL (80.0-100.0); Mean Platelet Volume 7.5; Monocytes # (A) 0.2 k/uL (0-1.0); Monocytes % (A) 5 %; Neutrophils # (A) 3.1 k/uL (1.3-7.7); Neutrophils % (A) 77 %; Platelet Count 138 k/uL (150-450); RBC 3.66 m/uL (3.80-5.40); RDW 15.1 % (11.5-15.5)
[2018-09-20 08:07] LABS: ALT 38 U/L (9-52); AST 113 U/L (14-36); African American GFR (CKD) >90 (>60 ml/min/1.73 sqM); Albumin 3.7 g/dL (3.5-5.0); Alkaline Phosphatase 88 U/L (38-126); Anion Gap 11 mmol/L; Blood Urea Nitrogen 5 mg/dL (7-17); Calcium 8.3 mg/dL (8.4-10.2); Carbon Dioxide 24 mmol/L (22-30); Chloride 100 mmol/L (98-107); Glucose 151 mg/dL (74-99); Magnesium 1.8 mg/dL (1.6-2.3); Potassium 3.2 mmol/L (3.5-5.1); Sodium 135 mmol/L (137-145); Total Bilirubin 1.8 mg/dL (0.2-1.3); Total Protein 6.6 g/dL (6.3-8.2)
[2018-09-20] MEDS: THIAMINE 100 MG TAB PO SCH ×2 (08:10→16:47)
[2018-09-20] MEDS: SERTRALINE 50 MG TAB PO SCH (08:10)
[2018-09-20] MEDS: GABAPENTIN 300 MG CAP PO SCH ×4 (08:10→22:18)
[2018-09-20] MEDS: PANTOPRAZOLE 40 MG/10 ML VIAL IVP SCH ×2 (08:10→20:00)
[2018-09-20] MEDS: SODIUM CHLORIDE 0.9% 1,000 ML IV SCH ×3 (08:14→19:58)
[2018-09-20] MEDS ORDERED: PANTOPRAZOLE 40 MG/10 ML VIAL IVP SCH (09:00)
--- NOTE | 2018-09-20 12:42 | P.PN ---
Subjective this is a 42 F with pmh of liver cirrhosis , alcoholic liver disease , alcohol abuse , GERD, diabetes Mellitus, seizure disorder , abdominal hernia, diabetic neuropathy , perforated peptic ulcer. who presents with recurrent nausea and vomiting for 4 days duration, pt states there was blood in her vomitus, associated with upper abdominal pain , about 8/10 in severity , non radiating, non specific in character. also from bilateral leg pain . pt has loose bowel movement about once daily , no chest pain or dyspnea, but she has cough with yellow phlegm . no dysurea pt was not able to eat or drink well the last four days because of her illness she smokes about 6-7 cig per day , drink 1 pint of vodka each day , no illicit drugs. vitals looks stable, labs reviewed showing WBC of 12.5 K, Hb 13.7, platelets 197, Na 133 < k 3.6 creatinine 0.6 , INR 1.0 , AST 153 and ALT 57, Bilirubic 3.4, EKG: sinus tachycardia at 113, lipase is within normal limits in the emergency room , pt was started on CIWA protocol , normal saline 120 ml/hr 09/20/2018 Patient is fully awake and oriented, not in distress. She still have some nausea but no vomiting. Still have some cough with some phlegm. Her abdominal pain came down to 3/10 with Dilaudid. Patient has bowel movement this morning which is black in color. She remains to be on CIWA protocol, she is not in distress and she started that well. I explained to the patient the risk of benzodiazepines and narcotics, risks including card pulmonary suppression and/or are explained. Patient agrees to continue with this medication for now but will try to lower down her narcotics tomorrow. Patient agreeable with that. Discussed the case with the GI team, plan for EGD today. Surgical team recommended no surgical intervention for now. Doppler was negative for DVT. Chest x-ray was negative for acute process. She is a little tachycardic. Rest of Vitas looks stable. Leukocytosis resolved and WBC is 4.0K. Hemoglobin slightly low at 11.1. Potassium 3.2 replaced Afebrile. Bilirubin and liver enzymes are trending down. Sugar is controlled. We will lower her fluids to 75 L/h ROS: CONSTITUTIONAL: No fever, no malaise, no fatigue. HEENT: No recent visual problems or hearing problems. Denied any sore throat. CARDIOVASCULAR: No orthopnea, PND, no palpitations, no syncope. PULMONARY: No shortness of breath, no cough, no hemoptysis. GASTROINTESTINAL: No diarrhea, no nausea, no vomiting, no abdominal pain. Normoactive bowel sounds. NEUROLOGICAL: No headaches, no weakness, no numbness. HEMATOLOGICAL: Denies any bleeding or petechiae. GENITOURINARY: Denies any burning micturition, frequency, or urgency. MUSCULOSKELETAL/RHEUMATOLOGICAL: Denies any joint pain, swelling, or any muscle pain. ENDOCRINE: Denies any polyuria or polydipsia. Medication: Neurontin 300 mg, Dilaudid 0.5 mg, Ativan 1 mg, potassium chloride and magnesium sulfate as per protocol. Protonix 40 mg, Zoloft 50 mg, normal saline at 120 mg, a mean 100 mg by mouth Objective - Vital Signs Vital signs: Vital Signs Temp 98.6 F 09/20/18 07:00 Pulse 98 09/20/18 07:00 Resp 17 09/20/18 07:00 BP 136/67 09/20/18 07:00 Pulse Ox 96 09/20/18 07:00 Intake & Output 09/19/18 09/20/18 09/20/18 18:59 06:59 18:59 Intake Total 110 160 Balance 110 160 Weight 82.826 kg Intake: Oral 110 160 - Exam GENERAL: The patient is alert and oriented x3, not in any acute distress. Well developed, well nourished. HEENT: Pupils are round and equally reacting to light. EOMI. No scleral icterus. No conjunctival pallor. Normocephalic, atraumatic. No pharyngeal erythema. No thyromegaly. CARDIOVASCULAR: S1 and S2 present. No murmurs, rubs, or gallops. PULMONARY: Chest is clear to auscultation, no wheezing or crackles. -ABDOMEN: Soft, nontender, epigastric tenderness , no rebound tenderness or guarding , normoactive bowel sounds. No palpable organomegaly. vetical scar in the middle MUSCULOSKELETAL: No joint swelling or deformity. EXTREMITIES: No cyanosis, clubbing, or pedal edema. NEUROLOGICAL: Gross neurological examination did not reveal any focal deficits. SKIN: No rashes. - Labs CBC & Chem 7: 09/20/18 06:45 09/20/18 06:45 Labs: Abnormal Lab Results - Last 24 Hours (Table) 09/19/18 09/19/18 09/19/18 Range/Units 11:25 11:25 16:39 RBC (3.80-5.40) m/uL Hgb (11.4-16.0) gm/dL Plt Count (150-450) k/uL Lymphocytes # (1.0-4.8) k/uL Sodium (137-145) mmol/L Potassium (3.5-5.1) mmol/L BUN (7-17) mg/dL Creatinine (0.52-1.04) mg/dL Glucose (74-99) mg/dL POC Glucose (mg/dL) 161 H (75-99) mg/dL Calcium (8.4-10.2) mg/dL Magnesium 1.2 L (1.6-2.3) mg/dL Total Bilirubin (0.2-1.3) mg/dL AST (14-36) U/L Urine Ketones 4+ H (Negative) 09/19/18 09/20/18 09/20/18 Range/Units 19:55 06:45 06:45 RBC 3.66 L (3.80-5.40) m/uL Hgb 11.1 L (11.4-16.0) gm/dL Plt Count 138 L (150-450) k/uL Lymphocytes # 0.6 L (1.0-4.8) k/uL Sodium 135 L (137-145) mmol/L Potassium 3.2 L (3.5-5.1) mmol/L BUN 5 L (7-17) mg/dL Creatinine 0.43 L (0.52-1.04) mg/dL Glucose 151 H (74-99) mg/dL POC Glucose (mg/dL) 224 H (75-99) mg/dL Calcium 8.3 L (8.4-10.2) mg/dL Magnesium (1.6-2.3) mg/dL Total Bilirubin 1.8 H (0.2-1.3) mg/dL AST 113 H (14-36) U/L Urine Ketones (Negative) 09/20/18 Range/Units 07:09 RBC (3.80-5.40) m/uL Hgb (11.4-16.0) gm/dL Plt Count (150-450) k/uL Lymphocytes # (1.0-4.8) k/uL Sodium (137-145) mmol/L Potassium (3.5-5.1) mmol/L BUN (7-17) mg/dL Creatinine (0.52-1.04) mg/dL Glucose (74-99) mg/dL POC Glucose (mg/dL) 157 H (75-99) mg/dL Calcium (8.4-10.2) mg/dL Magnesium (1.6-2.3) mg/dL Total Bilirubin (0.2-1.3) mg/dL AST (14-36) U/L Urine Ketones (Negative) Microbiology - Last 24 Hours (Table) 09/19/18 11:25 Urine Culture - Preliminary Urine,Voided Assessment and Plan Assessment: recurrent nausea and vomiting with blood in it upper abd pain , rule out esophagitis vs ulcer disease vs other. Patient is going for EGD alcohol abuse and risk of alcholo withdrawal B/L leg pain alcohol liver cirrhosis h/o GERD diabetes Mellitus diabetic neuropathy history of perforated peptic ulcer, status post exploratory laparatomy Plan: this is a pleasant 42 yo F who presents with vomiting and upper abd pain , we will call surgical consutl and GI consult, NPO, protonix , parenteral hydration , pain management ,chest xray and abdominal xray . protonix BID, doppler of Lo wer ext, although she is not a candidate for anticoagulation given her current GI bleed Labs and medication were reviewed.. Continue same treatment. Continue with symptomatic treatment. Resume home medication. Monitor lytes and vitals. DVT and GI prophylaxis. Further recommendations of the clinical course of the patient DVT prophylaxis: No heparin in view of her GI bleed GI Prophylaxis: Protonix Prognosis is guarded
[2018-09-20 12:47] LABS: Glucose,Whole Blood 153 mg/dL (75-99)
--- NOTE | 2018-09-20 13:00 | P.CONS ---
History of Present Illness - Reason for Consult Consult date: 09/20/18 Melena coffee-ground emesis history of EtOH Requesting physician: Ricardo E Sheet - Chief Complaint Coffee-ground emesis - History of Present Illness 42-year-old female with a history of chronic alcoholism underlying alcohol liver disease cirrhosis binge drinking for the last month presents with intractable nausea vomiting 48 hours coffee-ground emesis and melena. History of perforated peptic ulcer disease requiring multiple surgeries. White count 12.5 presently 4. Hemoglobin on admission 13.7 presently 11.1. Platelet 138. INR 1.1. BUN 5. Creatinine 0.6. Total bilirubin 3.4 presently 1.8. AST 153 presently 113. ALT 57 presently 38. AP 124. Lipase 86. Serum alcohol less than 10. Previous hepatitis screening 2018 nonreactive. No aspirin or NSAIDs. Home medications include Prilosec 20 mg twice a day. No recent EGD. Review of Systems Constitutional: Denies fever, chills, sweats, weight gain, or loss. HEENT: Negative for migraines, blurred vision or loss, earaches, drainage, tinnitus, oral mucosal lesions, dysphagia, or odynophagia. CARDIAC: Negative for chest pain, arrhythmias, or palpitation. RESPIRATORY: Negative for shortness of breath, hemoptysis, cough, or sputum production. GI: See HPI for pertinent findings. : Negative for hematuria, urgency, frequency, polyuria, or dysuria. GYNc: Denies possibility of . Negative vaginal discharge. MUSCULOSKELETAL: Negative for muscle aches, swelling, arthritis, and arthralgias. NEUROLOGIC: Negative for stroke or TIA. ENDOCRINE: Negative for thyroid problems. SKIN: Negative for rash or itching. PSYCHIATRIC: Negative history for depression and anxietymale Past Medical History Past Medical History: Diabetes Mellitus, GERD/Reflux, Liver Disease, Seizure Disorder Additional Past Medical History / Comment(s): Diet controlled diabetes, alcoholism with cirrhosis/ ascities, neuropathy bilateral fingers/toes, hiatal hernia History of Any Multi-Drug Resistant Organisms: None Reported Past Surgical History: Section Additional Past Surgical History / Comment(s): 01/2017 exploratory lap with repair of perforated ulcer with liver biopsy. Past Anesthesia/Blood Transfusion Reactions: No Reported Reaction Past Psychological History: Anxiety, Depression, Panic Disorder Additional Psychological History / Comment(s): Pt resides with her boyfriend. She is independent.drives, does'nt work Smoking Status: Current every day smoker Past Alcohol Use History: Abuse, Daily, Heavy Additional Past Alcohol Use History / Comment(s): Pt started smoking in 1994 and is a 1/2 a pack a day smoker. Pt states she drinks 1 pint of vodka a day. Past Drug Use History: None Reported - Past Family History Father Family Medical History: No Reported History Additional Family Medical History / Comment(s): Father is healthy and is 68yrs old. Mother Family Medical History: No Reported History Additional Family Medical History / Comment(s): Mother is healthy and is 68yrs old. Medications and Allergies Home Medications Medication Instructions Recorded Confirmed Type Gabapentin [Neurontin] 300 mg PO QID 03/09/16 09/19/18 History Omeprazole [PriLOSEC] 20 mg PO AC-BID 06/27/17 09/19/18 History Sertraline HCl [Zoloft] 50 mg PO DAILY 06/27/17 09/19/18 History Allergies Allergy/AdvReac Type Severity Reaction Status Date / Time codeine Allergy Mild Rash/Hives Verified 09/19/18 11:14 morphine Allergy Itching Verified 09/19/18 11:14 Physical Exam Vitals: Vital Signs Temp Pulse Pulse Resp BP BP Pulse Ox 09/20/18 07:00 98.6 F 98 17 136/67 96 09/20/18 00:38 98.1 F 105 H 15 128/75 95 09/19/18 20:00 98.4 F 104 H 18 132/78 94 L 09/19/18 16:52 98.1 F 111 H 16 172/91 97 09/19/18 16:28 91 16 154/87 98 09/19/18 13:46 90 16 163/90 98 Intake and Output 09/19/18 09/20/18 09/20/18 22:59 06:59 14:59 Intake Total 100 10 160 Balance 100 10 160 Intake: Oral 100 10 160 General appearance: The patient is alert, oriented, in no acute distress. HET: Head is normocephalic and atraumatic. Pupils are equal and reactive. Oropharynx is clear without lesions. Neck: Supple without lymphadenopathy. Trachea midline. Heart: S1 S2. Regular rate and rhythm. Lungs: No crackles or wheezes are heard. Abdomen: Soft, mild epigastric tenderness large midline ventral hernia reducible, with bowel sounds. No peritoneal signs. No palpable organomegaly or masses. Extremities: Normal skin color and turgor. No cyanosis, rash, ulceration, clubbing, or edema. Radial and pedal pulses are 2/4 bilaterally. Neurological: No focal deficits. Strength and sensation are grossly intact. Results CBC & Chem 7: 09/20/18 06:45 09/20/18 06:45 Labs: Abnormal Lab Results - Last 24 Hours (Table) 09/19/18 09/19/18 09/19/18 Range/Units 11:25 11:25 16:39 RBC (3.80-5.40) m/uL Hgb (11.4-16.0) gm/dL Plt Count (150-450) k/uL Lymphocytes # (1.0-4.8) k/uL Sodium (137-145) mmol/L Potassium (3.5-5.1) mmol/L BUN (7-17) mg/dL Creatinine (0.52-1.04) mg/dL Glucose (74-99) mg/dL POC Glucose (mg/dL) 161 H (75-99) mg/dL Calcium (8.4-10.2) mg/dL Magnesium 1.2 L (1.6-2.3) mg/dL Total Bilirubin (0.2-1.3) mg/dL AST (14-36) U/L Urine Ketones 4+ H (Negative) 09/19/18 09/20/18 09/20/18 Range/Units 19:55 06:45 06:45 RBC 3.66 L (3.80-5.40) m/uL Hgb 11.1 L (11.4-16.0) gm/dL Plt Count 138 L (150-450) k/uL Lymphocytes # 0.6 L (1.0-4.8) k/uL Sodium 135 L (137-145) mmol/L Potassium 3.2 L (3.5-5.1) mmol/L BUN 5 L (7-17) mg/dL Creatinine 0.43 L (0.52-1.04) mg/dL Glucose 151 H (74-99) mg/dL POC Glucose (mg/dL) 224 H (75-99) mg/dL Calcium 8.3 L (8.4-10.2) mg/dL Magnesium (1.6-2.3) mg/dL Total Bilirubin 1.8 H (0.2-1.3) mg/dL AST 113 H (14-36) U/L Urine Ketones (Negative) 09/20/18 09/20/18 Range/Units 07:09 11:50 RBC (3.80-5.40) m/uL Hgb (11.4-16.0) gm/dL Plt Count (150-450) k/uL Lymphocytes # (1.0-4.8) k/uL Sodium (137-145) mmol/L Potassium (3.5-5.1) mmol/L BUN (7-17) mg/dL Creatinine (0.52-1.04) mg/dL Glucose (74-99) mg/dL POC Glucose (mg/dL) 157 H 153 H (75-99) mg/dL Calcium (8.4-10.2) mg/dL Magnesium (1.6-2.3) mg/dL Total Bilirubin (0.2-1.3) mg/dL AST (14-36) U/L Urine Ketones (Negative) Microbiology - Last 24 Hours (Table) 09/19/18 11:25 Urine Culture - Preliminary Urine,Voided Assessment and Plan (1) GI bleed Current Visit: Yes Status: Acute Code(s): K92.2 - GASTROINTESTINAL HEMORRHAGE, UNSPECIFIED SNOMED Code(s): 75491593 (2) Coffee ground emesis Current Visit: Yes Status: Acute Code(s): K92.0 - HEMATEMESIS SNOMED Code(s): 09892854 (3) Melena Current Visit: Yes Status: Acute Code(s): K92.1 - MELENA SNOMED Code(s): 6635563 (4) Alcoholic hepatitis Current Visit: Yes Status: Acute Code(s): K70.10 - ALCOHOLIC HEPATITIS WITHOUT ASCITES SNOMED Code(s): 698468508 (5) Cirrhosis Current Visit: Yes Status: Acute Code(s): K74.60 - UNSPECIFIED CIRRHOSIS OF LIVER SNOMED Code(s): 17370384 (6) ETOH abuse Current Visit: Yes Status: Acute Code(s): F10.10 - ALCOHOL ABUSE, UN COMPLICATED SNOMED Code(s): 93683047 (7) Intractable nausea and vomiting Current Visit: Yes Status: Acute Code(s): R11.2 - NAUSEA WITH VOMITING, UNSPECIFIED SNOMED Code(s): 130151897 Plan: 1. Protonix 40 mg twice daily. EGD evaluation today. CBC monitoring. Alcohol abstinence advised. The customer solutions teammate has discussed the risks, benefits and alternative therapies for the above-mentioned procedure and for both sedation/analgesia as well as necessary blood product administration, if indicated, as they pertain to this patient. The patient has indicated understanding and acceptance of the risks and procedures discussed. Thank you for this kind referral and the opportunity to participate in the care of your patient. This consultation was discussed with Dr. Valdez. The impression and plan of care have been directed as dictated.
[2018-09-20 16:32] LABS: Glucose,Whole Blood 125 mg/dL (75-99)
[2018-09-20 19:58] LABS: Glucose,Whole Blood 184 mg/dL (75-99)
[2018-09-20] MEDS: POTASSIUM CHLORIDE ER 20 MEQ TAB.ER PO SCH ×2 (19:59→22:20)
[2018-09-20] MEDS: MAGNESIUM SULFATE-D5W PMX 1 GM in DEXTROSE/WATER 1 100ML.BAG IVPB SCH ×2 (20:00→23:04)
[2018-09-20] MEDS: INSULIN ASPART (NovoLOG) 100 UNIT/ML VIAL SQ SCH (20:52)
[2018-09-21] MEDS: LORazepam 2 MG/ML INJ IV PRN ×3 (00:03→07:38)
[2018-09-21] MEDS: HYDROmorphone 0.5 MG/0.5 ML SYRINGE IVP PRN ×2 (03:10→09:28)
[2018-09-21] MEDS: POTASSIUM CHLORIDE ER 20 MEQ TAB.ER PO SCH ×2 (03:10→03:11)
[2018-09-21] MEDS: POTASSIUM CHLORIDE 10 MEQ in WATER FOR INJECTION 1 100ML.BAG IVPB SCH ×4 (03:46→07:41)
[2018-09-21 06:55] LABS: Glucose,Whole Blood 112 mg/dL (75-99)
[2018-09-21] MEDS: INSULIN ASPART (NovoLOG) 100 UNIT/ML VIAL SQ SCH ×2 (07:22→12:13)
[2018-09-21] MEDS: THIAMINE 100 MG TAB PO SCH (07:30)
[2018-09-21] MEDS ORDERED: PANTOPRAZOLE 40 MG TABLET PO SCH ×2 (07:30→09:30)
[2018-09-21 07:36] LABS: Basophils % (A) 1 %; Eosinophils # (A) 0.1 k/uL (0-0.7); Eosinophils % (A) 2 %; HCT 32.4 % (34.0-46.0); HGB 10.4 gm/dL (11.4-16.0); Lymphocytes # (A) 0.7 k/uL (1.0-4.8); Lymphocytes % (A) 24 %; MCH 30.8 pg (25.0-35.0); MCHC 31.9 g/dL (31.0-37.0); MCV 96.3 fL (80.0-100.0); Mean Platelet Volume 7.8; Monocytes # (A) 0.2 k/uL (0-1.0); Monocytes % (A) 7 %; Neutrophils # (A) 1.9 k/uL (1.3-7.7); Neutrophils % (A) 63 %; Platelet Count 115 k/uL (150-450); RBC 3.37 m/uL (3.80-5.40); RDW 15.3 % (11.5-15.5); WBC 2.9 k/uL (3.8-10.6)
[2018-09-21] MEDS: SERTRALINE 50 MG TAB PO SCH (07:41)
[2018-09-21] MEDS: GABAPENTIN 300 MG CAP PO SCH (07:41)
[2018-09-21 07:51] LABS: ALT 49 U/L (9-52); AST 143 U/L (14-36); African American GFR (CKD) >90 (>60 ml/min/1.73 sqM); Albumin 3.3 g/dL (3.5-5.0); Alkaline Phosphatase 93 U/L (38-126); Anion Gap 7 mmol/L; Blood Urea Nitrogen 3 mg/dL (7-17); Calcium 8.4 mg/dL (8.4-10.2); Carbon Dioxide 25 mmol/L (22-30); Chloride 107 mmol/L (98-107); Glucose 111 mg/dL (74-99); Potassium 3.5 mmol/L (3.5-5.1); Sodium 139 mmol/L (137-145); Total Bilirubin 1.4 mg/dL (0.2-1.3); Total Protein 6.1 g/dL (6.3-8.2)
[2018-09-21 08:06] VITALS: BP 104/57; PULSE 82; RESP 15; TEMP 97.9
[2018-09-21] MEDS ORDERED: LIDOCAINE 1% INJ 10MG/ML (20 ML MDV) ONE (08:53)
[2018-09-21] MEDS ORDERED: PROPOFOL 10 MG/ML 20 ML VIAL IV ONE (08:53)
[2018-09-21] MEDS ORDERED: MIDAZOLAM 2 MG/2 ML VIAL ONE (08:53)
[2018-09-21] MEDS ORDERED: IV FLUID CONTINUATION 200 ML IV ONE (08:55)
--- NOTE | 2018-09-21 09:25 | P.PCN ---
Date of Procedure: 09/21/18 Description of Procedure: BRIEF HISTORY: Patient is a 42 F with pmh of liver cirrhosis , alcoholic liver disease , alcohol abuse , GERD, diabetes Mellitus, seizure disorder , abdominal hernia, diabetic neuropathy , perforated peptic ulcer who presents with recurrent nausea and vomiting for 4 days duration, pt states there was blood in her vomitus, associated with upper abdominal pain , about 8/10 in severity , non radiating, non specific in character. also from bilateral leg pain . pt has loose bowel movement about once daily , no chest pain or dyspnea, but she has cough with yellow phlegm . no dysurea pt was not able to eat or drink well the last four days because of her illness she smokes about 6-7 cig per day , drink 1 pint of vodka each day , no illicit drugs. PROCEDURE PERFORMED: Esophagogastroduodenoscopy with biopsy. PREOPERATIVE DIAGNOSIS: Abdominal pain, hematemesis. ESTIMATED BLOOD LOSS: Minimal. IV sedation per anesthesia. PROCEDURE: After informed consent was obtained, the patient was brought into the endoscopy unit. IV sedation was administered by Anesthesia under continuous monitoring. Initially the Olympus GIF-190 video endoscope was inserted into the mouth. Esophagus intubated without any difficulty. It was gradually advanced into the stomach and duodenum and carefully examined. The bulb and the second part of the duodenum appeared grossly normal with some mild scattered erythema in the bulb suggestive of mild duodenitis. Biopsies of the bulb and second portion of the duodenum taken. The scope at this time was withdrawn to the stomach, adequately insufflated with air, and upon careful examination, mucosa of the antrum, body, cardia and the fundus appeared grossly normal, however there was diffuse erythema throughout the stomach suggestive of portal hypertensive gastropathy with biopsies of the antrum and body taken. The scope was then withdrawn into the esophagus. The GE junction was located at 40 cm from the incisors. The esophagus appeared normal. There were no erosions or ulcerations seen and the patient tolerated the procedure well. IMPRESSION: 1. No active bleeding, or old blood noted. 2. Portal hypertensive gastropathy, antrum and body biopsies. 3. Mild duodenitis, biopsied. RECOMMENDATIONS: The findings of this examination were discussed with the patient. Okay to resume diet. Continue Protonix daily. Continue to monitor hemoglobin and hematocrit and transfuse as needed. Okay for discharge from gastroenterology standpoint when otherwise medically stable. The gastroenterology service will stand but at this time, please call us back with any questions or concerns.
--- NOTE | 2018-09-21 11:19 | P.GSCN ---
History of Present Illness Consult date: 09/21/18 History of present illness: 42-year-old female with history of alcoholic liver disease and cirrhosis along with gastric esophageal reflux disease presents to the hospital with complaints of intractable nausea and vomiting. She described coffee-ground emesis and bright red blood in her emesis. She is noted to have a history of peptic ulcer disease and has required multiple surgeries in the past. Since her admission, she states that her abdominal pain has improved. She does continue to have alcohol intake. She states her nausea and vomiting has improved with medication. Today she did undergo an upper endoscopy which did reveal no active bleeding or old blood. She is noted to have portal hypertensive gastropathy from the EGD as well. She denies any NSAID use. She has had a hepatitis screening in 2018. Currently, she is tolerating a liquid diet. Review of Systems All systems: negative Past Medical History Past Medical History: Diabetes Mellitus, GERD/Reflux, Liver Disease, Seizure Disorder Additional Past Medical History / Comment(s): Diet controlled diabetes, alcoholism with cirrhosis/ ascities, neuropathy bilateral fingers/toes, hiatal hernia History of Any Multi-Drug Resistant Organisms: None Reported Past Surgical History: Section Additional Past Surgical History / Comment(s): 01/2017 exploratory lap with repair of perforated ulcer with liver biopsy. Past Anesthesia/Blood Transfusion Reactions: No Reported Reaction Past Psychological History: Anxiety, Depression, Panic Disorder Additional Psychological History / Comment(s): Pt resides with her boyfriend. She is independent.drives, does'nt work Smoking Status: Current every day smoker Past Alcohol Use History: Abuse, Daily, Heavy Additional Past Alcohol Use History / Comment(s): Pt started smoking in 1994 and is a 1/2 a pack a day smoker. Pt states she drinks 1 pint of vodka a day. Past Drug Use History: None Reported - Past Family History Father Family Medical History: No Reported History Additional Family Medical History / Comment(s): Father is healthy and is 68yrs old. Mother Family Medical History: No Reported History Additional Family Medical History / Comment(s): Mother is healthy and is 68yrs old. Medications and Allergies Home Medications Medication Instructions Recorded Confirmed Type Gabapentin [Neurontin] 300 mg PO QID 03/09/16 09/19/18 History Omeprazole [PriLOSEC] 20 mg PO AC-BID 06/27/17 09/19/18 History Sertraline HCl [Zoloft] 50 mg PO DAILY 06/27/17 09/19/18 History Allergies Allergy/AdvReac Type Severity Reaction Status Date / Time codeine Allergy Mild Rash/Hives Verified 09/19/18 11:14 morphine Allergy Itching Verified 09/19/18 11:14 Surgical - Exam Osteopathic Statement: *. No significant issues noted on an osteopathic structural exam other than those noted in the History and Physical/Consult. Vital Signs Temp Pulse Resp BP Pulse Ox 97.9 F 121 H 18 164/87 96 09/19/18 11:06 09/19/18 11:06 09/19/18 11:06 09/19/18 11:06 09/19/18 11:06 - General well nourished, no distress - Eyes PERRL - Neck trachea midline - Respiratory no difficulty with respiration - Abdomen Soft, mild tenderness to palpation in the epigastrium, nondistended, no rebound, no guarding - Psychiatric oriented to time, oriented to person, oriented to place Results - Labs 09/21/18 07:00 09/21/18 07:00 Abnormal Lab Results - Last 24 Hours (Table) 09/20/18 09/20/18 09/20/18 Range/Units 11:50 16:20 19:56 WBC (3.8-10.6) k/uL RBC (3.80-5.40) m/uL Hgb (11.4-16.0) gm/dL Hct (34.0-46.0) % Plt Count (150-450) k/uL Lymphocytes # (1.0-4.8) k/uL Potassium (3.5-5.1) mmol/L BUN (7-17) mg/dL Creatinine (0.52-1.04) mg/dL Glucose (74-99) mg/dL POC Glucose (mg/dL) 153 H 125 H 184 H (75-99) mg/dL Total Bilirubin (0.2-1.3) mg/dL AST (14-36) U/L Total Protein (6.3-8.2) g/dL Albumin (3.5-5.0) g/dL 09/21/18 09/21/18 09/21/18 Range/Units 01:01 06:53 07:00 WBC (3.8-10.6) k/uL RBC (3.80-5.40) m/uL Hgb (11.4-16.0) gm/dL Hct (34.0-46.0) % Plt Count (150-450) k/uL Lymphocytes # (1.0-4.8) k/uL Potassium 3.1 L (3.5-5.1) mmol/L BUN 3 L (7-17) mg/dL Creatinine 0.36 L (0.52-1.04) mg/dL Glucose 111 H (74-99) mg/dL POC Glucose (mg/dL) 112 H (75-99) mg/dL Total Bilirubin 1.4 H (0.2-1.3) mg/dL AST 143 H (14-36) U/L Total Protein 6.1 L (6.3-8.2) g/dL Albumin 3.3 L (3.5-5.0) g/dL 09/21/18 Range/Units 07:00 WBC 2.9 L (3.8-10.6) k/uL RBC 3.37 L (3.80-5.40) m/uL Hgb 10.4 L (11.4-16.0) gm/dL Hct 32.4 L (34.0-46.0) % Plt Count 115 L (150-450) k/uL Lymphocytes # 0.7 L (1.0-4.8) k/uL Potassium (3.5-5.1) mmol/L BUN (7-17) mg/dL Creatinine (0.52-1.04) mg/dL Glucose (74-99) mg/dL POC Glucose (mg/dL) (75-99) mg/dL Total Bilirubin (0.2-1.3) mg/dL AST (14-36) U/L Total Protein (6.3-8.2) g/dL Albumin (3.5-5.0) g/dL Microbiology - Last 24 Hours (Table) 09/19/18 11:25 Urine Culture - Preliminary Urine,Voided Gram Neg Bacilli Diabetes panel 09/21/18 09/21/18 Range/Units 01:01 07:00 Sodium 139 (137-145) mmol/L Potassium 3.1 L 3.5 (3.5-5.1) mmol/L Chloride 107 (98-107) mmol/L Carbon Dioxide 25 (22-30) mmol/L BUN 3 L (7-17) mg/dL Creatinine 0.36 L (0.52-1.04) mg/dL Glucose 111 H (74-99) mg/dL Calcium 8.4 (8.4-10.2) mg/dL AST 143 H (14-36) U/L ALT 49 (9-52) U/L Alkaline Phosphatase 93 (38-126) U/L Total Protein 6.1 L (6.3-8.2) g/dL Albumin 3.3 L (3.5-5.0) g/dL Calcium panel 09/21/18 Range/Units 07:00 Calcium 8.4 (8.4-10.2) mg/dL Albumin 3.3 L (3.5-5.0) g/dL Pituitary panel 09/21/18 09/21/18 Range/Units 01:01 07:00 Sodium 139 (137-145) mmol/L Potassium 3.1 L 3.5 (3.5-5.1) mmol/L Chloride 107 (98-107) mmol/L Carbon Dioxide 25 (22-30) mmol/L BUN 3 L (7-17) mg/dL Creatinine 0.36 L (0.52-1.04) mg/dL Glucose 111 H (74-99) mg/dL Calcium 8.4 (8.4-10.2) mg/dL Adrenal panel 09/21/18 09/21/18 Range/Units 01:01 07:00 Sodium 139 (137-145) mmol/L Potassium 3.1 L 3.5 (3.5-5.1) mmol/L Chloride 107 (98-107) mmol/L Carbon Dioxide 25 (22-30) mmol/L BUN 3 L (7-17) mg/dL Creatinine 0.36 L (0.52-1.04) mg/dL Glucose 111 H (74-99) mg/dL Calcium 8.4 (8.4-10.2) mg/dL Total Bilirubin 1.4 H (0.2-1.3) mg/dL AST 143 H (14-36) U/L ALT 49 (9-52) U/L Alkaline Phosphatase 93 (38-126) U/L Total Protein 6.1 L (6.3-8.2) g/dL Albumin 3.3 L (3.5-5.0) g/dL Assessment and Plan (1) Intractable nausea and vomiting Narrative/Plan: 42-year-old female with alcoholic liver cirrhosis complaining of intractable nausea and vomiting - EGD was performed today with no active bleed - I did discuss alcohol cessation with the patient - Okay to advance diet per GI recommendations - Recommend PPI - No plan for acute surgical intervention Current Visit: Yes Status: Acute Code(s): R11.2 - NAUSEA WITH VOMITING, UNSPECIFIED SNOMED Code(s): 348882536
[2018-09-21 11:52] LABS: Glucose,Whole Blood 168 mg/dL (75-99)
[2018-09-21] MEDS ORDERED: POTASSIUM CHLORIDE ER 20 MEQ TAB.ER PO SCH (12:00)
--- NOTE | 2018-09-21 14:58 | P.DS ---
Providers Date of admission: 09/19/18 14:39 Attending physician: Ricardo Sands MD Consults: 09/19/18 19:22 Consult Physician Urgent Consulting Provider: Seamus Valdez Consult Reason/Comments: vomiting blood , abd pain Do you want consulting provider notified?: Yes 09/19/18 19:24 Consult Physician Urgent Consulting Provider: Shashank Wells Consult Reason/Comments: abd pain Do you want consulting provider notified?: Yes Primary care physician: Kathryn Vieira Hospital Course: Diagnoses: recurrent nausea and vomiting with blood in it . EGD was unremarkable. Patient has been evaluated by surgery and GI teams. upper abd pain , improved significantly alcohol abuse and risk of alcholo withdrawal, improved B/L leg pain alcohol liver cirrhosis h/o GERD diabetes Mellitus diabetic neuropathy history of perforated peptic ulcer, status post exploratory laparatomy Hospital course: this is a 42 F with pmh of liver cirrhosis , alcoholic liver disease , alcohol abuse , GERD, diabetes Mellitus, seizure disorder , abdominal hernia, diabetic neuropathy , perforated peptic ulcer. who presents with recurrent nausea and vomiting for 4 days duration, There was mention of some blood in the vomitus. Also patient was complaining of from upper abdominal pain and bilateral leg pain. Patient was admitted and started on antiacids, pain medicines and she's been evaluated by surgery and GI team. Patient underwent EGD which shows mild gastritis. Patient symptoms significantly improved and on the day of discharge patient was dressed AND asking to be discharged sooner than later. She says that her abdominal pain is significantly in improved down to 2-3/10. No nausea vomiting and she is tolerating diet well. She had regular bowel movement. The urine analysis and urine cultures there were concerning for infections of the showing gram-negative bacilli. However patient did not want to wait for the culture of the urine and she said she is going to follow-up with her PCP Dr. Vieira tomorrow. However patient denies any urinary symptoms, she denies dysuria, no hesitancy, she had some increased frequency of urination with IV fluid but thus her soles after stopping the fluid, she says that usually she P64 to 5 times a day and one at night which is now. Since morning about 2 and she does not believe that something wrong with her urine. She has no suprapubic tenderness, no costovertebral tenderness. No fever and her leukocytosis on admission result spontaneously without medication. Patient was referred to be discharged. Patient last drink was about 4 days prior to coming to the hospital, she is losing this amount of CIWA protocol, she needs only 2 doses of Ativan to finish her taper. Patient was counseled not to drink while on pain is dense pain such agrees. Patient was cleared for discharge by gastroenterology and surgery team. Problems and management plan were discussed with the patient and he verbalized understanding and acceptance. Sr. at bedside upon patient request to be involved Patient was found stable and can be discharged home however he needs follow-up as an outpatient. Patient was instructed to follow up with her PCP in 1-2 days, she told me that she is going to see Dr. Vieira tomorrow. Sister at bedside confirmed she will make sure remind her. Also patient instructed to follow up with surgery and GI team in 1-2 weeks and she agrees to call and make appointments.. today is holiday and no appointment could be made for her Gen: patient is a AAOx3, no distress CVS: S1-S2, RRR, no murmur Lungs: B/L CTA, no wheezing Abdomen: soft, no distention, no tenderness, positive bowel sounds Extremity: no leg edema or induration Time spent more than 35 minutes Patient Condition at Discharge: Fair Plan - Discharge Summary Discharge Rx Participant: No New Discharge Prescriptions: New LORazepam [Ativan] 1 mg PO HS 2 Days #2 tab Thiamine [Vitamin B-1] 100 mg PO BID-W/MEALS #30 tab Continue Gabapentin [Neurontin] 300 mg PO QID Omeprazole [PriLOSEC] 20 mg PO AC-BID Sertraline HCl [Zoloft] 50 mg PO DAILY Discharge Medication List Gabapentin [Neurontin] 300 mg PO QID 03/09/16 [History] Omeprazole [PriLOSEC] 20 mg PO AC-BID 06/27/17 [History] Sertraline HCl [Zoloft] 50 mg PO DAILY 06/27/17 [History] LORazepam [Ativan] 1 mg PO HS 2 Days #2 tab 09/21/18 [Rx] Thiamine [Vitamin B-1] 100 mg PO BID-W/MEALS #30 tab 09/21/18 [Rx] Follow up Appointment(s)/Referral(s): Shashank Wells DO [Doctor of Osteopathic Medicine] - 2 Weeks (surgeon ) Kristyn Galicia MD [STAFF PHYSICIAN] - 1 Week (p d driver for your liver chirrosis ) Kathryn Vieira MD [Primary Care Provider] - 1-2 days Patient Instructions/Handouts: Gastritis (DC), Duodenitis (DC) Discharge Disposition: HOME SELF-CARE
== END 2018-09-21 13:08 | disposition home or self-care (01) | DRG 378 ==
LOC: EC 11:02 → 4SSUR 14:39
PROVIDERS: ADMIT Internal Medicine; ATTEND Internal Medicine
PROC: 0DB78ZX Excision of Stomach, Pylorus, Via Natural or Artificial Opening Endoscopic, Diagnostic (ICD-10-PCS; 2018-09-21)
PROC: 0DB98ZX Excision of Duodenum, Via Natural or Artificial Opening Endoscopic, Diagnostic (ICD-10-PCS; principal; 2018-09-21 08:30)
DX: K29.71 Gastritis, unspecified, with bleeding (principal); F10.239 Alcohol dependence with withdrawal, unspecified; K76.6 Portal hypertension; K44.9 Diaphragmatic hernia without obstruction or gangrene; E11.40 Type 2 diabetes mellitus with diabetic neuropathy, unspecified; E86.0 Dehydration; E87.6 Hypokalemia; E88.89 Other specified metabolic disorders; F17.200 Nicotine dependence, unspecified, uncomplicated; Z71.41 Alcohol abuse counseling and surveillance of alcoholic; F32.9 Major depressive disorder, single episode, unspecified; F41.0 Panic disorder [episodic paroxysmal anxiety]; G40.909 Epilepsy, unspecified, not intractable, without status epilepticus; K21.9 Gastro-esophageal reflux disease without esophagitis; K29.80 Duodenitis without bleeding; K31.89 Other diseases of stomach and duodenum; K70.10 Alcoholic hepatitis without ascites; K70.30 Alcoholic cirrhosis of liver without ascites; Z79.899 Other long term (current) drug therapy; Z87.11 Personal history of peptic ulcer disease; M79.605 Pain in left leg; M79.604 Pain in right leg; K46.9 Unspecified abdominal hernia without obstruction or gangrene
CPT/HCPCS: 36415; 43239; 74022; 80053; 80320; 81001; 81025; 82150; 82550; 82553; 83690; 83735; 84132; 85025; 85610; 85730; 87077; 87086; 87186; 88305; 93005; 93970; 96361; 96365; 96375; 96376; 99285

== ENCOUNTER 2019-02-08 14:06 | Emergency (ER) | payer OTHER ==
[2019-02-08 14:13] VITALS: BP 184/99; PULSE 104; RESP 18; TEMP 98
[2019-02-08] MEDS ORDERED: KETOROLAC 30 MG/ML 1 ML VIAL IM STA (14:44)
[2019-02-08] MEDS ORDERED: PENICILLIN VK 500MG STARTER 4 TAB BTL PO STA (14:44)
--- NOTE | 2019-02-08 14:48 | ED ---
General Adult HPI - General Chief complaint: Dental/Oral Stated complaint: dental infection/facial swelling Time Seen by Provider: 02/08/19 14:19 Source: patient, RN notes reviewed Mode of arrival: ambulatory Limitations: no limitations - History of Present Illness Initial comments: 43-year-old female with a past medical history of diet controlled diabetes, GERD, a call is in presents to the emergency department for a chief of dental pain. Patient states she has had a dental infection that started yesterday. States she is having swelling in her face feels of this. Denies fevers or chills. States the tooth is cracked and very sensitive to hot and cold. States she has not tried to contact a dentist but is going to try to contact her mother's. Patient does not see a dentist regularly.Patient has no other complaints at this time including shortness of breath, chest pain, abdominal pain, nausea or vomiting, headache, or visual changes. - Related Data Home Medications Medication Instructions Recorded Confirmed Gabapentin [Neurontin] 300 mg PO QID 03/09/16 09/19/18 Omeprazole [PriLOSEC] 20 mg PO AC-BID 06/27/17 09/19/18 Sertraline HCl [Zoloft] 50 mg PO DAILY 06/27/17 09/19/18 Previous Rx's Medication Instructions Recorded LORazepam [Ativan] 1 mg PO HS 2 Days #2 tab 09/21/18 Thiamine [Vitamin B-1] 100 mg PO BID-W/MEALS #30 tab 09/21/18 Penicillin V Potassium [Pen Vee K] 500 mg PO Q6H 10 Days #40 tablet 02/08/19 Allergies Allergy/AdvReac Type Severity Reaction Status Date / Time codeine Allergy Mild Rash/Hives Verified 02/08/19 14:11 morphine Allergy Itching Verified 02/08/19 14:11 Review of Systems ROS Statement: Those systems with pertinent positive or pertinent negative responses have been documented in the HPI. ROS Other: All systems not noted in ROS Statement are negative. Past Medical History Past Medical History: Diabetes Mellitus, GERD/Reflux, Liver Disease, Seizure Disorder Additional Past Medical History / Comment(s): Diet controlled diabetes, alcoholism with cirrhosis/ ascities, neuropathy bilateral fingers/toes, hiatal hernia History of Any Multi-Drug Resistant Organisms: None Reported Past Surgical History: Section Additional Past Surgical History / Comment(s): 01/2017 exploratory lap with repair of perforated ulcer with liver biopsy. Past Anesthesia/Blood Transfusion Reactions: No Reported Reaction Past Psychological History: Anxiety, Depression, Panic Disorder Smoking Status: Current every day smoker Past Alcohol Use History: Abuse, Daily, Heavy Past Drug Use History: None Reported - Past Family History Father Family Medical History: No Reported History Additional Family Medical History / Comment(s): Father is healthy and is 68yrs old. Mother Family Medical History: No Reported History Additional Family Medical History / Comment(s): Mother is healthy and is 68yrs old. General Exam Limitations: no limitations General appearance: alert, in no apparent distress Head exam: Present: atraumatic, normocephalic, normal inspection Eye exam: Present: normal appearance, PERRL, EOMI, periorbital swelling (Patient does have some associated right periorbital edema however this is soft, nontender, nonindurated, nonerythematous, ). Absent: scleral icterus, conjunctival injection ENT exam: Present: normal exam, mucous membranes moist. Absent: normal oropharynx (Pt has a cracked tooth 5. There is no dental abscess noted in the gumline. patient does have associated nontender non-erythematous edema of the R maxillary area. No sublingual pain or tenderness. No sublingual edema.) Neck exam: Present: normal inspection, full ROM. Absent: tenderness, meningismus, lymphadenopathy Course Vital Signs 02/08/19 14:11 Temperature 98 F Pulse Rate 104 H Respiratory 18 Rate Blood Pressure 184/99 O2 Sat by Pulse 97 Oximetry Medical Decision Making - Medical Decision Making Pts vitals are stable. She is afebrile. Patient has associated edema of the right side of the face along the maxillary area as well as a cracked tooth 5. No drainable abscess at this time. Patient has not been on any antibiotics outpatient. She will be started on penicillin here in the emergency department.. She was given Toradol here in the emergency room. I recommended patient follow-up with dentist as soon as possible. I did give her referrals. I recommended that if symptoms do not improve in the next 24-48 hours she should return to the emergency department. I discussed this case with attending Dr. Gamez who agrees with this assessment and treatment plan. Disposition Clinical Impression: Pain, dental Disposition: HOME SELF-CARE Condition: Good Instructions (If sedation given, give patient instructions): Dental Abscess (ED) Additional Instructions: Please take penicillin 4 times daily as directed. Follow-up with dentist as soon as possible. If symptoms are worsening after 24 hours of antibiotic use instead of improving return to the emergency department. Take Motrin and Tylenol for pain. You may ice the area. Sleeping with your head slightly elevated can help with swelling as well. [facility]: . Address[address] [address] [place], [place] [address] Address: [id number] [place] [address] Prescriptions: Penicillin V Potassium [Pen Vee K] 500 mg PO Q6H 10 Days #40 tablet Is patient prescribed a controlled substance at d/c from ED?: No Referrals: Kathryn Vieira MD [Primary Care Provider] - 1-2 days Time of Disposition: 14:45
== END 2019-02-08 15:09 | disposition home or self-care (01) ==
LOC: EC 14:06
DX: K08.89 Other specified disorders of teeth and supporting structures (principal); R22.0 Localized swelling, mass and lump, head; K03.81 Cracked tooth; K21.9 Gastro-esophageal reflux disease without esophagitis; E11.40 Type 2 diabetes mellitus with diabetic neuropathy, unspecified; F41.9 Anxiety disorder, unspecified; F41.0 Panic disorder [episodic paroxysmal anxiety]; F32.9 Major depressive disorder, single episode, unspecified; F17.200 Nicotine dependence, unspecified, uncomplicated; Z88.5 Allergy status to narcotic agent; Z79.899 Other long term (current) drug therapy
CPT/HCPCS: 96372; 99283; J1885

== ENCOUNTER 2019-02-09 20:46 | Emergency (ER) | payer OTHER ==
[2019-02-09] MEDS ORDERED: DEXAMETHASONE SOD PHOSPHATE 10 MG/ML 1 ML VIAL IM STA (21:33)
--- NOTE | 2019-02-09 22:02 | ED ---
General Adult HPI - General Chief complaint: Dental/Oral Stated complaint: Tooth pain Time Seen by Provider: 02/09/19 20:52 Source: patient, RN notes reviewed, old records reviewed Mode of arrival: ambulatory Limitations: no limitations - History of Present Illness Initial comments: 43-year-old female patient presents to ED chief complaint right-sided facial swelling, dental infection. Patient was seen yesterday for the same complaints. Reports that her swelling has gotten mildly worse. Denies any signs of systemic infection. Denies any fevers. Denies any chance of being . Denies any other complaints. Systemic: Pt denies fatigue, fever/chills, rash. Pt denies weakness, night sweats, weight loss. Neuro: Pt denies headache, visual disturbances, syncope or pre-syncope. HEENT: Pt denies ocular discharge or irritation, otalgia, rhinorrhea, pharyngitis or notable lymphadenopathy. Cardiopulmonary: Pt denies chest pain, SOB, heart palpitations, dyspnea on exertion. Abdominal/GI: Pt denies abdominal pain, n/v/d. : Pt denies dysuria, burning w/ urination, frequency/urgency. Denies new onset urinary or bowel incontinence. MSK: Pt denies myalgia, loss of strength or function in extremities. Neuro: Pt denies new onset weakness, paresthesias. - Related Data Home Medications Medication Instructions Recorded Confirmed Gabapentin [Neurontin] 300 mg PO QID 03/09/16 09/19/18 Omeprazole [PriLOSEC] 20 mg PO AC-BID 06/27/17 09/19/18 Sertraline HCl [Zoloft] 50 mg PO DAILY 06/27/17 09/19/18 Previous Rx's Medication Instructions Recorded LORazepam [Ativan] 1 mg PO HS 2 Days #2 tab 09/21/18 Thiamine [Vitamin B-1] 100 mg PO BID-W/MEALS #30 tab 09/21/18 Penicillin V Potassium [Pen Vee K] 500 mg PO Q6H 10 Days #40 tablet 02/08/19 Allergies Allergy/AdvReac Type Severity Reaction Status Date / Time codeine Allergy Mild Rash/Hives Verified 02/09/19 20:48 morphine Allergy Itching Verified 02/09/19 20:48 Review of Systems ROS Statement: Those systems with pertinent positive or pertinent negative responses have been documented in the HPI. ROS Other: All systems not noted in ROS Statement are negative. Past Medical History Past Medical History: Diabetes Mellitus, GERD/Reflux, Liver Disease, Seizure Disorder Additional Past Medical History / Comment(s): Diet controlled diabetes, alcoholism with cirrhosis/ ascities, neuropathy bilateral fingers/toes, hiatal hernia History of Any Multi-Drug Resistant Organisms: None Reported Past Surgical History: Section Additional Past Surgical History / Comment(s): 01/2017 exploratory lap with repair of perforated ulcer with liver biopsy. Past Anesthesia/Blood Transfusion Reactions: No Reported Reaction Past Psychological History: Anxiety, Depression, Panic Disorder Smoking Status: Current every day smoker Past Alcohol Use History: Abuse, Daily, Heavy Past Drug Use History: None Reported - Past Family History Father Family Medical History: No Reported History Additional Family Medical History / Comment(s): Father is healthy and is 68yrs old. Mother Family Medical History: No Reported History Additional Family Medical History / Comment(s): Mother is healthy and is 68yrs old. General Exam - General Exam Comments Initial Comments: Constitutional: NAD, AOX3, Pt has pleasant affect. HEENT: NC/AT, trachea midline, neck supple, no lymphadenopathy. Posterior pharynx non erythematous, without exudates. External ears appear normal, without discharge. Mucous membranes moist. Eyes PERRLA, EOM intact. There is no scleral icterus. No pallor noted. Dental exam revealed mild erythema behind front upper tooth. No fluctuance, no drainable abscess. Cardiopulmonary: RRR, no murmurs, rubs or gallops, no JVD noted. Lungs CTAB in anterior and posterior cornell. No peripheral edema. Abdominal exam: Abdomen soft and non-distended. Abdomen non-tender to palpation in all 4 quadrants. Bowel sounds active in LLQ. No hepatosplenomegaly. No ecchymosis Neuro: CN II-XII grossly intact. No nuchal rigidity. No raccon eyes, no marquis sign, no hemotympanum. No cervical spinal tenderness. MSK: Mild amount of right-sided angioedema noted. No erythema. No posterior calf tenderness bilaterally, homans sign negative bilaterally. Posterior tibialis and radial pulse +2 bilaterally. Sensation intact in upper and lower extremities. Full active ROM in upper and lower extremities, 5/5 stregnth. Limitations: no limitations Course Vital Signs 02/09/19 20:47 Temperature 98.2 F Pulse Rate 101 H Respiratory 16 Rate Blood Pressure 162/89 O2 Sat by Pulse 96 Oximetry Medical Decision Making - Medical Decision Making 43-year-old female patient presents to ED complaining of dental pain, right- sided facial swelling is ongoing for 2 days. Reports that has gotten mildly worse. Denies any signs of systemic infection, fevers chills, n/v/d. Patient is currently taking penicillin VK. Physical exam revealed mild erythema around to the complaint. No drainable abscess. Minimal right-sided angioedema. Patient denies any shortness of breath, signs of airway compromise. Patient is to 10 mg Decadron. Patient yesterday will continue to use antibiotics will follow-up with dentist tomorrow, will return to ER if condition worsens. Case discussed with Dr. Medel. Disposition Clinical Impression: Dental infection, Facial swelling Disposition: HOME SELF-CARE Condition: Stable Instructions (If sedation given, give patient instructions): Dental Abscess (ED) Additional Instructions: Follow-up with dentist tomorrow. Continue to take antibiotics. Return to ER if swelling worsens, fever develops or any other worsening symptoms. Is patient prescribed a controlled substance at d/c from ED?: No Referrals: Kathryn Vieira MD [Primary Care Provider] - 1-2 days
[2019-02-09 22:11] VITALS: BP 150/92; PULSE 88; RESP 20
[2019-02-09 22:15] VITALS: TEMP 98.1
== END 2019-02-09 22:15 | disposition home or self-care (01) ==
LOC: EC 20:46
DX: K04.7 Periapical abscess without sinus (principal); T78.3XXA Angioneurotic edema, initial encounter; E11.9 Type 2 diabetes mellitus without complications; K21.9 Gastro-esophageal reflux disease without esophagitis; G40.909 Epilepsy, unspecified, not intractable, without status epilepticus; G62.9 Polyneuropathy, unspecified; F32.9 Major depressive disorder, single episode, unspecified; F41.0 Panic disorder [episodic paroxysmal anxiety]; F17.200 Nicotine dependence, unspecified, uncomplicated; Z88.5 Allergy status to narcotic agent; Z79.899 Other long term (current) drug therapy
CPT/HCPCS: 99283; 96372; J1100

== ENCOUNTER 2019-02-20 04:34 | Inpatient (IN) | payer OTHER ==
[2019-02-20] MEDS ORDERED: SODIUM CHLORIDE 0.9% 1,000 ML IV STA (05:18)
[2019-02-20] MEDS ORDERED: LORazepam 2 MG/ML INJ IV STA (05:19)
--- NOTE | 2019-02-20 05:28 | ED ---
General Adult HPI - General Chief complaint: Dental/Oral Stated complaint: dental abscess,dizziness Time Seen by Provider: 02/20/19 04:55 Source: patient Mode of arrival: ambulatory Limitations: no limitations - History of Present Illness Initial comments: Gabriella is a 43-year-old female with a history of alcoholism and alcoholic liver disease who presents to the ER today with multiple complaints. Patient reports that she is been on oral antibiotics for bilateral dental abscesses. She's been compliant with these in a scheduled follow-up with a dentist on February 23. Patient reports that she drinks up to a pint of liquor daily she did not drink yesterday, throughout the day she is feeling very anxious, she felt that her heart was racing she is very shaky. She states she felt like this in the past and has improved with Ativan. Patient denies any fevers nausea or vomiting. - Related Data Home Medications Medication Instructions Recorded Confirmed Gabapentin [Neurontin] 300 mg PO QID 03/09/16 09/19/18 Omeprazole [PriLOSEC] 20 mg PO AC-BID 06/27/17 09/19/18 Sertraline HCl [Zoloft] 50 mg PO DAILY 06/27/17 09/19/18 Previous Rx's Medication Instructions Recorded LORazepam [Ativan] 1 mg PO HS 2 Days #2 tab 09/21/18 Thiamine [Vitamin B-1] 100 mg PO BID-W/MEALS #30 tab 09/21/18 Penicillin V Potassium [Pen Vee K] 500 mg PO Q6H 10 Days #40 tablet 02/08/19 Allergies Allergy/AdvReac Type Severity Reaction Status Date / Time codeine Allergy Mild Rash/Hives Verified 02/20/19 04:43 morphine Allergy Itching Verified 02/20/19 04:43 Review of Systems ROS Statement: Those systems with pertinent positive or pertinent negative responses have been documented in the HPI. ROS Other: All systems not noted in ROS Statement are negative. Past Medical History Past Medical History: Diabetes Mellitus, GERD/Reflux, Liver Disease, Seizure Disorder Additional Past Medical History / Comment(s): Diet controlled diabetes, alcoholism with cirrhosis/ ascities, neuropathy bilateral fingers/toes, hiatal hernia History of Any Multi-Drug Resistant Organisms: None Reported Past Surgical History: Section Additional Past Surgical History / Comment(s): 01/2017 exploratory lap with repair of perforated ulcer with liver biopsy. Past Anesthesia/Blood Transfusion Reactions: No Reported Reaction Past Psychological History: Anxiety, Depression, Panic Disorder Smoking Status: Current every day smoker Past Alcohol Use History: Abuse, Daily, Heavy Past Drug Use History: None Reported - Past Family History Father Family Medical History: No Reported History Additional Family Medical History / Comment(s): Father is healthy and is 68yrs old. Mother Family Medical History: No Reported History Additional Family Medical History / Comment(s): Mother is healthy and is 68yrs old. General Exam - General Exam Comments Initial Comments: Physical Exam GENERAL: Patient is well-developed and well-nourished. Patient is nontoxic and well- hydrated and is in no distress. HENT: Normocephalic, Atraumatic. EYES: PERRL, EOMI No scleral icterus PULMONARY: Unlabored respirations. No audible rales rhonchi or wheezing was noted. CARDIOVASCULAR: Tachycardic, regular ABDOMEN: Very large soft ventral hernia SKIN: Skin is clear with no lesions or rashes and otherwise unremarkable. : Deferred NEUROLOGIC: Patient is alert and oriented x3. Moving all extremities spontaneously Tremor MUSCULOSKELETAL: Normal extremities with adequate strength and full range of motion. No lower extremity swelling or edema. No calf tenderness. PSYCHIATRIC: Anxious appearing with rapid sometimes erratic movements, Limitations: no limitations Course Vital Signs 02/20/19 02/20/19 04:40 06:30 Temperature 97.9 F 97.6 F Pulse Rate 123 H 124 H Respiratory 20 18 Rate Blood Pressure 132/86 173/88 O2 Sat by Pulse 99 97 Oximetry EKG Findings - EKG Comments: EKG Findings:: EKG was obtained due to complaint of tachycardia, EKG obtained at 5:29 AM, rate is 119 rhythm is sinus tachycardia with a prolonged QT, normal axis, MI 126, QS 86, QTC 437 there are no acute ST elevations or depressions no evidence of acute ischemia or infarction. Medical Decision Making - Medical Decision Making The patient was seen and evaluated, history is obtained from the patient History and physical exam concerning for possible orbital withdrawals patient is very anxious tremulous and tachycardic. Labs and imaging were ordered IV Ativan ordered for anxiolysis Labs resulted with transaminitis, AST elevated greater than ALT consistent with alcoholic liver disease however this is significant change from her previous. Patient remained tachycardic despite IV fluids and anxiolysis. Patient asking for Dilaudid for dental pain. Toradol will be ordered as I don't feel there is any indication for Dilaudid at this time. Given significant hypo-magnesium, hypokalemia, hyponatremia, transaminitis I do feel the patient warrants admission to hospital for further management. Patient is agreeable this. Patient will be admitted with alcohol withdrawal precautions. - Lab Data Result diagrams: 02/20/19 05:30 02/20/19 05:30 Lab Results 02/20/19 02/20/19 02/20/19 Range/Units 05:30 05:30 06:04 WBC 8.4 (3.8-10.6) k/uL RBC 3.70 L (3.80-5.40) m/uL Hgb 11.6 (11.4-16.0) gm/dL Hct 36.0 (34.0-46.0) % MCV 97.1 (80.0-100.0) fL MCH 31.3 (25.0-35.0) pg MCHC 32.3 (31.0-37.0) g/dL RDW 16.2 H (11.5-15.5) % Plt Count 162 (150-450) k/uL Neutrophils % 82 % Lymphocytes % 10 % Monocytes % 5 % Eosinophils % 0 % Basophils % 1 % Neutrophils # 6.9 (1.3-7.7) k/uL Lymphocytes # 0.8 L (1.0-4.8) k/uL Monocytes # 0.4 (0-1.0) k/uL Eosinophils # 0.0 (0-0.7) k/uL Basophils # 0.1 (0-0.2) k/uL Anisocytosis Slight Macrocytosis Slight Sodium 132 L (137-145) mmol/L Potassium 3.2 L (3.5-5.1) mmol/L Chloride 92 L (98-107) mmol/L Carbon Dioxide 11 L (22-30) mmol/L Anion Gap 29 mmol/L BUN 7 (7-17) mg/dL Creatinine 0.73 (0.52-1.04) mg/dL Est GFR (CKD-EPI)AfAm >90 (>60 ml/min/1.73 sqM) Est GFR (CKD-EPI)NonAf >90 (>60 ml/min/1.73 sqM) Glucose 78 (74-99) mg/dL Calcium 8.6 (8.4-10.2) mg/dL Magnesium 1.1 L (1.6-2.3) mg/dL Total Bilirubin 2.4 H (0.2-1.3) mg/dL AST 1064 H (14-36) U/L ALT 168 H (9-52) U/L Alkaline Phosphatase 168 H (38-126) U/L Total Protein 7.9 (6.3-8.2) g/dL Albumin 4.3 (3.5-5.0) g/dL TSH 0.538 (0.465-4.680) mIU/L Urine Color Yellow Urine Appearance Cloudy H (Clear) Urine pH 5.5 (5.0-8.0) Ur Specific [place] 1.019 (1.001-1.035) Urine Protein 1+ H (Negative) Urine Glucose (UA) Negative (Negative) Urine Ketones 1+ H (Negative) Urine Blood Small H (Negative) Urine Nitrite Positive H (Negative) Urine Bilirubin Negative (Negative) Urine Urobilinogen 2.0 (<2.0) mg/dL Ur Leukocyte Esterase Small H (Negative) Urine RBC 5 (0-5) /hpf Urine WBC 12 H (0-5) /hpf Ur Squamous Epith Cells 36 H (0-4) /hpf Urine Bacteria Many H (None) /hpf Hyaline Casts 109 H (0-2) /lpf Urine Mucus Few H (None) /hpf Urine Opiates Screen Not Detected (NotDetected) Ur Oxycodone Screen Not Detected (NotDetected) Urine Methadone Screen Not Detected (NotDetected) Ur Propoxyphene Screen Not Detected (NotDetected) Ur Barbiturates Screen Not Detected (NotDetected) U Tricyclic Antidepress Detected H (NotDetected) Ur Phencyclidine Scrn Not Detected (NotDetected) Ur Amphetamines Screen Not Detected (NotDetected) U Methamphetamines Scrn Not Detected (NotDetected) U Benzodiazepines Scrn Not Detected (NotDetected) Urine Cocaine Screen Not Detected (NotDetected) U Marijuana (THC) Screen Not Detected (NotDetected) - EKG Data -: EKG Interpreted by Md EKG shows normal: sinus rhythm Rate: tachycardia Disposition Clinical Impression: Dental abscess, Chronic alcohol abuse, Hypokalemia, Alcoholic hepatitis with ascites, Pain, dental, Hypomagnesemia Disposition: ADMITTED IP TO THIS HOSP Condition: Serious Referrals: Kathryn Vieira MD [Primary Care Provider] - 1-2 days
[2019-02-20 05:44] LABS: Anisocytosis Slight; Basophils # (A) 0.1 k/uL (0-0.2); Basophils % (A) 1 %; Eosinophils % (A) 0 %; HGB 11.6 gm/dL (11.4-16.0); Lymphocytes # (A) 0.8 k/uL (1.0-4.8); Lymphocytes % (A) 10 %; MCH 31.3 pg (25.0-35.0); MCHC 32.3 g/dL (31.0-37.0); MCV 97.1 fL (80.0-100.0); Macrocytosis Slight; Mean Platelet Volume 7.1; Monocytes # (A) 0.4 k/uL (0-1.0); Monocytes % (A) 5 %; Neutrophils # (A) 6.9 k/uL (1.3-7.7); Neutrophils % (A) 82 %; Platelet Count 162 k/uL (150-450); RDW 16.2 % (11.5-15.5); WBC 8.4 k/uL (3.8-10.6)
[2019-02-20 05:51] LABS: ALT 168 U/L (9-52); African American GFR (CKD) >90 (>60 ml/min/1.73 sqM); Albumin 4.3 g/dL (3.5-5.0); Alkaline Phosphatase 168 U/L (38-126); Anion Gap 29 mmol/L; Blood Urea Nitrogen 7 mg/dL (7-17); Calcium 8.6 mg/dL (8.4-10.2); Carbon Dioxide 11 mmol/L (22-30); Chloride 92 mmol/L (98-107); Glucose 78 mg/dL (74-99); Magnesium 1.1 mg/dL (1.6-2.3); Non-African American GFR(CKD) >90 (>60 ml/min/1.73 sqM); Potassium 3.2 mmol/L (3.5-5.1); Sodium 132 mmol/L (137-145); Total Bilirubin 2.4 mg/dL (0.2-1.3); Total Protein 7.9 g/dL (6.3-8.2)
[2019-02-20] MEDS ORDERED: POTASSIUM CHLORIDE ER 20 MEQ TAB.ER PO STA (06:01)
[2019-02-20 06:04] LABS: AST 1064 U/L (14-36)
--- NOTE | 2019-02-20 06:16 | XR ---
EXAMINATION TYPE: XR chest 2V DATE OF EXAM: 02/20/2019 COMPARISON: September 19, 2018 HISTORY: Irregular heart rate TECHNIQUE: Frontal and lateral views of the chest are obtained. FINDINGS: Heart and mediastinum are normal. Lungs are clear. Diaphragm is normal. Bony thorax is int act. IMPRESSION: No active cardiopulmonary disease. Normal heart. No change.
[2019-02-20 06:30] LABS: Appearance,Urine Cloudy (Clear); Bacteria,Urine Many /hpf; Bilirubin,Urine Negative (Negative); Blood,Urine Small (Negative); Color,Urine Yellow; Glucose,Urine (UA) Negative (Negative); Hyaline Casts,Urine 109 /lpf (0-2); Ketones,Urine 1+ (Negative); Leukocyte Esterase,Urine Small (Negative); Mucus,Urine Few /hpf; Nitrite,Urine Positive (Negative); PH, Urine 5.5 (5.0-8.0); Protein,Urine 1+ (Negative); RBC,Urine 5 /hpf (0-5); Specific Gravity,Urine 1.019 (1.001-1.035); Squamous Epithelial Cell,Urine 36 /hpf (0-4); WBC,Urine 12 /hpf (0-5)
[2019-02-20 06:32] LABS: Amphetamine Screen,Urine Not Detected (NotDetected); Barbiturate Screen,Urine Not Detected (NotDetected); Benzodiazepines Screen,Urine Not Detected (NotDetected); Cocaine Screen,Urine Not Detected (NotDetected); Methadone Screen, Urine Not Detected (NotDetected); Opiate Screen,Urine Not Detected (NotDetected); Oxycodone Screen, Urine Not Detected (NotDetected); Phencyclidine Screen,Urine Not Detected (NotDetected); Tricyclic Antidepressant,Urine Detected (NotDetected); Urn Cannabinoid Scrn Not Detected (NotDetected)
[2019-02-20] MEDS ORDERED: NALOXONE 0.4 MG/ML 1 ML VIAL IV PRN (06:33)
[2019-02-20] MEDS ORDERED: LORazepam 2 MG/ML INJ IV PRN (06:35)
[2019-02-20] MEDS ORDERED: THIAMINE 100 MG/ML 2 ML VIAL IM STA (06:35)
[2019-02-20] MEDS ORDERED: KETOROLAC 30 MG/ML 1 ML VIAL IVP ONE (06:38)
[2019-02-20] MEDS: MAGNESIUM SULFATE-D5W PMX 1 GM in DEXTROSE/WATER 1 100ML.BAG IVPB SCH ×5 (06:45→13:15)
[2019-02-20] MEDS: SODIUM CHLORIDE 0.9% 1,000 ML IV SCH ×2 (06:46→16:08)
[2019-02-20] MEDS: LORazepam 2 MG/ML INJ IV PRN ×5 (07:00→23:44)
[2019-02-20] MEDS ORDERED: cloNIDine 0.1 MG/24HR PATCH TRANSDERM SCH (07:00)
[2019-02-20 08:27] LABS: Glucose,Whole Blood 112 mg/dL (75-99)
[2019-02-20] MEDS ORDERED: PANTOPRAZOLE 40 MG/10 ML VIAL IV SCH (09:00)
[2019-02-20] MEDS: GABAPENTIN 300 MG CAP PO SCH ×4 (10:38→21:07)
[2019-02-20] MEDS: FLUoxetine HCL 20 MG CAP PO SCH (10:38)
[2019-02-20] MEDS: POTASSIUM CHLORIDE ER 20 MEQ TAB.ER PO SCH ×4 (10:39→18:12)
[2019-02-20] MEDS: AMOXIC-POT CLAV 875-125MG 1 EACH TAB PO SCH ×2 (11:46→21:08)
--- NOTE | 2019-02-20 11:54 | P.HPIM ---
History of Present Illness 43-year-old female came in with complaints of bilateral dental abscess patient does have abscess in the first molar on the left side upper as well as in the right side upper molar. And patient does drink was a alcohol in with a patient is a patient is found to be severely tachycardic dehydrated with multiple electrolyte Abnormalities because of which patient was admitted patient is presently in ICU with anticipation of severe withdrawals. Patient is complaining of severe pain in the tooth area. Patient denied any fever chills patient felt like her heart is racing patient is sinus tachycardia secondary to severe intravascular depletion patient last drink was last night. Patient does smoke as well. Patient denied any fever chills, cough, dysuria Review of Systems REVIEW OF SYSTEMS: CONSTITUTIONAL: No fever, no malaise, no fatigue. HEENT: No recent visual problems or hearing problems. Denied any sore throat. CARDIOVASCULAR: No chest pain, orthopnea, PND, no syncope. PULMONARY: No shortness of breath, no cough, no hemoptysis. GASTROINTESTINAL: No diarrhea, no nausea, no vomiting, no abdominal pain. NEUROLOGICAL: No headaches, no weakness, no numbness. HEMATOLOGICAL: Denies any bleeding or petechiae. GENITOURINARY: Denies any burning micturition, frequency, or urgency. MUSCULOSKELETAL/RHEUMATOLOGICAL: Denies any joint pain, swelling, or any muscle pain. ENDOCRINE: Denies any polyuria or polydipsia. The rest of the 14-point review of systems is negative. Past Medical History Past Medical History: Diabetes Mellitus, GERD/Reflux, GI Bleed, Liver Disease, Seizure Disorder Additional Past Medical History / Comment(s): NIDDM type II, neuropathy bilateral hands/fingers/feet and toes, alcoholism, liver cirrhosis, ascities and has had one paracentesis done, anemia, thrombocytopenia, hyperbilirubinemia, hiatal hernia, gastric ulcer with surgical repair, duodenitis, gastritis, upper GI bleed, abdominal hernia, UTIs, chronic bilateral leg pain which pt thinks might be diabetic neuropathy. History of Any Multi-Drug Resistant Organisms: None Reported Past Surgical History: Section Additional Past Surgical History / Comment(s): 01/2017 exploratory laparotomy with repair of perforated ulcer with liver biopsy, EGD. Past Anesthesia/Blood Transfusion Reactions: No Reported Reaction Smoking Status: Current every day smoker - Past Family History Father Family Medical History: No Reported History Additional Family Medical History / Comment(s): Father is healthy and is 70yrs old. Mother Family Medical History: No Reported History Additional Family Medical History / Comment(s): Mother is healthy and is 70yrs old. Medications and Allergies Home Medications Medication Instructions Recorded Confirmed Type Gabapentin [Neurontin] 300 mg PO QID 03/09/16 02/20/19 History Omeprazole [PriLOSEC] 20 mg PO AC-BID 06/27/17 02/20/19 History FLUoxetine HCL [PROzac] 20 mg PO DAILY 02/20/19 02/20/19 History clonazePAM 0.5 mg PO BID 02/20/19 02/20/19 History Allergies Allergy/AdvReac Type Severity Reaction Status Date / Time codeine Allergy Mild Rash/Hives Verified 02/20/19 04:43 morphine Allergy Itching Verified 02/20/19 04:43 Physical Exam Vitals: Vital Signs Temp Pulse Resp BP Pulse Ox 02/20/19 09:00 97.3 F L 114 H 23 152/79 02/20/19 07:59 121 H 20 151/87 95 02/20/19 06:30 97.6 F 124 H 18 173/88 97 02/20/19 04:40 97.9 F 123 H 20 132/86 99 Intake and Output 02/19/19 02/20/19 02/20/19 22:59 06:59 14:59 Intake Total 500 Balance 500 Intake: IV 500 Sodium Chloride 0.9% 1, 500 000 ml @ 125 mls/hr IV . Q8H [facility] Rx#:[id number] Other: # Voids 1 Weight 77.111 kg 77.111 kg PHYSICAL EXAMINATION: GENERAL: The patient is alert and oriented x3, not in any acute distress. Well developed, well nourished. HEENT: Pupils are round and equally reacting to light. EOMI. No scleral icterus. No conjunctival pallor. Normocephalic, atraumatic. No pharyngeal erythema. No thyromegaly. Does have dental abscess as mentioned above CARDIOVASCULAR: S1 and S2 present. No murmurs, rubs, or gallops. Tachycardic PULMONARY: Chest is clear to auscultation, no wheezing or crackles. ABDOMEN: Soft, nontender, nondistended, normoactive bowel sounds. No palpable organomegaly. MUSCULOSKELETAL: No joint swelling or deformity. EXTREMITIES: No cyanosis, clubbing, or pedal edema. NEUROLOGICAL: Gross neurological examination did not reveal any focal deficits. SKIN: No rashes. Results CBC & Chem 7: 02/20/19 05:30 02/20/19 05:30 Labs: Abnormal Lab Results - Last 24 Hours (Table) 02/20/19 02/20/19 02/20/19 Range/Units 05:30 05:30 06:04 RBC 3.70 L (3.80-5.40) m/uL RDW 16.2 H (11.5-15.5) % Lymphocytes # 0.8 L (1.0-4.8) k/uL Sodium 132 L (137-145) mmol/L Potassium 3.2 L (3.5-5.1) mmol/L Chloride 92 L (98-107) mmol/L Carbon Dioxide 11 L (22-30) mmol/L POC Glucose (mg/dL) (75-99) mg/dL Magnesium 1.1 L (1.6-2.3) mg/dL Total Bilirubin 2.4 H (0.2-1.3) mg/dL AST 1064 H (14-36) U/L ALT 168 H (9-52) U/L Alkaline Phosphatase 168 H (38-126) U/L Urine Appearance Cloudy H (Clear) Urine Protein 1+ H (Negative) Urine Ketones 1+ H (Negative) Urine Blood Small H (Negative) Urine Nitrite Positive H (Negative) Ur Leukocyte Esterase Small H (Negative) Urine WBC 12 H (0-5) /hpf Ur Squamous Epith Cells 36 H (0-4) /hpf Urine Bacteria Many H (None) /hpf Hyaline Casts 109 H (0-2) /lpf Urine Mucus Few H (None) /hpf U Tricyclic Antidepress Detected H (NotDetected) 02/20/19 Range/Units 08:15 RBC (3.80-5.40) m/uL RDW (11.5-15.5) % Lymphocytes # (1.0-4.8) k/uL Sodium (137-145) mmol/L Potassium (3.5-5.1) mmol/L Chloride (98-107) mmol/L Carbon Dioxide (22-30) mmol/L POC Glucose (mg/dL) 112 H (75-99) mg/dL Magnesium (1.6-2.3) mg/dL Total Bilirubin (0.2-1.3) mg/dL AST (14-36) U/L ALT (9-52) U/L Alkaline Phosphatase (38-126) U/L Urine Appearance (Clear) Urine Protein (Negative) Urine Ketones (Negative) Urine Blood (Negative) Urine Nitrite (Negative) Ur Leukocyte Esterase (Negative) Urine WBC (0-5) /hpf Ur Squamous Epith Cells (0-4) /hpf Urine Bacteria (None) /hpf Hyaline Casts (0-2) /lpf Urine Mucus (None) /hpf U Tricyclic Antidepress (NotDetected) Thrombosis Risk Factor Assmnt - Choose All That Apply Any of the Below Risk Factors Present?: Yes Each Factor Represents 1 point: Age 41-60 years Other Risk Factors: No Other congenital or acquired thrombophilia - If yes, enter type in comment: No Thrombosis Risk Factor Assessment Total Risk Factor Score: 1 Thrombosis Risk Factor Assessment Level: Low Risk Assessment and Plan Plan: -Acute alcoholic hepatitis: Expected to improve with the cessation of alcohol -Alcohol withdrawal patient will be monitored for alcohol withdrawal patient will be on Ativan CIWA protocol with Protonix -Hyponatremia hypovolemic hyponatremia expected to improve with IV fluids IV fluids will be continued -Hypertension and tachycardia, tachycardia is probably secondary to intravascular depletion and hypotension tachycardia secondary to possible withdrawals and patient will be treated for withdrawals and patient has clonidine patch if needed will add beta jas. -Hypomagnesemia and hypokalemia: These will be supplemented -Dental abscess will use Augmentin for this -History of essential hypertension doesn't take any medications at home -Depression antidepressants are not effective she continues to drink alcohol same thing was counseled to the patient -Alcohol abuse and nicotine abuse: Counseling was provided -DVT prophylaxis subcutaneous heparin, GI prophylaxis with Protonix
[2019-02-20] MEDS ORDERED: KETOROLAC 30 MG/ML 1 ML VIAL IVP SCH (12:00)
[2019-02-20 12:05] LABS: Glucose,Whole Blood 126 mg/dL (75-99)
[2019-02-20] MEDS: HEPARIN SODIUM,PORCINE 5,000 UNIT/ML 1 ML VIAL SQ SCH ×2 (16:08→23:09)
[2019-02-20 16:43] LABS: Glucose,Whole Blood 200 mg/dL (75-99)
[2019-02-20] MEDS ORDERED: Potassium Replacement Protocol 1 EACH MISC MISCELLANE PRN ×2 (16:44→22:17)
[2019-02-20] MEDS ORDERED: Magnesium Replacement Protocol 1 EACH MISC MISCELLANE PRN (16:44)
[2019-02-20] MEDS: KETOROLAC 30 MG/ML 1 ML VIAL IVP PRN ×2 (16:58→23:09)
[2019-02-20] MEDS: THIAMINE 100 MG TAB PO SCH (16:58)
[2019-02-20 20:43] LABS: Glucose,Whole Blood 192 mg/dL (75-99)
[2019-02-20] MEDS ORDERED: POTASSIUM CHLORIDE ER 20 MEQ TAB.ER PO SCH (23:00)
[2019-02-21] MEDS: SODIUM CHLORIDE 0.9% 1,000 ML IV SCH ×4 (03:05→21:04)
[2019-02-21 05:02] LABS: ALT 127 U/L (9-52); AST 636 U/L (14-36); African American GFR (CKD) >90 (>60 ml/min/1.73 sqM); Albumin 3.2 g/dL (3.5-5.0); Alkaline Phosphatase 154 U/L (38-126); Anion Gap 8 mmol/L; Blood Urea Nitrogen 9 mg/dL (7-17); Calcium 8.2 mg/dL (8.4-10.2); Carbon Dioxide 23 mmol/L (22-30); Chloride 102 mmol/L (98-107); Glucose 213 mg/dL (74-99); Magnesium 2.6 mg/dL (1.6-2.3); Non-African American GFR(CKD) >90 (>60 ml/min/1.73 sqM); Sodium 133 mmol/L (137-145); Total Bilirubin 2.3 mg/dL (0.2-1.3); Total Protein 6.4 g/dL (6.3-8.2)
[2019-02-21] MEDS: PANTOPRAZOLE 40 MG TABLET PO SCH (06:34)
[2019-02-21] MEDS: THIAMINE 100 MG TAB PO SCH ×2 (06:34→16:47)
[2019-02-21] MEDS: LORazepam 2 MG/ML INJ IV PRN ×5 (06:44→23:40)
[2019-02-21 06:56] LABS: Glucose,Whole Blood 182 mg/dL (75-99)
[2019-02-21] MEDS: KETOROLAC 30 MG/ML 1 ML VIAL IVP PRN ×3 (08:34→23:33)
[2019-02-21] MEDS: GABAPENTIN 300 MG CAP PO SCH ×4 (08:36→21:27)
[2019-02-21] MEDS: FLUoxetine HCL 20 MG CAP PO SCH (08:36)
[2019-02-21] MEDS: AMOXIC-POT CLAV 875-125MG 1 EACH TAB PO SCH ×2 (08:36→21:27)
[2019-02-21] MEDS: HEPARIN SODIUM,PORCINE 5,000 UNIT/ML 1 ML VIAL SQ SCH ×3 (08:36→23:26)
[2019-02-21 11:49] LABS: Glucose,Whole Blood 261 mg/dL (75-99)
[2019-02-21] MEDS: CARVEDILOL 6.25 MG TAB PO SCH ×2 (12:57→17:32)
[2019-02-21] MEDS: INSULIN ASPART (NovoLOG) 100 UNIT/ML VIAL SQ SCH ×3 (12:57→21:02)
[2019-02-21 14:48] LABS: Hemoglobin A1C 9.5 % (4.0-6.0)
--- NOTE | 2019-02-21 15:18 | P.PN ---
Subjective 43-year-old female came in with complaints of bilateral dental abscess patient does have abscess in the first molar on the left side upper as well as in the right side upper molar. And patient does drink was a alcohol in with a patient is a patient is found to be severely tachycardic dehydrated with multiple electrolyte Abnormalities because of which patient was admitted patient is presently in ICU with anticipation of severe withdrawals. Patient is complaining of severe pain in the tooth area. Patient denied any fever chills patient felt like her heart is racing patient is sinus tachycardia secondary to severe intravascular depletion patient last drink was last night. Patient does smoke as well. Patient denied any fever chills, cough, dysuria. 02/21/2019 Patient is not a known diabetic patient blood sugars are elevated hemoglobin A1c is 9.6 liver enzymes are coming down patient will be started on sliding scale insulin serum sodium improved patient is feeling bit better but requiring Ativan but will not require to stay in ICU patient will be transferred out of ICU. A she is urine sample is contaminated urine sample patient doesn't have urinary tract infection although does have not lapses for which patient is on antibiotic s at this time. Constitutional: Denied any fatigue denied any fever. Cardio vascular: denied any chest pain, palpitations Gastrointestinal denied any nausea vomiting Pulmonary: Denied any shortness of breath cough Neurologic denied any new focal deficits All inpatient medications were reviewed and appropriate changes in these medications as dictated in the interval history and assessment and plan. Objective - Vital Signs Vital signs: Vital Signs Temp 98.2 F 02/21/19 12:00 Pulse 112 H 02/21/19 12:00 Resp 26 H 02/21/19 12:00 BP 142/87 02/21/19 12:00 Pulse Ox 95 02/21/19 12:00 Intake & Output 02/20/19 02/21/19 02/21/19 18:59 06:59 18:59 Intake Total 1425 1935 1240 Output Total 400 300 Balance 1425 1535 940 Weight 77.111 kg 90.5 kg Intake: IV 1425 1375 1000 Magnesium Sulfate-D5w Pmx 300 1 gm In Dextrose/Water 1 100ml.bag @ 100 mls/hr IVPB Q1H [facility] Rx#: [id number] Sodium Chloride 0.9% 1, 1125 1375 1000 000 ml @ 125 mls/hr IV . Q8H [facility] Rx#:[id number] Oral 560 240 Output: Urine 400 300 Other: Voiding Method Toilet Toilet Toilet # Voids 1 - Exam PHYSICAL EXAMINATION: GENERAL: The patient is alert and oriented x3, not in any acute distress. Well developed, well nourished. HEENT: Pupils are round and equally reacting to light. EOMI. No scleral icterus. No conjunctival pallor. Normocephalic, atraumatic. No pharyngeal erythema. No thyromegaly. Does have dental abscess as mentioned above CARDIOVASCULAR: S1 and S2 present. No murmurs, rubs, or gallops. Tachycardic PULMONARY: Chest is clear to auscultation, no wheezing or crackles. ABDOMEN: Soft, nontender, nondistended, normoactive bowel sounds. No palpable organomegaly. MUSCULOSKELETAL: No joint swelling or deformity. EXTREMITIES: No cyanosis, clubbing, or pedal edema. NEUROLOGICAL: Gross neurological examination did not reveal any focal deficits. SKIN: No rashes. - Labs CBC & Chem 7: 02/20/19 05:30 02/21/19 04:18 Labs: Abnormal Lab Results - Last 24 Hours (Table) 02/20/19 02/20/19 02/21/19 Range/Units 16:31 20:32 04:18 Sodium (137-145) mmol/L Glucose (74-99) mg/dL POC Glucose (mg/dL) 200 H 192 H (75-99) mg/dL Hemoglobin A1c 9.5 H (4.0-6.0) % Calcium (8.4-10.2) mg/dL Magnesium (1.6-2.3) mg/dL Total Bilirubin (0.2-1.3) mg/dL AST (14-36) U/L ALT (9-52) U/L Alkaline Phosphatase (38-126) U/L Albumin (3.5-5.0) g/dL 02/21/19 02/21/19 02/21/19 Range/Units 04:18 06:44 11:38 Sodium 133 L (137-145) mmol/L Glucose 213 H (74-99) mg/dL POC Glucose (mg/dL) 182 H 261 H (75-99) mg/dL Hemoglobin A1c (4.0-6.0) % Calcium 8.2 L (8.4-10.2) mg/dL Magnesium 2.6 H (1.6-2.3) mg/dL Total Bilirubin 2.3 H (0.2-1.3) mg/dL AST 636 H (14-36) U/L ALT 127 H (9-52) U/L Alkaline Phosphatase 154 H (38-126) U/L Albumin 3.2 L (3.5-5.0) g/dL Assessment and Plan Plan: -Acute alcoholic hepatitis: Expected to improve with the cessation of alcohol, liver enzymes are improving we'll repeat them again tomorrow -Newly diagnosed diabetes mellitus: Patient will continued on sliding scale probably will need oral hypoglycemic agents unless patient's diabetes mellitus is secondary to pancreatic insufficiency from alcoholism. -Alcohol withdrawal patient will be monitored for alcohol withdrawal patient will be on Ativan CIWA protocol with Protonix -Hyponatremia hypovolemic hyponatremia proved with IV fluids still low sodium IV fluids will be continued -Hypertension and tachycardia, tachycardia is probably secondary to intravascular depletion and hypotension tachycardia secondary to possible withdrawals, patient will be transitioned to beta jas discontinue clonidine. -Hypomagnesemia and hypokalemia: These will be supplemented -Dental abscess will use Augmentin for this -History of essential hypertension doesn't take any medications at home -Depression antidepressants are not effective she continues to drink alcohol same thing was counseled to the patient -Alcohol abuse and nicotine abuse: Counseling was provided -DVT prophylaxis subcutaneous heparin, GI prophylaxis with Protonix
[2019-02-21] MEDS: metFORMIN 500 MG TAB PO SCH (16:46)
[2019-02-21 16:50] LABS: Glucose,Whole Blood 286 mg/dL (75-99)
[2019-02-21 20:47] LABS: Glucose,Whole Blood 252 mg/dL (75-99)
[2019-02-22 05:21] LABS: ALT 96 U/L (9-52); AST 289 U/L (14-36); African American GFR (CKD) >90 (>60 ml/min/1.73 sqM); Albumin 2.9 g/dL (3.5-5.0); Alkaline Phosphatase 157 U/L (38-126); Anion Gap 6 mmol/L; Blood Urea Nitrogen 10 mg/dL (7-17); Calcium 8.3 mg/dL (8.4-10.2); Carbon Dioxide 22 mmol/L (22-30); Chloride 105 mmol/L (98-107); Glucose 313 mg/dL (74-99); Magnesium 1.9 mg/dL (1.6-2.3); Non-African American GFR(CKD) >90 (>60 ml/min/1.73 sqM); Potassium 3.8 mmol/L (3.5-5.1); Sodium 133 mmol/L (137-145); Total Bilirubin 1.4 mg/dL (0.2-1.3)
[2019-02-22] MEDS ORDERED: Potassium Replacement Protocol 1 EACH MISC MISCELLANE PRN (05:48)
[2019-02-22] MEDS ORDERED: Magnesium Replacement Protocol 1 EACH MISC MISCELLANE PRN (05:49)
[2019-02-22] MEDS ORDERED: POTASSIUM CHLORIDE ER 20 MEQ TAB.ER PO SCH (06:00)
[2019-02-22] MEDS: KETOROLAC 30 MG/ML 1 ML VIAL IVP PRN (06:11)
[2019-02-22] MEDS: LORazepam 2 MG/ML INJ IV PRN (06:12)
[2019-02-22 07:17] LABS: Glucose,Whole Blood 304 mg/dL (75-99)
[2019-02-22] MEDS: CARVEDILOL 6.25 MG TAB PO SCH (07:20)
[2019-02-22] MEDS: metFORMIN 500 MG TAB PO SCH (07:20)
[2019-02-22] MEDS: PANTOPRAZOLE 40 MG TABLET PO SCH (07:20)
[2019-02-22] MEDS: MAGNESIUM SULFATE-D5W PMX 1 GM in DEXTROSE/WATER 1 100ML.BAG IVPB SCH ×2 (07:20→12:07)
[2019-02-22] MEDS: THIAMINE 100 MG TAB PO SCH (07:20)
[2019-02-22] MEDS: INSULIN ASPART (NovoLOG) 100 UNIT/ML VIAL SQ SCH (07:21)
[2019-02-22] MEDS: SODIUM CHLORIDE 0.9% 1,000 ML IV SCH (08:01)
[2019-02-22] MEDS: GABAPENTIN 300 MG CAP PO SCH (08:28)
[2019-02-22] MEDS: AMOXIC-POT CLAV 875-125MG 1 EACH TAB PO SCH (08:28)
[2019-02-22] MEDS: FLUoxetine HCL 20 MG CAP PO SCH (08:28)
[2019-02-22] MEDS: HEPARIN SODIUM,PORCINE 5,000 UNIT/ML 1 ML VIAL SQ SCH (08:29)
[2019-02-22 10:18] VITALS: BMI 30.4
[2019-02-22 10:52] VITALS: BP 105/62; RESP 16; TEMP 98.4
[2019-02-22 11:30] VITALS: PULSE 98
[2019-02-22] MEDS ORDERED: clonazePAM 0.5 MG TAB PO SCH (11:45)
--- NOTE | 2019-02-22 13:33 | XR ---
EXAMINATION TYPE: XR mandible complete DATE OF EXAM: 02/22/2019 COMPARISON: NONE HISTORY: Mandibular pain. TECHNIQUE: 5 views of the mandible were obtained. However the open mouth view is nondiagnostic due to underpenetration. FINDINGS: Dental hardware is seen of numerous maxillary and mandibular teeth. Subtle periapical lucen cy of the right posterior mandibular molar. No gross cortical erosion or suspicious osseous lesion. P aranasal sinuses and mastoid air cells appear well aerated. Nasal septum is overall midline. IMPRESSION: Subtle periapical lucency surrounding the right molar tooth without cortical erosion seen . No suspicious osseous lesion. CT facial bones would provide increased sensitivity digit cortical er osion and soft tissue abscess.
--- NOTE | 2019-02-22 13:46 | P.PN ---
Subjective 43-year-old female came in with complaints of bilateral dental abscess patient does have abscess in the first molar on the left side upper as well as in the right side upper molar. And patient does drink was a alcohol in with a patient is a patient is found to be severely tachycardic dehydrated with multiple electrolyte Abnormalities because of which patient was admitted patient is presently in ICU with anticipation of severe withdrawals. Patient is complaining of severe pain in the tooth area. Patient denied any fever chills patient felt like her heart is racing patient is sinus tachycardia secondary to severe intravascular depletion patient last drink was last night. Patient does smoke as well. Patient denied any fever chills, cough, dysuria. 02/21/2019 Patient is not a known diabetic patient blood sugars are elevated hemoglobin A1c is 9.6 liver enzymes are coming down patient will be started on sliding scale insulin serum sodium improved patient is feeling bit better but requiring Ativan but will not require to stay in ICU patient will be transferred out of ICU. A she is urine sample is contaminated urine sample patient doesn't have urinary tract infection although does have not lapses for which patient is on antibiotic s at this time. 02/22/2019 Patient the blood sugars are very high I consulted maxillofacial surgery and they recommended a Panorex x-ray depending on the Panorex x-ray they will decide on seeing her as an outpatient versus here. Patient will need to oral hyperuricemic agents and will need to check the blood sugar twice a day. Patient blood pressure has come down patient doesn't have any significant withdrawals only required Ativan last night. Patient already has Klonopin at home which she can use on as-needed basis for withdrawal. Patient is still bit hyponatremic with serum sodium of 133. Liver enzymes are coming down. Constitutional: Denied any fatigue denied any fever. Cardio vascular: denied any chest pain, palpitations Gastrointestinal denied any nausea vomiting Pulmonary: Denied any shortness of breath cough Neurologic denied any new focal deficits All inpatient medications were reviewed and appropriate changes in these medications as dictated in the interval history and assessment and plan. Objective - Vital Signs Vital signs: Vital Signs Temp 98.4 F 02/22/19 10:30 Pulse 98 02/22/19 11:36 Resp 16 02/22/19 11:36 BP 105/62 02/22/19 10:30 Pulse Ox 96 02/22/19 10:30 Intake & Output 02/21/19 02/22/19 02/22/19 18:59 06:59 18:59 Intake Total 1930 750 240 Output Total 540 300 600 Balance 1390 450 -360 Weight 93.7 kg Intake: IV 1450 750 Sodium Chloride 0.9% 1, 1450 750 000 ml @ 75 mls/hr IV . [id number] [facility] Rx#:[id number] Oral 480 240 Output: Urine 540 300 600 Other: Voiding Method Toilet Toilet Toilet # Voids 1 3 # Bowel Movements 1 1 - Exam PHYSICAL EXAMINATION: GENERAL: The patient is alert and oriented x3, not in any acute distress. Well developed, well nourished. HEENT: Pupils are round and equally reacting to light. EOMI. No scleral icterus. No conjunctival pallor. Normocephalic, atraumatic. No pharyngeal erythema. No thyromegaly. Does have dental abscess as mentioned above CARDIOVASCULAR: S1 and S2 present. No murmurs, rubs, or gallops. Tachycardic PULMONARY: Chest is clear to auscultation, no wheezing or crackles. ABDOMEN: Soft, nontender, nondistended, normoactive bowel sounds. No palpable organomegaly. MUSCULOSKELETAL: No joint swelling or deformity. EXTREMITIES: No cyanosis, clubbing, or pedal edema. NEUROLOGICAL: Gross neurological examination did not reveal any focal deficits. SKIN: No rashes. - Labs CBC & Chem 7: 02/20/19 05:30 02/22/19 04:46 Labs: Abnormal Lab Results - Last 24 Hours (Table) 02/21/19 02/21/19 02/21/19 Range/Units 04:18 16:39 20:35 Sodium (137-145) mmol/L Creatinine (0.52-1.04) mg/dL Glucose (74-99) mg/dL POC Glucose (mg/dL) 286 H 252 H (75-99) mg/dL Hemoglobin A1c 9.5 H (4.0-6.0) % Calcium (8.4-10.2) mg/dL Total Bilirubin (0.2-1.3) mg/dL AST (14-36) U/L ALT (9-52) U/L Alkaline Phosphatase (38-126) U/L Total Protein (6.3-8.2) g/dL Albumin (3.5-5.0) g/dL 02/22/19 02/22/19 Range/Units 04:46 07:06 Sodium 133 L (137-145) mmol/L Creatinine 0.49 L (0.52-1.04) mg/dL Glucose 313 H (74-99) mg/dL POC Glucose (mg/dL) 304 H (75-99) mg/dL Hemoglobin A1c (4.0-6.0) % Calcium 8.3 L (8.4-10.2) mg/dL Total Bilirubin 1.4 H (0.2-1.3) mg/dL AST 289 H (14-36) U/L ALT 96 H (9-52) U/L Alkaline Phosphatase 157 H (38-126) U/L Total Protein 6.0 L (6.3-8.2) g/dL Albumin 2.9 L (3.5-5.0) g/dL Assessment and Plan Plan: -Acute alcoholic hepatitis: Expected to improve with the cessation of alcohol, liver enzymes are improving we'll repeat them again tomorrow -Newly diagnosed diabetes mellitus: Management as mentioned above history -Alcohol withdrawal, withdrawal symptoms significantly improved and can be discharged -Hyponatremia hypovolemic hyponatremia improved with IV fluids -Hypertension and tachycardia, tachycardia is probably secondary to intravascular depletion and hypertension, tachycardia secondary to possible withdrawals, improved now patient will be switched to metoprolol because of her heart rate. -Hypomagnesemia and hypokalemia: These will be supplemented -Dental abscess will use Augmentin for this, maxilla facial surgery was consulted as mentioned above -History of essential hypertension doesn't take any medications at home -Depression antidepressants are not effective she continues to drink alcohol same thing was counseled to the patient -Alcohol abuse and nicotine abuse: Counseling was provided -DVT prophylaxis subcutaneous heparin, GI prophylaxis with Protonix
--- NOTE | 2019-02-22 13:47 | P.DS ---
Providers Date of admission: 02/20/19 06:33 Attending physician: Hanny Bueno Consults: 02/22/19 10:59 Consult Physician Routine Consulting Provider: Srikanth Wheatley Consult Reason/Comments: TOOTH REMOVED Do you want consulting provider notified?: Yes Primary care physician: Kathryn Vieira [facility] Course: Patient left AGAINST MEDICAL ADVICE although patient was given prescriptions for as necessary medications although patient declined to take any of her prescriptions, family came and picked up her prescriptions. Patient is not willing to follow up with dental surgery as an outpatient today for further details please refer to my dictation of ultrasound from today Health Concerns: Pt states has an Appointment with her dentist on feb 23, 2019 she wants to go to. Patient Condition at Discharge: Serious Plan - Discharge Summary Discharge Rx Participant: No New Discharge Prescriptions: New Amoxic-Pot Clav 875-125Mg [Augmentin 875-125] 1 each PO Q12HR #14 tab metFORMIN HCL [Glucophage] 1,000 mg PO BID-W/MEALS #30 tab sitaGLIPtin PHOSPHATE [Januvia] 50 mg PO DAILY #30 tab Metoprolol Tartrate [Lopressor] 25 mg PO BID #60 tablet Thiamine [Vitamin B-1] 100 mg PO BID-W/MEALS #30 tab Continue Gabapentin [Neurontin] 300 mg PO QID Omeprazole [PriLOSEC] 20 mg PO AC-BID FLUoxetine HCL [PROzac] 20 mg PO DAILY Changed clonazePAM 0.5 mg PO BID PRN #1 PRN Reason: Alcohol Withdrawal Discharge Medication List Gabapentin [Neurontin] 300 mg PO QID 03/09/16 [History] Omeprazole [PriLOSEC] 20 mg PO AC-BID 06/27/17 [History] FLUoxetine HCL [PROzac] 20 mg PO DAILY 02/20/19 [History] Amoxic-Pot Clav 875-125Mg [Augmentin 875-125] 1 each PO Q12HR #14 tab 02/22/19 [Rx] Metoprolol Tartrate [Lopressor] 25 mg PO BID #60 tablet 02/22/19 [Rx] Thiamine [Vitamin B-1] 100 mg PO BID-W/MEALS #30 tab 02/22/19 [Rx] clonazePAM 0.5 mg PO BID PRN #1 02/22/19 [Rx] metFORMIN HCL [Glucophage] 1,000 mg PO BID-W/MEALS #30 tab 02/22/19 [Rx] sitaGLIPtin PHOSPHATE [Januvia] 50 mg PO DAILY #30 tab 02/22/19 [Rx] Follow up Appointment(s)/Referral(s): Kathryn Vieira MD [Primary Care Provider] - 02/28/19 9:00 am Patient Instructions/Handouts: Metoprolol (By mouth), Thiamine (By mouth), Amoxicillin/Clavulanate Potassium (By mouth), Metformin (By mouth), Sitagliptin (By mouth), Abuse of Alcohol (DC) Activity/Diet/Wound Care/Special Instructions: Activity limited until seen by Dr. Jacobson as tolerated Discharge Disposition: HOME SELF-CARE
== END 2019-02-22 12:50 | disposition left against medical advice (07) | DRG 433 ==
LOC: EC 04:34 → 2SICU 06:33 → 3NMEDONC 02-22 08:55
PROVIDERS: ADMIT Hospitalist; ATTEND Hospitalist
DX: K70.31 Alcoholic cirrhosis of liver with ascites (principal); F10.239 Alcohol dependence with withdrawal, unspecified; E87.1 Hypo-osmolality and hyponatremia; K70.11 Alcoholic hepatitis with ascites; E11.40 Type 2 diabetes mellitus with diabetic neuropathy, unspecified; E11.65 Type 2 diabetes mellitus with hyperglycemia; E83.42 Hypomagnesemia; E86.0 Dehydration; E86.1 Hypovolemia; E87.6 Hypokalemia; Z71.6 Tobacco abuse counseling; F17.210 Nicotine dependence, cigarettes, uncomplicated; Z71.41 Alcohol abuse counseling and surveillance of alcoholic; F32.9 Major depressive disorder, single episode, unspecified; F41.0 Panic disorder [episodic paroxysmal anxiety]; G40.909 Epilepsy, unspecified, not intractable, without status epilepticus; I10 Essential (primary) hypertension; K04.7 Periapical abscess without sinus; Z79.899 Other long term (current) drug therapy; Z87.440 Personal history of urinary (tract) infections; Z88.5 Allergy status to narcotic agent
CPT/HCPCS: 36415; 70110; 71046; 80053; 80306; 81001; 83036; 83735; 84132; 84443; 85025; 93005; 96361; 96365; 96366; 96372; 96375; 96376; 99285

== ENCOUNTER 2019-02-25 06:18 | Emergency (ER) | payer OTHER ==
[2019-02-25 06:26] VITALS: TEMP 98
[2019-02-25] MEDS ORDERED: LORazepam 2 MG/ML INJ IV STA ×2 (06:38→08:23)
--- NOTE | 2019-02-25 06:45 | ED ---
SOB HPI - General Chief Complaint: Shortness of Breath Stated Complaint: SOB Time Seen by Provider: 02/25/19 06:29 Source: patient, family Mode of arrival: ambulatory Limitations: no limitations - History of Present Illness Initial Comments: 43-year-old female presenting today for chief complaint of shortness of breath bilateral flank pain. Patient states that she has been treated breath the past few days she states that she also has noted bilateral flank pain. She denies a chest pain nausea diaphoresis jaw pain upper extremity pain. Patient denies a dysuria urgency frequency hematuria or history of kidney stones. Patient states she has some discoloration and bruising where she has been scratching at the lower aspect of her abdomen. Patient denies abdominal pain or fevers. patient states she is an alcoholic and was recently discharged after being admitted for hypokalemia hypomagnesemia and withdrawals. Patient states her last drink was t his morning she states she had a couple shots of vodka. Patient is coming by father brought her to the emergency for further evaluation of bilateral flank pain. - Related Data Home Medications Medication Instructions Recorded Confirmed Gabapentin [Neurontin] 300 mg PO QID 03/09/16 02/20/19 Omeprazole [PriLOSEC] 20 mg PO AC-BID 06/27/17 02/20/19 FLUoxetine HCL [PROzac] 20 mg PO DAILY 02/20/19 02/20/19 Previous Rx's Medication Instructions Recorded Amoxic-Pot Clav 875-125Mg 1 each PO Q12HR #14 tab 02/22/19 [Augmentin 875-125] Metoprolol Tartrate [Lopressor] 25 mg PO BID #60 tablet 02/22/19 Thiamine [Vitamin B-1] 100 mg PO BID-W/MEALS #30 tab 02/22/19 clonazePAM 0.5 mg PO BID PRN #1 02/22/19 metFORMIN HCL [Glucophage] 1,000 mg PO BID-W/MEALS #30 tab 02/22/19 sitaGLIPtin PHOSPHATE [Januvia] 50 mg PO DAILY #30 tab 02/22/19 Magnesium Oxide [Mag-Ox] 400 mg PO DAILY 5 Days #5 tablet 02/25/19 Potassium Chloride ER [K-Dur 20] 20 meq PO BID 7 Days #14 tab 02/25/19 Allergies Allergy/AdvReac Type Severity Reaction Status Date / Time codeine Allergy Mild Rash/Hives Verified 02/25/19 06:26 morphine Allergy Itching Verified 02/25/19 06:26 Review of Systems ROS Statement: Those systems with pertinent positive or pertinent negative responses have been documented in the HPI. ROS Other: All systems not noted in ROS Statement are negative. Past Medical History Past Medical History: Diabetes Mellitus, GERD/Reflux, GI Bleed, Liver Disease, Seizure Disorder Additional Past Medical History / Comment(s): NIDDM type II, neuropathy kong ateral hands/fingers/feet and toes, alcoholism, liver cirrhosis, ascities and has had one paracentesis done, anemia, thrombocytopenia, hyperbilirubinemia, hiatal hernia, gastric ulcer with surgical repair, duodenitis, gastritis, upper GI bleed, abdominal hernia, UTIs, chronic bilateral leg pain which pt thinks might be diabetic neuropathy. History of Any Multi-Drug Resistant Organisms: None Reported Past Surgical History: Section Additional Past Surgical History / Comment(s): 01/2017 exploratory laparotomy with repair of perforated ulcer with liver biopsy, EGD. Past Anesthesia/Blood Transfusion Reactions: No Reported Reaction Past Psychological History: Anxiety, Depression, Panic Disorder Smoking Status: Current some day smoker Past Alcohol Use History: Occasional Past Drug Use History: None Reported - Past Family History Father Family Medical History: No Reported History Additional Family Medical History / Comment(s): Father is healthy and is 70yrs old. Mother Family Medical History: No Reported History Additional Family Medical History / Comment(s): Mother is healthy and is 70yrs old. General Exam - General Exam Comments Initial Comments: General: The patient is awake and alert, in no distress, and does not appear acutely ill. Eye: +3 mm pupils are equal, round and reactive to light, extra-ocular movements are intact. No nystagmus. There is normal conjunctiva bilaterally. No signs of icterus. No photophobia Ears, nose, mouth and throat: There are moist mucous membranes and no oral lesions. Oropharynx was not erythematous there is no tonsillar enlargement exudates or lesions. Uvula midline. No tenderness to palpation of the mastoid. No anterior cervical lymphadenopathy. Neck: The neck is supple, there is no tenderness or JVD. No nuchal rigidity Cardiovascular: There is a regular rate and rhythm. No murmur, rub or gallop is appreciated. Respiratory: Lungs are clear to auscultation, respirations are non-labored, br eath sounds are equal. No wheezes, stridor, rales, or rhonchi. No retractions or abdominal breathing. Gastrointestinal: Soft, non-distended, non-tender abdomen without masses or organomegaly noted. There is no rebound or guarding present. Bowel sounds are unremarkable. Musculoskeletal: Normal ROM, no tenderness. Strength 5/5. Sensation intact. Radial pulses equal bilaterally 2+. Neurological: A&O x 3. CN II-XII intact grossly, There are no obvious motor or sensory deficits. Coordination appears grossly intact. Speech appears normal, no muffling. Skin: Skin is warm and dry and no rashes or lesions are noted. No extremity edema Psychiatric: Cooperative Limitations: no limitations Course Vital Signs 02/25/19 02/25/19 06:22 08:00 Temperature 98 F Pulse Rate 88 90 Respiratory 26 H 16 Rate Blood Pressure 161/100 120/81 O2 Sat by Pulse 100 98 Oximetry Medical Decision Making - Medical Decision Making 43-year-old female presenting today for chief complaint of b/l flank pain, SOB. Patient labs reveal chronic findings, patient has persistent hypokalemia and hypomagnesemia. Magnesium are placed as well as potassium. Patient is to keep prolongation otherwise no findings consistent with hypokalemia. Patient imaging studies negative for acute process attribute for patient's symptoms. Patient appears well, troponin (-). After discussing the case with Dr. Gamez we feel at this time supplementation and rehabilitation for cause of electrolyte derangements-ETOH abuse. Patient was instructed to see PCP for repeat CMP within next 2-3 days and if symptoms return as patient was asymptomatic upon discharge to return to the ED. Patient is agreeable [facility] care plan, mother at bedside is agreeable and states she can help facilitate the discharge plan. Pt discharged apearing well. - Lab Data Result diagrams: 02/25/19 06:38 02/25/19 06:38 Lab Results 02/25/19 02/25/19 02/25/19 Range/Units 06:38 06:38 06:38 WBC 4.1 (3.8-10.6) k/uL RBC 3.83 (3.80-5.40) m/uL Hgb 12.2 (11.4-16.0) gm/dL Hct 37.6 (34.0-46.0) % MCV 98.0 (80.0-100.0) fL MCH 31.9 (25.0-35.0) pg MCHC 32.6 (31.0-37.0) g/dL RDW 18.3 H (11.5-15.5) % Plt Count 156 (150-450) k/uL Neutrophils % 62 % Lymphocytes % 22 % Monocytes % 11 % Eosinophils % 1 % Basophils % 1 % Neutrophils # 2.5 (1.3-7.7) k/uL Lymphocytes # 0.9 L (1.0-4.8) k/uL Monocytes # 0.4 (0-1.0) k/uL Eosinophils # 0.1 (0-0.7) k/uL Basophils # 0.0 (0-0.2) k/uL Anisocytosis Slight Macrocytosis Slight Sodium 139 (137-145) mmol/L Potassium 3.0 L (3.5-5.1) mmol/L Chloride 97 L (98-107) mmol/L Carbon Dioxide 26 (22-30) mmol/L Anion Gap 16 mmol/L BUN 3 L (7-17) mg/dL Creatinine 0.47 L (0.52-1.04) mg/dL Est GFR (CKD-EPI)AfAm >90 (>60 ml/min/1.73 sqM) Est GFR (CKD-EPI)NonAf >90 (>60 ml/min/1.73 sqM) Glucose 122 H (74-99) mg/dL Calcium 9.3 (8.4-10.2) mg/dL Magnesium (1.6-2.3) mg/dL Total Bilirubin 2.0 H (0.2-1.3) mg/dL AST 118 H (14-36) U/L ALT 66 H (9-52) U/L Alkaline Phosphatase 166 H (38-126) U/L Troponin I <0.012 (0.000-0.034) ng/mL Total Protein 8.2 (6.3-8.2) g/dL Albumin 4.2 (3.5-5.0) g/dL Amylase 65 (30-110) U/L Lipase 115 (23-300) U/L Urine Color Urine Appearance (Clear) Urine pH (5.0-8.0) Ur Specific [place] (1.001-1.035) Urine Protein (Negative) Urine Glucose (UA) (Negative) Urine Ketones (Negative) Urine Blood (Negative) Urine Nitrite (Negative) Urine Bilirubin (Negative) Urine Urobilinogen (<2.0) mg/dL Ur Leukocyte Esterase (Negative) Blood Type Blood Type Recheck Bld Type Recheck Status Antibody Screen Spec Expiration Date 02/25/19 02/25/19 02/25/19 Range/Units 06:38 06:38 07:37 WBC (3.8-10.6) k/uL RBC (3.80-5.40) m/uL Hgb (11.4-16.0) gm/dL Hct (34.0-46.0) % MCV (80.0-100.0) fL MCH (25.0-35.0) pg MCHC (31.0-37.0) g/dL RDW (11.5-15.5) % Plt Count (150-450) k/uL Neutrophils % % Lymphocytes % % Monocytes % % Eosinophils % % Basophils % % Neutrophils # (1.3-7.7) k/uL Lymphocytes # (1.0-4.8) k/uL Monocytes # (0-1.0) k/uL Eosinophils # (0-0.7) k/uL Basophils # (0-0.2) k/uL Anisocytosis Macrocytosis Sodium (137-145) mmol/L Potassium (3.5-5.1) mmol/L Chloride (98-107) mmol/L Carbon Dioxide (22-30) mmol/L Anion Gap mmol/L BUN (7-17) mg/dL Creatinine (0.52-1.04) mg/dL Est GFR (CKD-EPI)AfAm (>60 ml/min/1.73 sqM) Est GFR (CKD-EPI)NonAf (>60 ml/min/1.73 sqM) Glucose (74-99) mg/dL Calcium (8.4-10.2) mg/dL Magnesium 1.0 L (1.6-2.3) mg/dL Total Bilirubin (0.2-1.3) mg/dL AST (14-36) U/L ALT (9-52) U/L Alkaline Phosphatase (38-126) U/L Troponin I (0.000-0.034) ng/mL Total Protein (6.3-8.2) g/dL Albumin (3.5-5.0) g/dL Amylase (30-110) U/L Lipase (23-300) U/L Urine Color Yellow Urine Appearance Clear (Clear) Urine pH 7.5 (5.0-8.0) Ur Specific [place] >1.050 H (1.001-1.035) Urine Protein Trace H (Negative) Urine Glucose (UA) Negative (Negative) Urine Ketones Negative (Negative) Urine Blood Negative (Negative) Urine Nitrite Negative (Negative) Urine Bilirubin Negative (Negative) Urine Urobilinogen <2.0 (<2.0) mg/dL Ur Leukocyte Esterase Negative (Negative) Blood Type O Positive Blood Type Recheck No Previous Record Bld Type Recheck Status CABO Indicated Antibody Screen NEGATIVE Spec Expiration Date 02/25/2019 - 1033 Disposition Clinical Impression: SOB (shortness of breath), Hypomagnesemia, Hypokalemia, Chronic alcohol abuse, Flank pain Disposition: HOME SELF-CARE Condition: Good Instructions (If sedation given, give patient instructions): Abuse of Alcohol (ED) Additional Instructions: Please use medication as discussed. Please follow-up with family doctor in the next 2 days, for repeat lab draw of potassium and magnesium. Please return to emergency room if the symptoms increase or worsen or for any other concerns. Prescriptions: Potassium Chloride ER [K-Dur 20] 20 meq PO BID 7 Days #14 tab Magnesium Oxide [Mag-Ox] 400 mg PO DAILY 5 Days #5 tablet Is patient prescribed a controlled substance at d/c from ED?: No Referrals: Kathryn Vieira MD [Primary Care Provider] - 1-2 days Time of Disposition: 12:18
[2019-02-25 06:47] LABS: Anisocytosis Slight; Basophils % (A) 1 %; Eosinophils # (A) 0.1 k/uL (0-0.7); Eosinophils % (A) 1 %; HCT 37.6 % (34.0-46.0); HGB 12.2 gm/dL (11.4-16.0); Lymphocytes # (A) 0.9 k/uL (1.0-4.8); Lymphocytes % (A) 22 %; MCH 31.9 pg (25.0-35.0); MCHC 32.6 g/dL (31.0-37.0); Macrocytosis Slight; Mean Platelet Volume 7.2; Monocytes # (A) 0.4 k/uL (0-1.0); Monocytes % (A) 11 %; Neutrophils # (A) 2.5 k/uL (1.3-7.7); Neutrophils % (A) 62 %; Platelet Count 156 k/uL (150-450); RBC 3.83 m/uL (3.80-5.40); RDW 18.3 % (11.5-15.5); WBC 4.1 k/uL (3.8-10.6)
[2019-02-25 07:00] LABS: ALT 66 U/L (9-52); AST 118 U/L (14-36); African American GFR (CKD) >90 (>60 ml/min/1.73 sqM); Albumin 4.2 g/dL (3.5-5.0); Alkaline Phosphatase 166 U/L (38-126); Amylase 65 U/L (30-110); Anion Gap 16 mmol/L; Blood Urea Nitrogen 3 mg/dL (7-17); Calcium 9.3 mg/dL (8.4-10.2); Carbon Dioxide 26 mmol/L (22-30); Chloride 97 mmol/L (98-107); Glucose 122 mg/dL (74-99); Non-African American GFR(CKD) >90 (>60 ml/min/1.73 sqM); Sodium 139 mmol/L (137-145); Total Protein 8.2 g/dL (6.3-8.2)
[2019-02-25] MEDS ORDERED: POTASSIUM CHLORIDE ER 10 MEQ TAB.ER.PRT PO STA (07:14)
--- NOTE | 2019-02-25 07:20 | XR ---
EXAMINATION TYPE: XR chest 2V DATE OF EXAM: 02/25/2019 HISTORY: SOB. REFERENCE: Previous study dated 02/20/2019. FINDINGS: The lungs remain clear. Pleural space are clear. The heart is not enlarged. IMPRESSION: NO ACTIVE INTRATHORACIC DISEASE.
[2019-02-25] MEDS ORDERED: THIAMINE 100 MG/ML 2 ML VIAL IM STA (07:51)
[2019-02-25] MEDS ORDERED: LORazepam 2 MG/ML INJ IV PRN ×3 (07:51)
--- NOTE | 2019-02-25 07:59 | CT ---
EXAMINATION TYPE: CT angio thor/abd pel aorta DATE OF EXAM: 02/25/2019 COMPARISON: Previous CT scan of the abdomen and pelvis dated 06/27/2017. HISTORY: Flank pain and bruising of abdomen CT DLP: 1881.7 mGycm. Automated Exposure Control for Dose Reduction was Utilized. CONTRAST: CT scan of the thorax, abdomen and pelvis is performed without and with IV Contrast, patient injected with 100 mL of Isovue 370. FINDINGS: There are patchy peripheral infiltrates present in both lungs. There is no significant axillary, internal mammary, mediastinal or hilar adenopathy. There is no pleu ral or pericardial fluid. The heart is not enlarged. The aorta is normal in caliber without evidence of dissection. There is a small sliding hiatal hernia. The liver is enlarged measuring 26 cm. It is low in attenuation and likely fatty infiltrated. The spl een is upper limits of normal in size measuring 13.4 cm. There is some enhancement of the gallbladder wall. There is a small amount of pericholecystic fluid. There is a simple appearing 2.1 cm cyst involving the mid polar region of the left kidney. The kidney s are otherwise unremarkable. The pancreas appears normal. There is no significant retroperitoneal, iliac or inguinal adenopathy. The bladder is unremarkable. The uterus is slightly bulky. Left ovary is unremarkable. The right ovary is not clearly visualized. There are scattered diverticula within the sigmoid region without radiographic evidence of diverticul itis. There is an anterior abdominal wall hernia containing unobstructed colon with a mouth measuring 6.8 c m. There is a second anterior abdominal wall hernia more superiorly which contains loops of small bow el. The lumen measures 5.7 cm. Immediately adjacent to this and superiorly is a third anterior abdomi nal wall hernia containing indurated fat with a mouth measuring 4.4 cm. The appendix appears normal. Small bowel loops are normal in caliber. There is no definite free fluid or free air. There is degenerative disc disease and minor hypertrophic spondylosis within the spine. IMPRESSION: 1. NO EVIDENCE OF AORTIC ANEURYSM OR AORTIC DISSECTION. 2. PATCHY BILATERAL PULMONARY AIRSPACE DISEASE, LIKELY REPRESENTING PNEUMONIA. 3. HEPATOSPLENOMEGALY AND FATTY INFILTRATION OF THE LIVER. 4. SIMPLE APPEARING LEFT RENAL CYST. 5. MINIMAL, UNCOMPLICATED DIVERTICULAR DISEASE INVOLVING THE SIGMOID COLON. 6. 2. ANTERIOR ABDOMINAL WALL HERNIAS CONTAINING BOTH LARGE AND SMALL BOWEL WITHOUT EVIDENCE OF INCAR CERATION. 7. 1 SUPERIOR ABDOMINAL WALL HERNIA CONTAINING FAT WHICH IS SLIGHTLY INDURATED. 8. ENHANCEMENT OR GALLBLADDER WALL WITH SOME PERICHOLECYSTIC FLUID. 9. DEGENERATIVE DISC DISEASE WITHIN THE SPINE.
[2019-02-25 08:01] LABS: Appearance,Urine Clear (Clear); Bilirubin,Urine Negative (Negative); Blood,Urine Negative (Negative); Color,Urine Yellow; Glucose,Urine (UA) Negative (Negative); Ketones,Urine Negative (Negative); Leukocyte Esterase,Urine Negative (Negative); Nitrite,Urine Negative (Negative); PH, Urine 7.5 (5.0-8.0); Protein,Urine Trace (Negative); Urobilinogen,Urine <2.0 mg/dL (<2.0)
[2019-02-25 08:06] LABS: Specific Gravity,Urine >1.050 (1.001-1.035)
[2019-02-25 08:11] VITALS: BP 120/81; PULSE 90; RESP 16
[2019-02-25] MEDS ORDERED: MAGNESIUM SULFATE-D5W PMX 1 GM in DEXTROSE/WATER 1 100ML.BAG IVPB ONE (08:59)
[2019-02-25] MEDS ORDERED: MAGNESIUM SULFATE-D5W PMX 1 GM in DEXTROSE/WATER 1 100ML.BAG IVPB SCH (09:15)
[2019-02-25] MEDS: MAGNESIUM SULFATE-D5W PMX 1 GM in DEXTROSE/WATER 1 100ML.BAG IVPB SCH ×2 (09:47→10:40)
[2019-02-25] MEDS ORDERED: POTASSIUM CHLORIDE ER 20 MEQ TAB.ER PO STA (12:17)
[2019-02-25] MEDS ORDERED: THIAMINE 100 MG TAB PO SCH (17:30)
== END 2019-02-25 12:46 | disposition home or self-care (01) ==
LOC: EC 06:18
DX: F10.10 Alcohol abuse, uncomplicated (principal); E83.42 Hypomagnesemia; E87.6 Hypokalemia; R10.9 Unspecified abdominal pain; R06.02 Shortness of breath; E11.40 Type 2 diabetes mellitus with diabetic neuropathy, unspecified; F41.0 Panic disorder [episodic paroxysmal anxiety]; F32.9 Major depressive disorder, single episode, unspecified; F17.200 Nicotine dependence, unspecified, uncomplicated; Z79.899 Other long term (current) drug therapy; Z88.5 Allergy status to narcotic agent
CPT/HCPCS: 36415; 93005; 86900; 86901; 80053; 82150; 83690; 83735; 84484; 85025; 86850; 81003; 71046; 71275; 74174; 99285; 96365; 96366; 96375; 96376; J2060; J3475; Q9967